=== PATIENT | female | born 1960 | race Two or more races ===

== ENCOUNTER 2020-05-14 15:06 | Outpatient (REF) | payer MEDICARE, MEDICAID, SELFPAY ==
[2020-05-14 16:48] LABS: MANUAL DIFF FLAG NO
[2020-05-14 16:53] LABS: Basophils Absolute Auto 0.1 X10*3/uL (0.0-0.2); Basophils Percent Auto 0.6 % (0-2); Eosinophils Absolute Auto 0.2 X10*3/uL (0.0-0.4); Eosinophils Percent Auto 2.1 % (0-4); Hematocrit 40.6 % (37-47); Hemoglobin 13.3 g/dl (12.0-16.0); Imm Gran Abs Auto 0.04 X10*3/uL (0.00-0.03); Imm Gran Pct Auto 0.5 % (0.0-0.4); Lymphocytes Absolute Auto 2.3 X10*3/uL (1.2-4.9); Lymphocytes Percent Auto 27.8 % (20-40); Mean Corpuscular HGB Conc 32.8 g/dl (31.0-35.0); Mean Corpuscular Hemoglobin 27.4 pg (27.0-33.0); Mean Corpuscular Volume 83.5 fL (80-98); Mean Platelet Volume 11.6 fL (9.4-12.3); Monocytes Absolute Auto 0.6 X10*3/uL (0.1-1.2); Monocytes Percent Auto 6.7 % (2-11); Neutrophils Absolute Auto 5.1 X10*3/uL (2.0-8.3); Neutrophils Percent Auto 62.3 % (45-73); Platelet Count 192 X10*3/uL (160-400); Red Blood Count 4.86 X10*6/uL (4.20-5.50); Red Cell Distribution Width 12.8 % (11.0-16.0); White Blood Count 8.2 X10*3/uL (4.8-10.8)
[2020-05-14 17:24] LABS: Alanine Aminotransferase 25 U/L (0-31); Albumin Level 4.6 g/dL (3.5-5.0); Alkaline Phosphatase 109 U/L (39-117); Anion Gap 12 (12-20); Aspartate Amino Transferase 20 U/L (5-31); Bilirubin Total 0.4 mg/dL (0.0-1.0); Blood Urea Nitrogen 8 mg/dL (9-16); C Reactive Protein 1.95 mg/dL (< or = 0.50); Calcium 9.3 mg/dL (8.4-10.2); Carbon Dioxide 28 mmol/L (22-29); Chloride 102 mmol/L (96-108); Estimated Glomerular Filt Rate > 60; Glucose Random 153 mg/dL (60-115); Potassium 4.4 mmol/l (3.3-5.1); Sodium 138 mmol/L (135-145); Total Protein 7.3 g/dL (6.5-8.0)
[2020-05-14 17:57] LABS: Erythrocyte Sedimentation Rate 17 MM/HR (0-20)
== END 2020-05-14 15:07 | disposition home or self-care (01) ==
LOC: HO.LAB 15:06
PROVIDERS: PCP Family Medicine; Referring Provider Family Medicine; Visit Provider Student in an Organized Health Care Education/Training Program
DX: M35.3 Polymyalgia rheumatica (principal); M54.5 Low back pain; Z79.52 Long term (current) use of systemic steroids
CPT/HCPCS: 36415; 80053; 85025; 85652; 86140; 99212

== ENCOUNTER → 2020-05-20 08:27 | Outpatient (BNVA) | payer MEDICARE, MEDICAID, SELFPAY | PROVIDERS: PCP Family Medicine; Visit Provider Nurse Practitioner Gerontology | DX: E11.9 Type 2 diabetes mellitus without complications (principal); Z79.84 Long term (current) use of oral hypoglycemic drugs; I10 Essential (primary) hypertension; E78.5 Hyperlipidemia, unspecified | CPT/HCPCS: Q3014 ==

== ENCOUNTER 2020-06-09 10:08 | Outpatient (REF) | payer MEDICARE, MEDICAID, SELFPAY ==
[2020-06-09 11:37] LABS: Estimated Average Glucose 166 mg/dL; Hemoglobin A1c % 7.4 %
[2020-06-09 12:11] LABS: Alanine Aminotransferase 16 U/L (0-31); Albumin Level 4.2 g/dL (3.5-5.0); Alkaline Phosphatase 96 U/L (39-117); Anion Gap 13 (12-20); Aspartate Amino Transferase 13 U/L (5-31); Bilirubin Total 0.5 mg/dL (0.0-1.0); Blood Urea Nitrogen 7 mg/dL (9-16); Carbon Dioxide 28 mmol/L (22-29); Chloride 104 mmol/L (96-108); Cholesterol 174 mg/dL; Estimated Glomerular Filt Rate > 60; Glucose Fasting 185 mg/dL (60-99); HDL Cholesterol 37 mg/dL; LDL Cholesterol Calculated 92 mg/dl; Potassium 4.3 mmol/l (3.3-5.1); Sodium 141 mmol/L (135-145); Triglycerides 226 mg/dL
[2020-06-09 12:18] LABS: Creatinine Urine 54.69 mg/dL; Microalbumin Urine < 5.0 mg/L
[2020-06-09 12:38] LABS: Erythrocyte Sedimentation Rate 19 MM/HR (0-20)
== END 2020-06-09 10:09 | disposition home or self-care (01) ==
LOC: HO.LAB 10:08
PROVIDERS: Nurse Practitioner Gerontology; Visit Provider Student in an Organized Health Care Education/Training Program
DX: M35.3 Polymyalgia rheumatica (principal); E11.9 Type 2 diabetes mellitus without complications
CPT/HCPCS: 36415; 80053; 80061; 82043; 83036; 85652; 86140

== ENCOUNTER → 2020-09-02 10:01 | Outpatient (BNVA) | payer MEDICAID, SELFPAY | PROVIDERS: Visit Provider Nurse Practitioner Gerontology ==

== ENCOUNTER 2020-09-03 12:39 | Outpatient (REF) | payer MEDICARE, MEDICAID, SELFPAY ==
--- NOTE | ~2020-09-03 | MM_ITS ---
EXAMINATION: MM SCREENING DIGITAL BREAST TOMOSYNTHESIS, BILATERAL CLINICAL INFORMATION: Screening. Asymptomatic. The lifetime risk of breast cancer based on the Tyrer-Cuzick Model is 13.4%. COMPARISON: Mammography: October 29, 2019 and studies dating back to November 20, 2010 TECHNIQUE: Digital breast tomosynthesis is performed in both the craniocaudal and mediolateral oblique views along with computer-aided detection (CAD). Synthesized 2D images are generated from the tomosynthesis. FINDINGS: The breasts are heterogeneously dense, which may obscure small masses (ACR BI-RADS breast composition Category c). There are no new significant masses, abnormal calcifications, or other abnormalities. Stable circumscribed density superior aspect of the right breast seen. MM/MM tomosynthesis screening BI IMPRESSION: There are no significant changes from prior study. ASSESSMENT: BI-RADS 1: Negative RECOMMENDATION: Routine annual mammography screening. This patient's information was entered into a reminder system with a target due date for their next mammogram.
== END 2020-09-03 12:40 | disposition home or self-care (01) ==
LOC: HO.MAMMO 12:39
PROVIDERS: Visit Provider Student in an Organized Health Care Education/Training Program
DX: Z12.31 Encounter for screening mammogram for malignant neoplasm of breast (principal)
CPT/HCPCS: 77063; 77067

== ENCOUNTER → 2020-09-09 12:16 | Outpatient (BNVA) | payer MEDICARE, MEDICAID, SELFPAY | PROVIDERS: PCP Family Medicine; Visit Provider Student in an Organized Health Care Education/Training Program | DX: M35.3 Polymyalgia rheumatica (principal); M54.5 Low back pain; Z79.899 Other long term (current) drug therapy | CPT/HCPCS: 99212 ==

== ENCOUNTER → 2020-09-10 10:59 | Outpatient (BNVA) | payer MEDICARE, MEDICAID, SELFPAY | PROVIDERS: PCP Internal Medicine; Visit Provider Surgery | DX: Z86.010 Personal history of colon polyps (principal) | CPT/HCPCS: 99202 ==

== ENCOUNTER → 2020-09-18 14:55 | Outpatient (BNVA) | payer MEDICARE, MEDICAID, SELFPAY | PROVIDERS: Visit Provider Internal Medicine Pulmonary Disease | DX: J44.9 Chronic obstructive pulmonary disease, unspecified (principal); R91.8 Other nonspecific abnormal finding of lung field | CPT/HCPCS: 99212 ==

== ENCOUNTER 2020-09-26 05:57 | Day surgery (SDC) | payer MEDICARE, MEDICAID, SELFPAY ==
--- NOTE | 2020-09-25 09:47 | HO.ANESPROP2 ---
Documented by User: Davida Mortonney 09/25/20 09:49 HPI - Anesthesia Eval Consult details Narrative: 60yo F for Colonoscopy Prednisone daily (PMR) PRN opioids PMFSH Active Problems Active Problems: All Active Problems (Updated 09/18/20 @ 15:12 by Rc Baker MD) Pulmonary nodules (Acute) COPD (chronic obstructive pulmonary disease) (Acute) History of adenomatous polyp of colon (Acute) Diabetes mellitus type 2, controlled, without complications (Acute) Essential hypertension (Acute) Hyperlipidemia LDL goal <100 (Acute) Low back pain (Acute) halfway systemic steroid user (Acute) Polymyalgia rheumatica (Acute) Past Medical History Medical History Adenocarcinoma of colon Arthritis Asthma Constipation COPD (chronic obstructive pulmonary disease) Diabetes mellitus type 2, controlled, without complications Essential hypertension History of adenomatous polyp of colon Hyperlipidemia LDL goal <100 Low back pain Polymyalgia rheumatica Positive CLEMENT (antinuclear antibody) Tubular adenoma of colon Vitamin D deficiency Family History Family History Father Diabetes CVD (cardiovascular disease) Mother Breast cancer Skin cancer Cancer Surgical History Surgical History History of rigid sigmoidoscopy Hx of biopsy Hx of cardiac catheterization Hx of cholecystectomy Hx of colonoscopy Hx of removal of cyst Social History Social History Alcohol intake: never Smoking Status: Never smoker Use of substances other than those prescribed or required for medical reasons: No Advance Directives: No Advance Directives Information Provided: Yes Meds Allergies Allergy/AdvReac Type Severity Reaction Status Date / Time No Known Allergies Allergy Verified 09/26/20 06:24 [No Known Allergies*] Home Medications Medication Instructions Recorded Confirmed Last Taken Type ascorbate calcium (vitamin C) 500 500 mg PO DAILY 05/14/20 09/10/20 Unknown History mg tablet atorvastatin 20 mg tablet 20 mg PO DAILY 05/14/20 09/10/20 Unknown History cholecalciferol (vitamin D3) 125 mcg PO 05/14/20 09/10/20 Unknown History mcg (5,000 unit) disintegrating tablet clonidine HCl 0.1 mg tablet 0.1 mg PO BEDTIME 05/14/20 09/10/20 Unknown History docusate sodium 100 mg capsule 100 mg PO DAILY 05/14/20 09/10/20 Unknown History hydroxyzine HCl 25 mg tablet 25 mg PO BEDTIME 05/14/20 09/10/20 Unknown History mirtazapine 30 mg tablet 30 mg PO BEDTIME 05/14/20 09/10/20 Unknown History sitagliptin 100 mg tablet 100 mg PO DAILY 05/14/20 09/10/20 Unknown History Exam Exam Date and Time: September 25, 2020 0947 Pertinent Lab Results Pertinent Lab Results: Laboratory Tests 05/14/20 06/09/20 16:13 10:25 WBC 8.2 Hgb 13.3 Hct 40.6 Plt Count 192 Sodium 141 Potassium 4.3 Chloride 104 Carbon Dioxide 28 BUN 7 L Creatinine 0.68 Assessment and Plan Assessment Anesthesia Assessment: Chart Reviewed Documented by User: Latrice Velasco 09/26/20 07:47 PMFSH Past Medical History Medical History Adenocarcinoma of colon Arthritis Asthma Constipation COPD (chronic obstructive pulmonary disease) Diabetes mellitus type 2, controlled, without complications Essential hypertension History of adenomatous polyp of colon Hyperlipidemia LDL goal <100 Low back pain Polymyalgia rheumatica Positive CLEMENT (antinuclear antibody) Tubular adenoma of colon Vitamin D deficiency Family History Family History Father Diabetes CVD (cardiovascular disease) Mother Breast cancer Skin cancer Cancer Surgical History Surgical History History of rigid sigmoidoscopy Hx of biopsy Hx of cardiac catheterization Hx of cholecystectomy Hx of colonoscopy Hx of removal of cyst Social History Social History Alcohol intake: never Smoking Status: Never smoker Use of substances other than those prescribed or required for medical reasons: No Advance Directives: No Advance Directives Information Provided: Yes Meds Allergies Allergy/AdvReac Type Severity Reaction Status Date / Time No Known Allergies Allergy Verified 09/26/20 06:24 [No Known Allergies*] Home Medications Medication Instructions Recorded Confirmed Last Taken Type ascorbate calcium (vitamin C) 500 500 mg PO DAILY 05/14/20 09/10/20 Unknown History mg tablet atorvastatin 20 mg tablet 20 mg PO DAILY 05/14/20 09/10/20 Unknown History cholecalciferol (vitamin D3) 125 mcg PO 05/14/20 09/10/20 Unknown History mcg (5,000 unit) disintegrating tablet clonidine HCl 0.1 mg tablet 0.1 mg PO BEDTIME 05/14/20 09/10/20 Unknown History docusate sodium 100 mg capsule 100 mg PO DAILY 05/14/20 09/10/20 Unknown History hydroxyzine HCl 25 mg tablet 25 mg PO BEDTIME 05/14/20 09/10/20 Unknown History mirtazapine 30 mg tablet 30 mg PO BEDTIME 05/14/20 09/10/20 Unknown History sitagliptin 100 mg tablet 100 mg PO DAILY 05/14/20 09/10/20 Unknown History Exam Airway Mallampati Class: II TM Dist: >3cm Neck ROM: Full Assessment and Plan Assessment Anesthesia Assessment: Anesthesia Plan Discussed and Chart Reviewed Final Anesthetic Review NPO: Yes ASA Class: III Final Preanesthetic Review: No Changes in Pt Med Stat, Meds/Allgs Chart Reviewed, Consent Obtained/Reviewed and Anes Risks/Benef Reviewed Patient Risk: Intermediate Procedure Risk: Low Assessment/Block/Sedation in SS: Assess/Block/Sedation-SS Anesthetic Plan Anesthetic Plan: MAC: Disposition: Standard PACU
[2020-09-26 06:25] VITALS: BMI 27.1
[2020-09-26 06:35] VITALS: BP 122/67; PULSE 70; RESP 16; TEMP 35.9; O2SAT 97
[2020-09-26] MEDS: Lactated Ringers 1,000 ML 100 ML IVCONT (06:35)
[2020-09-26 06:39] LABS: Glucose, Whole Blood 135 mg/dL (60-115)
--- NOTE | 2020-09-26 07:25 | MHC.SHP ---
Pre-Procedural Eval Section B Chief Complaint: History of adenomatous polyp of colon Allergies: Allergies Allergy/AdvReac Type Severity Reaction Status Date / Time No Known Allergies Allergy Verified 09/26/20 06:24 [No Known Allergies*] Plan I have reviewed the history and physical and performed a pertinent physical examination on my patient. No changes have occurred unless specified.
--- NOTE | 2020-09-26 07:58 | PM.OP ---
Brief Operative Note Date of Service: 09/26/20 Pre-op diagnosis: hx of rectosigmoid intramucosal adenocarcinoma Post-op diagnosis: other (polyp, 7 mm, distal transverse) Procedure: colonoscopy, polypectomy w/ cold snare Surgeon: Gilberto Menjivar MD Anesthesia: MAC Estimated blood loss (mL): 0 Pathology: other (polyp) Condition: stable Disposition: other (home)
--- NOTE | 2020-09-26 08:00 | W.PM.OPN ---
Operative Note Operative Note Date of Service: 09/26/20 Narrative: Preop diagnosis: History of intramucosal adenocarcinoma of the the rectosigmoid Postop diagnosis: 1. Polyp about 7 mm in the distal transverse colon, removed with cold snare Procedure: Colonoscopy with polypectomy using cold snare Surgeon: Gilberto Menjivar MD The patient is a 60-year-old female who had previously undergone resection of the rectosigmoid for an intramucosal adenocarcinoma. She is here for follow-up colonoscopy. It has been 5 years since her last colonoscopy. She understood the technique of procedure as well as the risks, benefits, and alternatives. She was brought to the operating room placed in left lateral decubitus position under monitored anesthesia care. A full digital rectal exam was done and there were no palpable anal lesions except for internal and external hemorrhoids. The tip of the Olympus colonoscope was gently inserted into the anal orifice and advanced with insufflation gently all the way to the cecum. The cecum was intubated. The cecum was identified by visualization of the ileocecal valve as well as the appendiceal orifice. The cecal mucosa was unremarkable. The scope was gradually withdrawn with careful examination of the entire colonic mucosa being done with scope withdrawal. The patient had good bowel prep so it was unlikely that any lesion may have been missed. At the distal transverse colon that, there was note of a polyp, about 7mm in size. This was removed using cold snare and was retrieved with suction. The rest of the distal colon as well as the rectum were unremarkable. The old anastomosis was noted in the rectosigmoid. The anal canal was unremarkable except for internal and external hemorrhoids which appeared bulky. The scope was then withdrawn completely with desufflation The patient tolerated the procedure well. There were no complication noted. Estimated blood loss was 0. The patient was transferred to the recovery room with stable vital signs. Her next colonoscopy for screening would be in the next 5 years.
[2020-09-26 08:03] VITALS: BP 102/67; PULSE 67; RESP 16; TEMP 36.1; O2SAT 97
[2020-09-26 08:18] VITALS: BP 108/67; PULSE 66; RESP 18; O2SAT 98
== END 2020-09-26 09:07 ==
LOC: HO.SSS 05:58
PROVIDERS: Visit Provider Surgery
PROC: 0DJD8ZZ Inspection of Lower Intestinal Tract, Via Natural or Artificial Opening Endoscopic (ICD-10-PCS; CPT 45378; principal; 2020-09-26 08:00)
DX: Z12.11 Encounter for screening for malignant neoplasm of colon (principal); Z85.048 Personal history of other malignant neoplasm of rectum, rectosigmoid junction, and anus; Z86.010 Personal history of colon polyps; D12.3 Benign neoplasm of transverse colon; K64.8 Other hemorrhoids; K64.4 Residual hemorrhoidal skin tags; Z98.0 Intestinal bypass and anastomosis status; E11.9 Type 2 diabetes mellitus without complications; I10 Essential (primary) hypertension; J44.9 Chronic obstructive pulmonary disease, unspecified; E55.9 Vitamin D deficiency, unspecified; Z90.49 Acquired absence of other specified parts of digestive tract; Z79.84 Long term (current) use of oral hypoglycemic drugs; Z79.899 Other long term (current) drug therapy; Z79.52 Long term (current) use of systemic steroids; Z87.891 Personal history of nicotine dependence
CPT/HCPCS: 45385; 82947; 88305

== ENCOUNTER → 2020-10-06 10:39 | Outpatient (BNVA) | payer MEDICARE, MEDICAID, SELFPAY | PROVIDERS: Visit Provider Surgery | CPT/HCPCS: 99212 ==

== ENCOUNTER 2020-11-22 13:12 | Emergency (ER) | payer MEDICARE, MEDICAID, SELFPAY ==
--- NOTE | 2020-11-22 | ECG_ITS ---
Test Reason : ABDOMINAL PAIN Blood Pressure : / mmHG Vent. Rate : 064 BPM Atrial Rate : 064 BPM P-R Int : 150 ms QRS Dur : 078 ms QT Int : 414 ms P-R-T Axes : 023 004 025 degrees QTc Int : 427 ms Normal sinus rhythm Normal ECG When compared with ECG of 21-MAY-2017 15:14, No significant change was found Referred By: Generic ED Physician Electronically Signed By:KAY BRENNAN
--- NOTE | ~2020-11-22 | XR_ITS ---
EXAMINATION: XR CHEST CLINICAL INFORMATION: Epigastric abdominal pain COMPARISON: 05/21/2017 TECHNIQUE: Frontal view of the chest was obtained. FINDINGS: Normal cardiomediastinal silhouette adequate expansion of the lungs. No focal consolidation. No pleural effusion or pneumothorax. No acute osseous abnormality. Mild degenerative changes of the spine and bilateral shoulders. XR/XR chest 1V IMPRESSION: No acute disease within the chest.
--- NOTE | ~2020-11-22 | CT_ITS ---
EXAMINATION: CT ANGIOGRAM OF THE CHEST WITH AND WITHOUT CONTRAST (CT PULMONARY ANGIOGRAM FOR PE) CLINICAL INFORMATION: Rule out PE and evaluate aorta. Epigastric pain radiating to back. COMPARISON: None TECHNIQUE: Prior to contrast administration, noncontrast localization images were obtained. Subsequently, multidetector volumetric imaging was performed from the thoracic inlet to below the diaphragms following the administration of 85 mL Omnipaque 350 intravenous contrast. No contrast reaction reported. Sagittal, coronal, and MIP oblique sagittal reformatted images were obtained on the CT workstation, uploaded to PACS, and reviewed. This CT examination was performed using dose optimization techniques as appropriate, variously including the following: *Automated exposure control *Adjustment of mA and/or kV according to patient size (this includes techniques or standardized protocols for targeted exams where dose is matched to indication/reason for exam; i.e. extremities or head) *Use of iterative reconstruction technique Total exam dose-length product 201 mGy-cm FINDINGS: QUALITY OF STUDY/CONTRAST BOLUS: Satisfactory. PULMONARY ARTERIES: No evidence of filling defects to suggest central or segmental pulmonary emboli. THORACIC AORTA: No aneurysm or dissection. The appearance of the thinning aorta appears to be related to cardiac motion artifact. The vessels originating from the aortic arch are enhancing. LUNG: Pulmonary nodules present. 5 mm nodule right upper lobe image 9:167. 2 mm nodule subjacent to this. Additional smaller scattered nodules seen. 3 mm calcified nodule left lower lobe image 9:147. Areas of ground-glass opacity in bilateral lungs, with mosaic attenuation appearance in the left lower lobe. This may reflect infectious or inflammatory process. No dense consolidation is seen. PLEURA: No pleural effusion or pneumothorax. MEDIASTINUM: Normal heart size. No pericardial effusion. No hilar or mediastinal lymphadenopathy. No evidence of septal bowing or right heart strain. Peripherally calcified left thyroid lobe nodule measuring 1.7 cm. There are additional calcified nodules present. CHEST WALL/AXILLA: No axillary or internal mammary lymphadenopathy. OSSEOUS STRUCTURES: No acute or suspicious osseous abnormality seen. Degenerative changes in the spine. UPPER ABDOMEN: See abdomen CT report. No reflux of contrast into the hepatic veins to suggest elevated right heart pressures. CT/CT angio chest PE protocol IMPRESSION: 1. No evidence of filling defects to suggest central or segmental pulmonary emboli. 2. No evidence of aortic dissection is seen. 3. Pulmonary nodules, largest measuring 5 mm. According to the UPDATED 2017 Fleischner Society recommendations, the advised follow-up imaging for solid nodules < 6 mm is: LOW RISK PATIENT: No routine follow-up. HIGH RISK PATIENT: Optional CT at 12 months. 4. Areas of ground-glass opacity with mosaic attenuation pattern of the left lower lobe. This could reflect infectious or inflammatory process. No dense consolidation is seen. 5. Peripherally calcified 1.7 cm left thyroid lobe nodule. Additional calcified foci are seen. Recommend further evaluation with followup ultrasound. VTE: negative
--- NOTE | ~2020-11-22 | CT_ITS ---
EXAMINATION: CT ABDOMEN AND PELVIS WITH CONTRAST CLINICAL INFORMATION: Abnormal liver function tests, epigastric pain, right upper quadrant pain. COMPARISON: Ultrasound abdomen 11/10/2010 TECHNIQUE: Multidetector volumetric images were obtained from the superior aspect of the liver through the pubic symphysis following administration 85 mL of Omnipaque 350 intravenous contrast. Sagittal and coronal reformatted images were obtained on the technologist's workstation. Oral contrast: No. This CT examination was performed using dose optimization techniques as appropriate, variously including the following: *Automated exposure control *Adjustment of mA and/or kV according to patient size (this includes techniques or standardized protocols for targeted exams where dose is matched to indication/reason for exam; i.e. extremities or head) *Use of iterative reconstruction technique DLP: 506 mGy-cm FINDINGS: LUNG BASES: See chest CT report. LIVER, GALLBLADDER, AND BILIARY TREE: Mild diffuse low attenuation suggesting hepatic steatosis. No focal hepatic lesions. No biliary duct dilatation. Status post-cholecystectomy. PANCREAS: Unremarkable. No acute inflammatory changes seen. SPLEEN: Unremarkable. ADRENAL GLANDS: Unremarkable. KIDNEYS AND URETERS: 1.8 cm right renal cyst. No renal calculi. No ureteral calculi. No hydronephrosis. BLADDER: Unremarkable. GASTROINTESTINAL TRACT: The stomach is nondistended precluding evaluation. No dilated small bowel loops. Surgical sutures in the rectosigmoid region. No acute inflammatory changes evident with the large bowel. Surgical staple in the proximal ascending colon. Normal appendix. No ascites. No free air. ABDOMINAL WALL: No significant hernia is appreciated. LYMPH NODES: No lymphadenopathy seen in the abdomen or pelvis. VASCULAR: No aneurysmal dilatation of the aorta is seen. No findings to suggest abdominal aortic dissection. The origins of the celiac, SMA, renal, RAYRAY vessels are enhancing. Scattered atherosclerotic vascular calcification. PELVIC VISCERA: Hypodense focus in the left adnexa, probably ovarian in nature. OSSEOUS STRUCTURES: Degenerative changes in the spine. Possible hemangioma in the L3 vertebral body. CT/CT abdomen pelvis w con IMPRESSION: 1. Hepatic steatosis. 2. Status post-cholecystectomy. No evidence of biliary duct dilatation. 3. Right renal 1.8 cm cyst. 4. Postsurgical changes associated with the rectosigmoid region. Stomach is nondistended, and not evaluated. 5. No acute process is otherwise identified in the abdomen or pelvis. Cause of patient's symptoms has not been determined by CT.
[2020-11-22 13:52] VITALS: BP 151/78; PULSE 74; RESP 16; TEMP 35.6; O2SAT 98; BMI 27.4
[2020-11-22 14:00] VITALS: BP 141/71; PULSE 88; RESP 18; TEMP 36.9; O2SAT 95
--- NOTE | 2020-11-22 15:12 | ED.GENADULT ---
HPI - General Adult General Chief complaint: General Medical Stated complaint: ABD PAIN Time Seen by Provider: 11/22/20 14:23 Source: patient Mode of arrival: ambulatory History of Present Illness HPI narrative: 60-year-old female with a past medical history of asthma, constipation, COPD, diabetes, HTN, cardiac catheterization, cholecystectomy, HLD, vitamin-D deficiency to the ED complaining of epigastric abdominal pain radiating to back since this morning with associated SOB. Denies fever, chills, nausea, vomiting, diarrhea/constipation, lightheadedness/dizziness, CP, dysuria/hematuria Onset (ago): day(s) Related Data Home Medications Medication Instructions Recorded Confirmed ascorbate calcium (vitamin C) 500 500 mg PO DAILY 05/14/20 10/06/20 mg tablet atorvastatin 20 mg tablet 20 mg PO DAILY 05/14/20 10/06/20 cholecalciferol (vitamin D3) 125 mcg PO 05/14/20 10/06/20 mcg (5,000 unit) disintegrating tablet clonidine HCl 0.1 mg tablet 0.1 mg PO BEDTIME 05/14/20 10/06/20 docusate sodium 100 mg capsule 100 mg PO DAILY 05/14/20 10/06/20 hydroxyzine HCl 25 mg tablet 25 mg PO BEDTIME 05/14/20 10/06/20 mirtazapine 30 mg tablet 30 mg PO BEDTIME 05/14/20 10/06/20 sitagliptin 100 mg tablet 100 mg PO DAILY 05/14/20 10/06/20 Previous Rx's Medication Instructions Recorded lancets 28 gauge #100 ea 05/20/20 empagliflozin 10 mg tablet 10 mg PO QAM #30 tab 06/16/20 Compression socks #1 ea 06/23/20 prednisone 5 mg tablet 5 mg PO DAILY #30 tab 08/26/20 blood sugar diagnostic #50 ea 09/02/20 lancets 28 gauge #100 ea 09/02/20 tramadol 50 mg tablet 50 mg PO TID PRN #90 tab 09/09/20 sodium,potassium,mag sulfates 17.5 See Rx Instructions PO .COMPLEX 09/10/20 gram-3.13 gram-1.6 gram oral soln #354 ml tiotropium 2.5 mcg-olodaterol 2.5 2 puff INHALATION DAILY 30 Days #1 09/18/20 mcg/actuation mist for inhalation ea pioglitazone 30 mg tablet 30 mg PO DAILY #30 tab 09/25/20 metformin 500 mg tablet,extended 500 mg PO .COMPLEX #90 tab 10/16/20 release 24 hr albuterol sulfate 2 puff INHALATION Q4-6H PRN #6.7 g 11/22/20 alum-mag hydroxide-simeth [Maalox 5 ml PO 5XD PRN #3000 ml 11/22/20 Advanced] azithromycin See Rx Instructions .ROUTE 11/22/20 .COMPLEX #6 tab famotidine [Pepcid] 20 mg PO DAILY #14 tab 11/22/20 Allergies Allergy/AdvReac Type Severity Reaction Status Date / Time No Known Allergies Allergy Verified 10/06/20 10:35 [No Known Allergies*] Review of Systems Review of Systems: Constitutional: No Fever, No Chills, No Fatigue, No Malaise Cardiovascular: No Chest Pain, + SOB, No Dyspnea on Exertion, No Orthopnea, No Edema Respiratory: No Cough Gastrointestinal: No Nausea, No Vomiting, No Diarrhea, No Constipation, + Abdominal pain Genitourinary:No Dysuria, No Urinary Frequency, No Hematuria, No Flank Pain, No Urinary Flow Changes, No Hesitancy Musculoskeletal: No joint pain, No Myalgias, No Joint Swelling Skin: No Skin Lesions, No rash Neuro: No Weakness, No Numbness, No Paresthesias, No Dizziness, No Headache Yes all other systems are reviewed and are negative [facility] Past Medical History Attestation statement: The following information was validated with the patient. Medical History Adenocarcinoma of colon Arthritis Asthma Constipation COPD (chronic obstructive pulmonary disease) Diabetes mellitus type 2, controlled, without complications Essential hypertension History of adenomatous polyp of colon Hyperlipidemia LDL goal <100 Low back pain Polymyalgia rheumatica Positive CLEMENT (antinuclear antibody) Tubular adenoma of colon Vitamin D deficiency Surgical History History of rigid sigmoidoscopy Hx of biopsy Hx of cardiac catheterization Hx of cholecystectomy Hx of colonoscopy Hx of removal of cyst Family History Family History Father Diabetes CVD (cardiovascular disease) Mother Breast cancer Skin cancer Cancer Social History Social History Alcohol intake: never Advance Directives: No Advance Directives Information Provided: No Physical Exam Vital Signs: Vital Signs: Last Vital Signs Temp 96.1 F L 11/22/20 13:52 Pulse 58 11/22/20 16:11 Resp 16 11/22/20 13:52 BP 151/78 H 11/22/20 13:52 Pulse Ox 98 11/22/20 13:52 Body Mass Index 27.4 Const: General: cooperative, healthy appearing and no acute distress Orientation/consciousness: patient oriented x3 Limitations: no limitations HENMT: Head: Yes normal to inspection Ears: hearing grossly normal bilaterally General nose exam: Normal external nose present Face and sinus: Yes normal facial exam Eyes: General: appearance normal, both eyes and all related structures EOM: EOMs intact bilaterally Neck: Neck: Yes normal visual inspection and Yes no meningeal signs Chest: Chest palpation & inspection: normal inspection of the chest Resp: Effort & Inspection: normal respiratory effort Auscultation: wheezes expiratory wheezes and lower bilaterally and diminished lung sounds diffuse Cardio: Rate: regular rate Heart sounds: S1 normal heart sound present and S2 normal heart sound present Peripheral pulses: Peripheral pulses 2+ throughout GI: Inspection: Yes normal to inspection Palpation (GI): Soft to palpation, Tenderness to palpation present (GI) in the epigastrum and in the RUQ, no guarding and not rigid : General: Yes CVA tenderness bilateral Skin: Rashes: no rashes Wounds: no wounds Neuro: General: patient oriented x3, tone normal, moves all extremities and no meningeal signs Gait exam (Neuro): Normal gait present Extrem: General: Yes normal to inspection Course Course Course Narrative: XR chest 1V IMPRESSION: No acute disease within the chest. -1614-- no leukocytosis, bilirubin/AST/ALT elevated > will adjust CT scans, troponin negative 1800- CT angio chest PE protocol IMPRESSION: 1. No evidence of filling defects to suggest central or segmental pulmonary emboli. 2. No evidence of aortic dissection is seen 3. Pulmonary nodules, largest measuring 5 mm. According to the UPDATED 2017 Fleischner Society recommendations, the advised follow-up imaging for solid nodules < 6 mm is: LOW RISK PATIENT: No routine follow-up. HIGH RISK PATIENT: Optional CT at 12 months. 4. Areas of ground-glass opacity with mosaic attenuation pattern of the left lower lobe. This could reflect infectious or inflammatory process. No dense consolidation is seen. 5. Peripherally calcified 1.7 cm left thyroid lobe nodule. Additional calcified foci are seen. Recommend further evaluation with followup ultrasound. VTE: negative CT abdomen pelvis w con IMPRESSION: 1. Hepatic steatosis. 2. Status post-cholecystectomy. No evidence of biliary duct dilatation. 3. Right renal 1.8 cm cyst. 4. Postsurgical changes associated with the rectosigmoid region. Stomach is nondistended, and not evaluated. 5. No acute process is otherwise identified in the abdomen or pelvis. Cause of patient's symptoms has not been determined by CT. >> hepatitis panel added. Patient is on Atorvastatin and Actos which will hold due to hepatic effects. On re-evaluation lungs CTA. Discussed at length with staff interpreter results and necessity for close follow-up with PCP, patient verbalized understanding feel safe for discharge home. Was instructed to stop medications and have repeat labs, will call PCP on Tuesday Medical Decision Making MDM Narrative Medical decision making narrative: 60-year-old female with a past medical history of asthma, constipation, COPD, diabetes, HTN, cardiac catheterization, cholecystectomy, HLD, vitamin-D deficiency to the ED complaining of epigastric abdominal pain radiating to back since this morning with associated SOB. On exam VSS, lungs with diminished lung sounds around and bibasilar expiratory wheeze, abdomen soft with epigastric/RUQ TTP and bilateral CVAT. Pulses intact throughout. Concern for COPD exacerbation vs Liver dz vs pancreatitis vs dissection or PE. Rule out other intra-abdominal pathology vs pneumonia vs PE Plan: EKG, labs, CXR, CT chest/abdomen pelvis, DuoNeb, reassess Lab Data Result diagrams: 11/22/20 15:13 11/22/20 15:13 Labs: Lab Results 11/22/20 11/22/20 11/22/20 Range/Units 15:13 15:13 15:13 WBC 9.3 (4.8-10.8) X10*3/uL RBC 4.92 (4.20-5.50) X10*6/uL Hgb 13.4 (12.0-16.0) g/dl Hct 40.9 (37-47) % MCV 83.1 (80-98) fL MCH 27.2 (27.0-33.0) pg MCHC 32.8 (31.0-35.0) g/dl RDW 13.2 (11.0-16.0) % Plt Count 172 (160-400) X10*3/uL MPV 11.2 (9.4-12.3) fL Immature Gran % (Auto) 0.4 (0.0-0.4) % Neut % (Auto) 78.6 H (45-73) % Lymph % (Auto) 13.7 L (20-40) % Burt % (Auto) 6.0 (2-11) % Eos % (Auto) 0.9 (0-4) % Baso % (Auto) 0.4 (0-2) % Lymph # (Auto) 1.3 (1.2-4.9) X10*3/uL Burt # (Auto) 0.6 (0.1-1.2) X10*3/uL Eos # (Auto) 0.1 (0.0-0.4) X10*3/uL Baso # (Auto) 0.0 (0.0-0.2) X10*3/uL Abs Immat Gran (auto) 0.04 H (0.00-0.03) X10*3/uL Absolute Neuts (auto) 7.3 (2.0-8.3) X10*3/uL Absolute Nucleated RBC 0.000 (0.0-0.012) X10*3/uL Nucleated RBC % (auto) 0.0 (0.0-0.2) /100WBC PT 12.6 (10.8-13.0) SEC INR 1.1 (0.9-1.1) APTT 29.5 (24.1-38.0) SEC Sodium 142 (135-145) mmol/L Potassium 4.8 (3.3-5.1) mmol/L Chloride 104 (96-108) mmol/L Carbon Dioxide 31 H (22-29) mmol/L Anion Gap 12 (12-20) BUN 9 (9-16) mg/dL Creatinine 0.64 (0.5-1.4) mg/dL Estim Creat Clear Calc 91.2 Estimated GFR > 60 Random Glucose 134 H (60-115) mg/dL Calcium 9.8 D (8.4-10.2) mg/dL Magnesium 2.2 (1.6-2.6) mg/dL Total Bilirubin 1.4 H (0.0-1.0) mg/dL Direct Bilirubin 1.0 H (0.0-0.5) mg/dL AST 528 H (5-31) U/L ALT 301 H (0-31) U/L Alkaline Phosphatase 180 H D (39-117) U/L Troponin I High Sens (<3.5-17.0) ng/L Total Protein 7.1 (6.5-8.0) g/dL Albumin 4.4 (3.5-5.0) g/dL Lipase 30 (8-78) U/L // Range/Units 15:13 WBC (4.8-10.8) X10*3/uL RBC (4.20-5.50) X10*6/uL Hgb (12.0-16.0) g/dl Hct (37-47) % MCV (80-98) fL MCH (27.0-33.0) pg MCHC (31.0-35.0) g/dl RDW (11.0-16.0) % Plt Count (160-400) X10*3/uL MPV (9.4-12.3) fL Immature Gran % (Auto) (0.0-0.4) % Neut % (Auto) (45-73) % Lymph % (Auto) (20-40) % Burt % (Auto) (2-11) % Eos % (Auto) (0-4) % Baso % (Auto) (0-2) % Lymph # (Auto) (1.2-4.9) X10*3/uL Burt # (Auto) (0.1-1.2) X10*3/uL Eos # (Auto) (0.0-0.4) X10*3/uL Baso # (Auto) (0.0-0.2) X10*3/uL Abs Immat Gran (auto) (0.00-0.03) X10*3/uL Absolute Neuts (auto) (2.0-8.3) X10*3/uL Absolute Nucleated RBC (0.0-0.012) X10*3/uL Nucleated RBC % (auto) (0.0-0.2) /100WBC PT (10.8-13.0) SEC INR (0.9-1.1) APTT (24.1-38.0) SEC Sodium (135-145) mmol/L Potassium (3.3-5.1) mmol/L Chloride (96-108) mmol/L Carbon Dioxide (22-29) mmol/L Anion Gap (12-20) BUN (9-16) mg/dL Creatinine (0.5-1.4) mg/dL Estim Creat Clear Calc Estimated GFR Random Glucose (60-115) mg/dL Calcium (8.4-10.2) mg/dL Magnesium (1.6-2.6) mg/dL Total Bilirubin (0.0-1.0) mg/dL Direct Bilirubin (0.0-0.5) mg/dL AST (5-31) U/L ALT (0-31) U/L Alkaline Phosphatase (39-117) U/L Troponin I High Sens < 3.5 (<3.5-17.0) ng/L Total Protein (6.5-8.0) g/dL Albumin (3.5-5.0) g/dL Lipase (8-78) U/L ECG Data Attestation: I personally reviewed and interpreted this ECG as follows: Interpretation: EKG normal sinus rhythm with rate of 64. Inverted T-wave in V1. QTC 427 Discharge Plan Discharge Clinical Impression: Abnormal LFTs, Pulmonary nodules, Ground glass opacity present on imaging of lung, Thyroid nodule Patient Disposition: Home, Self-Care Instructions: Acute Liver Failure (DC), Abdominal Pain (ED) Additional Instructions: Your blood work showed abnormal liver function tests, we are drawing a hepatitis panel the results should be back in a couple days. You need to have close follow-up with her PCP. Stop taking atorvastatin and Actos until you see your primary care doctor, he should have repeat blood work in a week. On your CT scan you were noted to have opacities, a Zithromax in is an antibiotic, take as prescribed, continue to use albuterol inhaler. Your also noted to have a thyroid nodule, this needs to be followed up with her primary care doctor. You also have pulmonary nodules, it is recommended you have a follow-up chest CT in 1 year. Pepcid and Maalox will help with her symptoms. Do not take any Tylenol as distal also for further her your liver. If her symptoms persist or worsen, your unable to eat or drink, or have fever return to the ED Shabazz an?lisis de luciano mostr? pruebas de funci?n hep?uriel anormales, estamos dibujando un panel de hepatitis, los resultados deber?an estar de vuelta en un par de d?as. Debe tener un seguimiento cercano con shabazz PCP. Deje de benjamin atorvastatina y Actos hasta que andriy a shabazz m?dico de atenci?n primaria, debe repetir los an?lisis de luciano en joe semana. En shabazz tomograf?a computarizada se observ? que ten?a opacidades, un Zithromax en es un antibi?chanelle, t?pete seg?n lo prescrito, contin?e usando el inhalador de albuterol. Tambi?n not? que tiene un n?dulo tiroideo, esto debe ser objeto de seguimiento con shabazz m?dico de atenci?n primaria. Tambi?n tiene n?dulos pulmonares, se recomienda que se realice joe TC de t?rax de seguimiento en 1 a?o. Pepcid y Maalox ayudar?n con marcos s?ntomas. No tome Tylenol jesika distal tambi?n para shabazz h?gado. Si marcos s?ntomas persisten o empeoran, no puede comer ni beber, o tiene fiebre, regresa al servicio de urgencias. Prescriptions: New azithromycin 250 mg tablet See Rx Instructions .ROUTE .COMPLEX Qty: 6 RF: 0 albuterol sulfate 90 mcg/actuation HFA aerosol inhaler 2 puff inhalation Q4-6H PRN (Reason: shortness of breath or wheezing) Qty: 6.7 RF: 0 famotidine [Pepcid] 20 mg tablet 20 mg PO DAILY Qty: 14 RF: 0 alum-mag hydroxide-simeth [Maalox Advanced] 200-200-20 mg/5 mL suspension 5 ml PO 5XD PRN (Reason: indigestion) Qty: 3000 RF: 0 Held pioglitazone 30 mg tablet 30 mg PO DAILY Qty: 30 RF: 2 Hold Instructions: Resume on 11/29/20. atorvastatin 20 mg tablet 20 mg PO DAILY RF: 0 Hold Instructions: Resume on 11/29/20. No Action Jardiance 10 mg tablet 10 mg PO QAM Qty: 30 RF: 6 (DME) Compression socks Compression Socks Medium See Rx Instructions .Route .MEDSUPPLY Qty: 1 RF: 3 prednisone 5 mg tablet 5 mg PO DAILY Qty: 30 RF: 1 metformin 500 mg tablet extended release 24 hr 500 mg PO .COMPLEX Qty: 90 RF: 0 (DME) FreeStyle Lite Strips Strip See Rx Instructions .ROUTE .MEDSUPPLY Qty: 50 RF: 11 (DME) lancets [FreeStyle Lancets] 28 gauge misc See Rx Instructions .ROUTE .MEDSUPPLY Qty: 100 RF: 6 tramadol 50 mg tablet 50 mg PO TID PRN (Reason: pain) Qty: 90 RF: 5 (DME) lancets [FreeStyle Lancets] 28 gauge misc See Rx Instructions .ROUTE .MEDSUPPLY Qty: 100 RF: 6 Januvia 100 mg tablet 100 mg PO DAILY RF: 0 clonidine HCl 0.1 mg tablet 0.1 mg PO BEDTIME RF: 0 cholecalciferol (vitamin D3) 125 mcg (5,000 unit) tablet,disintegrating PO RF: 0 mirtazapine 30 mg tablet 30 mg PO BEDTIME RF: 0 hydroxyzine HCl 25 mg tablet 25 mg PO BEDTIME RF: 0 docusate sodium [Colace] 100 mg capsule 100 mg PO DAILY RF: 0 ascorbate calcium (vitamin C) 500 mg tablet 500 mg PO DAILY RF: 0 Suprep Bowel Prep Kit 17.5-3.13-1.6 gram recon soln See Rx Instructions PO .COMPLEX Qty: 354 RF: 0 Stiolto Respimat 2.5-2.5 mcg/actuation mist 2 puff inhalation DAILY 30 Days Qty: 1 RF: 6 Referrals: Physician,Unknown [Primary Care Provider] - 3 days Print Language: Luxembourgish
[2020-11-22] MEDS: Famotidine/PF 20 MG/2 ML VIAL IVPUSH (15:18)
[2020-11-22 15:19] LABS: MANUAL DIFF FLAG NO
[2020-11-22 15:22] LABS: Basophils Percent Auto 0.4 % (0-2); Eosinophils Absolute Auto 0.1 X10*3/uL (0.0-0.4); Eosinophils Percent Auto 0.9 % (0-4); Hematocrit 40.9 % (37-47); Hemoglobin 13.4 g/dl (12.0-16.0); Imm Gran Abs Auto 0.04 X10*3/uL (0.00-0.03); Imm Gran Pct Auto 0.4 % (0.0-0.4); Lymphocytes Absolute Auto 1.3 X10*3/uL (1.2-4.9); Lymphocytes Percent Auto 13.7 % (20-40); Mean Corpuscular HGB Conc 32.8 g/dl (31.0-35.0); Mean Corpuscular Hemoglobin 27.2 pg (27.0-33.0); Mean Corpuscular Volume 83.1 fL (80-98); Mean Platelet Volume 11.2 fL (9.4-12.3); Monocytes Absolute Auto 0.6 X10*3/uL (0.1-1.2); Neutrophils Absolute Auto 7.3 X10*3/uL (2.0-8.3); Neutrophils Percent Auto 78.6 % (45-73); Platelet Count 172 X10*3/uL (160-400); Red Blood Count 4.92 X10*6/uL (4.20-5.50); Red Cell Distribution Width 13.2 % (11.0-16.0); White Blood Count 9.3 X10*3/uL (4.8-10.8)
[2020-11-22 15:30] LABS: INTERNATIONAL NORM RATIO 1.1 (0.9-1.1); Prothrombin Time 12.6 SEC (10.8-13.0)
[2020-11-22 15:33] LABS: Partial Thromboplastin Time 29.5 SEC (24.1-38.0)
[2020-11-22 15:49] LABS: Alanine Aminotransferase 301 U/L (0-31); Albumin Level 4.4 g/dL (3.5-5.0); Alkaline Phosphatase 180 U/L (39-117); Anion Gap 12 (12-20); Aspartate Amino Transferase 528 U/L (5-31); Bilirubin Total 1.4 mg/dL (0.0-1.0); Blood Urea Nitrogen 9 mg/dL (9-16); Calcium 9.8 mg/dL (8.4-10.2); Carbon Dioxide 31 mmol/L (22-29); Chloride 104 mmol/L (96-108); Creatinine Clr Calc Pharmacy 91.2; Estimated Glomerular Filt Rate > 60; Glucose Random 134 mg/dL (60-115); Lipase 30 U/L (8-78); Magnesium 2.2 mg/dL (1.6-2.6); Potassium 4.8 mmol/L (3.3-5.1); Sodium 142 mmol/L (135-145); Total Protein 7.1 g/dL (6.5-8.0)
[2020-11-22 15:50] LABS: Troponin-I High Sensitivity < 3.5 ng/L (<3.5-17.0)
[2020-11-22] MEDS: Albuterol/Iprat 2.5/0.5MG 3 ML AMPUL.NEB INHALE (16:09)
[2020-11-22 16:11] VITALS: PULSE 58; O2SAT 99
[2020-11-22] MEDS: iohexoL 350 MG/ML 100 ML INFUS..BTL IV (16:49)
[2020-11-22] MEDS: Azithromycin 500 MG TABLET PO (18:40)
[2020-11-25 04:53] LABS: HBc Num1 0.09 S/CO (0.00-0.79); Hepatitis B Core Antibody Nonreactive (Nonreactive); ~HepC Num1 0.89 S/CO (0.00-0.79); ~Hepatitis B Surface Antibody NONREACTIVE (Nonreactive)
[2020-11-25 04:54] LABS: HBsAGNum1 0.16 S/CO (0.00-0.99); Hepatitis B Surface Antigen Negative (Negative)
[2020-11-25 05:42] LABS: ~HepC Num2 0.82; ~HepC Num3 0.93; ~Hepatitis C Antibody GRAYZONE (Nonreactive)
[2020-11-26 07:36] LABS: Hepatitis A Antibody IgM 0.59 Index (0-0.79); ~Hepatitis A Antibody IgM Nonreactive (Nonreactive)
== END 2020-11-22 19:02 | disposition home or self-care (01) ==
PROVIDERS: Physician Assistant; Emergency Provider Internal Medicine
DX: R91.1 Solitary pulmonary nodule (principal); R94.5 Abnormal results of liver function studies; I10 Essential (primary) hypertension; E04.1 Nontoxic single thyroid nodule; R10.13 Epigastric pain; Z79.899 Other long term (current) drug therapy
CPT/HCPCS: 36415; 71045; 71275; 74177; 80048; 80076; 83690; 83735; 84484; 85025; 85610; 85730; 86704; 86706; 86709; 86803; 87340; 93005; 94640; 96374; 99284; Q9967

== ENCOUNTER → 2021-01-19 09:39 | Outpatient (BNVA) | payer MEDICARE, MEDICAID, SELFPAY | PROVIDERS: Visit Provider Nurse Practitioner Gerontology | DX: E11.65 Type 2 diabetes mellitus with hyperglycemia (principal); E78.5 Hyperlipidemia, unspecified; I10 Essential (primary) hypertension | CPT/HCPCS: 82947; 99212 ==

== ENCOUNTER 2021-01-21 09:41 | Outpatient (REF) | payer MEDICARE, MEDICAID, SELFPAY ==
[2021-01-21 10:20] LABS: MANUAL DIFF FLAG NO
[2021-01-21 10:24] LABS: Basophils Percent Auto 0.4 % (0-2); Eosinophils Absolute Auto 0.2 X10*3/uL (0.0-0.4); Imm Gran Abs Auto 0.03 X10*3/uL (0.00-0.03); Imm Gran Pct Auto 0.3 % (0.0-0.4); Lymphocytes Absolute Auto 2.5 X10*3/uL (1.2-4.9); Lymphocytes Percent Auto 27.7 % (20-40); Mean Corpuscular HGB Conc 32.6 g/dl (31.0-35.0); Mean Corpuscular Hemoglobin 27.1 pg (27.0-33.0); Mean Corpuscular Volume 83.3 fL (80-98); Mean Platelet Volume 10.7 fL (9.4-12.3); Monocytes Absolute Auto 0.6 X10*3/uL (0.1-1.2); Monocytes Percent Auto 6.3 % (2-11); Neutrophils Absolute Auto 5.8 X10*3/uL (2.0-8.3); Neutrophils Percent Auto 63.3 % (45-73); Platelet Count 188 X10*3/uL (160-400); Red Blood Count 5.16 X10*6/uL (4.20-5.50); Red Cell Distribution Width 13.2 % (11.0-16.0); White Blood Count 9.2 X10*3/uL (4.8-10.8)
[2021-01-21 10:50] LABS: Alanine Aminotransferase 17 U/L (0-31); Albumin Level 4.6 g/dL (3.5-5.0); Alkaline Phosphatase 108 U/L (39-117); Anion Gap 14 (12-20); Aspartate Amino Transferase 17 U/L (5-31); Bilirubin Direct 0.3 mg/dL (0.0-0.5); Bilirubin Total 0.7 mg/dL (0.0-1.0); Blood Urea Nitrogen 8 mg/dL (9-16); Calcium 10.2 mg/dL (8.4-10.2); Carbon Dioxide 29 mmol/L (22-29); Chloride 105 mmol/L (96-108); Cholesterol 178 mg/dL; Estimated Glomerular Filt Rate > 60; Glucose Random 151 mg/dL (60-115); HDL Cholesterol 38 mg/dL; Iron 90 mcg/dL (30-160); LDL Cholesterol Calculated 98 mg/dl; Percent Iron Saturation 34 % (15-50); Potassium 4.6 mmol/L (3.3-5.1); Sodium 143 mmol/L (135-145); Total Iron Binding Capacity 263 mcg/dL (228-428); Total Protein 7.3 g/dL (6.5-8.0); Triglycerides 210 mg/dL; Unsaturated Iron Binding 173 ug/dL
[2021-01-21 11:06] LABS: ~HepC Num1 1.04 S/CO (0.00-0.79); ~Hepatitis C Antibody Reactive (Nonreactive)
[2021-01-21 11:07] LABS: HBc Num1 0.09 S/CO (0.00-0.79); HBsAGNum1 0.17 S/CO (0.00-0.99); Hepatitis B Core Antibody Nonreactive (Nonreactive); Hepatitis B Surface Antigen Negative (Negative)
[2021-01-21 11:21] LABS: Creatinine Urine 124.07 mg/dL; Microalbum/Creatinine Ratio Ur 5.6 ug/mg cr
[2021-01-21 11:22] LABS: Ferritin 121 ng/mL (10-250)
[2021-01-21 11:55] LABS: HBS Num1 0.34 mIU/mL (0-7.99); HIV AB/AG Nonreactive (Nonreactive); HIV Num 1 0.06 S/CO (0.00-0.99); ~Hepatitis B Surface Antibody NONREACTIVE (Nonreactive)
[2021-01-23 16:52] LABS: HCV Log PCR <1.18 NOT DETECTED Log IU/mL (NOT DETECTED); HepC Viral Load <15 NOT DETECTED IU/mL (NOT DETECTED)
== END 2021-01-21 09:42 | disposition home or self-care (01) ==
LOC: HO.LAB 09:41
PROVIDERS: PCP Internal Medicine; Visit Provider Internal Medicine
DX: E11.9 Type 2 diabetes mellitus without complications (principal); Z11.3 Encounter for screening for infections with a predominantly sexual mode of transmission
CPT/HCPCS: 36415; 80048; 80061; 80076; 82043; 82728; 83540; 85025; 86704; 86706; 86803; 87340; 87389; 87522

== ENCOUNTER 2021-01-22 13:37 | Outpatient (REF) | payer MEDICARE, MEDICAID, SELFPAY ==
--- NOTE | ~2021-01-22 | US_ITS ---
EXAMINATION: US THYROID CLINICAL INFORMATION: Nontoxic single thyroid nodule. COMPARISON: None TECHNIQUE: Linear transducer grayscale and color Doppler examination with attention to the region of the thyroid. FINDINGS: SIZE: Measurements of the thyroid lobes and nodules are given in sagittal, anteroposterior and transverse dimensions respectively. Right Thyroid Lobe: 4.9 x 1.7 x 2.5 cm, volume 10.7 mL. Parenchyma: The gland echotexture is homogeneous. Thyroid vascularity is normal. Left Thyroid Lobe: 5.2 x 1.5 x 2.1 cm, volume 8.8 mL. Parenchyma: The gland echotexture is homogeneous. Thyroid vascularity is normal. Isthmus: 0.2 cm in maximum AP dimension. Estimated total number of nodules greater than or equal to 1 cm: 1. Obstetrics Technician nodules are described as follows: 1. Location: Right superior. Size: 0.85 x 0.52 x 0.7 cm, volume 0.16 mL. Nodule characteristics: Composition: Mixed cystic and solid (1). Echogenicity: Hypoechoic (2). Shape: Not taller than wide (0). Margins: Smooth (0). Echogenic Foci: None (0). ACR TI-RADS total points: 3 ACR TI-RADS category: 3 2. Location: Right mid. Size: 0.9 x 0.56 x 0.75 cm, volume 0.2 mL. Nodule characteristics: Composition: Solid/almost completely solid (2). Echogenicity: Isoechoic (1). Shape: Not taller than wide (0). Margins: Smooth (0). Echogenic Foci: None (0). ACR TI-RADS total points: 3 ACR TI-RADS category: 3 3. Location: Right inferior. Size: 1.4 x 1.3 x 1.1 cm, volume 1.0 mL. Nodule characteristics: Composition: Solid/almost completely solid (2). Echogenicity: Hypoechoic (2). Shape: Not taller than wide (0). Margins: Smooth (0). Echogenic Foci: None (0). ACR TI-RADS total points: 4 ACR TI-RADS category: 4 4. Location: Right inferior. Size: 0.7 x 0.42 x 0.65 cm, volume 0.1 mL. Nodule characteristics: Composition: Solid/almost completely solid (2). Echogenicity: Hypoechoic (2). Shape: Not taller than wide (0). Margins: Smooth (0). Echogenic Foci: Macrocalcifications (1). ACR TI-RADS total points: 5 ACR TI-RADS category: 4 5. Location: Left inferior. Size: 0.95 x 0.69 x 0.80 cm, volume 0.3 mL. Nodule characteristics: Composition: Solid/almost completely solid (2). Echogenicity: Hypoechoic (2). Shape: Not taller than wide (0). Margins: Smooth (0). Echogenic Foci: Macrocalcifications (1). ACR TI-RADS total points: 5 ACR TI-RADS category: 4 NODES: No lymphadenopathy is seen in the tissue surrounding the thyroid gland. US/US thyroid IMPRESSION: Multiple bilateral thyroid nodules. The right inferior TR4 nodule meets criteria for annual follow-up. ACR TI-RADS RECOMMENDATION REFERENCE: Ultrasound-guided fine-needle aspiration, followup ultrasound, no further follow up. * TR1 (0 point) and TR 2 (2 points): No FNA or follow up * TR3 (3 points): FNA if more than or equal to 2.5 cm in maximum dimension, followup ultrasound in 1, 3 and 5 years if 1.5 to 2.4 cm in maximum dimension. * TR4 (4-6 points): FNA if more than or equal to 1.5 cm in maximum dimension, followup ultrasound in 1, 2, 3 and 5 years if 1 to 1.4 cm in maximum dimension. * TR5 (more than or equal to 7 points): FNA if more than or equal to 1 cm in maximum dimension, followup ultrasound every year for 5 years if 0.5 to 0.9 cm in maximum dimension. * TR3, TR4 or TR5 nodules that are below the size threshold for follow up receive no follow up.
== END 2021-01-22 13:38 | disposition home or self-care (01) ==
LOC: HO.US 13:37
PROVIDERS: Visit Provider Internal Medicine
DX: E04.1 Nontoxic single thyroid nodule (principal)
CPT/HCPCS: 76536

== ENCOUNTER 2021-01-28 09:33 | Outpatient (REF) | payer MEDICARE, MEDICAID, SELFPAY ==
[2021-01-31 15:36] LABS: HCV Log PCR <1.18 NOT DETECTED Log IU/mL (NOT DETECTED); HepC Viral Load <15 NOT DETECTED IU/mL (NOT DETECTED)
== END 2021-01-28 09:34 | disposition home or self-care (01) ==
LOC: HO.LAB 09:33
PROVIDERS: PCP Internal Medicine; Visit Provider Internal Medicine
DX: B19.20 Unspecified viral hepatitis C without hepatic coma (principal)
CPT/HCPCS: 36415; 87522

== ENCOUNTER → 2021-03-06 08:53 | Outpatient (BNVA) | payer MEDICARE, MEDICAID, SELFPAY | PROVIDERS: PCP Internal Medicine; Visit Provider Student in an Organized Health Care Education/Training Program | DX: M35.3 Polymyalgia rheumatica (principal); M54.5 Low back pain | CPT/HCPCS: Q3014 ==

== ENCOUNTER → 2021-03-11 09:35 | Outpatient (BNVA) | payer MEDICARE, MEDICAID, SELFPAY | PROVIDERS: PCP Internal Medicine; Visit Provider Internal Medicine | CPT/HCPCS: Q3014 ==

== ENCOUNTER → 2021-03-19 13:22 | Outpatient (BNVA) | payer MEDICARE, MEDICAID, SELFPAY | PROVIDERS: PCP Internal Medicine; Visit Provider Internal Medicine Pulmonary Disease | DX: J44.9 Chronic obstructive pulmonary disease, unspecified (principal); R91.8 Other nonspecific abnormal finding of lung field | CPT/HCPCS: 99212 ==

== ENCOUNTER → 2021-06-04 11:36 | Outpatient (BNVA) | payer MEDICARE, MEDICAID, SELFPAY | PROVIDERS: PCP Internal Medicine; Visit Provider Nurse Practitioner Gerontology | DX: E11.9 Type 2 diabetes mellitus without complications (principal); E78.5 Hyperlipidemia, unspecified; I10 Essential (primary) hypertension | CPT/HCPCS: 82947; 83036; 99212 ==

== ENCOUNTER 2021-07-02 09:43 | Outpatient (REF) | payer MEDICARE, MEDICAID, SELFPAY ==
--- NOTE | 2021-07-02 10:37 | PM.OP ---
Brief Operative Note Date of Service: 07/02/21 Pre-op diagnosis: Multinodular thyroid Procedure: This is doctor Mariza Mireles. This is an ultrasound-guided fine-needle aspiration report. Date of Examination: 07/02/2021 Indication: Multinodular Thyroid Porcedure: Procedure was explained to the patient. Alternatives, the risk and benefits were discussed. Written consent was obtained. A time-out was also obtained. After sterile preparation, fine-needle aspiration of a right inferior lobe 1.4 cm thyroid nodule was performed using direct ultrasound guidance to confirm accurate needle placement. Five aspirations were made using 27 gauge needles. Samples were submitted for cytology. One pass was dedicated for [employer] sequencing medical sales associate testing. The patient tolerated the procedure well. Aftercare instructions were provided. Impression: Uncomplicated fine needle aspiration biopsy of a right inferior pole 1.4 cm thyroid nodule under ultrasound guidance. Surgeon: Mariza Mireles, DO Was an Microfilming Document Preparer used for this Procedure?: No Estimated blood loss (mL): 0
[2021-07-02] MEDS: Lidocaine HCl 1 % MPF 5 ML VIAL 2 ML SUBCUT (11:38)
== END 2021-07-02 09:44 | disposition home or self-care (01) ==
LOC: HO.US 09:43
PROVIDERS: Visit Provider Internal Medicine
DX: E04.2 Nontoxic multinodular goiter (principal)
CPT/HCPCS: 10005; 88172; 88173; 88177; 88305

== ENCOUNTER 2021-07-10 12:12 | Outpatient (REF) | payer MEDICARE, MEDICAID, SELFPAY ==
--- NOTE | 2021-07-10 17:04 | PFT_ITS ---
INDICATION: COPD. SPIROMETRY: FEV1 to FVC 95% with an FEV1 of 1.81 L, which is 71% predicted and an FVC of 1.92 L, which is 59% predicted. No significant response to bronchodilators noted. Maximum voluntary ventilation 91% predicted. LUNG VOLUMES: Total lung capacity 57% predicted with an expiratory reserve volume of 32% predicted. DIFFUSION CAPACITY: DLCO 68% predicted. This corrects to normal and corrects for any alveolar volume. COMPARISONS: None available. INTERPRETATION: No obstructive ventilatory defect. No significant response to bronchodilators noted. Normal maximum voluntary ventilation; however, the patient does have what appears to be moderate restrictive ventilatory defect. There was appeared to have decrease in the expiratory reserve volume 32%, although her BMI is only slightly elevated. The patient also has mild diffusion impairment. Clinical correlation warranted. Derek Linn MD MR/MODL / [id number]
== END 2021-07-10 12:13 | disposition home or self-care (01) ==
LOC: HO.RESP 12:12
PROVIDERS: PCP Internal Medicine; Visit Provider Internal Medicine Pulmonary Disease
DX: J44.9 Chronic obstructive pulmonary disease, unspecified (principal); Z87.891 Personal history of nicotine dependence; Z79.899 Other long term (current) drug therapy
CPT/HCPCS: 94060; 94727; 94729

== ENCOUNTER → 2021-07-13 08:57 | Outpatient (BNVA) | payer MEDICARE, MEDICAID, SELFPAY | PROVIDERS: PCP Internal Medicine; Visit Provider Internal Medicine | DX: E04.2 Nontoxic multinodular goiter (principal); E55.9 Vitamin D deficiency, unspecified; E11.9 Type 2 diabetes mellitus without complications | CPT/HCPCS: Q3014 ==

== ENCOUNTER → 2021-07-22 11:29 | Outpatient (BNVA) | payer MEDICARE, MEDICAID, SELFPAY | PROVIDERS: PCP Internal Medicine; Visit Provider Internal Medicine Pulmonary Disease | DX: J44.9 Chronic obstructive pulmonary disease, unspecified (principal); R91.8 Other nonspecific abnormal finding of lung field | CPT/HCPCS: Q3014 ==

== ENCOUNTER 2021-09-02 11:09 | Outpatient (REF) | payer MEDICARE, MEDICAID, SELFPAY ==
--- NOTE | ~2021-09-02 | MM_ITS ---
EXAMINATION: MM DIAGNOSTIC DIGITAL BREAST TOMOSYNTHESIS, BILATERAL US DIAGNOSTIC ULTRASOUND BREAST, BILATERAL CLINICAL INFORMATION: Outside breast MRI for high risk screening demonstrates enhancement 12:00 left breast 2 locations and 9:30 o'clock right breast mid depth. Prior history benign right breast biopsy. Family history breast cancer, sister. The lifetime risk of breast cancer based on the Tyrer-Cuzick Model is 14%. COMPARISON: Mammography: 09/03/2020, 08/29/2019, 08/18/2018, 08/08/2017; outside breast MR report 06/05/2021 ([facility]). TECHNIQUE: Digital breast tomosynthesis is performed in both the craniocaudal and mediolateral oblique views along with computer-aided detection (CAD). Synthesized 2D images are generated from the tomosynthesis. Ultrasound left breast is targeted to the upper breast 10:00 through 2:00 position. Ultrasound right breast is targeted to the lateral breast 8:00 through 1:00 position. Grayscale imaging and color Doppler are performed without and with harmonics. FINDINGS: The breasts are heterogeneously dense, which may obscure small masses (ACR BI-RADS breast composition Category c). Parenchymal pattern is similar to prior mammography. There is no developing density or interval mass or architectural abnormality. No abnormal calcifications. The axilla and skin contours are unremarkable. Left breast has a small circumscribed nodule retroareolar 3:00 position stable to decreased from prior studies. Right breast has a chronic smooth nodule mid upper outer quadrant measuring approximately 0.8 cm. Ultrasound left breast demonstrates no cystic or solid mass or architectural abnormality. No focal duct ectasia. No skin thickening or edema tracking in soft tissue planes. Ultrasound right breast demonstrates circumscribed hypoechoic nodule 11:00 position 7 cm from nipple corresponding to the chronic benign nodule on mammography and measuring 0.8 x 0.5 cm. No posterior shadowing. There is no peripheral or internal color flow. Results and recommendation discussed with the patient at time of visit using an handle attacher. The mammography is stable from prior studies. The ultrasound exam is unremarkable. Right breast nodule is chronic. If there are suspicious findings on outside breast MRI, then MR guided biopsy could be performed at the outside facility for further assessment. Results and recommendation called to director of medical staff services (Lluvia) for Kayla Welsh CNM on 09/02/2021. MM/MM tomosynthesis diagnostic BI IMPRESSION: -No significant changes from prior exams. No mammographic evidence of malignancy. -Circumscribed benign nodule right breast 11:00 position, stable. ASSESSMENT: BI-RADS 3: Probably Benign RECOMMENDATION: 1. If there are suspicious findings on outside breast MR, then MR guided biopsy at outside facility should be considered as per MR recommendations. If MR biopsy is not performed, then follow-up breast MRI in 6-12 months is recommended. 2. Otherwise, annual bilateral mammography. This patient's information was entered into a reminder system with a target due date for their next mammogram.
== END 2021-09-02 11:10 | disposition home or self-care (01) ==
LOC: HO.MAMMO 11:09
PROVIDERS: PCP Internal Medicine; Visit Provider Advanced Practice Midwife
DX: N63.15 Unspecified lump in the right breast, overlapping quadrants (principal); N63.25 Unspecified lump in the left breast, overlapping quadrants
CPT/HCPCS: 76642; 77062; 77066

== ENCOUNTER → 2022-04-14 12:52 | Outpatient (BNVA) | payer MEDICARE, MEDICAID, SELFPAY | PROVIDERS: PCP Internal Medicine; Visit Provider Nurse Practitioner Family | DX: M25.50 Pain in unspecified joint (principal) | CPT/HCPCS: 99212 ==

== ENCOUNTER 2022-04-19 14:23 | Outpatient (REF) | payer MEDICARE, MEDICAID, SELFPAY ==
--- NOTE | ~2022-04-19 | XR_ITS ---
EXAMINATION: XR SHOULDER, RIGHT CLINICAL INFORMATION: Right shoulder pain COMPARISON: 05/06/2016 TECHNIQUE: AP external rotation, Grashey, scapular Y, and axillary views of the right shoulder. FINDINGS: The bones and soft tissues are normal. No fracture. Glenohumeral and acromioclavicular alignment is anatomic with normal joint space. No abnormal soft tissue calcifications. XR/XR shoulder RT min 2V IMPRESSION: Normal right shoulder, without interval change.
--- NOTE | ~2022-04-19 | XR_ITS ---
EXAMINATION: LUMBAR SPINE CLINICAL INFORMATION: Low back pain COMPARISON: None TECHNIQUE: AP lateral and lateral coned view of lumbar spine FINDINGS: There are 5 not ribs bearing lumbar spine vertebral bodies. Vertebral bodies are well aligned and intervertebral discs are preserved. Pedicles are intact. There is no spondylolysis or listhesis. Soft tissues are unremarkable. XR/XR lumbar spine 2-3V IMPRESSION: Normal study
--- NOTE | ~2022-04-19 | XR_ITS ---
EXAMINATION: LUMBAR SPINE CLINICAL INFORMATION: Low back pain COMPARISON: None TECHNIQUE: AP lateral and lateral coned view of lumbar spine FINDINGS: There are 5 not ribs bearing lumbar spine vertebral bodies. Vertebral bodies are well aligned and intervertebral discs are preserved. Pedicles are intact. There is no spondylolysis or listhesis. Soft tissues are unremarkable. XR/XR shoulder LT min 2V IMPRESSION: Normal study
--- NOTE | ~2022-04-19 | XR_ITS ---
EXAMINATION: XR CERVICAL SPINE CLINICAL INFORMATION: Cervicalgia COMPARISON: None TECHNIQUE: 3 views of the cervical spine were obtained. FINDINGS: There is straightening of cervical lordosis. Vertebral bodies are well aligned and intervertebral discs are preserved except of mild narrowing of C4-C5 and C6-C7 intervertebral disc spaces with marginal spurring. There is no spondylolysis or listhesis. Pedicles are preserved. Soft tissues unremarkable XR/XR cervical spine 2V IMPRESSION: Mild degenerative changes at the level of C4-C5 and C6-C7
[2022-04-19 14:46] LABS: MANUAL DIFF FLAG NO
[2022-04-19 15:14] LABS: Basophils Percent Auto 0.5 % (0-2); Eosinophils Absolute Auto 0.1 X10*3/uL (0.0-0.4); Eosinophils Percent Auto 1.6 % (0-4); Hematocrit 40.5 % (37.0-47.0); Hemoglobin 13.2 g/dl (12.0-16.0); Imm Gran Abs Auto 0.03 X10*3/uL (0.00-0.03); Imm Gran Pct Auto 0.3 % (0.0-0.4); Lymphocytes Absolute Auto 2.2 X10*3/uL (1.2-4.9); Lymphocytes Percent Auto 24.9 % (20-40); Mean Corpuscular HGB Conc 32.6 g/dl (31.0-35.0); Mean Corpuscular Hemoglobin 27.2 pg (27.0-33.0); Mean Corpuscular Volume 83.3 fL (80.0-98.0); Mean Platelet Volume 11.2 fL (9.4-12.3); Monocytes Absolute Auto 0.7 X10*3/uL (0.1-1.2); Monocytes Percent Auto 7.8 % (2-11); Neutrophils Absolute Auto 5.7 x10*3/uL (2.0-8.3); Neutrophils Percent Auto 64.9 % (45-73); Platelet Count 179 X10*3/uL (160-400); Red Blood Count 4.86 X10*6/uL (4.20-5.50); Red Cell Distribution Width 12.9 % (11.0-16.0); White Blood Count 8.8 X10*3/uL (4.8-10.8)
[2022-04-19 15:46] LABS: Alanine Aminotransferase 12 U/L (0-31); Albumin Level 4.3 g/dL (3.5-5.0); Alkaline Phosphatase 86 U/L (39-117); Anion Gap 14 (12-20); Aspartate Amino Transferase 13 U/L (5-31); Bilirubin Total 0.5 mg/dL (0.0-1.0); Blood Urea Nitrogen 9 mg/dL (9-16); C Reactive Protein 0.37 mg/dL (< or = 0.50); Calcium 9.3 mg/dL (8.4-10.2); Carbon Dioxide 29 mmol/L (22-29); Chloride 106 mmol/L (96-108); Estimated Glomerular Filt Rate > 60; Glucose Random 88 mg/dL (60-115); Potassium 4.6 mmol/L (3.3-5.1); Sodium 144 mmol/L (135-145); Total Protein 6.9 g/dL (6.5-8.0)
[2022-04-19 16:02] LABS: Erythrocyte Sedimentation Rate 13 MM/HR (0-20)
[2022-04-23 10:27] LABS: CK-BB None Detected (None Detected); CK-MB 0 % (<5); CK-MM 100 % (95-100); Creatine Kinase,Total,Serum 36 U/L (29-143)
== END 2022-04-19 14:24 | disposition home or self-care (01) ==
LOC: HO.XRAY 14:23
PROVIDERS: PCP Internal Medicine; Visit Provider Nurse Practitioner Family
DX: M25.511 Pain in right shoulder (principal); M25.512 Pain in left shoulder; M54.50 Low back pain, unspecified; M54.2 Cervicalgia
CPT/HCPCS: 36415; 72040; 72100; 73030; 80053; 82552; 85025; 85652; 86140

== ENCOUNTER 2022-05-27 13:28 | Outpatient (REF) | payer MEDICARE, MEDICAID, SELFPAY ==
[2022-05-27 15:24] LABS: Creatinine Urine 68.58 mg/dL; Microalbum/Creatinine Ratio Ur 10.2 ug/mg cr
[2022-05-27 15:42] LABS: Alanine Aminotransferase 17 U/L (0-31); Albumin Level 4.7 g/dL (3.5-5.0); Alkaline Phosphatase 86 U/L (39-117); Anion Gap 10 (12-20); Aspartate Amino Transferase 17 U/L (5-31); Bilirubin Total 0.4 mg/dL (0.0-1.0); Blood Urea Nitrogen 10 mg/dL (9-16); Carbon Dioxide 31 mmol/L (22-29); Chloride 104 mmol/L (96-108); Cholesterol 139 mg/dL; Estimated Glomerular Filt Rate > 60; Free T4 (Free Thyroxine) 1.03 ng/dL (0.71-1.85); Glucose Random 82 mg/dL (60-115); HDL Cholesterol 39 mg/dL; LDL Cholesterol Calculated 71 mg/dl; Potassium 4.7 mmol/L (3.3-5.1); Sodium 140 mmol/L (135-145); Thyroid Stimulating Hormone 0.26 uIU/mL (0.32-4.0); Total Protein 7.4 g/dL (6.5-8.0); Triglycerides 148 mg/dL; Vitamin D 25-OH Total 24.8 ng/mL (>30)
[2022-05-29 04:09] LABS: LDL Cholesterol Direct 75 mg/dL (<100)
== END 2022-05-27 13:29 | disposition home or self-care (01) ==
LOC: HO.LAB 13:28
PROVIDERS: PCP Internal Medicine; Visit Provider Internal Medicine
DX: E11.65 Type 2 diabetes mellitus with hyperglycemia (principal); E04.2 Nontoxic multinodular goiter; E55.9 Vitamin D deficiency, unspecified; E78.5 Hyperlipidemia, unspecified; E05.90 Thyrotoxicosis, unspecified without thyrotoxic crisis or storm; Z79.899 Other long term (current) drug therapy; Z79.84 Long term (current) use of oral hypoglycemic drugs
CPT/HCPCS: 36415; 80053; 80061; 82043; 82306; 82947; 83036; 83721; 84439; 84443; 99212

== ENCOUNTER 2022-06-01 12:59 | Outpatient (REF) | payer MEDICARE, MEDICAID, SELFPAY ==
[2022-06-01 14:43] LABS: Free T4 (Free Thyroxine) 1.01 ng/dL (0.71-1.85); Thyroid Stimulating Hormone 0.13 uIU/mL (0.32-4.0)
[2022-06-02 09:38] LABS: Thyroid Peroxidase Antibodies <1 IU/mL (<9)
[2022-06-04 15:24] LABS: Thyroid Stimulating Immunoglob <89 % baseline (<140)
[2022-06-05 10:54] LABS: Thyroglobulin Antibodies <1 IU/mL (< or = 1)
[2022-06-05 21:08] LABS: Thyrotropin Receptor Antibody <1.00 IU/L (<=2.00)
== END 2022-06-01 13:00 | disposition home or self-care (01) ==
LOC: HO.LAB 12:59
PROVIDERS: PCP Internal Medicine; Visit Provider Internal Medicine
DX: E05.90 Thyrotoxicosis, unspecified without thyrotoxic crisis or storm (principal)
CPT/HCPCS: 36415; 83520; 84439; 84443; 84445; 86376; 86800

== ENCOUNTER 2022-07-08 10:54 | Outpatient (REF) | payer MEDICARE, MEDICAID, SELFPAY ==
--- NOTE | ~2022-07-08 | US_ITS ---
EXAMINATION: US THYROID CLINICAL INFORMATION: Thyrotoxicosis, unspecified without thyrotoxic crisis or storm. COMPARISON: Ultrasound thyroid 01/22/2021. TECHNIQUE: Linear transducer grayscale and color Doppler examination with attention to the region of the thyroid. FINDINGS: SIZE: Measurements of the thyroid lobes and nodules are given in sagittal, anteroposterior and transverse dimensions respectively. Right Thyroid Lobe: 5.6 x 2.0 x 2.3 cm, volume 13.5 mL. Previously 4.9 x 1.7 x 2.5 cm, volume 10.7 mL. Parenchyma: The gland echotexture is heterogeneous. Thyroid vascularity is normal. Left Thyroid Lobe: 5.6 x 1.9 x 2.2 cm, volume 2.5 mL. Previously 5.2 x 1.5 x 2.1 cm, volume 8.8 mL. Parenchyma: The gland echotexture is heterogeneous. Thyroid vascularity is normal. Isthmus: 0.3 cm in maximum AP dimension. Previously 0.2 cm. Estimated total number of nodules greater than or equal to 1 cm: 2. Advertising Campaign Manager nodules are described as follows: 1. Location: Right superior. Size: 0.7 x 0.5 x 0.5 cm, volume 0.1 mL. Previously: 0.9 x 0.5 x 0.7 cm, volume 0.2 mL. Nodule characteristics: Composition: Solid (2). Echogenicity: Very hypoechoic (3). Shape: Not taller than wide (0). Margins: Smooth (0). Echogenic Foci: None (0). ACR TI-RADS total points: 5 Previous: 3 ACR TI-RADS category: 4 Previous: 3 Significant change in size (>/= 20% in 2 dimensions and minimal increase of 2 mm or 50% or greater increase in volume): None Change in features: None Change in ACR TI-RADS risk category: Minimal 2. Location: Right mid. Size: 0.8 x 0.6 x 0.7 cm, volume 0.2 mL. Previously: 0.9 x 0.6 x 0.8 cm, volume 0.2 mL. Nodule characteristics: Composition: Solid (2). Echogenicity: Hypoechoic (2). Shape: Not taller than wide (0). Margins: Smooth (0). Echogenic Foci: None (0). ACR TI-RADS total points: 4 Previous: 3 ACR TI-RADS category: 4 Previous: 3 Significant change in size (>/= 20% in 2 dimensions and minimal increase of 2 mm or 50% or greater increase in volume): None Change in features: None Change in ACR TI-RADS risk category: No significant change. 3. Location: Right inferior. Size: 1.2 x 0.8 x 1.0 cm, volume 0.5 mL. Previously: 1.4 x 1.3 x 1.1 cm, volume 1.0 mL. Nodule characteristics: Composition: Solid (2). Echogenicity: Very hypoechoic (3). Shape: Not taller than wide (0). Margins: Smooth (0). Echogenic Foci: None (0). ACR TI-RADS total points: 5 Previous: 4 ACR TI-RADS category: 4 Previous: 4 Significant change in size (>/= 20% in 2 dimensions and minimal increase of 2 mm or 50% or greater increase in volume): None Change in features: None Change in ACR TI-RADS risk category: No significant change 4. Location: Right inferior. Size: 0.6 x 0.5 x 0.6 cm, volume 0.1 mL. Previously: 0.7 x 0.4 x 0.7 cm, volume 0.1 mL. Nodule characteristics: Composition: Cannot be determined (2). Echogenicity: Cannot be determined (1). Shape: Not taller than wide (0). Margins: Cannot be determined (0). Echogenic Foci: Peripheral calcifications (2). ACR TI-RADS total points: 5 Previous: 5 ACR TI-RADS category: 4 Previous: 4 Significant change in size (>/= 20% in 2 dimensions and minimal increase of 2 mm or 50% or greater increase in volume): None Change in features: None Change in ACR TI-RADS risk category: No change 5. Location: Left inferior. Not seen previously. Size: 1.6 x 1.3 x 1.5 cm, volume 1.5 mL. Previously: Not seen on the previous study. Nodule characteristics: Composition: Solid (2). Echogenicity: Very hypoechoic (3). Shape: Not taller than wide (0). Margins: Cannot be determined (0). Echogenic Foci: Peripheral calcifications (2). ACR TI-RADS total points: 7 ACR TI-RADS category: 5 NODES: No lymphadenopathy is seen in the tissue surrounding the thyroid gland. US/US thyroid IMPRESSION: Multiple thyroid nodules with left lobe lower pole largest nodule measuring 1.6 cm with a high total points of 7 and TI-RADS Category 5 is suspicious. Recommend ultrasound-guided biopsy or a short-term 3 month follow-up. ACR TI-RADS RECOMMENDATION REFERENCE: Ultrasound-guided fine-needle aspiration, followup ultrasound, no further follow up. * TR1 (0 point) and TR 2 (2 points): No FNA or follow up. * TR3 (3 points): FNA if more than or equal to 2.5 cm in maximum dimension, followup ultrasound in 1, 3 and 5 years if 1.5 to 2.4 cm in maximum dimension. * TR4 (4-6 points): FNA if more than or equal to 1.5 cm in maximum dimension, followup ultrasound in 1, 2, 3 and 5 years if 1 to 1.4 cm in maximum dimension. * TR5 (more than or equal to 7 points): FNA if more than or equal to 1 cm in maximum dimension, followup ultrasound every year for 5 years if 0.5 to 0.9 cm in maximum dimension. * TR3, TR4 or TR5 nodules that are below the size threshold for followup receive no follow up.
--- NOTE | ~2022-07-08 | NM_ITS ---
EXAMINATION: THYROID UPTAKE AND SCAN CLINICAL INFORMATION: Thyrotoxicosis. COMPARISON: No previous radionuclide thyroid scan is available for comparison. Thyroid ultrasound dated 07/08/2022 is available for comparison. TECHNIQUE: Following the oral administration of 264 microcuries of I-123 sodium iodide, thyroid uptake was performed and expressed as a percentage of the administrated dose. Gamma scintillation camera images of the thyroid in the anterior and right and left anterior oblique views were obtained using a pinhole collimator following the administration of 10 mCi Tc-99m pertechnetate. FINDINGS: The uptake is 9.7% at 2 hours and 22.5% at 24 hours (Normal radioiodine uptake at 24 hours is 10% to 30%). The radioiodine uptake is normal. The radiopertechnetate thyroid scintigram demonstrates the thyroid gland to be normal in size. Multiple rounded or ovoid shaped foci of increased activity are present bilaterally, the largest and oval shape focus medially in the lower pole of the right lobe, but several much smaller rounded foci are present in the right lobe and there are at least 3 discrete foci of increased trapping function in the left lobe. A single anterior radioiodine image obtained at the time of the 24-hour uptake is similar to the radio pertechnetate image, but does not delineate the detail within the gland as well. 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
[2022-07-08 15:33] LABS: Thyroid Stimulating Hormone 0.18 uIU/mL (0.32-4.0)
[2022-07-10 04:58] LABS: Thyroglobulin Antibodies <1 IU/mL (< or = 1); Thyroid Peroxidase Antibodies <1 IU/mL (<9)
[2022-07-13 13:58] LABS: Thyrotropin Receptor Antibody <1.00 IU/L (<=2.00)
[2022-07-13 15:24] LABS: Thyroid Stimulating Immunoglob <89 % baseline (<140)
== END 2022-07-08 10:55 | disposition home or self-care (01) ==
LOC: HO.US 10:54
PROVIDERS: PCP Internal Medicine; Visit Provider Internal Medicine
DX: E05.90 Thyrotoxicosis, unspecified without thyrotoxic crisis or storm (principal); E04.2 Nontoxic multinodular goiter
CPT/HCPCS: 36415; 76536; 78014; 83520; 84439; 84443; 84445; 86376; 86800; A9512; A9516

== ENCOUNTER 2022-08-25 13:16 | Outpatient (REF) | payer MEDICARE, MEDICAID, SELFPAY ==
[2022-08-25 15:04] LABS: Estimated Average Glucose 126 mg/dL
[2022-08-25 16:30] LABS: Creatinine Urine 55.85 mg/dL; Microalbum/Creatinine Ratio Ur 12.5 ug/mg cr
[2022-08-25 16:33] LABS: Alanine Aminotransferase 18 U/L (0-31); Albumin Level 4.4 g/dL (3.5-5.0); Alkaline Phosphatase 78 U/L (39-117); Anion Gap 11 (12-20); Aspartate Amino Transferase 16 U/L (5-31); Bilirubin Total 0.6 mg/dL (0.0-1.0); Blood Urea Nitrogen 10 mg/dL (9-16); Calcium 9.4 mg/dL (8.4-10.2); Carbon Dioxide 30 mmol/L (22-29); Chloride 107 mmol/L (96-108); Cholesterol 139 mg/dL; Estimated Glomerular Filt Rate > 60; Glucose Random 87 mg/dL (60-115); HDL Cholesterol 38 mg/dL; LDL Cholesterol Calculated 67 mg/dl; Potassium 4.4 mmol/L (3.3-5.1); Sodium 144 mmol/L (135-145); Triglycerides 172 mg/dL
[2022-08-25 16:49] LABS: Free T4 (Free Thyroxine) 0.93 ng/dL (0.71-1.85); Thyroid Stimulating Hormone 0.26 uIU/mL (0.32-4.0); Vitamin D 25-OH Total 17.7 ng/mL (>30)
[2022-08-26 09:53] LABS: Triiodothyronine T3 Total 114 ng/dL (76-181)
[2022-08-26 10:23] LABS: LDL Cholesterol Direct 68 mg/dL (<100)
== END 2022-08-25 13:17 | disposition home or self-care (01) ==
LOC: HO.LAB 13:16
PROVIDERS: Nurse Practitioner Family; PCP Internal Medicine; Visit Provider Internal Medicine
DX: E05.90 Thyrotoxicosis, unspecified without thyrotoxic crisis or storm (principal); E11.65 Type 2 diabetes mellitus with hyperglycemia; E04.2 Nontoxic multinodular goiter; E55.9 Vitamin D deficiency, unspecified; Z79.899 Other long term (current) drug therapy
CPT/HCPCS: 36415; 80053; 80061; 80373; 82043; 82306; 83036; 83721; 84439; 84443; 84480

== ENCOUNTER 2022-09-02 11:40 | Outpatient (REF) | payer MEDICARE, MEDICAID, SELFPAY ==
[2022-09-02 15:16] LABS: Amphetamine Screen Urine Not Detected (Not Detect); Barbiturates, Urine Not Detected (Not Detect); Benzodiazepines Screen Urine Not Detected (Not Detect); Cannabinoid Screen Urine Not Detected (Not Detect); Cocaine Screen Urine Not Detected (Not Detect); Fentanyl, urine Not Detected (Not Detect); Opiate Screen Urine Not Detected (Not Detect); Phencyclidine Screen Urine Not Detected (Not Detect)
[2022-09-02 15:23] LABS: Free T4 (Free Thyroxine) 0.91 ng/dL (0.71-1.85)
[2022-09-03 23:13] LABS: Triiodothyronine T3 Total 125 ng/dL (76-181)
== END 2022-09-02 11:41 | disposition home or self-care (01) ==
LOC: HO.LAB 11:40
PROVIDERS: Internal Medicine; Visit Provider Nurse Practitioner Family
DX: E05.90 Thyrotoxicosis, unspecified without thyrotoxic crisis or storm (principal); Z51.81 Encounter for therapeutic drug level monitoring; Z79.899 Other long term (current) drug therapy
CPT/HCPCS: 36415; 80307; 84439; 84480

== ENCOUNTER 2022-10-12 10:15 | Outpatient (REF) | payer MEDICARE, MEDICAID, SELFPAY ==
[2022-10-12 11:39] LABS: Free T4 (Free Thyroxine) 0.87 ng/dL (0.71-1.85); Thyroid Stimulating Hormone 0.45 uIU/mL (0.32-4.0)
[2022-10-14 02:13] LABS: Triiodothyronine T3 Total 134 ng/dL (76-181)
== END 2022-10-12 10:16 | disposition home or self-care (01) ==
LOC: HO.LAB 10:15
PROVIDERS: PCP Internal Medicine; Visit Provider Internal Medicine
DX: E05.90 Thyrotoxicosis, unspecified without thyrotoxic crisis or storm (principal)
CPT/HCPCS: 36415; 84439; 84443; 84480

== ENCOUNTER 2022-10-22 13:02 | Outpatient (REF) | payer MEDICARE, MEDICAID, SELFPAY ==
--- NOTE | ~2022-10-22 | MM_ITS ---
EXAMINATION: MM DIAGNOSTIC DIGITAL BREAST TOMOSYNTHESIS, BILATERAL TARGETED RIGHT BREAST ULTRASOUND CLINICAL INFORMATION: Right breast cystic changes 12 o'clock position. Patient states that she felt something at the 12 o'clock position 2 months ago. She also pointed to the 2 o'clock position when I went in to scan. She had an MRI performed at [facility] on 06/07/2021 which mentioned at the 12 o'clock position left breast 4 and 6 cm from the nipple a marginal irregularity which was stated to be moderately concerning. There is also mention of a nodular focus of enhancement at the 9:30 position of the right breast approximately 5 cm from the nipple. Patient has not gone back for repeat MRI which had been recommended. The lifetime risk of breast cancer based on the Tyrer-Cuzick Model is 11.4%. COMPARISON: Mammography: 09/02/2021 and studies dating back to 11/22/2013. TECHNIQUE: Digital breast tomosynthesis is performed in both the craniocaudal and mediolateral oblique views along with computer-aided detection (CAD). Synthesized 2D images are generated from the tomosynthesis. Targeted right breast ultrasound. FINDINGS: The breasts are heterogeneously dense, which may obscure small masses (ACR BI-RADS breast composition Category c). There is multiplicity and bilaterality of scattered calcifications. No new abnormal dominant mass is appreciated. About the superior aspect of the right breast there is again noted to be a stable well-circumscribed nodular density measuring 8 x 6 mm in size. No abnormal mammographic mass is seen where patient says her lesion/pain is. Ultrasound of the right breast demonstrates at the 11 o'clock position 7 cm from the nipple a hypoechoic lesion measuring 7 x 5 x 7 mm in size without significant distal sound enhancement or shadowing. This is unchanged in appearance compared to study of 09/02/2021. The right breast nodular density has been present since study of 08/25/2012. In the retroareolar region where patient states she feels a palpable region there is a 3 mm hypoechoic lesion with increased through sound transmission and no distal sound shadowing which lies in a region of ductal tissue and may represent a small cyst. No internal vascularity is present. No new dominant suspicious mass is appreciated. Since patient's right breast moderately suspicious findings were identified on MRI and not on mammography or ultrasound in the past, I recommend breast MRI for follow-up according to the report from the MRI study performed at [facility]. Results are discussed with the patient at time of visit. MM/MM tomosynthesis diagnostic BI IMPRESSION: No mammographic or ultrasound findings to suggest malignancy. Recommend breast MRI for the follow-up of moderately suspicious findings per outside MRI. ASSESSMENT: BI-RADS 0: Incomplete - Need Additional Imaging Evaluation RECOMMENDATION: Breast MRI. This patient's information was entered into a reminder system with a target due date for their next mammogram.
== END 2022-10-22 13:03 | disposition home or self-care (01) ==
LOC: HO.MAMMO 13:02
PROVIDERS: Visit Provider Advanced Practice Midwife
DX: N63.11 Unspecified lump in the right breast, upper outer quadrant (principal); Z80.3 Family history of malignant neoplasm of breast; J44.9 Chronic obstructive pulmonary disease, unspecified; Z79.899 Other long term (current) drug therapy; Z87.891 Personal history of nicotine dependence
CPT/HCPCS: 76642; 77062; 77066; 99212

== ENCOUNTER → 2022-11-17 13:03 | Outpatient (BNVA) | payer MEDICARE, MEDICAID, SELFPAY | PROVIDERS: PCP Internal Medicine; Visit Provider Nurse Practitioner Family | DX: M25.50 Pain in unspecified joint (principal); M35.3 Polymyalgia rheumatica; Z79.891 Long term (current) use of opiate analgesic | CPT/HCPCS: 99212 ==

== ENCOUNTER 2023-01-05 13:03 | Outpatient (AMB) | payer MEDICARE, MEDICAID, SELFPAY ==
--- NOTE | 2023-01-05 13:05 | A.OFFVIS_ITS ---
Intake Vital Signs 01/05/23 13:06 Height 5 ft 4 in Weight 149 lb BMI 25.6 BP 102/60 Pulse 68 Pulse Oximetry (%) 98 Intake Visit Reasons: asthma Intake Note: pt likes using breo it helped her breathing and req refill Allergies No Known Allergies [No Known Allergies*] Allergy (Verified 01/05/23 13:07) HPI asthma HPI Details 62-year-old lady, former approximately 40 pack-year smoker quit 2009, followed for dyspnea on exertion, pulmonary nodules, and COPD.? At the last office visit she was restarted on Stiolto, however she did not like it was switched to Breo with significantly improved symptom control. Patient denies any recent exacerbations. [facility] Medical History Adenocarcinoma of colon Arthritis Asthma Constipation COPD (chronic obstructive pulmonary disease) Diabetes type 2, uncontrolled DM2 (diabetes mellitus, type 2) Essential hypertension History of adenomatous polyp of colon HLD (hyperlipidemia) HTN (hypertension) Hyperlipidemia LDL goal <100 Hyperthyroidism Low back pain Multinodular thyroid Personal history of nicotine dependence Polymyalgia rheumatica Positive CLEMENT (antinuclear antibody) Tubular adenoma of colon Vitamin D deficiency Surgical History History of cardiac cath (~09/2018) History of colonoscopy (~09/2020) History of flexible sigmoidoscopy (~06/2013) History of needle biopsy History of right breast biopsy (~10/2010) History of rigid sigmoidoscopy (~04/2013) Hx of cholecystectomy Family History Father Diabetes CVD (cardiovascular disease) Mother Breast cancer Skin cancer Cancer Social History Household Members: Other Household Members Other:: Mother lives with her Alcohol intake: current Alcohol intake frequency: does not drink Patient Tobacco Use Status: Former Tobacco user Quit Date: Over 10 years ago Review of Systems Const Denies daytime sleepiness, Denies excessive sweating, Denies fatigue, Denies fever(s), Denies lethargy, Denies malaise, Denies night sweats, Denies snoring and Denies weight loss Eyes Denies blurry vision and Denies itchy eyes ENT Denies nasal congestion, Denies post nasal drip, Denies sinus pain, Denies sinus pressure and Denies other ( Thrush) Card Denies chest pain, Denies pedal edema, Denies dyspnea, Denies orthopnea and Denies paroxysmal nocturnal dyspnea Resp Denies cough, Denies hemoptysis, Denies excessive phlegm production, Denies dyspnea, Denies snoring and Denies wheezing GI Denies abdominal pain and Denies heartburn Musc Denies myalgias, Denies arthralgias and Denies joint swelling Skin/Breast Denies rash Neuro Denies memory loss and Denies seizure-like activity Psych Denies abnormal sleep pattern, Denies anxiety and Denies memory loss Endo Denies excessive sweating, Denies fatigue and Denies heat intolerance Andrew/Lymph Denies easy bruising Aller/Immun Denies itchy eyes, Denies seasonal rhinorrhea and Denies wheezing Physical Exam Const General: no acute distress and alert Nutritional Appearance: not obese Orientation/consciousness: Other orientation findings ( oriented) HEENT Head: Yes atraumatic Eyes General: appearance normal, both eyes and all related structures Sclerae: sclerae normal EOM: EOMs intact bilaterally Neck Neck: Yes supple Lymphatic: no lymphadenopathy noted Resp Effort & Inspection: normal respiratory effort and no use of accessory muscles Auscultation: clear to auscultation bilaterally Cardio Rate: regular rate Rhythm: regular rhythm Heart sounds: no gallops, no murmurs and no rubs Skin General skin exam: other ( warm) Extrem General: No clubbing, No cyanosis and No edema Assessment & Plan Assessment & Plan (1) COPD (chronic obstructive pulmonary disease): Code(s): J44.9 - Chronic obstructive pulmonary disease, unspecified Plan: Well controlled on Breo, Incruse, and albuterol MDI. Restart Breo. (2) Pulmonary nodules: Code(s): R91.8 - Other nonspecific abnormal finding of lung field Plan: Will obtain CT chest for further evaluation. Orders: Orders CT chest wo IV con 03/08/23 R91.8 - Other nonspecific abnormal finding of lung field Medications: Refilled fluticasone furoate-vilanterol 200-25 mcg/dose (Breo Ellipta) 1 inh inhalation DAILY 1 ea 6RF 30 days Coding Level of Care Code Est Pt Level 4 (26640) Diagnoses COPD (chronic obstructive pulmonary disease) J44.9 Pulmonary nodules R91.8
[2023-01-05 13:06] VITALS: BP 102/60; PULSE 68; O2SAT 98; BMI 25.6
== END 2023-01-05 13:18 | disposition home or self-care (01) ==
PROVIDERS: PCP Internal Medicine; Visit Provider Internal Medicine Pulmonary Disease
DX: J44.9 Chronic obstructive pulmonary disease, unspecified (principal); R91.8 Other nonspecific abnormal finding of lung field
CPT/HCPCS: 99214

== ENCOUNTER → 2023-01-05 13:03 | Outpatient (BNVA) | payer MEDICARE, MEDICAID, SELFPAY | PROVIDERS: PCP Internal Medicine; Visit Provider Internal Medicine Pulmonary Disease | DX: J44.9 Chronic obstructive pulmonary disease, unspecified (principal); R91.8 Other nonspecific abnormal finding of lung field | CPT/HCPCS: 99212 ==

== ENCOUNTER 2023-01-14 12:20 | Outpatient (REF) | payer MEDICARE, MEDICAID, SELFPAY ==
[2023-01-14 15:43] LABS: Blood Urea Nitrogen 9 mg/dL (9-16)
[2023-01-14 15:55] LABS: Estimated Glomerular Filt Rate > 60
== END 2023-01-14 12:21 | disposition home or self-care (01) ==
LOC: HO.CHCLDS 12:20
PROVIDERS: Visit Provider Advanced Practice Midwife
DX: Z01.812 Encounter for preprocedural laboratory examination (principal)
CPT/HCPCS: 36415; 82565; 84520

== ENCOUNTER 2023-01-24 11:40 | Outpatient (REF) | payer MEDICARE, MEDICAID, SELFPAY ==
[2023-01-24 15:14] LABS: Thyroid Stimulating Hormone 0.32 uIU/mL (0.32-4.0)
[2023-01-25 21:49] LABS: Triiodothyronine T3 Total 141 ng/dL (76-181)
== END 2023-01-24 11:41 | disposition home or self-care (01) ==
LOC: HO.LAB 11:40
PROVIDERS: Visit Provider Internal Medicine
DX: E05.90 Thyrotoxicosis, unspecified without thyrotoxic crisis or storm (principal)
CPT/HCPCS: 36415; 84439; 84443; 84480

== ENCOUNTER 2023-01-31 09:15 | Outpatient (AMB) | payer MEDICARE, MEDICAID, SELFPAY ==
--- NOTE | 2023-01-31 09:15 | MHC.OFFVIS ---
Intake Intake Visit Reasons: f/u T2DM Intake Note: T2DM follow up visit. Cardiology Rn Required: No Allergies No Known Allergies [No Known Allergies*] Allergy (Verified 01/31/23 10:54) Medication List - Last Reconciled 01/31/23 by Mariza Mireles DO albuterol sulfate 90 mcg/actuation 2 puffs inhalation Q4-6H PRN 30 days ascorbate calcium (vitamin C) 500 mg PO DAILY atorvastatin 20 mg PO DAILY blood sugar diagnostic (FreeStyle Lite Strips) 3x daily calcium carbonate 500 mg PO DAILY cholecalciferol (vitamin D3) mcg PO [Compression socks As directed] docusate sodium (Colace) 100 mg PO DAILY empagliflozin (Jardiance) 25 mg PO QAM famotidine (Pepcid) 20 mg PO DAILY fluticasone furoate-vilanterol 200-25 mcg/dose (Breo Ellipta) 1 inh inhalation DAILY 30 days lancets (FreeStyle Lancets) As directed twice a day lancets (FreeStyle Lancets) As directed three times a day metformin ER 500 mg PO 1 tab PO q am and 2 tabs PO q PM.; methimazole 5 mg PO DAILY 30 days pioglitazone 30 mg PO DAILY sitagliptin phosphate (Januvia) 100 mg PO DAILY tramadol 100 mg (2 x 50 mg) PO BID PRN HPI HPI Comments History of Present Illness Details 61 YO F who is seen in F/U for T2DM and a toxic multinodular thyroid. 1) T2DM: Initially diagnosed with T2DM in 2019. Was initially started on treatment with Metformin. Current regimen Metformin 500 mg PO q am and 1000 mg PO q PM, Januvia 100 mg PO daily, Jardiance 25 mg PO daily and Pioglitazone 30 mg PO daily. Unable to download sugars today. Reports low sugars never below 70. Treats lows with juice. Is aware of the rule of 15's to treat. Most recent A1C 5.7% 05/27/2022. Family history of T2DM in her Father and Siblings. Has eyes checked yearly, last eye exam 1 year ago, denies retinopathy. Denies neuropathy, last foot exam 05/27/2022. Denies nephropathy, not on NATALIE/ARB. No recent UAC on file. Has HLD, on Atorvastatin 20 mg PO daily. No recent LDL on file. Unsure if CAD. Diet: Eats a balanced diet but does not count carbohydrates. Weight: Stable Has not had diabetes education. 2) Toxic MNG: Was initially diagnosed with multinodular thyroid in 2020 after an US ordered by her PCP revealed multiple bilateral nodules. She underwent FNA biopsy by me 07/02/2021 of her RLP 1.4 cm thyroid nodule.? Cytology was benign (bethesda category II). She was found to have multiple heavily calcified nodules at the time of FNA biopsy. Unable to pass needle beyond calcification. She currently denies any compressive symptoms.? She subsequently was found to have subclinical hyperthyroidism. Antibodies negative. Thyroid uptake and scan was consistent with a toxic multinodular thyroid. She was started on methimazole 5 mg PO daily as she was symptomatic. TSH has normalized but remains low normal. She is tolerating the methimazole well. Denies any history of head or neck irradiation.? Denies any family history of thyroid cancer.? US Thyroid: 07/08/2022 Right Thyroid Lobe: 5.6 x 2.0 x 2.3 cm, volume 13.5 mL. Previously 4.9 x 1.7 x 2.5 cm, volume 10.7 mL. Parenchyma: The gland echotexture is heterogeneous. Thyroid vascularity is normal. Left Thyroid Lobe: 5.6 x 1.9 x 2.2 cm, volume 2.5 mL. Previously 5.2 x 1.5 x 2.1 cm, volume 8.8 mL. Parenchyma: The gland echotexture is heterogeneous. Thyroid vascularity is normal. Isthmus: 0.3 cm in maximum AP dimension. Previously 0.2 cm. Estimated total number of nodules greater than or equal to 1 cm: 2. Fishing Captain nodules are described as follows: 1.? Location: Right superior. ?? ? Size: 0.7 x 0.5 x 0.5 cm, volume 0.1 mL. ?? ? Previously: 0.9 x 0.5 x 0.7 cm, volume 0.2 mL. ?? ? Nodule characteristics: ?? ? Composition: Solid (2). ?? ? Echogenicity: Very hypoechoic (3). ?? ? Shape: Not taller than wide (0). ?? ? Margins: Smooth (0). ?? ? Echogenic Foci: None (0).? ACR TI-RADS total points: 5 Previous: 3 ?? ? ACR TI-RADS category: 4 Previous: 3 ? Significant change in size (>/= 20% in 2 dimensions and minimal increase of 2 mm or 50% or greater increase in volume): None ?? ? Change in features: None ?? ? Change in ACR TI-RADS risk category: Minimal 2.? Location: Right mid. ?? ? Size: 0.8 x 0.6 x 0.7 cm, volume 0.2 mL. ?? ? Previously: 0.9 x 0.6 x 0.8 cm, volume 0.2 mL. ?? ? Nodule characteristics: ?? ? Composition: Solid (2). ?? ? Echogenicity: Hypoechoic (2). ?? ? Shape: Not taller than wide (0). ?? ? Margins: Smooth (0). ?? ? Echogenic Foci: None (0). ? ACR TI-RADS total points: 4 Previous: 3 ?? ? ACR TI-RADS category: 4 Previous: 3 ? Significant change in size (>/= 20% in 2 dimensions and minimal increase of 2 mm or 50% or greater increase in volume): None ?? ? Change in features: None ?? ? Change in ACR TI-RADS risk category: No significant change. 3.? Location: Right inferior. ?? ? Size: 1.2 x 0.8 x 1.0 cm, volume 0.5 mL. ?? ? Previously: 1.4 x 1.3 x 1.1 cm, volume 1.0 mL. ?? ? Nodule characteristics: ?? ? Composition: Solid (2). ?? ? Echogenicity: Very hypoechoic (3). ?? ? Shape: Not taller than wide (0). ?? ? Margins: Smooth (0). ?? ? Echogenic Foci: None (0). ? ACR TI-RADS total points: 5 Previous: 4 ?? ? ACR TI-RADS category: 4 Previous: 4 ? Significant change in size (>/= 20% in 2 dimensions and minimal increase of 2 mm or 50% or greater increase in volume): None ?? ? Change in features: None ?? ? Change in ACR TI-RADS risk category: No significant change 4.? Location: Right inferior. ?? ? Size: 0.6 x 0.5 x 0.6 cm, volume 0.1 mL. ?? ? Previously: 0.7 x 0.4 x 0.7 cm, volume 0.1 mL. ?? ? Nodule characteristics: ?? ? Composition: Cannot be determined (2). ?? ? Echogenicity: Cannot be determined (1). ?? ? Shape: Not taller than wide (0). ?? ? Margins: Cannot be determined (0). ?? ? Echogenic Foci: Peripheral calcifications (2). ? ACR TI-RADS total points: 5 Previous: 5 ?? ? ACR TI-RADS category: 4 Previous: 4 ? Significant change in size (>/= 20% in 2 dimensions and minimal increase of 2 mm or 50% or greater increase in volume): None ?? ? Change in features: None ?? ? Change in ACR TI-RADS risk category: No change 5.? Location: Left inferior. Not seen previously. ?? ? Size: 1.6 x 1.3 x 1.5 cm, volume 1.5 mL. ?? ? Previously: Not seen on the previous study. ?? ? Nodule characteristics: ?? ? Composition: Solid (2). ?? ? Echogenicity: Very hypoechoic (3). ?? ? Shape: Not taller than wide (0). ?? ? Margins: Cannot be determined (0). ?? ? Echogenic Foci: Peripheral calcifications (2). ? ACR TI-RADS total points: 7 ?? ? ACR TI-RADS category: 5 NODES: No lymphadenopathy is seen in the tissue surrounding the thyroid gland. Thyroid Uptake and Scan: 07/09/2022 FINDINGS: The uptake is 9.7% at 2 hours and 22.5% at 24 hours (Normal radioiodine uptake at 24 hours is 10% to 30%). The radioiodine uptake is normal. The radiopertechnetate thyroid scintigram demonstrates the thyroid gland to be normal in size. Multiple rounded or ovoid shaped foci of increased activity are present bilaterally, the largest and oval shape focus medially in the lower pole of the right lobe, but several much smaller rounded foci are present in the right lobe and there are at least 3 discrete foci of increased trapping function in the left lobe. A single anterior radioiodine image obtained at the time of the 24-hour uptake is similar to the radio pertechnetate image, but does not delineate the detail within the gland as well. NM/NM thyroid w uptake IMPRESSION: In the clinical setting of thyrotoxicosis, these findings are most consistent with a toxic multinodular goiter (Javad's disease). Labs: Laboratory Tests 01/14/23 01/24/23 01/24/23 12:27 11:48 11:48 Creatinine 0.65 Estimated GFR > 60 TSH 0.32 Free T4 0.90 Total T3 141 PFSH Medical History Adenocarcinoma of colon Arthritis Asthma Constipation COPD (chronic obstructive pulmonary disease) Diabetes type 2, uncontrolled DM2 (diabetes mellitus, type 2) Essential hypertension History of adenomatous polyp of colon HLD (hyperlipidemia) HTN (hypertension) Hyperlipidemia LDL goal <100 Hyperthyroidism Low back pain Multinodular thyroid Personal history of nicotine dependence Polymyalgia rheumatica Positive CLEMENT (antinuclear antibody) Tubular adenoma of colon Vitamin D deficiency Surgical History History of cardiac cath (~09/2018) History of colonoscopy (~09/2020) History of flexible sigmoidoscopy (~06/2013) History of needle biopsy History of right breast biopsy (~10/2010) History of rigid sigmoidoscopy (~04/2013) Hx of cholecystectomy Family History Father Diabetes CVD (cardiovascular disease) Mother Breast cancer Skin cancer Cancer Social History Household Members: Other Household Members Other:: Mother lives with her Alcohol intake: current Alcohol intake frequency: does not drink Patient Tobacco Use Status: Former Tobacco user Quit Date: Over 10 years ago Assessment & Plan Assessment & Plan (1) Multinodular thyroid: Code(s): E04.2 - Nontoxic multinodular goiter Plan: Patient with a toxic MNG. She has a concerning appearing nodule and I was unable to perform FNA biopsy of this nodule due to the peripheral calcifications. She initially refused surgery. We reviewed again today that given both the nodules and the hyperthyroidism I do recommend a thyroidectomy at this time. She is now in agreement with this. I will refer her to Dr. Hernandez. She remains on methimazole 5 mg PO daily with TSH at goal. She will continue this until after surgery. All of her questions were answered. She is in agreement with this plan of care. I spent 20 minutes in reviewing the record, seeing the patient and documenting in the medical record, including 5 minutes on the phone with the Patient. (2) DM2 (diabetes mellitus, type 2): Code(s): E11.9 - Type 2 diabetes mellitus without complications Qualifiers: Diabetes mellitus skilled nursing insulin use: without terminal gauger supervisor use Diabetes mellitus complication status: with hyperglycemia Qualified Code(s): E11.65 - Type 2 diabetes mellitus with hyperglycemia Plan: Patient with T2DM, on a poor regimen. Plan for now is to stop pioglitazone and Januvia. We will optimize metformin to 1000 mg PO BID and continue with Jardiance. No changes. Telehealth Telehealth Location of provider rendering services: practice address Location of patient: address on file Patient Identification confirmed using: Name, : Yes Telehealth method: voice only Patient verbally consented to treatment: Yes Patient verbally consented to billing insurance company: Yes Patient informed of any privacy concerns related to visit: Yes Coding Level of Care Code Tele Est Pt Level 3 (85764) Diagnoses Multinodular thyroid E04.2 DM2 (diabetes mellitus, type 2) E11.65 Diabetes mellitus skilled nursing insulin use: without terminal gauger supervisor use Diabetes mellitus complication status: with hyperglycemia
== END 2023-01-31 12:22 | disposition home or self-care (01) ==
LOC: HO.ENCR 09:15
PROVIDERS: PCP Internal Medicine; Visit Provider Internal Medicine
DX: E04.2 Nontoxic multinodular goiter (principal); E11.65 Type 2 diabetes mellitus with hyperglycemia
CPT/HCPCS: 99443

== ENCOUNTER → 2023-01-31 09:15 | Outpatient (BNVA) | payer MEDICARE, MEDICAID, SELFPAY | PROVIDERS: PCP Internal Medicine; Visit Provider Internal Medicine ==

== ENCOUNTER 2023-02-02 12:29 | Outpatient (REF) | payer MEDICARE, MEDICAID, SELFPAY ==
--- NOTE | ~2023-02-02 | CT_ITS ---
EXAMINATION: CT CHEST WITHOUT CONTRAST CLINICAL INFORMATION: Abnormal lung findings. Pulmonary nodules. COMPARISON: Chest x-ray 11/22/2020, CTA chest 11/22/2020. TECHNIQUE: Multidetector volumetric CT imaging of the chest was done. Axial MIP volume rendering provided. Sagittal and coronal reformatted images were obtained. This CT examination was performed using dose optimization techniques as appropriate, variously including the following: *Automated exposure control *Adjustment of mA and/or kV according to patient size (this includes techniques or standardized protocols for targeted exams where dose is matched to indication/reason for exam; i.e. extremities or head) *Use of iterative reconstruction technique DLP: 110 mGy-cm FINDINGS: WOODS RIDER: Unremarkable chest. LUNGS: The lungs are well-expanded and clear of acute pneumonic process. There are multiple pulmonary nodules. Right Lung: A 3 mm new nodule right lung apex image 116/5, 5 mm nodule right upper lobe axial image 240/5, stable. Left Lung: A 3 mm calcified nodule left lower lobe superior segment image 209/5, 2 mm noncalcified nodule left upper lobe laterally image 205/5, new. No additional nodules seen on either side. No acute consolidation or ground-glass density. MEDIASTINUM: Thyroid lobes are symmetric and normal. The central trachea and bronchi are widely patent. The heart size and great vessels are normal caliber. There are mild coronary artery calcifications. No pericardial effusion seen. No abnormal size mediastinal or hilar lymphadenopathy seen. CORONARY ARTERY CALCIFICATION: Mild coronary artery calcifications present. PLEURA: There is no pleural effusion. No pleural mass or thickening. AXILLA: No lymphadenopathy. UPPER ABDOMEN: Visualized liver, spleen, pancreas and bilateral adrenal glands are unremarkable. The gallbladder has been surgically removed. OSSEOUS STRUCTURES: No aggressive lytic or sclerotic process seen. There is mild ventral spondylosis lower dorsal spine. CT/CT chest wo IV con IMPRESSION: 1. Stable bilateral pulmonary nodules. There is a new 2 mm noncalcified nodule left upper lobe. 2. No abnormal mediastinal or axillary lymphadenopathy seen. 3. Mild coronary artery calcifications. Fleischner guidelines were followed.
== END 2023-02-02 12:30 | disposition home or self-care (01) ==
LOC: HO.CT 12:29
PROVIDERS: PCP Internal Medicine; Visit Provider Internal Medicine Pulmonary Disease
DX: R91.8 Other nonspecific abnormal finding of lung field (principal)
CPT/HCPCS: 71250

== ENCOUNTER 2023-05-04 13:48 | Outpatient (AMB) | payer MEDICARE, MEDICAID, SELFPAY ==
[2023-05-04 13:50] VITALS: BP 106/68; PULSE 79; BMI 25.7
--- NOTE | 2023-05-04 13:50 | MHC.OFFVIS ---
Intake Vital Signs 05/04/23 13:50 Height 5 ft 4 in Weight 149 lb 14.629 oz BMI 25.7 BP 106/68 Blood Pressure Location Lt brachial Position Sitting Pulse 79 Pulse Source Pulse Oximeter Intake Visit Reasons: T2DM Intake Note: New patient to Dr. Fox present today for Type [address] Lara patient. Last Diabetic Eye exam: 05/2022 Last Podiatry Visit: None Random Glucose:112 mg/dl HgA1C: 6.2% Reports Analysis Manager Required: Yes Reports Analysis Manager Language: Ukrainian Information Interpreted: non-clinical & clinical Accompanied by: Self / Same As Patient Allergies No Known Allergies [No Known Allergies*] Allergy (Verified 05/04/23 14:03) Medication List - Last Reconciled 05/04/23 by Ricardo Fox MD albuterol sulfate 90 mcg/actuation 2 puffs inhalation Q4-6H PRN 30 days ascorbate calcium (vitamin C) 500 mg PO DAILY atorvastatin 20 mg PO DAILY blood sugar diagnostic (FreeStyle Lite Strips) 3x daily calcium carbonate 500 mg PO DAILY cholecalciferol (vitamin D3) mcg PO [Compression socks As directed] docusate sodium (Colace) 100 mg PO DAILY empagliflozin (Jardiance) 25 mg PO QAM 90 days famotidine (Pepcid) 20 mg PO DAILY fluticasone furoate-vilanterol 200-25 mcg/dose (Breo Ellipta) 1 inh inhalation DAILY 90 days lancets (FreeStyle Lancets) As directed twice a day lancets (FreeStyle Lancets) As directed three times a day metformin ER 500 mg PO 1 tab PO q am and 2 tabs PO q PM.; methimazole 5 mg PO DAILY 30 days pioglitazone 30 mg PO DAILY sitagliptin phosphate (Januvia) 100 mg PO DAILY tramadol 100 mg (2 x 50 mg) PO BID PRN HPI HPI Comments History of Present Illness Details 61 YO F who is seen in F/U for T2DM and a toxic multinodular thyroid. . Patient last saw Dr. Lara on 05/27/2022 1) T2DM: Initially diagnosed with T2DM in 2019. Was initially started on treatment with Metformin. Current regimen Metformin 500 mg PO q am and 1000 mg PO q PM, Januvia 100 mg PO daily, Jardiance 25 mg PO daily and Pioglitazone 30 mg PO daily. Reports low sugars never below 70. Treats lows with juice. Is aware of the rule of 15's to treat. Most recent A1C 5.7% 05/27/2022. Family history of T2DM in her Father and Siblings. Has eyes checked yearly, last eye exam next mo , denies retinopathy. Denies neuropathy, Denies nephropathy, not on NATALIE/ARB. No recent UAC on file. Has HLD, on Atorvastatin 20 mg PO daily. No recent LDL on file. Unsure if CAD. Diet: Eats a balanced diet but does not count carbohydrates. Weight: Stable Has not had diabetes education. 2) Toxic MNG: Was initially diagnosed with multinodular thyroid in 2020 after an US ordered by her PCP revealed multiple bilateral nodules. She underwent FNA biopsy by me 07/02/2021 of her RLP 1.4 cm thyroid nodule.? Cytology was benign (bethesda category II). She was found to have multiple heavily calcified nodules at the time of FNA biopsy. Unable to pass needle beyond calcification. She currently denies any compressive symptoms.? She subsequently was found to have subclinical hyperthyroidism. Antibodies negative. Thyroid uptake and scan was consistent with a toxic multinodular thyroid. She was started on methimazole 5 mg PO daily as she was symptomatic. TSH has normalized but remains low normal. She is tolerating the methimazole well. Denies any history of head or neck irradiation.? Denies any family history of thyroid cancer.? US Thyroid: 07/08/2022 Right Thyroid Lobe: 5.6 x 2.0 x 2.3 cm, volume 13.5 mL. Previously 4.9 x 1.7 x 2.5 cm, volume 10.7 mL. Parenchyma: The gland echotexture is heterogeneous. Thyroid vascularity is normal. Left Thyroid Lobe: 5.6 x 1.9 x 2.2 cm, volume 2.5 mL. Previously 5.2 x 1.5 x 2.1 cm, volume 8.8 mL. Parenchyma: The gland echotexture is heterogeneous. Thyroid vascularity is normal. Isthmus: 0.3 cm in maximum AP dimension. Previously 0.2 cm. Estimated total number of nodules greater than or equal to 1 cm: 2. Freight [place] nodules are described as follows: 1.? Location: Right superior. ?? ? Size: 0.7 x 0.5 x 0.5 cm, volume 0.1 mL. ?? ? Previously: 0.9 x 0.5 x 0.7 cm, volume 0.2 mL. ?? ? Nodule characteristics: ?? ? Composition: Solid (2). ?? ? Echogenicity: Very hypoechoic (3). ?? ? Shape: Not taller than wide (0). ?? ? Margins: Smooth (0). ?? ? Echogenic Foci: None (0).? ACR TI-RADS total points: 5 Previous: 3 ?? ? ACR TI-RADS category: 4 Previous: 3 ? Significant change in size (>/= 20% in 2 dimensions and minimal increase of 2 mm or 50% or greater increase in volume): None ?? ? Change in features: None ?? ? Change in ACR TI-RADS risk category: Minimal 2.? Location: Right mid. ?? ? Size: 0.8 x 0.6 x 0.7 cm, volume 0.2 mL. ?? ? Previously: 0.9 x 0.6 x 0.8 cm, volume 0.2 mL. ?? ? Nodule characteristics: ?? ? Composition: Solid (2). ?? ? Echogenicity: Hypoechoic (2). ?? ? Shape: Not taller than wide (0). ?? ? Margins: Smooth (0). ?? ? Echogenic Foci: None (0). ? ACR TI-RADS total points: 4 Previous: 3 ?? ? ACR TI-RADS category: 4 Previous: 3 ? Significant change in size (>/= 20% in 2 dimensions and minimal increase of 2 mm or 50% or greater increase in volume): None ?? ? Change in features: None ?? ? Change in ACR TI-RADS risk category: No significant change. 3.? Location: Right inferior. ?? ? Size: 1.2 x 0.8 x 1.0 cm, volume 0.5 mL. ?? ? Previously: 1.4 x 1.3 x 1.1 cm, volume 1.0 mL. ?? ? Nodule characteristics: ?? ? Composition: Solid (2). ?? ? Echogenicity: Very hypoechoic (3). ?? ? Shape: Not taller than wide (0). ?? ? Margins: Smooth (0). ?? ? Echogenic Foci: None (0). ? ACR TI-RADS total points: 5 Previous: 4 ?? ? ACR TI-RADS category: 4 Previous: 4 ? Significant change in size (>/= 20% in 2 dimensions and minimal increase of 2 mm or 50% or greater increase in volume): None ?? ? Change in features: None ?? ? Change in ACR TI-RADS risk category: No significant change 4.? Location: Right inferior. ?? ? Size: 0.6 x 0.5 x 0.6 cm, volume 0.1 mL. ?? ? Previously: 0.7 x 0.4 x 0.7 cm, volume 0.1 mL. ?? ? Nodule characteristics: ?? ? Composition: Cannot be determined (2). ?? ? Echogenicity: Cannot be determined (1). ?? ? Shape: Not taller than wide (0). ?? ? Margins: Cannot be determined (0). ?? ? Echogenic Foci: Peripheral calcifications (2). ? ACR TI-RADS total points: 5 Previous: 5 ?? ? ACR TI-RADS category: 4 Previous: 4 ? Significant change in size (>/= 20% in 2 dimensions and minimal increase of 2 mm or 50% or greater increase in volume): None ?? ? Change in features: None ?? ? Change in ACR TI-RADS risk category: No change 5.? Location: Left inferior. Not seen previously. ?? ? Size: 1.6 x 1.3 x 1.5 cm, volume 1.5 mL. ?? ? Previously: Not seen on the previous study. ?? ? Nodule characteristics: ?? ? Composition: Solid (2). ?? ? Echogenicity: Very hypoechoic (3). ?? ? Shape: Not taller than wide (0). ?? ? Margins: Cannot be determined (0). ?? ? Echogenic Foci: Peripheral calcifications (2). ? ACR TI-RADS total points: 7 ?? ? ACR TI-RADS category: 5 NODES: No lymphadenopathy is seen in the tissue surrounding the thyroid gland. Thyroid Uptake and Scan: 07/09/2022 FINDINGS: The uptake is 9.7% at 2 hours and 22.5% at 24 hours (Normal radioiodine uptake at 24 hours is 10% to 30%). The radioiodine uptake is normal. The radiopertechnetate thyroid scintigram demonstrates the thyroid gland to be normal in size. Multiple rounded or ovoid shaped foci of increased activity are present bilaterally, the largest and oval shape focus medially in the lower pole of the right lobe, but several much smaller rounded foci are present in the right lobe and there are at least 3 discrete foci of increased trapping function in the left lobe. A single anterior radioiodine image obtained at the time of the 24-hour uptake is similar to the radio pertechnetate image, but does not delineate the detail within the gland as well. NM/NM thyroid w uptake IMPRESSION: In the clinical setting of thyrotoxicosis, these findings are most consistent with a toxic multinodular goiter (Javad's disease). Labs: Laboratory Tests 01/14/23 01/24/23 01/24/23 12:27 11:48 11:48 Creatinine 0.65 Estimated GFR > 60 TSH 0.32 Free T4 0.90 Total T3 141 PFSH Medical History Adenocarcinoma of colon Arthritis Asthma Constipation COPD (chronic obstructive pulmonary disease) Diabetes type 2, uncontrolled DM2 (diabetes mellitus, type 2) Essential hypertension History of adenomatous polyp of colon HLD (hyperlipidemia) HTN (hypertension) Hyperlipidemia LDL goal <100 Hyperthyroidism Low back pain Multinodular thyroid Personal history of nicotine dependence Polymyalgia rheumatica Positive CLEMENT (antinuclear antibody) Tubular adenoma of colon Vitamin D deficiency Surgical History History of cardiac cath (~09/2018) History of colonoscopy (~09/2020) History of flexible sigmoidoscopy (~06/2013) History of needle biopsy History of right breast biopsy (~10/2010) History of rigid sigmoidoscopy (~04/2013) Hx of cholecystectomy Family History Father Diabetes CVD (cardiovascular disease) Mother Breast cancer Skin cancer Cancer Social History Household Members: Other Household Members Other:: Mother lives with her Alcohol intake: current Alcohol intake frequency: does not drink Patient Tobacco Use Status: Former Tobacco user Quit Date: Over 10 years ago Physical Exam Vital Signs: Last Vital Signs Pulse 79 05/04/23 13:50 BP 106/68 05/04/23 13:50 BMI result Body Mass Index 25.7 Absence of Cushingoid features. Absence of acromegalic features. Neck exam reveals nl size thyroid about 15 gms. No thyroid nodules palpable. No carotid bruits present. Lungs CTA. Heart S1 S2, Reg R/R. No M/R/ G. Skin exam reveals absence of vitiligo or acanthosis nigricans. Abdominal exam reveals Soft NT/ND with NA BS. No organomegaly present. Neck Other: . Extrem Other: Visual exam of foot performed. No ulcerations or open lesions. No onchomycosis, no callouses.Pulses 2 + distally Sensation intact to monofilament exam. Vibratory sensation sensed is intact with 128 Hz tuning fork Results Reviewed Results Reviewed: 05/04/23 13:59 Glucose, Whole Blood Routine Laboratory Last Values Glucose (Clinic) 112 mg/dL (60-115) 05/04/23 13:59 Assessment & Plan Assessment & Plan (1) Diabetes type 2, uncontrolled: Code(s): E11.65 - Type 2 diabetes mellitus with hyperglycemia Qualifiers: Glycemic state: with hyperglycemia Qualified Code(s): E11.65 - Type 2 diabetes mellitus with hyperglycemia Plan: This is a 62-year-old female with history of type 2 diabetes being treated with metformin, Actos, Januvia, Jardiance with excellent glycemic control and no known microvascular or macrovascular complication In terms of the diabetes, patient can follow up with her primary care provider return back to endocrinology should HbA1c deteriorate (2) Hyperthyroidism: Code(s): E05.90 - Thyrotoxicosis, unspecified without thyrotoxic crisis or storm Plan: Toxic multinodular goiter currently being treated with methimazole 5 mg q.d.. Appears to be clinically and biochemically euthyroid. Plan is to continue the current management Orders: Orders AMB Hemoglobin A1c Today E11.65 - Type 2 diabetes mellitus with hyperglycemia Coding Level of Care Code Est Pt Level 4 (77013) Diagnoses Uncontrolled type 2 diabetes mellitus with hyperglycemia E11.65 Glycemic state: with hyperglycemia Hyperthyroidism E05.90
[2023-05-04 14:04] LABS: Glucose, Whole Blood 112 mg/dL (60-115)
== END 2023-05-04 16:01 | disposition home or self-care (01) ==
PROVIDERS: PCP Internal Medicine; Visit Provider Internal Medicine Endocrinology, Diabetes & Metabolism
DX: E11.65 Type 2 diabetes mellitus with hyperglycemia (principal)
CPT/HCPCS: 99214

== ENCOUNTER → 2023-05-04 13:48 | Outpatient (BNVA) | payer MEDICARE, MEDICAID, SELFPAY | PROVIDERS: PCP Internal Medicine; Visit Provider Internal Medicine Endocrinology, Diabetes & Metabolism | DX: E11.65 Type 2 diabetes mellitus with hyperglycemia (principal); Z79.84 Long term (current) use of oral hypoglycemic drugs | CPT/HCPCS: 82947; 83036; 99212 ==

== ENCOUNTER 2023-05-12 13:05 | Outpatient (AMB) | payer MEDICARE, MEDICAID, SELFPAY ==
[2023-05-12 13:23] VITALS: BP 122/70; PULSE 78; TEMP 36.4; O2SAT 96; BMI 25.5
--- NOTE | 2023-05-12 13:23 | A.OFFVIS_ITS ---
Intake Vital Signs 05/12/23 13:23 Height 5 ft 4 in Weight 148 lb 9.465 oz BMI 25.5 BP 122/70 Blood Pressure Location Rt brachial Position Sitting Pulse 78 Pulse Source Pulse Oximeter Temp 97.6 F Temp Source Skin Pulse Oximetry (%) 96 Oxygen Delivery Method Room Air Intake Visit Reasons: fibromyaliga. Intake Note: Pt last seen by Latrice 11/17/22, presents today for follow up. Needs tramadol refill, s/p bl breast cancer surgery Turner Machine Required: Yes Turner Machine Name: Rip [email or web address] Accompanied by: Self / Same As Patient Allergies No Known Allergies [No Known Allergies*] Allergy (Verified 05/12/23 13:25) Medication List - Last Reconciled 05/12/23 by Skip Nino MD albuterol sulfate 90 mcg/actuation 2 puffs inhalation Q4-6H PRN 30 days ascorbate calcium (vitamin C) 500 mg PO DAILY atorvastatin 20 mg PO DAILY blood sugar diagnostic (FreeStyle Lite Strips) 3x daily calcium carbonate 500 mg PO DAILY cholecalciferol (vitamin D3) mcg PO [Compression socks As directed] docusate sodium (Colace) 100 mg PO DAILY empagliflozin (Jardiance) 25 mg PO QAM 90 days famotidine (Pepcid) 20 mg PO DAILY fluticasone furoate-vilanterol 200-25 mcg/dose (Breo Ellipta) 1 inh inhalation DAILY 90 days lancets (FreeStyle Lancets) As directed twice a day lancets (FreeStyle Lancets) As directed three times a day metformin ER 500 mg PO 1 tab PO q am and 2 tabs PO q PM.; methimazole 5 mg PO DAILY 30 days pioglitazone 30 mg PO DAILY sitagliptin phosphate (Januvia) 100 mg PO DAILY tramadol 100 mg (2 x 50 mg) PO BID PRN HPI HPI Comments History of Present Illness Details 62-year-old female with fibromyalgia ret urns for follow-up. She recently had bilateral breast lumpectomy for breast cancer and will be started on radiation treatment. Patient is quite depressed about her diagnosis. States that she has been taking more tramadol. Previously she was taking 2 tablets in the morning and 1 tablet at night. Currently she has been taking 2 tabs twice daily. She has been having pain in her back, her knee and her shoulders [facility] Medical History Hyperthyroidism HLD (hyperlipidemia) HTN (hypertension) DM2 (diabetes mellitus, type 2) Multinodular thyroid Personal history of nicotine dependence Diabetes type 2, uncontrolled History of adenomatous polyp of colon Vitamin D deficiency Arthritis Tubular adenoma of colon Adenocarcinoma of colon Constipation Positive CLEMENT (antinuclear antibody) COPD (chronic obstructive pulmonary disease) Essential hypertension Hyperlipidemia LDL goal <100 Low back pain Asthma Polymyalgia rheumatica Surgical History History of needle biopsy History of colonoscopy (~09/2020) History of cardiac cath (~09/2018) History of right breast biopsy (~10/2010) History of flexible sigmoidoscopy (~06/2013) History of rigid sigmoidoscopy (~04/2013) Hx of cholecystectomy Family History Father Diabetes CVD (cardiovascular disease) Mother Breast cancer Skin cancer Cancer Social History Household Members: Other Household Members Other:: Mother lives with her Alcohol intake: current Alcohol intake frequency: does not drink Patient Tobacco Use Status: Former Tobacco user Quit Date: Over 10 years ago Review of Systems Musc Reports back pain and Reports arthralgias Psych Reports depression Physical Exam Vital Signs: Last Vital Signs Temp 97.6 F 05/12/23 13:23 Pulse 78 05/12/23 13:23 BP 122/70 05/12/23 13:23 Pulse Ox 96 05/12/23 13:23 Oxygen Delivery Method Room Air 05/12/23 13:23 BMI result Body Mass Index 25.5 Const General: cooperative, healthy appearing and comfortable Nutritional Appearance: average body habitus Orientation/consciousness: patient oriented x3 Limitations: no limitations HEENT Head: Yes normocephalic and Yes atraumatic Mouth: moist mucous membranes Resp Effort & Inspection: normal respiratory effort and able to speak in complete sentences Auscultation: clear to auscultation bilaterally Cardio Rate: regular rate Rhythm: regular rhythm Skin General skin exam: no rashes or lesions noted Neuro General: patient oriented x3 Extrem Other: Multiple fibromyalgia tender points. Assessment & Plan Assessment & Plan (1) Polyarthralgia: Code(s): M25.50 - Pain in unspecified joint Plan: 62-year-old female with polyarthralgia. She has a previous diagnosis of polymyalgia rheumatica, off prednisone since November 2019. Patient does not appear to have return of PMR symptoms on exam. Patient recently had bilateral breast lumpectomy for breast cancer and is planned for radiation therapy. She is quite depressed. She continues to have diffuse pain in the back, shoulders, knees. Before the surgery she was taking tramadol 2 tabs in the morning and 1 tablet at night. Since the surgery she has been taking 2 tabs twice daily. Will refill tramadol. Follow-up in 6 months Coding Level of Care Code Est Pt Level 3 (58682) Diagnoses Polyarthralgia M25.50
== END 2023-05-12 13:53 | disposition home or self-care (01) ==
PROVIDERS: PCP Internal Medicine; Visit Provider Student in an Organized Health Care Education/Training Program
DX: M25.50 Pain in unspecified joint (principal)
CPT/HCPCS: 99213

== ENCOUNTER → 2023-05-12 13:05 | Outpatient (BNVA) | payer MEDICARE, MEDICAID, SELFPAY | PROVIDERS: PCP Internal Medicine; Visit Provider Student in an Organized Health Care Education/Training Program | DX: M25.50 Pain in unspecified joint (principal) | CPT/HCPCS: 99212 ==

== ENCOUNTER 2023-08-18 10:59 | Outpatient (AMB) | payer MEDICARE, MEDICAID, SELFPAY ==
[2023-08-18 11:00] VITALS: BP 104/62; PULSE 72; O2SAT 98; BMI 26.4
--- NOTE | 2023-08-18 11:00 | A.OFFVIS_ITS ---
Intake Vital Signs 08/18/23 11:00 Height 5 ft 4 in Weight 154 lb BMI 26.4 BP 104/62 Blood Pressure Location Rt brachial Position Sitting Pulse 72 Pulse Source Doppler Pulse Oximetry (%) 98 Oxygen Delivery Method Room Air Intake Visit Reasons: asthma Activities Manager Required: Yes Activities Manager Name: Noemy bakari De León Allergies No Known Allergies [No Known Allergies*] Allergy (Verified 08/18/23 11:06) HPI asthma HPI Details 62-year-old lady, former approximately 4 0 pack-year smoker quit 2009, followed for dyspnea on exertion, pulmonary nodules, and COPD.? After the last o ffice visit patient had breast cancer treated with bilateral chest radiation after which she started having more dyspnea symptoms. She has been using Breo, however she is ran out of Incruse. She denies acute exacerbations. [facility] Medical History Hyperthyroidism HLD (hyperlipidemia) HTN (hypertension) DM2 (diabetes mellitus, type 2) Multinodular thyroid Personal history of nicotine dependence Diabetes type 2, uncontrolled History of adenomatous polyp of colon Vitamin D deficiency Arthritis Tubular adenoma of colon Adenocarcinoma of colon Constipation Positive CLEMENT (antinuclear antibody) COPD (chronic obstructive pulmonary disease) Essential hypertension Hyperlipidemia LDL goal <100 Low back pain Asthma Polymyalgia rheumatica Surgical History History of needle biopsy History of colonoscopy (~09/2020) History of cardiac cath (~09/2018) History of right breast biopsy (~10/2010) History of flexible sigmoidoscopy (~06/2013) History of rigid sigmoidoscopy (~04/2013) Hx of cholecystectomy Family History Father Diabetes CVD (cardiovascular disease) Mother Breast cancer Skin cancer Cancer Social History Household Members: Other Household Members Other:: Mother lives with her Alcohol intake: current Alcohol intake frequency: does not drink Patient Tobacco Use Status: Former Tobacco user Quit Date: Over 10 years ago Review of Systems Const Denies daytime sleepiness, Denies excessive sweating, Denies fatigue, Denies fever(s), Denies lethargy, Denies malaise, Denies night sweats, Denies snoring and Denies weight loss Eyes Denies blurry vision and Denies itchy eyes ENT Denies nasal congestion, Denies post nasal drip, Denies sinus pain, Denies sinus pressure and Denies other ( Thrush) Card Denies chest pain, Denies pedal edema, Denies dyspnea, Reports dyspnea on exertion, Denies orthopnea and Denies paroxysmal nocturnal dyspnea Resp Denies cough, Denies hemoptysis, Denies excessive phlegm production, Denies dyspnea, Reports dyspnea on exertion, Denies snoring and Denies wheezing GI Denies abdominal pain and Denies heartburn Musc Denies myalgias, Denies arthralgias and Denies joint swelling Skin/Breast Denies rash Neuro Denies memory loss and Denies seizure-like activity Psych Denies abnormal sleep pattern, Denies anxiety and Denies memory loss Endo Denies excessive sweating, Denies fatigue and Denies heat intolerance Andrew/Lymph Denies easy bruising Aller/Immun Denies itchy eyes, Denies seasonal rhinorrhea and Denies wheezing Physical Exam Vital Signs: Last Vital Signs Pulse 72 08/18/23 11:00 BP 104/62 08/18/23 11:00 Pulse Ox 98 08/18/23 11:00 Oxygen Delivery Method Room Air 08/18/23 11:00 BMI result Body Mass Index 26.4 Const General: no acute distress and alert Nutritional Appearance: not obese Orientation/consciousness: Other orientation findings ( oriented) HEENT Head: Yes atraumatic Eyes General: appearance normal, both eyes and all related structures Sclerae: sclerae normal EOM: EOMs intact bilaterally Neck Neck: Yes supple Lymphatic: no lymphadenopathy noted Resp Effort & Inspection: normal respiratory effort and no use of accessory muscles Auscultation: clear to auscultation bilaterally Cardio Rate: regular rate Rhythm: regular rhythm Heart sounds: no gallops, no murmurs and no rubs Skin General skin exam: other ( warm) Extrem General: No clubbing, No cyanosis and No edema Assessment & Plan Assessment & Plan (1) COPD (chronic obstructive pulmonary disease): Code(s): J44.9 - Chronic obstructive pulmonary disease, unspecified Plan: Suboptimally controlled as patient has ran out of Incruse. Restart Incruse. Continue Breo and albuterol MDI. (2) History of thoracic irradiation: Code(s): Z92.3 - Personal history of irradiation Plan: Worsening dyspnea after recent XRT for breast cancer treatment. Will obtain CT chest and PFT for further evaluation. Orders: Orders CT chest wo IV con Today Z92.3 - Personal history of irradiation PFT pulmonary function test Today Z92.3 - Personal history of irradiation Coding Level of Care Code Est Pt Level 4 (77587) Diagnoses COPD (chronic obstructive pulmonary disease) J44.9 History of thoracic irradiation Z92.3
== END 2023-08-18 11:21 | disposition home or self-care (01) ==
PROVIDERS: PCP Internal Medicine; Visit Provider Internal Medicine Pulmonary Disease
DX: J44.9 Chronic obstructive pulmonary disease, unspecified (principal); Z92.3 Personal history of irradiation
CPT/HCPCS: 99214

== ENCOUNTER → 2023-08-18 10:59 | Outpatient (BNVA) | payer MEDICARE, MEDICAID, SELFPAY | PROVIDERS: PCP Internal Medicine; Visit Provider Internal Medicine Pulmonary Disease | DX: J44.9 Chronic obstructive pulmonary disease, unspecified (principal); Z92.3 Personal history of irradiation | CPT/HCPCS: 99212 ==

== ENCOUNTER 2023-08-23 12:49 | Outpatient (REF) | payer MEDICARE, MEDICAID, SELFPAY ==
[2023-08-23 09:56] VITALS: PULSE 80; RESP 16; O2SAT 97
--- NOTE | 2023-08-23 14:50 | PFT_ITS ---
Flows: FEV1: 73 % of predicted at 1.75 L FVC: 65 % of predicted at 2.01 L FEV1/FVC: 87 % Bronchodilator response: Present in small to medium airways only Volumes: No lung volumes measurements performed secondary to a technical issue. Diffusion capacity: Normal Impression: No obstructive ventilatory defect, suggestion of underlying restrictive ventilatory defect. Bronchodilator response present in small to medium airways only. MTDD
== END 2023-08-23 12:50 | disposition home or self-care (01) ==
LOC: HO.RESP 12:49
PROVIDERS: PCP Internal Medicine; Visit Provider Internal Medicine Pulmonary Disease
DX: Z92.3 Personal history of irradiation (principal)
CPT/HCPCS: 94010; 94640; 94727; 94729

== ENCOUNTER → 2023-08-23 14:50 | Outpatient (BNV) | payer MEDICARE, MEDICAID, SELFPAY | PROVIDERS: PCP Internal Medicine; Visit Provider Internal Medicine Pulmonary Disease | DX: Z92.3 Personal history of irradiation (principal) | CPT/HCPCS: 94060; 94729 ==

== ENCOUNTER 2023-10-21 13:24 | Outpatient (AMB) | payer MEDICARE, MEDICAID, SELFPAY ==
--- NOTE | 2023-10-21 13:28 | MHC.OFFVIS ---
Vital Signs 10/21/23 13:29 Height 5 ft 4 in Weight 152 lb BMI 26.1 BP 98/60 Blood Pressure Location Lt brachial Position Sitting Pulse 65 Pulse Source Doppler Pulse Oximetry (%) 98 Oxygen Delivery Method Room Air Intake Visit Reasons: PFT Follow Up Stripping Shovel Operator Required: Yes Stripping Shovel Operator Name: Noemy Melchor Genet Allergies No Known Allergies [No Known Allergies*] Allergy (Verified 10/21/23 13:33) HPI HPI PFT Follow Up: Details: 62-year-old lady, former approximately 40 pack-year smoker quit 2009, followed for dyspnea on exertion, pulmonary nodules, and COPD.? She has been using Breo, Incruse, and albuterol MDI with good control of his symptoms. She denies recent exacerbations. Her follow-up CT chest is pending. [facility] Medical History Hyperthyroidism HLD (hyperlipidemia) HTN (hypertension) DM2 (diabetes mellitus, type 2) Multinodular thyroid Personal history of nicotine dependence Diabetes type 2, uncontrolled History of adenomatous polyp of colon Vitamin D deficiency Arthritis Tubular adenoma of colon Adenocarcinoma of colon Constipation Positive CLEMENT (antinuclear antibody) COPD (chronic obstructive pulmonary disease) Essential hypertension Hyperlipidemia LDL goal <100 Low back pain Asthma Polymyalgia rheumatica Surgical History History of needle biopsy History of colonoscopy (~09/2020) History of cardiac cath (~09/2018) History of right breast biopsy (~10/2010) History of flexible sigmoidoscopy (~06/2013) History of rigid sigmoidoscopy (~04/2013) Hx of cholecystectomy Family History Father Diabetes CVD (cardiovascular disease) Mother Breast cancer Skin cancer Cancer Social History Household Members: Other Household Members Other:: Mother lives with her Alcohol intake: current Alcohol intake frequency: does not drink Patient Tobacco Use Status: Former Tobacco user Quit Date: Over 10 years ago Review of Systems Const Denies daytime sleepiness, Denies excessive sweating, Denies fatigue, Denies fever(s), Denies lethargy, Denies malaise, Denies night sweats, Denies snoring and Denies weight loss Eyes Denies blurry vision and Denies itchy eyes ENT Denies nasal congestion, Denies post nasal drip, Denies sinus pain, Denies sinus pressure and Denies other ( Thrush) Card Denies chest pain, Denies pedal edema, Denies dyspnea, Denies orthopnea and Denies paroxysmal nocturnal dyspnea Resp Denies cough, Denies hemoptysis, Denies excessive phlegm production, Denies dyspnea, Denies snoring and Denies wheezing GI Denies abdominal pain and Denies heartburn Musc Denies myalgias, Denies arthralgias and Denies joint swelling Skin/Breast Denies rash Neuro Denies memory loss and Denies seizure-like activity Psych Denies abnormal sleep pattern, Denies anxiety and Denies memory loss Endo Denies excessive sweating, Denies fatigue and Denies heat intolerance Andrew/Lymph Denies easy bruising Aller/Immun Denies itchy eyes, Denies seasonal rhinorrhea and Denies wheezing Physical Exam Vital Signs: Last Vital Signs Pulse 65 10/21/23 13:29 BP 98/60 10/21/23 13:29 Pulse Ox 98 10/21/23 13:29 Oxygen Delivery Method Room Air 10/21/23 13:29 BMI result Body Mass Index 26.1 Const General: no acute distress and alert Nutritional Appearance: not obese Orientation/consciousness: Other orientation findings ( oriented) HEENT Head: Yes atraumatic Eyes General: appearance normal, both eyes and all related structures Sclerae: sclerae normal EOM: EOMs intact bilaterally Neck Neck: Yes supple Lymphatic: no lymphadenopathy noted Resp Effort & Inspection: normal respiratory effort and no use of accessory muscles Auscultation: clear to auscultation bilaterally Cardio Rate: regular rate Rhythm: regular rhythm Heart sounds: no gallops, no murmurs and no rubs Skin General skin exam: other ( warm) Extrem General: No clubbing, No cyanosis and No edema Assessment & Plan Assessment & Plan (1) COPD (chronic obstructive pulmonary disease): Code(s): J44.9 - Chronic obstructive pulmonary disease, unspecified Category: Medical Plan: Well controlled on current regimen of Breo, Incruse, and albuterol MDI. Continue current regimen. (2) Personal history of nicotine dependence: Code(s): Z87.891 - Personal history of nicotine dependence Category: Medical Plan: Follow-up CT chest is pending for November of 2023, if stable at that time, then no further imaging follow-up is required. Medications: New albuterol sulfate 90 mcg/actuation (Ventolin HFA) 2 puffs inhalation Q4-6H PRN 3 ea 4RF shortness of breath or wheezing 90 days Discontinued albuterol sulfate 90 mcg/actuation Discontinued Reason: Doctor's Order 2 puffs inhalation Q4-6H 30 days PRN 1 ea 6RF shortness of breath or wheezing Coding Level of Care Code Est Pt Level 4 (90819) Diagnoses COPD (chronic obstructive pulmonary disease) J44.9 Personal history of nicotine dependence Z87.891
[2023-10-21 13:29] VITALS: BP 98/60; PULSE 65; O2SAT 98; BMI 26.1
== END 2023-10-21 13:51 | disposition home or self-care (01) ==
PROVIDERS: PCP Internal Medicine; Visit Provider Internal Medicine Pulmonary Disease
DX: J44.9 Chronic obstructive pulmonary disease, unspecified (principal); Z87.891 Personal history of nicotine dependence
CPT/HCPCS: 99214

== ENCOUNTER → 2023-10-21 13:24 | Outpatient (BNVA) | payer MEDICARE, MEDICAID, SELFPAY | PROVIDERS: PCP Internal Medicine; Visit Provider Internal Medicine Pulmonary Disease | DX: J44.9 Chronic obstructive pulmonary disease, unspecified (principal); Z79.899 Other long term (current) drug therapy; Z87.891 Personal history of nicotine dependence | CPT/HCPCS: 99212 ==

== ENCOUNTER 2023-12-01 11:21 | Outpatient (AMB) | payer MEDICARE, MEDICAID, SELFPAY ==
--- NOTE | 2023-12-01 11:25 | MHC.OFFVIS ---
Vital Signs 12/01/23 11:26 Height 5 ft 4 in Weight 151 lb 3.794 oz BMI 26.0 BP 122/68 Blood Pressure Location Rt brachial Position Sitting Pulse 76 Pulse Source Pulse Oximeter Pulse Oximetry (%) 98 Oxygen Delivery Method Room Air Intake Visit Reasons: FM/CM Intake Note: Pt reports lots of pain everywhere. Forensic Photographer Required: Yes Forensic Photographer Name: [id number] Information Interpreted: clinical only Accompanied by: Self / Same As Patient Allergies No Known Allergies [No Known Allergies*] Allergy (Verified 12/01/23 11:34) Medication List - Last Reconciled 12/01/23 by Skip Nino MD albuterol sulfate 90 mcg/actuation 2 puffs inhalation Q4-6H PRN ascorbate calcium (vitamin C) 500 mg PO DAILY atorvastatin 20 mg PO DAILY blood sugar diagnostic (FreeStyle Lite Strips) 3x daily calcium carbonate 500 mg PO DAILY cholecalciferol (vitamin D3) mcg PO [Compression socks As directed] docusate sodium (Colace) 100 mg PO DAILY empagliflozin (Jardiance) 25 mg PO QAM 90 days famotidine (Pepcid) 20 mg PO DAILY fluticasone furoate-vilanterol 200-25 mcg/dose (Breo Ellipta) 1 ea inhalation DAILY lancets (FreeStyle Lancets) As directed twice a day lancets (FreeStyle Lancets) As directed three times a day metformin ER 500 mg PO 1 tab PO q am and 2 tabs PO q PM.; methimazole 5 mg PO DAILY pioglitazone 30 mg PO DAILY sitagliptin phosphate (Januvia) 100 mg PO DAILY tramadol 100 mg (2 x 50 mg) PO BID PRN umeclidinium 62.5 mcg/actuation (Incruse Ellipta) 1 inh inhalation DAILY 30 days HPI Comments Details: 63-year-old female with fibromyalgia returns for follow-up. She states that she continues to have diffuse pain. Her pain is worsening. Pain in her elbows, shoulders, back. She recently had lumpectomy followed by radiation therapy and now on tamoxifen. It does not look like she received chemotherapy. Patient remains quite worried about her condition. She has difficulty falling and staying asleep. She speaks to a therapist once every 2 weeks. COUNT INCLUDES THE [facility] Medical History Hyperthyroidism HLD (hyperlipidemia) HTN (hypertension) DM2 (diabetes mellitus, type 2) Multinodular thyroid Personal history of nicotine dependence Diabetes type 2, uncontrolled History of adenomatous polyp of colon Vitamin D deficiency Arthritis Tubular adenoma of colon Adenocarcinoma of colon Constipation Positive CLEMENT (antinuclear antibody) COPD (chronic obstructive pulmonary disease) Essential hypertension Hyperlipidemia LDL goal <100 Low back pain Asthma Polymyalgia rheumatica Surgical History History of needle biopsy History of colonoscopy (~09/2020) History of cardiac cath (~09/2018) History of right breast biopsy (~10/2010) History of flexible sigmoidoscopy (~06/2013) History of rigid sigmoidoscopy (~04/2013) Hx of cholecystectomy Family History Father Diabetes CVD (cardiovascular disease) Mother Breast cancer Skin cancer Cancer Social History Household Members: Other Household Members Other:: Mother lives with her Alcohol intake: current Alcohol intake frequency: does not drink Patient Tobacco Use Status: Former Tobacco user Review of Systems Musc Reports back pain and Reports arthralgias Psych Reports depression Physical Exam Vital Signs: Last Vital Signs Pulse 76 12/01/23 11:26 BP 122/68 12/01/23 11:26 Pulse Ox 98 12/01/23 11:26 Oxygen Delivery Method Room Air 12/01/23 11:26 BMI result Body Mass Index 26.0 Const General: cooperative, healthy appearing and comfortable Nutritional Appearance: average body habitus Orientation/consciousness: patient oriented x3 Limitations: no limitations HEENT Head: Yes normocephalic and Yes atraumatic Mouth: moist mucous membranes Resp Effort & Inspection: normal respiratory effort and able to speak in complete sentences Cardio Rate: regular rate Rhythm: regular rhythm Skin General skin exam: no rashes or lesions noted Neuro General: patient oriented x3 Extrem Other: Multiple fibromyalgia tender points. Assessment & Plan Assessment & Plan (1) Polyarthralgia: Code(s): M25.50 - Pain in unspecified joint Plan: 62-year-old female with polyarthralgia. She has a previous diagnosis of polymyalgia rheumatica, off prednisone since November 2019. Patient does not appear to have return of PMR symptoms on exam. Symptoms more consistent with fibromyalgia. Patient recently had bilateral breast lumpectomy for breast cancer followed by radiation therapy. Now on tamoxifen. She remains quite depressed and stressed about her diagnosis She continues to take tramadol 2 tabs Twice daily for her pain. Refills Perhaps patient might benefit from an antidepressant that may the additional benefit of helping her fibromyalgia such as duloxetine. Discussed with PCP. Follow-up in 6 months Plan I spent 15 minutes reviewing patient's chart, evaluating patient, counseling patient and documenting in the chart Coding Level of Care Code Est Pt Level 3 (18038) Diagnoses Polyarthralgia M25.50
[2023-12-01 11:26] VITALS: BP 122/68; PULSE 76; O2SAT 98; BMI 26.0
== END 2023-12-01 11:48 | disposition home or self-care (01) ==
LOC: HO.RHE 11:22
PROVIDERS: PCP Internal Medicine; Visit Provider Student in an Organized Health Care Education/Training Program
DX: M25.50 Pain in unspecified joint (principal)
CPT/HCPCS: 99213

== ENCOUNTER → 2023-12-01 11:21 | Outpatient (BNVA) | payer MEDICARE, MEDICAID, SELFPAY | PROVIDERS: PCP Internal Medicine; Visit Provider Student in an Organized Health Care Education/Training Program | DX: M25.50 Pain in unspecified joint (principal) | CPT/HCPCS: 99212 ==

== ENCOUNTER 2024-04-27 10:45 | Outpatient (AMB) | payer MEDICARE, MEDICAID, SELFPAY ==
[2024-04-27 10:56] VITALS: BP 102/62; PULSE 70; BMI 26.0
--- NOTE | 2024-04-27 10:56 | MHC.OFFVIS ---
Vital Signs 04/27/24 10:56 Height 5 ft 4 in Weight 151 lb 3.794 oz BMI 26.0 BP 102/62 Blood Pressure Location Lt brachial Position Sitting Pulse 70 Pulse Source Pulse Oximeter Intake Visit Reasons: T2DM/Unable to LVM Intake Note: Patient presents today for D2MT follow up visit. Last Diabetic Eye exam: 02/2024 Last Podiatry Visit: Doesn't have one Random Glucose: 121 mg/dl HgA1c: 6.7% Workday Senior Associate Required: Yes Workday Senior Associate Language: Barrel Lathe Operator Outside Services: Workday Senior Associate Present Workday Senior Associate Name: María [id number] Information Interpreted: non-clinical & clinical Accompanied by: Self / Same As Patient Allergies No Known Allergies [No Known Allergies*] Allergy (Verified 04/27/24 11:02) Medication List - Last Reconciled 04/27/24 by Roxi Bajwa PA-C albuterol sulfate 90 mcg/actuation 2 puffs inhalation Q4-6H PRN ascorbate calcium (vitamin C) 500 mg PO DAILY atorvastatin 20 mg PO DAILY blood sugar diagnostic (FreeStyle Lite Strips) 3x daily calcium carbonate 500 mg PO DAILY cholecalciferol (vitamin D3) mcg PO [Compression socks As directed] docusate sodium (Colace) 100 mg PO DAILY empagliflozin (Jardiance) 25 mg PO QAM 90 days famotidine (Pepcid) 20 mg PO DAILY fluticasone furoate-vilanterol 200-25 mcg/dose (Breo Ellipta) 1 ea inhalation DAILY lancets (FreeStyle Lancets) As directed twice a day lancets (FreeStyle Lancets) As directed three times a day methimazole 5 mg PO DAILY pioglitazone 30 mg PO DAILY semaglutide (Ozempic) 0.25 mg (0.368 mL) subcut QWEEK tramadol 100 mg (2 x 50 mg) PO BID PRN umeclidinium 62.5 mcg/actuation (Incruse Ellipta) 1 inh inhalation DAILY HPI HPI T2DM/Unable to LVM: Details: Patient is a 63-year-old female with a significant past medical history hypertension, hyperlipidemia, type 2 diabetes, PMR , multinodular goiter, hyperthyroidism, presenting today for a follow up regarding her diabetes. Workday Senior Associate: #[id number] Endo: Dm-was diagnosed with diabetes around 2013. Most people in her family have type 2 diabetes. Last A1c a year ago was 6.2. Her A1c today is 6.7. She is currently on Jardiance 25 mg, Pioglitazone 30 mg, Januvia 100 mg. Her blood sugars 100-200. She states her sugars used to be closer to 100. She denies any blood sugars less than 70. Does report that she needs new testing supplies. She states that she really wants to go on something like Ozempic. Intolerant of metformin GI distress Follows regularly with Ophthalmology was last seen in February. Denies any retinopathy. hyperthyroid- follows with Dr. Fox and on methimazole CV: Blood pressure today in the office is 102/62. She is not on any antihypertensives. She is on atorvastatin 20 mg for cholesterol. [facility] Medical History Hyperthyroidism HLD (hyperlipidemia) HTN (hypertension) DM2 (diabetes mellitus, type 2) Multinodular thyroid Personal history of nicotine dependence Diabetes type 2, uncontrolled History of adenomatous polyp of colon Vitamin D deficiency Arthritis Tubular adenoma of colon Adenocarcinoma of colon Constipation Positive CLEMENT (antinuclear antibody) COPD (chronic obstructive pulmonary disease) Essential hypertension Hyperlipidemia LDL goal <100 Low back pain Asthma Polymyalgia rheumatica Surgical History History of needle biopsy History of colonoscopy (~09/2020) History of cardiac cath (~09/2018) History of right breast biopsy (~10/2010) History of flexible sigmoidoscopy (~06/2013) History of rigid sigmoidoscopy (~04/2013) Hx of cholecystectomy Family History Father Diabetes CVD (cardiovascular disease) Mother Breast cancer Skin cancer Cancer Social History Household Members: Other Household Members Other:: Mother lives with her Alcohol intake: current Alcohol intake frequency: does not drink Patient Tobacco Use Status: Former Tobacco user Physical Exam Vital Signs: Last Vital Signs Pulse 70 04/27/24 10:56 BP 102/62 04/27/24 10:56 BMI result Body Mass Index 26.0 Const Orientation/consciousness: patient oriented x3 Neck Neck: Yes no lymphadenopathy Thyroid: Thyroid normal Carotids: no bruits Resp Auscultation: clear to auscultation bilaterally Cardio Rate: regular rate Rhythm: regular rhythm Heart sounds: S1 normal heart sound present and S2 normal heart sound present Peripheral pulses: dorsalis pedis present Neuro General: patient oriented x3, gait normal and no focal motor deficits Extrem Other: Monofilament sensation intact bilaterally. Vibratory sensation intact bilaterally. Skin intact. General: Yes normal to inspection Results AMB Hemoglobin A1c AMB Hemoglobin A1c 6.7 % Last Edit by KETURAH Dixon on 04/27/24 11:30 Results Reviewed Results Reviewed: Laboratory Last Values Glucose (Clinic) 121 mg/dL (60-115) H 04/27/24 11:06 Laboratory Tests 08/25/22 01/14/23 05/04/23 13:30 12:27 13:59 Creatinine 0.65 Estimated GFR > 60 Glucose (Clinic) 112 Hgb A1c (Clinic) Urine Creatinine 55.85 Urine Microalbumin 7.0 Microalb/Creat Ratio 12.5 05/04/23 15:36 Creatinine Estimated GFR Glucose (Clinic) Hgb A1c (Clinic) 6.2 H Urine Creatinine Urine Microalbumin Microalb/Creat Ratio Assessment & Plan Assessment & Plan (1) Controlled type 2 diabetes mellitus: Code(s): E11.9 - Type 2 diabetes mellitus without complications Category: Medical Qualifiers: Diabetes mellitus computer terminal operator insulin use: without computer terminal operator use Diabetes mellitus complication status: without complication Qualified Code(s): E11.9 - Type 2 diabetes mellitus without complications Plan: We will discontinue the Januvia. I have discontinued metformin from her medication list despite her stopping this a few months ago. She will continue with the Januvia and pioglitazone. I will start her on Ozempic. We discussed risks and benefits and adverse effects of this medication at length including nausea, vomiting, increased risk of pancreatitis, increased risk of thyroid malignancies. I will have her follow up in a month and check labs prior to appointment. I have ordered a CMP, lipid, urine, BNP. She will follow up sooner if any changes. Testing supplies ordered. Reviewed rules of 15. (2) HLD (hyperlipidemia): Code(s): E78.5 - Hyperlipidemia, unspecified Category: Medical Qualifiers: Hyperlipidemia type: unspecified Qualified Code(s): E78.5 - Hyperlipidemia, unspecified Plan: Lipids ordered. Continue atorvastatin. We will check LFTs as well. Orders: Orders AMB Hemoglobin A1c Today E11.65 - Type 2 diabetes mellitus with hyperglycemia, Z13.9 - Encounter for screening, unspecified Comprehensive [place]. Panel Fast Today E11.9 - Type 2 diabetes mellitus without complications, E78.5 - Hyperlipidemia, unspecified Lipid Panel Today E11.9 - Type 2 diabetes mellitus without complications, E78.5 - Hyperlipidemia, unspecified Microalbumin, Random (w Creat) Today E11.9 - Type 2 diabetes mellitus without complications, E78.5 - Hyperlipidemia, unspecified B Type Natriuretic Peptide Today E11.9 - Type 2 diabetes mellitus without complications, E78.5 - Hyperlipidemia, unspecified Medications: New blood-glucose meter (FreeStyle Lite Meter kit) Use daily As directed to check blood sugars 1 ea 0RF E11.22 - Type 2 diabetes mellitus with diabetic chronic kidney disease, E11.9 - Type 2 diabetes mellitus without complications, Z79.4 - manager intermediate (current) use of insulin semaglutide (Ozempic) 0.25 mg (0.368 mL) subcut QWEEK 3 mL 2RF blood sugar diagnostic (FreeStyle Lite Strips) Use daily As directed to check blood glucose 100 ea 3RF E11.9 - Type 2 diabetes mellitus without complications lancets (FreeStyle Lancets) use daily as directed to check blood glucose 100 ea 3RF Discontinued sitagliptin phosphate (Januvia) Discontinued Reason: Doctor's Order 100 mg PO DAILY 30 tabs 6RF Coding Level of Care Code Est Pt Level 4 (32804) Complex EM visit Add On G2211 Diagnoses Controlled type 2 diabetes mellitus without complication, without long-term current use of insulin E11.9 Diabetes mellitus computer terminal operator insulin use: without computer terminal operator use Diabetes mellitus complication status: without complication Hyperlipidemia, unspecified hyperlipidemia type E78.5 Hyperlipidemia type: unspecified
[2024-04-27 11:12] LABS: Glucose, Whole Blood 121 mg/dL (60-115)
== END 2024-04-27 11:35 | disposition home or self-care (01) ==
LOC: HO.ENCR 10:45
PROVIDERS: PCP Physician Assistant; Visit Provider Physician Assistant
DX: E11.9 Type 2 diabetes mellitus without complications (principal); E78.5 Hyperlipidemia, unspecified; Z13.9 Encounter for screening, unspecified; E11.65 Type 2 diabetes mellitus with hyperglycemia

== ENCOUNTER → 2024-04-27 10:45 | Outpatient (BNVA) | payer MEDICARE, MEDICAID, SELFPAY | PROVIDERS: PCP Physician Assistant; Visit Provider Physician Assistant | DX: E11.9 Type 2 diabetes mellitus without complications (principal); E78.5 Hyperlipidemia, unspecified | CPT/HCPCS: 82947; 83036; 99212 ==

== ENCOUNTER 2024-05-28 13:05 | Outpatient (AMB) | payer MEDICARE, MEDICAID, SELFPAY ==
--- NOTE | 2024-05-28 13:07 | MHC.OFFVIS ---
Vital Signs 05/28/24 13:08 Height 5 ft 4 in Weight 151 lb 14.376 oz BMI 26.1 BP 118/76 Blood Pressure Location Rt brachial Position Sitting Pulse 63 Pulse Source Pulse Oximeter Intake Visit Reasons: DM/ VM FULL Intake Note: Patient presents today for D2MT follow up visit. Last Diabetic Eye exam: 02/2024 Last Podiatry Visit: Doesn't have one Random Glucose: 102 mg/dl HgA1c: 6.7% 04/27/24 Lockstitch Front Edge Tape Sewer Required: Yes Lockstitch Front Edge Tape Sewer Language: Hoop Maker Helper Machine Services: Lockstitch Front Edge Tape Sewer Present Information Interpreted: non-clinical & clinical Accompanied by: Self / Same As Patient Allergies No Known Allergies [No Known Allergies*] Allergy (Verified 05/28/24 13:13) Medication List - Last Reconciled 05/28/24 by Roxi Bajwa PA-C albuterol sulfate 90 mcg/actuation 2 puffs inhalation Q4-6H PRN ascorbate calcium (vitamin C) 500 mg PO DAILY atorvastatin 20 mg PO DAILY blood sugar diagnostic (FreeStyle Lite Strips) 3x daily blood sugar diagnostic (FreeStyle Lite Strips) Use daily As directed to check blood glucose blood-glucose meter (FreeStyle Lite Meter kit) Use daily As directed to check blood sugars blood-glucose meter,continuous (FreeStyle Shayna 3 [place]) Use daily As directed to monitor blood glucose calcium carbonate 500 mg PO DAILY cholecalciferol (vitamin D3) mcg PO [Compression socks As directed] docusate sodium (Colace) 100 mg PO DAILY famotidine (Pepcid) 20 mg PO DAILY fluticasone furoate-vilanterol 200-25 mcg/dose (Breo Ellipta) 1 ea inhalation DAILY lancets (FreeStyle Lancets) As directed twice a day lancets (FreeStyle Lancets) As directed three times a day lancets (FreeStyle Lancets) use daily as directed to check blood glucose methimazole 5 mg PO DAILY semaglutide (Ozempic) 0.5 mg (0.736 mL) subcut QWEEK tramadol 100 mg (2 x 50 mg) PO BID PRN umeclidinium 62.5 mcg/actuation (Incruse Ellipta) 1 inh inhalation DAILY HPI HPI DM/ VM FULL: Details: Patient is a 63-year-old female with a significant past medical history hypertension, hyperlipidemia, type 2 diabetes, PMR , multinodular goiter, hyperthyroidism, presenting today for a follow up regarding her diabetes. Lockstitch Front Edge Tape Sewer: #[id number] Caydenmariela Meyers: Dm-was diagnosed with diabetes around 2013. Most people in her family have type 2 diabetes. Last A1c was 6.7. She states that since our last visit she decided to stop taking the Actos and Jardiance as well as to Januvia. She states that she realized her blood sugars were very well-controlled with just the Ozempic. She tolerates this well and wants to go up dosage. Her blood sugars 100-200. She states her sugars used to be closer to 100. She denies any blood sugars less than 70. Intolerant of metformin GI distress Follows regularly with Ophthalmology was last seen in February. Denies any retinopathy. hyperthyroid- follows with Dr. Fox and on methimazole CV: Blood pressure today in the office is 102/62. She is not on any antihypertensives. She is on atorvastatin 20 mg for cholesterol. [facility] Medical History (Updated 05/28/24 @ 13:45 by Roxi Bajwa PA-C) History of breast cancer Hyperthyroidism HLD (hyperlipidemia) HTN (hypertension) DM2 (diabetes mellitus, type 2) Multinodular thyroid Personal history of nicotine dependence Diabetes type 2, uncontrolled History of adenomatous polyp of colon Vitamin D deficiency Arthritis Tubular adenoma of colon Adenocarcinoma of colon Constipation Positive CLEMENT (antinuclear antibody) COPD (chronic obstructive pulmonary disease) Essential hypertension Hyperlipidemia LDL goal <100 Low back pain Asthma Polymyalgia rheumatica Surgical History History of needle biopsy History of colonoscopy (~09/2020) History of cardiac cath (~09/2018) History of right breast biopsy (~10/2010) History of flexible sigmoidoscopy (~06/2013) History of rigid sigmoidoscopy (~04/2013) Hx of cholecystectomy Family History Father Diabetes CVD (cardiovascular disease) Mother Breast cancer Skin cancer Cancer Social History Household Members: Other Household Members Other:: Mother lives with her Alcohol intake: current Alcohol intake frequency: does not drink Patient Tobacco Use Status: Former Tobacco user Physical Exam Vital Signs: Last Vital Signs Pulse 63 12/02/24 13:08 BP 118/76 05/28/24 13:08 BMI result Body Mass Index 26.1 Const Orientation/consciousness: patient oriented x3 Neck Neck: Yes no lymphadenopathy Thyroid: Thyroid normal Carotids: no bruits Resp Auscultation: clear to auscultation bilaterally Cardio Rate: regular rate Rhythm: regular rhythm Heart sounds: S1 normal heart sound present and S2 normal heart sound present Peripheral pulses: dorsalis pedis present Neuro General: patient oriented x3, gait normal and no focal motor deficits Extrem Other: Monofilament sensation intact bilaterally. Vibratory sensation intact bilaterally. Skin intact. General: Yes normal to inspection Results Reviewed Results Reviewed: Laboratory Last Values Glucose (Clinic) 102 mg/dL (60-115) 05/28/24 13:16 Laboratory Tests 04/27/24 05/28/24 11:10 13:16 Glucose (Clinic) 102 Hgb A1c (Clinic) 6.7 H Assessment & Plan Assessment & Plan (1) Controlled type 2 diabetes mellitus: Code(s): E11.9 - Type 2 diabetes mellitus without complications Category: Medical Qualifiers: Diabetes mellitus termite exterminator insulin use: without nursing home use Diabetes mellitus complication status: without complication Qualified Code(s): E11.9 - Type 2 diabetes mellitus without complications Plan: We will increase Ozempic to 0.5 mg weekly. Follow up in 3 months or sooner if she is developing elevated blood sugars. She wants me to order a CGM. She is aware her insurance company may not cover this. She states that she gets anxious while using needles and does not not like the idea of having to poke her fingers. Labs prior to our appointment. (2) HTN (hypertension): Code(s): I10 - Essential (primary) hypertension Category: Medical Qualifiers: Hypertension type: unspecified Qualified Code(s): I10 - Essential (primary) hypertension Plan: WNL. Continue current regimen (3) HLD (hyperlipidemia): Code(s): E78.5 - Hyperlipidemia, unspecified Category: Medical Qualifiers: Hyperlipidemia type: unspecified Qualified Code(s): E78.5 - Hyperlipidemia, unspecified Plan: Continue atorvastatin. (4) Needle phobia: Code(s): F40.298 - Other specified phobia Category: Medical Plan: CGM ordered Orders: Orders B Type Natriuretic Peptide Today E11.9 - Type 2 diabetes mellitus without complications, E78.5 - Hyperlipidemia, unspecified, I10 - Essential (primary) hypertension Hemoglobin A1c Today E11.9 - Type 2 diabetes mellitus without complications, E78.5 - Hyperlipidemia, unspecified, I10 - Essential (primary) hypertension Comprehensive Met. Panel Today E11.9 - Type 2 diabetes mellitus without complications, E78.5 - Hyperlipidemia, unspecified, I10 - Essential (primary) hypertension Lipid Panel Today E11.9 - Type 2 diabetes mellitus without complications, E78.5 - Hyperlipidemia, unspecified, I10 - Essential (primary) hypertension Microalbumin, Random (w Creat) Today E11.9 - Type 2 diabetes mellitus without complications, E78.5 - Hyperlipidemia, unspecified, I10 - Essential (primary) hypertension Medications: New semaglutide (Ozempic) 0.5 mg (0.736 mL) subcut QWEEK 3 mL 5RF blood-glucose meter,continuous ([employer] Shayna 3 [place]) Use daily As directed to monitor blood glucose 1 ea 0RF E11.9 - Type 2 diabetes mellitus without complications, F40.298 - Other specified phobia Discontinued pioglitazone Discontinued Reason: Doctor's Order 30 mg PO DAILY 30 tabs 2RF E11.9 - Type 2 diabetes mellitus without complications empagliflozin (Jardiance) Discontinued Reason: Patient no longer taking 25 mg PO QAM 90 days 90 tabs 0RF E11.65 - Type 2 diabetes mellitus with hyperglycemia semaglutide (Ozempic) Discontinued Reason: Doctor's Order 0.25 mg (0.368 mL) subcut QWEEK 3 mL 2RF Coding Level of Care Code Est Pt Level 4 (54343) Complex EM visit Add On G2211 Diagnoses Controlled type 2 diabetes mellitus without complication, without long-term current use of insulin E11.9 Diabetes mellitus nursing home insulin use: without termite exterminator use Diabetes mellitus complication status: without complication Hypertension, unspecified type I10 Hypertension type: unspecified Hyperlipidemia, unspecified hyperlipidemia type E78.5 Hyperlipidemia type: unspecified Needle phobia F40.298
[2024-05-28 13:08] VITALS: BP 118/76; PULSE 63; BMI 26.1
[2024-05-28 13:19] LABS: Glucose, Whole Blood 102 mg/dL (60-115)
== END 2024-05-28 13:48 | disposition home or self-care (01) ==
PROVIDERS: PCP Internal Medicine; Visit Provider Physician Assistant
DX: E11.9 Type 2 diabetes mellitus without complications (principal); I10 Essential (primary) hypertension; E78.5 Hyperlipidemia, unspecified; F40.298 Other specified phobia

== ENCOUNTER → 2024-05-28 13:05 | Outpatient (BNVA) | payer MEDICARE, MEDICAID, SELFPAY | PROVIDERS: PCP Internal Medicine; Visit Provider Physician Assistant | DX: E11.9 Type 2 diabetes mellitus without complications (principal); I10 Essential (primary) hypertension; E78.5 Hyperlipidemia, unspecified; F40.298 Other specified phobia | CPT/HCPCS: 82947; 99212 ==

== ENCOUNTER 2024-07-10 09:49 | Outpatient (AMB) | payer MEDICARE, MEDICAID, SELFPAY ==
--- NOTE | 2024-07-10 10:13 | A.OFFVIS_ITS ---
Vital Signs 07/10/24 10:19 Height 5 ft 4 in Weight 151 lb 10.848 oz BMI 26.0 BP 112/64 Blood Pressure Location Rt brachial Position Sitting Pulse 56 Pulse Source Pulse Oximeter Pulse Oximetry (%) 95 Oxygen Delivery Method Room Air Intake Visit Reasons: FMS Intake Note: Patient presents for FMS. Nuisance Wildlife Specialist Required: Yes Nuisance Wildlife Specialist Language: Track Template Maker Services: Nuisance Wildlife Specialist Present Nuisance Wildlife Specialist Name: Gely [id number] Information Interpreted: non-clinical & clinical Allergies No Known Allergies [No Known Allergies*] Allergy (Verified 07/10/24 10:18) Medication List - Last Reconciled 07/10/24 by Bianca Pleitez MD albuterol sulfate 90 mcg/actuation 2 puffs inhalation Q4-6H PRN ascorbate calcium (vitamin C) 500 mg PO DAILY atorvastatin 20 mg PO DAILY blood sugar diagnostic (FreeStyle Lite Strips) 3x daily blood sugar diagnostic (FreeStyle Lite Strips) Use daily As directed to check blood glucose blood-glucose meter (FreeStyle Lite Meter kit) Use daily As directed to check blood sugars blood-glucose meter,continuous (FreeStyle Shayna 3 [place]) Use daily As directed to monitor blood glucose calcium carbonate 500 mg PO DAILY cholecalciferol (vitamin D3) mcg PO [Compression socks As directed] docusate sodium (Colace) 100 mg PO DAILY famotidine (Pepcid) 20 mg PO DAILY fluticasone furoate-vilanterol 200-25 mcg/dose (Breo Ellipta) 1 ea inhalation DAILY lancets (FreeStyle Lancets) As directed twice a day lancets (FreeStyle Lancets) As directed three times a day lancets (FreeStyle Lancets) use daily as directed to check blood glucose methimazole 5 mg PO DAILY semaglutide (Ozempic) 0.5 mg (0.736 mL) subcut QWEEK tramadol 100 mg (2 x 50 mg) PO BID PRN umeclidinium 62.5 mcg/actuation (Incruse Ellipta) 1 inh inhalation DAILY HPI Comments Details: Patient is a 63-year-old female with diabetes, hyperlipidemia, hypertension, hyperthyroidism on methimazole, COPD and polymyalgia rheumatica here today for follow up Interval History: Patient last seen 12/01/[address] Nino. At that visit she did not have any return of her PMR symptoms. Her complaints were more consistent with fibromyalgia. She was depressed and stressed about her diagnosis of breast cancer. No changes to medications were made at that time. Today complains of pain in her bones Specifically the top of her hands, her upper arm and her lower back Also complains of shoulder pain, feels her pains are similar to when she had PMR Rheumatologic History: Diagnosed with polymyalgia rheumatica in 2018 and has been off steroids since November 2019 Also with fibromyalgia Current Rheumatology Medication(s): Tramadol 50mg 2 tablets twice a day [facility] Medical History (Updated 07/10/24 @ 10:48 by Bianca Pleitez MD) Shoulder pain, bilateral Fibromyalgia History of breast cancer Hyperthyroidism HLD (hyperlipidemia) HTN (hypertension) DM2 (diabetes mellitus, type 2) Multinodular thyroid Personal history of nicotine dependence Diabetes type 2, uncontrolled History of adenomatous polyp of colon Vitamin D deficiency Arthritis Tubular adenoma of colon Adenocarcinoma of colon Constipation Positive CLEMENT (antinuclear antibody) COPD (chronic obstructive pulmonary disease) Essential hypertension Hyperlipidemia LDL goal <100 Low back pain Asthma Polymyalgia rheumatica Surgical History History of needle biopsy History of colonoscopy (~09/2020) History of cardiac cath (~09/2018) History of right breast biopsy (~10/2010) History of flexible sigmoidoscopy (~06/2013) History of rigid sigmoidoscopy (~04/2013) Hx of cholecystectomy Family History Father Diabetes CVD (cardiovascular disease) Mother Breast cancer Skin cancer Cancer Social History Household Members: Other Household Members Other:: Mother lives with her Alcohol intake: current Alcohol intake frequency: does not drink Patient Tobacco Use Status: Former Tobacco user Review of Systems Const Details: Review of Systems Constitutional: Denies fever, chills, weight loss ENT: Denies vision changes, eye pain or eye redness, dental caries, dry mouth GI: Denies nausea, vomiting, diarrhea, abdominal pain, change in BM Pulm: Denies SOB, ZULUAGA, hemoptysis, wheezing Cards: Denies chest pain, palpitations Skin: Denies Raynaud's, rash, nail changes, photosensitivity, WOOD VENEER TAPER: Denies headaches, weakness, paresthesias, recurrent falls MSK: as per HPI All other systems reviewed and are unremarkable except noted above Physical Exam Vital Signs: Last Vital Signs Pulse 56 07/10/24 10:19 BP 112/64 07/10/24 10:19 Pulse Ox 95 07/10/24 10:19 Oxygen Delivery Method Room Air 07/10/24 10:19 BMI result Body Mass Index 26.0 Physical Examination CONSTITUITIONAL Patient alert and cooperative. Well appearing and in no apparent painful distress HEENT Conjunctiva and sclera clear. ?Pupils equal round and reactive to light. ?No lymphadenopathy. ? CHEST/RESPIRATORY SYSTEM Normal respiratory effort and able to speak in complete sentences. ?Clear to auscultation bilaterally. ?No crackles, rales, rhonchi, wheezes heard. CARDIAC SYSTEM Regular rate and rhythm. ?S1 and S2 heard no murmurs. ?Radial pulses intact bilaterally MSK Hands: ?Unable to make a complete fist with the right hand due to the 3rd digit not fully able to bend. No swelling noted. TTP of the dorsum of the hand. MCPs, PIPs and DIPs without synovitis Wrists: ?Full range of motion at the wrists without pain. ?No tenderness to palpation or synovitis noted to the wrists. Elbows: Full range of motion without pain. No tenderness, weakness, swelling, increased warmth or erythema. Shoulders: decreased active and passive ROM 2/2 pain. Only able to abduct 90 degress Hips: Full range of motion without pain. Hip bursa: No tenderness to palpation Knees: ?Full range of motion. ?No tenderness, swelling, increased warmth or erythema.?No effusion or crepitations Ankles: Full range of motion. ?No tenderness, swelling, increased warmth or erythema.? Feet: ?Negative squeeze test. ?No tenderness to palpation or swelling of the MTPs. Tender points:?TTP bilateral paraspinal muscles of the sacrum SKIN Skin intact without rashes. Results Reviewed Results Reviewed: No recent labs to review. Assessment & Plan Assessment & Plan (1) Polymyalgia rheumatica: Comment: Off steroids since November 2019 Code(s): M35.3 - Polymyalgia rheumatica Category: Medical Plan: #PMR Off steroids since 12/15/2019. Unsure if the pain of her shoulders is related to her PMR. However patient does not want to get an injection today or start steroids as she said in the past the steroids made her blood sugar go really high. We will get blood work today if patient significantly elevated ESR and CRP we can try Actemra. Physical therapy for her shoulders Plan - CBC, CMP, ESR, CRP - If significantly elevated can try Actemra - RTC 3 months (2) Fibromyalgia: Code(s): M79.7 - Fibromyalgia Category: Medical Plan: #Fibromyalgia Patient with tender points consistent with fibromyalgia Trial gabapentin Plan - Gabapentin 100mg at night (3) Shoulder pain, bilateral: Code(s): M25.511 - Pain in right shoulder; M25.512 - Pain in left shoulder Category: Medical Qualifiers: Chronicity: chronic Qualified Code(s): M25.511 - Pain in right shoulder; M25.512 - Pain in left shoulder; G89.29 - Other chronic pain Plan: #Bilateral shoulder pain with restricted movement Differentials: return of PMR, frozen shoulder, Shoulder OA Plan - XRs shoulder bilateral - Physical therapy Plan I spent 30 minutes reviewing the record and labs, taking a history, examining the patient, discussing the treatment plan and documenting in the medical record Orders: Orders XR shoulder RT min 2V Today M25.511 - Pain in right shoulder, M25.512 - Pain in left shoulder Comprehensive Met. Panel Today M35.3 - Polymyalgia rheumatica, Z51.81 - Encounter for therapeutic drug level monitoring Complete Blood Count Auto Diff Today M35.3 - Polymyalgia rheumatica, Z51.81 - Encounter for therapeutic drug level monitoring C Reactive Protein Today M35.3 - Polymyalgia rheumatica, Z51.81 - Encounter for therapeutic drug level monitoring Erythrocyte Sedimentation Rate Today M35.3 - Polymyalgia rheumatica, Z51.81 - Encounter for therapeutic drug level monitoring XR shoulder LT min 2V Today M25.511 - Pain in right shoulder, M25.512 - Pain in left shoulder Medications: New gabapentin 100 mg PO BEDTIME 90 caps 1RF M79.7 - Fibromyalgia Changed From tramadol 100 mg (2 x 50 mg) PO BID PRN 120 tabs 5RF pain M54.5 - Low back pain To tramadol 100 mg (2 x 50 mg) PO BID 30 days 120 tabs 3RF pain M54.5 - Low back pain Coding Level of Care Code Est Pt Level 4 (85787) Complex EM visit Add On G2211 Diagnoses Polymyalgia rheumatica M35.3 Fibromyalgia M79.7 Chronic pain of both shoulders M25.511; M25.512; G89.29 Chronicity: chronic
[2024-07-10 10:19] VITALS: BP 112/64; PULSE 56; O2SAT 95; BMI 26.0
== END 2024-07-10 11:17 | disposition home or self-care (01) ==
PROVIDERS: PCP Internal Medicine; Visit Provider Student in an Organized Health Care Education/Training Program
DX: M35.3 Polymyalgia rheumatica (principal); M79.7 Fibromyalgia; M25.511 Pain in right shoulder; M25.512 Pain in left shoulder; G89.29 Other chronic pain
CPT/HCPCS: 99214; G2211

== ENCOUNTER 2024-07-10 10:54 | Outpatient (REF) | payer MEDICARE, MEDICAID, SELFPAY ==
[2024-07-10 11:29] LABS: MANUAL DIFF FLAG NO
[2024-07-10 11:32] LABS: Basophils Absolute Auto 0.1 X10*3/uL (0.0-0.2); Basophils Percent Auto 0.8 % (0-2); Eosinophils Absolute Auto 0.2 X10*3/uL (0.0-0.4); Eosinophils Percent Auto 2.6 % (0-4); Hematocrit 40.1 % (37.0-47.0); Hemoglobin 13.1 g/dl (12.0-16.0); Imm Gran Abs Auto 0.02 X10*3/uL (0.00-0.03); Imm Gran Pct Auto 0.3 % (0.0-0.4); Lymphocytes Absolute Auto 1.2 X10*3/uL (1.2-4.9); Lymphocytes Percent Auto 18.7 % (20-40); Mean Corpuscular HGB Conc 32.7 g/dl (31.0-35.0); Mean Corpuscular Hemoglobin 27.2 pg (27.0-33.0); Mean Corpuscular Volume 83.2 fL (80.0-98.0); Mean Platelet Volume 10.5 fL (9.4-12.3); Monocytes Absolute Auto 0.6 X10*3/uL (0.1-1.2); Neutrophils Absolute Auto 4.6 x10*3/uL (2.0-8.3); Neutrophils Percent Auto 68.6 % (45-73); Platelet Count 169 X10*3/uL (160-400); Red Blood Count 4.82 X10*6/uL (4.20-5.50); White Blood Count 6.6 X10*3/uL (4.8-10.8)
[2024-07-10 11:43] LABS: Alanine Aminotransferase 17 U/L (0-31); Albumin Level 4.3 g/dL (3.5-5.0); Alkaline Phosphatase 96 U/L (39-117); Anion Gap 9 (12-20); Aspartate Amino Transferase 19 U/L (5-31); Bilirubin Total 0.5 mg/dL (0.0-1.0); Blood Urea Nitrogen 10 mg/dL (9-16); C Reactive Protein 0.31 mg/dL (< or = 0.50); Carbon Dioxide 30 mmol/L (22-29); Chloride 105 mmol/L (96-108); Estimated Glomerular Filt Rate > 60; Glucose Random 114 mg/dL (60-115); Potassium 4.3 mmol/L (3.3-5.1); Sodium 140 mmol/L (135-145); Total Protein 7.1 g/dL (6.5-8.0)
[2024-07-10 12:19] LABS: Erythrocyte Sedimentation Rate 16 MM/HR (0-20)
== END 2024-07-10 10:55 | disposition home or self-care (01) ==
LOC: HO.10HDL 10:54
PROVIDERS: Visit Provider Student in an Organized Health Care Education/Training Program
DX: M35.3 Polymyalgia rheumatica (principal); Z51.81 Encounter for therapeutic drug level monitoring; M79.7 Fibromyalgia; M25.511 Pain in right shoulder; M25.512 Pain in left shoulder; G89.29 Other chronic pain; Z79.899 Other long term (current) drug therapy
CPT/HCPCS: 36415; 80053; 85025; 85652; 86140; 99212

== ENCOUNTER 2024-07-19 14:01 | Outpatient (AMB) | payer MEDICARE, MEDICAID, SELFPAY ==
[2024-07-19 14:11] VITALS: BP 110/64; PULSE 79; BMI 26.0
--- NOTE | 2024-07-19 14:11 | MHC.OFFVIS ---
Vital Signs 07/19/24 14:11 Height 5 ft 4 in Weight 151 lb 3.794 oz BMI 26.0 BP 110/64 Blood Pressure Location Lt brachial Position Sitting Pulse 79 Pulse Source Pulse Oximeter Intake Visit Reasons: Thyrotoxicosis Intake Note: Patient present today for Thyrotoxicosis office visit. Cellar Supervisor Required: Yes Cellar Supervisor Language: Adobe Flex Developer Services: Cellar Supervisor Present Cellar Supervisor Name: Jasiel [id number] Information Interpreted: non-clinical & clinical Accompanied by: Self / Same As Patient Allergies No Known Allergies [No Known Allergies*] Allergy (Verified 07/19/24 14:15) Medication List - Last Reconciled 07/19/24 by Michaela Lee MD albuterol sulfate 90 mcg/actuation 2 puffs inhalation Q4-6H PRN anastrozole 1 mg PO DAILY ascorbate calcium (vitamin C) 500 mg PO DAILY atorvastatin 20 mg PO DAILY blood sugar diagnostic (FreeStyle Lite Strips) 3x daily blood sugar diagnostic (FreeStyle Lite Strips) Use daily As directed to check blood glucose blood-glucose meter (FreeStyle Lite Meter kit) Use daily As directed to check blood sugars blood-glucose meter,continuous (FreeStyle [place] 3 [place]) Use daily As directed to monitor blood glucose calcium carbonate 500 mg PO DAILY cholecalciferol (vitamin D3) mcg PO [Compression socks As directed] docusate sodium (Colace) 100 mg PO DAILY famotidine (Pepcid) 20 mg PO DAILY fluticasone furoate-vilanterol 200-25 mcg/dose (Breo Ellipta) 1 ea inhalation DAILY gabapentin 100 mg PO BEDTIME lancets (FreeStyle Lancets) As directed twice a day lancets (FreeStyle Lancets) As directed three times a day lancets (FreeStyle Lancets) use daily as directed to check blood glucose methimazole 5 mg PO DAILY semaglutide (Ozempic) 0.5 mg (0.736 mL) subcut QWEEK tramadol 100 mg (2 x 50 mg) PO BID 30 days umeclidinium 62.5 mcg/actuation (Incruse Ellipta) 1 inh inhalation DAILY HPI Comments Details: 63-year-old female coming in today for follow up of toxic multinodular goiter. She also follows in our clinic with Arianna EMMANUEL for type 2 diabetes mellitus. Last seen 05/28/2024. This was not addressed today. She was previously seeing Dr. Lara for toxic multinodular goiter. Patient has a history of thyroid nodules at least dating back to 2020 at which time ultrasound in December 2020 showed bilateral thyroid nodules with a dominant 1.4 cm right lobe inferior nodule. This was biopsied 07/02/2021 with benign cytology, [place] category 2. Subsequently in May 2022 patient was noted to have a low TSH level of 0.26 with normal free T4. TSH remains low between May 2022 in August 2022 in the range of 0.13-0.26. However normalized in September 2022. Free T4 always remained normal. This was consistent with subclinical hyperthyroidism. Labs May 2022 showed undetectable TSI, TR A/B antibodies. Negative TPO in thyroglobulin antibodies. Patient had a repeat thyroid ultrasound 07/08/2022 which again showed bilateral thyroid nodules, with a dominant right inferior lobe 1.2 cm nodule that had remained stable/becomes smaller compared to 2020. The ultrasound report also labeled a 1.6 cm left inferior lobe nodule, with peripheral calcification S TR 5 category. However when I reviewed the images this seems to be the same nodule that was present in 2020, and I do not see any size measurements on the images in 2022 to say that this has grown bigger. In addition patient also had a thyroid uptake and scan 07/09/2022 which showed focal areas of increased uptake which correlate with both the right inferior as well as the left inferior lobe nodules in addition to other increased areas of uptake consistent with toxic multinodular goiter. She was started on methimazole 5 mg daily sometime in 2022, she is very unclear about whether she is currently on this medication or not, she keeps going back and forth regarding whether she is on this medication or not. I have asked her to bring her medication bottles next time. Patient currently denies heat or cold intolerance, diarrhea or constipation, hair loss, palpitation, anxiety, weight changes, mood changes, low energy, changes in appearance of eyes or vision changes, tremors, increased diaphoresis or dry skin. ? Patient denies any difficulty swallowing, pain on swallowing or voice changes or difficulty breathing. She has a history of thoracic radiation for breast cancer.. Denies having ever used lithium, amiodarone or biotin supplements. Patient denies any family history of thyroid cancer. Sister had thyroid nodules. No recent TFTs done. No history of osteoporosis. No fractures. No history of CAD or stroke, no arrthymias Quit smoking 25 years ago. Past surgical history B/L mastectomy Bone health Currently on anastrozole 1 mg daily, she has been on this medication for at least the past year with the plan for 5 years Has a history of bilateral breast cancer per patient with a history of radiation therapy Currently on vitamin-D, unclear dose No history of fractures No bone density in the chart. Physical exam General: sitting comfortably in no acute distress HEENT: normocephalic/atraumatic, Neck: supple, symmetrical, no thyromegaly , no dorsocervical or supraclavicular fat pads Cardiac: normal heart sounds Pulm: normal breath sounds B/L, no added breath sounds Abd: not distended, no tenderness Extremities: no edema, no signs of myxedema, no tremors Neuro: AAO x3, Speech: normal, no facial droop, moving all 4 extremities Laboratory Tests 05/27/22 06/01/22 07/08/22 14:30 13:07 13:06 TSH 0.26 L 0.13 L 0.18 L Free T4 1.03 1.01 1.00 Total T3 Thyroid Stim Immunoglob <89 <89 Thyroglobulin Antibody <1 <1 Thyroid Peroxidase Ab <1 <1 TSH Receptor Ab <1.00 <1.00 08/25/22 09/02/22 10/12/22 13:32 11:58 10:37 TSH 0.26 L 0.45 Free T4 0.93 0.91 0.87 Total T3 114 125 134 Thyroid Stim Immunoglob Thyroglobulin Antibody Thyroid Peroxidase Ab TSH Receptor Ab 01/24/23 11:48 TSH 0.32 Free T4 0.90 Total T3 141 Thyroid Stim Immunoglob Thyroglobulin Antibody Thyroid Peroxidase Ab TSH Receptor Ab THYROID UPTAKE AND SCAN 07/09/22 CLINICAL INFORMATION: Thyrotoxicosis. COMPARISON: No previous radionuclide thyroid scan is available for comparison. Thyroid ultrasound dated 07/08/2022 is available for comparison. TECHNIQUE: Following the oral administration of 264 microcuries of I-123 sodium iodide, thyroid uptake was performed and expressed as a percentage of the administrated dose. Gamma scintillation camera images of the thyroid in the anterior and right and left anterior oblique views were obtained using a pinhole collimator following the administration of 10 mCi Tc-99m pertechnetate. FINDINGS: The uptake is 9.7% at 2 hours and 22.5% at 24 hours (Normal radioiodine uptake at 24 hours is 10% to 30%). The radioiodine uptake is normal. The radiopertechnetate thyroid scintigram demonstrates the thyroid gland to be normal in size. Multiple rounded or ovoid shaped foci of increased activity are present bilaterally, the largest and oval shape focus medially in the lower pole of the right lobe, but several much smaller rounded foci are present in the right lobe and there are at least 3 discrete foci of increased trapping function in the left lobe. A single anterior radioiodine image obtained at the time of the 24-hour uptake is similar to the radio pertechnetate image, but does not delineate the detail within the gland as well. NM/NM thyroid w uptake IMPRESSION: In the clinical setting of thyrotoxicosis, these findings are most consistent with a toxic multinodular goiter ([place]'s disease). US THYROID 07/08/22 CLINICAL INFORMATION: Thyrotoxicosis, unspecified without thyrotoxic crisis or storm. COMPARISON: Ultrasound thyroid 01/22/2021. TECHNIQUE: Linear transducer grayscale and color Doppler examination with attention to the region of the thyroid. FINDINGS: SIZE: Measurements of the thyroid lobes and nodules are given in sagittal, anteroposterior and transverse dimensions respectively. Right Thyroid Lobe: 5.6 x 2.0 x 2.3 cm, volume 13.5 mL. Previously 4.9 x 1.7 x 2.5 cm, volume 10.7 mL. Parenchyma: The gland echotexture is heterogeneous. Thyroid vascularity is normal. Left Thyroid Lobe: 5.6 x 1.9 x 2.2 cm, volume 2.5 mL. Previously 5.2 x 1.5 x 2.1 cm, volume 8.8 mL. Parenchyma: The gland echotexture is heterogeneous. Thyroid vascularity is normal. Isthmus: 0.3 cm in maximum AP dimension. Previously 0.2 cm. Estimated total number of nodules greater than or equal to 1 cm: 2. Secret [employer] Agent nodules are described as follows: 1. Location: Right superior. Size: 0.7 x 0.5 x 0.5 cm, volume 0.1 mL. Previously: 0.9 x 0.5 x 0.7 cm, volume 0.2 mL. Nodule characteristics: Composition: Solid (2). Echogenicity: Very hypoechoic (3). Shape: Not taller than wide (0). Margins: Smooth (0). Echogenic Foci: None (0). ACR TI-RADS total points: 5 Previous: 3 ACR TI-RADS category: 4 Previous: 3 Significant change in size (>/= 20% in 2 dimensions and minimal increase of 2 mm or 50% or greater increase in volume): None Change in features: None Change in ACR TI-RADS risk category: Minimal 2. Location: Right mid. Size: 0.8 x 0.6 x 0.7 cm, volume 0.2 mL. Previously: 0.9 x 0.6 x 0.8 cm, volume 0.2 mL. Nodule characteristics: Composition: Solid (2). Echogenicity: Hypoechoic (2). Shape: Not taller than wide (0). Margins: Smooth (0). Echogenic Foci: None (0). ACR TI-RADS total points: 4 Previous: 3 ACR TI-RADS category: 4 Previous: 3 Significant change in size (>/= 20% in 2 dimensions and minimal increase of 2 mm or 50% or greater increase in volume): None Change in features: None Change in ACR TI-RADS risk category: No significant change. 3. Location: Right inferior. Size: 1.2 x 0.8 x 1.0 cm, volume 0.5 mL. Previously: 1.4 x 1.3 x 1.1 cm, volume 1.0 mL. Nodule characteristics: Composition: Solid (2). Echogenicity: Very hypoechoic (3). Shape: Not taller than wide (0). Margins: Smooth (0). Echogenic Foci: None (0). ACR TI-RADS total points: 5 Previous: 4 ACR TI-RADS category: 4 Previous: 4 Significant change in size (>/= 20% in 2 dimensions and minimal increase of 2 mm or 50% or greater increase in volume): None Change in features: None Change in ACR TI-RADS risk category: No significant change 4. Location: Right inferior. Size: 0.6 x 0.5 x 0.6 cm, volume 0.1 mL. Previously: 0.7 x 0.4 x 0.7 cm, volume 0.1 mL. Nodule characteristics: Composition: Cannot be determined (2). Echogenicity: Cannot be determined (1). Shape: Not taller than wide (0). Margins: Cannot be determined (0). Echogenic Foci: Peripheral calcifications (2). ACR TI-RADS total points: 5 Previous: 5 ACR TI-RADS category: 4 Previous: 4 Significant change in size (>/= 20% in 2 dimensions and minimal increase of 2 mm or 50% or greater increase in volume): None Change in features: None Change in ACR TI-RADS risk category: No change 5. Location: Left inferior. Not seen previously. Size: 1.6 x 1.3 x 1.5 cm, volume 1.5 mL. Previously: Not seen on the previous study. Nodule characteristics: Composition: Solid (2). Echogenicity: Very hypoechoic (3). Shape: Not taller than wide (0). Margins: Cannot be determined (0). Echogenic Foci: Peripheral calcifications (2). ACR TI-RADS total points: 7 ACR TI-RADS category: 5 NODES: No lymphadenopathy is seen in the tissue surrounding the thyroid gland. US/US thyroid IMPRESSION: Multiple thyroid nodules with left lobe lower pole largest nodule measuring 1.6 cm with a high total points of 7 and TI-RADS Category 5 is suspicious. Recommend ultrasound-guided biopsy or a short-term 3 month follow-up. US THYROID 01/22/21 CLINICAL INFORMATION: Nontoxic single thyroid nodule. COMPARISON: None TECHNIQUE: Linear transducer grayscale and color Doppler examination with attention to the region of the thyroid. FINDINGS: SIZE: Measurements of the thyroid lobes and nodules are given in sagittal, anteroposterior and transverse dimensions respectively. Right Thyroid Lobe: 4.9 x 1.7 x 2.5 cm, volume 10.7 mL. Parenchyma: The gland echotexture is homogeneous. Thyroid vascularity is normal. Left Thyroid Lobe: 5.2 x 1.5 x 2.1 cm, volume 8.8 mL. Parenchyma: The gland echotexture is homogeneous. Thyroid vascularity is normal. Isthmus: 0.2 cm in maximum AP dimension. Estimated total number of nodules greater than or equal to 1 cm: 1. Secret [employer] Agent nodules are described as follows: 1. Location: Right superior. Size: 0.85 x 0.52 x 0.7 cm, volume 0.16 mL. Nodule characteristics: Composition: Mixed cystic and solid (1). Echogenicity: Hypoechoic (2). Shape: Not taller than wide (0). Margins: Smooth (0). Echogenic Foci: None (0). ACR TI-RADS total points: 3 ACR TI-RADS category: 3 2. Location: Right mid. Size: 0.9 x 0.56 x 0.75 cm, volume 0.2 mL. Nodule characteristics: Composition: Solid/almost completely solid (2). Echogenicity: Isoechoic (1). Shape: Not taller than wide (0). Margins: Smooth (0). Echogenic Foci: None (0). ACR TI-RADS total points: 3 ACR TI-RADS category: 3 3. Location: Right inferior. Size: 1.4 x 1.3 x 1.1 cm, volume 1.0 mL. Nodule characteristics: Composition: Solid/almost completely solid (2). Echogenicity: Hypoechoic (2). Shape: Not taller than wide (0). Margins: Smooth (0). Echogenic Foci: None (0). ACR TI-RADS total points: 4 ACR TI-RADS category: 4 4. Location: Right inferior. Size: 0.7 x 0.42 x 0.65 cm, volume 0.1 mL. Nodule characteristics: Composition: Solid/almost completely solid (2). Echogenicity: Hypoechoic (2). Shape: Not taller than wide (0). Margins: Smooth (0). Echogenic Foci: Macrocalcifications (1). ACR TI-RADS total points: 5 ACR TI-RADS category: 4 5. Location: Left inferior. Size: 0.95 x 0.69 x 0.80 cm, volume 0.3 mL. Nodule characteristics: Composition: Solid/almost completely solid (2). Echogenicity: Hypoechoic (2). Shape: Not taller than wide (0). Margins: Smooth (0). Echogenic Foci: Macrocalcifications (1). ACR TI-RADS total points: 5 ACR TI-RADS category: 4 NODES: No lymphadenopathy is seen in the tissue surrounding the thyroid gland. US/US thyroid IMPRESSION: Multiple bilateral thyroid nodules. The right inferior TR4 nodule meets criteria for annual follow-up. [facility] Medical History (Updated 07/19/24 @ 15:08 by Michaela Lee MD) Toxic multinodular goiter Use of anastrozole Shoulder pain, bilateral Fibromyalgia History of breast cancer Hyperthyroidism HLD (hyperlipidemia) HTN (hypertension) DM2 (diabetes mellitus, type 2) Multinodular thyroid Personal history of nicotine dependence Diabetes type 2, uncontrolled History of adenomatous polyp of colon Vitamin D deficiency Arthritis Tubular adenoma of colon Adenocarcinoma of colon Constipation Positive CLEMENT (antinuclear antibody) COPD (chronic obstructive pulmonary disease) Essential hypertension Hyperlipidemia LDL goal <100 Low back pain Asthma Polymyalgia rheumatica Surgical History History of needle biopsy History of colonoscopy (~09/2020) History of cardiac cath (~09/2018) History of right breast biopsy (~10/2010) History of flexible sigmoidoscopy (~06/2013) History of rigid sigmoidoscopy (~04/2013) Hx of cholecystectomy Family History Father Diabetes CVD (cardiovascular disease) Mother Breast cancer Skin cancer Cancer Social History Household Members: Other Household Members Other:: Mother lives with her Alcohol intake: current Alcohol intake frequency: does not drink Patient Tobacco Use Status: Former Tobacco user Physical Exam Vital Signs: Last Vital Signs Pulse 79 07/19/24 14:11 BP 110/64 07/19/24 14:11 BMI result Body Mass Index 26.0 Assessment & Plan Assessment & Plan (1) Toxic multinodular goiter: Code(s): E05.20 - Thyrotoxicosis with toxic multinodular goiter without thyrotoxic crisis or storm Category: Medical Plan: 63-year-old female with a history of toxic multinodular goiter. Patient has a history of thyroid nodules at least dating back to 2020 at which time ultrasound in December 2020 showed bilateral thyroid nodules with a dominant 1.4 cm right lobe inferior nodule. This was biopsied 07/02/2021 with benign cytology, [place] category 2. Subsequently in May 2022 patient was noted to have a low TSH level of 0.26 with normal free T4. TSH remains low between May 2022 in August 2022 in the range of 0.13-0.26. However normalized in September 2022. Free T4 always remained normal. This was consistent with subclinical hyperthyroidism. Labs May 2022 showed undetectable TSI, TR A/B antibodies. Negative TPO in thyroglobulin antibodies. Patient had a repeat thyroid ultrasound 07/08/2022 which again showed bilateral thyroid nodules, with a dominant right inferior lobe 1.2 cm nodule that had remained stable/becomes smaller compared to 202. The ultrasound report also labeled a 1.6 cm left inferior lobe nodule, with peripheral calcification S TR 5 category. However when I reviewed the images this seems to be the same nodule that was present in 2020, and I do not see any size measurements on the images in 2022 to say that this has grown bigger. In addition patient also had a thyroid uptake and scan 07/09/2022 which showed focal areas of increased uptake which correlate with both the right inferior as well as the left inferior lobe nodules in addition to other increased areas of uptake consistent with toxic multinodular goiter. She was started on methimazole 5 mg daily sometime in 2022, she is very unclear about whether she is currently on this medication or not, she keeps going back and forth regarding whether she is on this medication or not. I have asked her to bring her medication bottles next time. I do not have any recent TFTs in the chart. I explained to the patient that she has a history of toxic multinodular goiter, and treatment involves surgery or radioactive iodine treatment. Given history of breast cancer I would advise thyroidectomy. After listen to the statement, she frantically started shaking her head that she does not want surgery. I advised her that methimazole can be used to suppressed thyroid hormone production but the toxic nodules eventually need definitive therapy. She is not even sure at this point if she is on methimazole so I have asked her to bring her medications in do labs and follow up in 2 weeks. Plan: -ordered TSH, free T4 -follow up in 2 weeks -bring medication bottles to next appointment (2) Use of anastrozole: Code(s): Z79.811 - nursing home (current) use of aromatase inhibitors Category: Medical Plan: Patient on anastrozole for breast cancer treatment for the past 1 year at least with the plan for 5 years of treatment. Low bone density in the chart. No history of fractures. She is on vitamin-D, unclear of the dose. Given history of subclinical hyperthyroidism plus use of anastrozole we need to get bone density to evaluate for osteoporosis. Plan: -ordered bone density scan Plan I spent 30 minutes in reviewing the record, seeing the patient and documenting in the medical record. Orders: Orders Vitamin D 25-OH Total Today E05.90 - Thyrotoxicosis, unspecified without thyrotoxic crisis or storm, Z79.811 - long term care administrator (current) use of aromatase inhibitors XR DEXA axial skeleton Today E05.90 - Thyrotoxicosis, unspecified without thyrotoxic crisis or storm, Z79.811 - long term care administrator (current) use of aromatase inhibitors Albumin Level Today E05.90 - Thyrotoxicosis, unspecified without thyrotoxic crisis or storm, Z79.811 - long term care administrator (current) use of aromatase inhibitors Phosphorus Today E05.90 - Thyrotoxicosis, unspecified without thyrotoxic crisis or storm, Z79.811 - nursing home (current) use of aromatase inhibitors Parathyroid Hormone Intact Today E05.90 - Thyrotoxicosis, unspecified without thyrotoxic crisis or storm, Z79.811 - long term care administrator (current) use of aromatase inhibitors Calcium Today E05.90 - Thyrotoxicosis, unspecified without thyrotoxic crisis or storm, Z79.811 - long term care administrator (current) use of aromatase inhibitors Comprehensive Met. Panel Today E05.90 - Thyrotoxicosis, unspecified without thyrotoxic crisis or storm, Z79.811 - nursing home (current) use of aromatase inhibitors Thyroid Stimulating Hormone Today E05.90 - Thyrotoxicosis, unspecified without thyrotoxic crisis or storm, Z79.811 - long term care administrator (current) use of aromatase inhibitors Free T4 (Free Thyroxine) Today E05.90 - Thyrotoxicosis, unspecified without thyrotoxic crisis or storm, Z79.811 - nursing home (current) use of aromatase inhibitors Triiodothyronine T3 Total Today E05.90 - Thyrotoxicosis, unspecified without thyrotoxic crisis or storm, Z79.811 - nursing home (current) use of aromatase inhibitors Complete Blood Count Auto Diff Today E05.90 - Thyrotoxicosis, unspecified without thyrotoxic crisis or storm, Z79.811 - nursing home (current) use of aromatase inhibitors Patient Instructions: Do blood work Follow up in 2 weeks Do bone density scan, someone will call you to schedule this Bring all your medication bottles to next appointment hacer an?lisis de luciano Seguimiento en 2 semanas. Realice joe exploraci?n de densidad ?sea, alguien lo llamar? para programar esto Traiga todos marcos frascos de medicamentos a la pr?xima sang. Coding Level of Care Code Est Pt Level 4 (71087) Diagnoses Toxic multinodular goiter E05.20 Use of anastrozole Z79.811 Time Spent (min) 30
--- OUTSIDE RECORDS SUMMARY | 2024-07-19 16:37 | XMS_ITS | Clinical Summary ---
Author Organization [employer] Address [address] [facility] 7[address] [place] [address] Care Team Providers Care Pipe Smoking Machine Offbearer Name Role Phone Shalom Bey MD Primary Care Prov ider Allergies No known active allergies Medications hydrocortisone 2.5 % ointmentIndicatio ns:Vulvar dermatitis Apply to affected area twice a day x 7 days. Use sparingly 20 g 07/14/19 23 Active traMADol (Ultram) 50 MG tablet 08/05/19 23 Active Stiolto Respimat 2.5-2.5 MCG/ACT aerosol solution inhaler INHALE TWO PUFFS ONCE DAILY 06/10/20 22 Active Jardiance 25 MG Take 25 mg by mouth in the morning. 07/26/19 23 Active albuterol (2.5 MG/3ML) 0.083% nebulizer solutionIndicatio ns:Chronic obstructive pulmonary disease, unspecified (CMS/HCC) USE 1 VIAL IN NEBULIZER 3 TIMES DAILY 90 mL 11 03/17/20 23 Active ergocalciferol (Vitamin D2) 1.25 MG (00473 UT) capsuleIndication s:Vitamin D deficiency TAKE ONE CAPSULE BY MOUTH ONCE A WEEK 4 capsule 2 03/22/20 23 Active anastrozole (Arimidex) 1 MG chemo tablet Take 1 mg by mouth in the morning. Swallow whole with a drink of water. Active mirtazapine (Remeron) 30 MG tablet TAKE ONE TABLET AT BEDTIME FOR SLEEP 30 tablet 11 01/10/20 24 Active Alcohol Swabs (Alcohol Prep) 70 % padsIndications:T ype 2 diabetes mellitus without complication, without long-term current use of insulin ([facility]) USE THREE DAILY DIRECTED 100 each 11 04/19/20 24 Active atorvastatin (Lipitor) 20 MG tabletIndications :Mixed hyperlipidemia TAKE ONE TABLET DAILY 30 tablet 11 05/14/20 24 Active FreeStyle lancetsIndication s:Type 2 diabetes mellitus without complication, without long-term current use of insulin ([facility]) 1 each by Other route Once daily. 100 each 12 05/30/20 24 025 Active FREESTYLE LITE test stripIndications: Type 2 diabetes mellitus without complication, without long-term current use of insulin ([facility]) To test the blood sugar once a day 100 each 12 05/30/20 24 025 Active Januvia 100 MG tablet TAKE ONE TABLET DAILY 90 tablet 1 06/14/20 24 Active zolpidem (Ambien) 10 MG tabletIndications :Primary insomnia TAKE ONE TABLET AT BEDTIME NEEDED Do not start before June 28, 2024. 30 tablet 06/28/19 25 Active metFORMIN XR (Glucophage-XR) 500 MG 24 hr tabletIndications :Type 2 diabetes mellitus without complication, without long-term current use of insulin ([facility]) TAKE ONE TABLET TWICE DAILY 180 tablet 3 07/13/19 25 Active metFORMIN XR (Glucophage-XR) 500 MG 24 hr tabletIndications :Type 2 diabetes mellitus without complication, without long-term current use of insulin ([facility]) TAKE ONE TABLET BY MOUTH TWICE DAILY 180 tablet 3 08/12/19 24 025 Discontinued zolpidem (Ambien) 10 MG tabletIndications :Primary insomnia TAKE ONE TABLET EVERY NIGHT AT BEDTIME NEEDED 30 tablet 05/30/20 24 024 Discontinued Active Problems Problem Noted Date Diagnosed Date Primary insomnia 04/13/2023 Assessment & Plan (09/28/2023 1:25 PM EDT): Controlled with ambien 10mg, no changes will be made, continue current management Assessment & Plan (07/12/2023 12:02 PM EST): Will increase zolpidem dose to 10mg, risk were discussed Assessment & Plan (04/13/2023 10:48 AM EDT): Patient used to take ambien for sleep,but has been off medication and is sleeping 1-2 hours a day, will send refill, lifestyle modifications reviewed Breast cancer 04/13/2023 04/13/2023 S/P bilateral breast lumpectomy 04/13/2023 Assessment & Plan (07/12/2023 12:04 PM EST): Patient undergoing radiation, she is taking anastrazole, followed by oncology, told her oxycodone script will not be refilled, continue with tylenol/ibuprofen as needed Assessment & Plan (04/13/2023 10:57 AM EDT): Patient underwent procedure without complications, complains of bilateral pain, will prescribe oxycodone for 3 days Anxiety 12/22/2022 Assessment & Plan (09/28/2023 1:46 PM EDT): Will send a letter for her service dog, which has helped her with her anxiety and depression Assessment & Plan (12/22/2022 11:00 AM EDT): Patient followed by therapist, she refers has been waiting for a psychiatrist for a long time, no suicidal/homicidal ideas, asking for alprazolam that was given for a MRI, refers it made her feel much better. I told her about the risk of medication, and my reccomendations was to start hydroxyzine which she refused, she refers will wait for the psychiatrist. Mixed hyperlipidemia 07/15/2022 Assessment & Plan (02/06/2024 12:34 PM EDT): Pending blood work for guidance of therapy Assessment & Plan (09/28/2023 1:39 PM EDT): On atorvastatin labs will be reordered for guidance Assessment & Plan (07/12/2023 12:03 PM EST): On atorvastatin 20mg, continue same therapy Assessment & Plan (07/15/2022 11:11 AM EST): Last LDL<70, will renew medication Type 2 diabetes mellitus wit hout complication, without long-term current use of insulin 07/15/2022 Assessment & Plan (02/06/2024 12:33 PM EDT): Told to get new blood work sent previously, continue low carb/no sugar diet Assessment & Plan (09/28/2023 2:16 PM EDT): On jardiance/januvia/metformin, followed by endocrinology, no reported episode of hypoglycemia, Assessment & Plan (07/12/2023 12:02 PM EST): Conmtrolled as per last endocrinology visit, continue on metformin/jardiance and januvia Assessment & Plan (04/13/2023 10:51 AM EDT): Controlled, reinforced low carb/no sugar diet, new labs will be ordered for follow up. Assessment & Plan (10/13/2022 6:16 PM EDT): Followed by endocrinology a1c from 08/2022 was <7.0%, no changes will be made, reinforced low carb/no sugar diet Eye exam referral sent Assessment & Plan (07/15/2022 11:12 AM EST): Controlled, last a1c from 03/2022 was 6.0%, no changes will be made, following payment processor, will follow up in 3 months in office Patient refers her eye exam is scheduled in the coming months Encounters Date Type Department Care Team Description 07/13/2024 Refill [facility] [address] [place] [address] Shalom Bey MD Type 2 diabetes mellitus without complication, without long-term current use of insulin ([facility]) 06/21/2024 Refill [facility] [address] [place] [address] Shalom Bey MD Primary insomnia 06/13/2024 Refill [facility] [address] [place] [address] Shalom Bey MD 05/29/2024 Refill [facility] [address] [place] [address] Shalom Bey MD Primary insomnia 05/29/2024 Telephone [facility] [address] [place] [address] Shalom Bey MD Med Refill 05/28/2024 Orders Only GENERIC EXTERNAL DATA DEPARTMENT Provider, Generic External Data 05/23/2024 Orders Only [facility] [address] [place] [address] Leila Mustafa MD Type 2 diabetes mellitus without complication, without long-term current use of insulin (CMS/HCC) 05/14/2024 Refill [facility] [address] [place] [address] Shalom Bey MD Mixed hyperlipidemia 04/23/2024 Refill [facility] [address] [place] [address] Shalom Bey MD Primary insomnia 04/19/2024 Refill [facility] [address] [place] [address] Shalom Bey MD Type 2 diabetes mellitus without complication, without long-term current use of insulin (CMS/HCC) from Last 3 Months Family History Medical History Relation Name Comments Hypertension Brother Diabetes Father Breast cancer Sister 1 Hyperthyroidism Sister 2 Stroke Sister 2 Relation Name Status Comments Brother Father Sister 1 Sister 2 Social History Tobacco Use Types Packs/Day Years Used Date Smoking Tobacco: Never Passive Smoke Exposure: Never Smokeless Tobacco: Never Tobacco Cessation:Counseling Given: Not Answered Alcohol Use Standard Drinks/Week Comments Not Currently 0 (1 standard drink = 0.6 oz pur e alcohol) Depression Answer Date Recorded Patient Health Questionnaire-9 Score 9 09/28/2023 Patient Health Questionnaire-9 Score 9 09/28/2023 Last PHQ-9: Questionnaire Data Not on file 0 09/28/2023 Housing Stability Answer Date Recorded What is your housing situation today? I have mari rivera 04/13/[address] you li ve. Do you have problems with any of the following? None of the above 04/13/2023 Food Insecurity Answer Date Recorded Within the past 12 months, y ou worried that your food would run out before you got money to buy more: Never True 04/13/2023 Within the past 12 months,th e food you bought just didn't last and you didn't have enough money to get more: Never True Transportation Answer Date Recorded In the past 12 months, has l ack of transportation kept you from medical appts, meetings, work or from getting things needed for daily living? No 04/13/2023 Utilities Answer Date Recorded In the past 12 months, has t he electric, gas, oil or water company threatened to shut off services in your home? No 04/13/2023 Depression Answer Date Recorded Patient Health Questionnaire-2 Score 5 09/28/2023 Comments Unknown Sex and Gender Information Value Date Recorded Sex Assigned at Female 04/26/2022 10:15 AM EDT Legal Sex Female 10:15 AM EDT Gender Identity Female 04/26/2022 10:15 AM EDT Sexual Orientation Not on file Last Filed Vital Signs Vital Sign Reading Time Taken Comments Blood Pressure 102/66 03/07/2023 2:10 PM EDT Pulse 64 03/07/2023 2:10 PM EDT Temperature 36.7 ??C (98 ??F) 03/07/2023 2:10 PM EDT Respiratory Rate 20 03/07/2023 2:10 PM EDT Oxygen Saturation 99% 03/07/2023 2:10 PM EDT Inhaled Oxygen Concentration - - Weight 66.6 kg (146 lb 12.8 oz) 03/07/2023 2:10 PM EDT Height 162.6 cm (5' 4 ) 03/07/2023 2:10 PM EDT Body Mass Index 25.2 03/07/2023 2:10 PM EDT Plan of Treatment Health Maintenance Due Date Last Done Comments CT Colonography 1960 FIT DNA/Cologuard 1960 FIT 1960 FOBT 1960 Sigmoidoscopy 1960 Diabetes: Foot Exam 1970 Eye Exam 1970 Alcohol/Substance Use Screening 1972 Hepatitis A Vaccines (1 of 2 - Risk 2-dose series) 09/06/1979 Pneumococcal Vaccine: Pediatrics (0 to 5 Years) and At-Risk Patients (6 to 64 Years) (2 of 2 - PCV) 02/19/2014 02/19/2013 RSV Patients and Patients Aged 60 years or older (1 - Risk 60-74 years 1-dose series) 2020 DTaP/Tdap/Td Vaccines (2 - Td or Tdap) 02/19/2023 02/19/2013, 06/27/2007 Diabetes: Hemoglobin A1C 02/25/2023 023, 08/05/2022, 04/16/2022 Diabetes: Urine Protein Screening 08/26/2023 08/25/2022, 05/27/2022, 04/16/2022, Additional history exists Lipid Panel 08/26/2023 08/25/2022, 0306/2022, 05/27/2022, Additional history exists SDOH Screening 12/23/2023 12/22/2022 COVID-19 Vaccine ( season) 2024 10/01/2020, 09/03/2020 Influenza Vaccine (#1) 2024 , 04/19/2018, 07/07/2017 Tobacco Screening 03/07/2024 03/07/2023 Depression Monitoring (PHQ-9) 03/29/2024 09/28/2023, 09/28/2023 Pap Smear 04/28/2024 04/28/2021, 04/28/2021 Depression Screening 09/27/2024 09/28/2023, 09/28/19 24 Colonoscopy 09/10/2025 09/10/2020, 02/0 07/2014, 03/13/2013 Colorectal Cancer Screening 09/10/2025 Cervical Cancer Screening 04/28/2026 HPV/Cotest 04/28/2026 04/28/2021 Zoster Vaccines Completed 08/27/2019, 03/29/2019 Hepatitis B Vaccines Completed 08/20/2021, 05/27/2021, 04/28/2021 HIV Screening Completed 04/16/2022, 01/21/2021 HIB Vaccines Aged Out No longer eligi ble based on patient's age to complete this topic HPV Vaccines Aged Out No longer eligi ble based on patient's age to complete this topic IPV Vaccines Aged Out No longer eligi ble based on patient's age to complete this topic Meningococcal Vaccine Aged Out No ronal sarahi eligible based on patient's age to complete this topic RSV under 20 months Aged Out No longe r eligible based on patient's age to complete this topic Rotavirus Vaccines Aged Out No longer eligible based on patient's age to complete this topic Procedures Procedure Name Priority Date/Time Associated Diagnosis Comments GLUCOSE, WHOLE BLOOD Routine 05/28/2024 1:16 PM EST HEMOGLOBIN A1C Routine 08/25/2022 1:32 PM EST LIPID PANEL, STANDARD Routine 08/25/2022 1:32 PM EST ALBUMIN, RANDOM URINE W/CREATININE Routine 08/25/2022 1:30 PM EST HIV 1/2 ANTIGEN/ANTIBODY, FOURTH GENERATION W/RFL Routine 04/16/2022 9:21 AM EDT THINPREP IMAGING PAP AND HPV MRNA E6/E7 WITH REFLEX TO HPV 16,18/45 Routine 04/28/2021 11:30 AM EDT PAP SMEAR Routine 04/28/2021 12:00 AM EDT HM COLONOSCOPY Routine 09/10/2020 1:08 PM EDT from Last 3 Months or Most Recently Relevant to Health Maintenance Results * Glucose, Whole Blood (05/28/2024 1:16 PM EST) Glucose, Whole Blood 102 60 - 115 mg/dL [facility] Comment:METER #: [id number] Testing performed in the Endocrinology Department [address] , [address], [place]. 05/28/2024 1:16 PM EST 05/28/2024 1:19 PM EST us Generic External Data Provider LAB BLOOD ORDERAB LES Final Result [facility] [address] [place] [phone] * Hemoglobin A1c (08/25/2022 1:32 PM EST) Hemoglobin A1c 6.0 % [facility] Comment:Hemoglobin A1C Refer ence Range Adults: 4.8 - 6.0 % Non diabetic: < 6.0 % Goal: < 7.0 %Additional Action Suggested: > 8.0 %Note: Hemoglobin A1c results are invalid for patients with abnormal amounts of HbF. Blood transfusions may impact the HbA1c concentration in the patient sample. Estimated Average Glucose 126 mg/dL [facility] Comment:eAG = Estimated ave rage glucose which is %A1C expressed asaverage glucose, using the formula of the N4B-GebhntxVkgnofk Glucose study (ADAG), Diabetes Care, Vol.31,#8,Jan. 2007 08/25/2022 1:32 PM EST 08/25/2022 1:32 PM EST us [facility] [place] [facility] External Provider LAB BLO OD ORDERABLES Final Result [facility] [address] [place] [address] [phone] * Lipid Panel, Standard (08/25/2022 1:32 PM EST) Triglycerides 172 mg/dL [facility] Comment:Desirable Triglyceri de: less than 150 mg/dLBorderline High Triglyceride 150-199 mg/dLHigh Triglyceride: 200-499 mg/dLVery High Triglyceride: greater than or equal to 5OO mg/dL Cholesterol 139 mg/dL [facility] Comment:Desirable Cholestero l: less than 200 mg/dLBorderline High Cholesterol: 200-239 mg/dLHigh Cholesterol: greater than 239 mg/dL LDL Cholesterol Calculated 67 mg/dl [facility] Comment:Desirable LDL: less than 100 mg/dLNear Optimal/Above Optimal LDL: 110- 129 mg/dLBorderline High LDL: 130-159 mg/dLHigh LDL: 160-189 mg/dLVery High LDL: greater than or equal to 190 mg/dL HDL Cholesterol 38 mg/dL [facility] Comment:Desirable HDL: great er than 40 mg/dL Note: This HDL assay may give artificially low results in patients with liver disease. 08/25/2022 1:32 PM EST 08/25/2022 1:32 PM EST [facility] External Provider LAB BLO OD ORDERABLES Final Result Performing Organization Address [facility] Phone Number [facility] [address] [place] [phone] * Albumin, Random Urine W/Creatinine (08/25/2022 1:30 PM EST) Creatinine, Urine 55.85 mg/dL [facility] Microalbumin Urine 7.0 mg/L [facility] Microalbum Creatinine Ratio Ur 12.5 ug/mg cr [facility] Comment:Albumin/Creatinine R atio Reference Ranges: Normal: < 30 ug/mg creatinine Microalbuminuria: 30 - 300 ug/mg creatinineClinical Albuminuria: > 300 ug/mg creatinine 08/25/2022 1:30 PM EST 08/25/2022 2:17 PM EST [facility] External Provider LAB URI NE ORDERABLES Final Result Performing Organization Address [facility] de Phone Number [facility] [address] [place] [phone] * HIV 1/2 ANTIGEN/ANTIBODY,FOURTH GENERATION W/RFL (04/16/2022 9:21 AM EDT) HIV-1/2 ANTIGEN AND ANTIBODIES, 4TH GENERATION W/ REFLEX NON-REACT DREW NON-REACT DREW [facility] Comment: HIV-1 antigen and HIV-1/HIV-2 antibodies were not detected. There is no laboratory evidence of HIV infection. ?? PLEASE NOTE: This information has been disclosed to you from records whose confidentiality may be protected by state law. ??If your state requires such protection, then the state law prohibits you from making any further disclosure of the information without the specific written consent of the person to whom it pertains, or as otherwise permitted by law. A general authorization for the release of medical or other information is NOT sufficient for this purpose. ? For additional information please refer to http://education.[employer].Errund/faq/GCG641 (This link is being provided for informational/ educational purposes only.) ? The performance of this assay has not been clinically validated in patients less than 2 years old. ?? 04/16/2022 9:21 AM EDT Shalom Chris MD LAB BLOOD ORDERABL ES Final Result [facility] * THINPREP TIS PAP AND HPV mRNA E6/E7 REFLEX HPV 16,18/45 (04/28/2021 11:30 AM EDT) Clinical Information: DEE DEE [facility] COMMENT SEE COMMENT [facility] Comment: EXPLANATORY NOTE: ? The Pap is a screening test for cervical cancer. It is ?? not a diagnostic test and is subject to false negative ?? and false positive results. It is most reliable when a ?? satisfactory sample, regularly obtained, is submitted ?? with relevant clinical findings and history, and when ?? the Pap result is evaluated along with historic and ?? current clinical information. ?? COMMENT: This Pap test has been evaluated with computer assisted technology. [facility] Business System Manager: SEE COMMENT [facility] Comment: WAC, CT(ASCP) CT screening location: [address] ??[id number] HPV nRNA E6/E7 Not Detected Not Detected [facility] Comment: Methodology: Hoisting Engineer Pile Driving-Mediated Amplification This assay detects E6/E7 viral messenger RNA (mRNA) from 14 high-risk HPV types (16,18,31,33,35,39,45,51,52,56,58,59,66,68). ? The analytical performance characteristics of this assay have been determined by [employer]. The modifications have not been cleared or approved by the FDA. This assay has been validated pursuant to the CLIA regulations and is used for clinical purposes. ?? For additional information, please refer to http://education.[employer]/faq/QCC961p0 (This link if provided for information/ educational purposes only.) Interpretation/Res ult: SEE COMMENT [facility] Comment: Negative for intraepithelial lesion or malignancy. Atrophic pattern; predominantly parabasal cells LMP: 06/2015 [facility] Prev. BX: NONE GIVEN [facility] Prev. PAP: NIL NEG [facility] SOURCE: None given [facility] Statement Of Adequacy: SATISFACTORY FOR EVALUATION Partially obscuring inflammation [facility] 04/28/2021 11:3 0 AM EDT Kayla RENE LAB PATHOLOGY ORDERABLES Final Result [facility] [address] * Pap Smear (04/28/2021 12:00 AM EDT) Swab Kayla RENE LAB CYTOLOGY ORDERABLES F inal Result [address], [place] [address] * Colonoscopy (09/10/2020 1:08 PM EDT) Historical Provider MD HEALTH MAINTENANCE Final Result from Last 3 Months or Most Recently Relevant to Health Maintenance Insurance MEDICARE [facility] STANDARD Care Teams Pipe Smoking Machine Offbearer Relationship Specialty Start Date End Date Shalom Bey MD [address] [place] [address] AMARIS Velasquez PCP - General Internal Medicine 11/05/19
--- OUTSIDE RECORDS SUMMARY | 2024-07-19 16:37 | XMS_ITS | Encounter Summary ---
Author Organization [employer] Address [address] [facility] 7[address] [place] [address] Care Team Providers Care Asphalt Spreader Name Role Phone Shalom Bey MD Primary Care Prov ider Ruth Ellis RN Unavailable Reason for Visit * Reason Onset Date Comments pt1 07/02/2022 Encounter Details Date Type Department Care Team (Late st Contact Info) Description 07/02/2022 Telephone [facility] [address] [place] [address] Shalom Bey MD [address] [place] [address] pt1 Social History Tobacco Use Types Packs/Day Years Used Date Smoking Tobacco: Never Assessed Comments Unknown Sex and Gender Information Value Date Recorded Sex Assigned at Female 04/26/2022 10:15 AM EDT Legal Sex Female 10:15 AM EDT Gender Identity Female 04/26/2022 10:15 AM EDT Sexual Orientation Not on file documented as of this encounter Miscellaneous Notes * Telephone Encounter - Kayla Welsh CNM - 07/15/2022 4:47 PM EST Thank you! * Telephone Encounter - Roberta Aguillon RN - 07/15/2022 4:28 PM EST T/C placed to pt re below lab results and POC. Informed all vaginal infection testing was negative.She is to continue the steroid cream, will consider vaginal estrogen after her breast imaging. Pt reports it is this Friday 07/21. Sending to provider as FYI. * Telephone Encounter - Roberta Aguillon RN - 07/15/2022 4:24 PM EST ----- Message from Kayla Welsh CNM sent at 07/15/2022 10:52 AM EST ----- Please let Marnie know her vaginal swab testing was negative for infections. She should use the steroid ointment I sent in, and let's consider starting a vaginal estrogen cream once we have her breast imaging results. Please find out when she is scheduled for diagnostic breast imaging. Thanks! * Telephone Encounter - Kwaku Chowdhury - 07/02/2022 10:58 AM EST Tc from pt requesting PT1 Location: [address] [address] Specialty: n/a Time: 10 am Date: 07/08/22 Spa Supervisor: yes wheelchair accessible : n/a Location: [address] [address] Specialty: n/a Time: 10 am Date: 07/09/22 Spa Supervisor: yes wheelchair accessible : n/a documented in this encounter Plan of Treatment Not on file documented as of this encounter Visit Diagnoses Not on filedocumented in this encounter Care Teams Asphalt Spreader Relationship Specialty Start Date End Date Shalom Bey MD [address] [place] [address] PCP - General Internal Medicine 11/05/19 Ruth Ellis RN [address] [place] [address] Corporate Legal SecretaryPaving Machine Operator Medicine 12/06/23 12/19/23 documented as of this encounter
--- OUTSIDE RECORDS SUMMARY | 2024-07-19 16:37 | XMS_ITS | Encounter Summary ---
Author Organization [employer] [facility] Address [address] [place] [address] [address] [place] [address] Care Team Providers Care Retail Field Representative Name Role Phone Shalom Bey MD Primary Care Prov ider Ruth Ellis RN Unavailable [phone] Reason for Visit * Reason Comments Med Refill Encounter Details Date Type Department Care Team ([facility] st Contact Info) Description 12/17/2022 Refill [facility] [address] [place] [address] Shalom Bey MD [address] [place] [address] Chronic obstructive pulmonary disease, unspecified (CMS/HCC) Social History Tobacco Use Types Packs/Day Years Used Date Smoking Tobacco: Never Passive Smoke Exposure: Never Smokeless Tobacco: Never Alcohol Use Standard Drinks/Week Comments Not Currently 0 (1 standard drink = 0.6 oz pur e alcohol) Comments Unknown Sex and Gender Information Value Date Recorded Sex Assigned at Female 04/26/2022 10:15 AM EDT Legal Sex Female 10:15 AM EDT Gender Identity Female 04/26/2022 10:15 AM EDT Sexual Orientation Not on file documented as of this encounter Plan of Treatment Not on file documented as of this encounter Visit Diagnoses Diagnosis Chronic obstructive pulmonary disease, unspecified (CMS/HCC) documented in this encounter Care Teams Retail Field Representative Relationship Specialty Start Date End Date Shalom Bey MD [address] [place] [address] PCP - General Internal Medicine 5/11/20 Ruth Ellis RN [address] [place] [phone] Scoop OperatorRadio Equipment Repairer Medicine 12/06/23 12/19/23 documented as of this encounter
--- OUTSIDE RECORDS SUMMARY | 2024-07-19 16:37 | XMS_ITS | Encounter Summary ---
Author Organization [employer] Address [address] [facility] [address] 7t [place] [address] Care Team Providers Care Transition Of Care Specialist Name Role Phone Shalom Bey MD Primary Care Prov ider Ruth Ellis RN Unavailable [phone] Encounter Details Date Type Department Care Team (Late st Contact Info) Description 10/14/2023 Orders Only [facility] MEDICINE [address] [place] [address] ProviderRuchi MD Social History Tobacco Use Types Packs/Day Years [...] on file documented as of this encounter Procedures Procedure Name Priority Date/Time Associated Diagnosis Comments HM COLONOSCOPY Routine 09/10/2020 1:08 PM EDT HM COLONOSCOPY Routine 07/29/2014 1:10 PM EST HM COLONOSCOPY Routine 03/13/2013 1:11 PM EDT documented in this encounter Results * Hm Colonoscopy (09/10/2020 1:08 PM EDT) [facility] Provider HEALTH MAINTENANCE Final Result * Hm Colonoscopy (07/29/2014 1:10 PM EST) [facility] Provider HEALTH MAINTENANCE Final Result * Hm Colonoscopy (03/13/2013 1:11 PM EDT) [facility] Provider HEALTH MAINTENANCE Final Result documented in this encounter Visit Diagnoses Not on filedocumented in this encounter Additional Health Concerns Assessment Noted Time PHQ-9 Depression Total Score: 9 09/28/19 24 11:08 AM EDT documented as of this encounter Care Teams Transition Of Care Specialist Relationship Specialty Start Date End Date Shalom Bey MD 505 [place] [address] PCP - General Internal Medicine 11/05/19 Ruth Ellis RN 505 [place] [address] Hot Tamale ManBed Control Specialist Medicine 12/06/23 12/19/23 documented as of this encounter
--- OUTSIDE RECORDS SUMMARY | 2024-07-19 16:37 | XMS_ITS | Encounter Summary ---
Author Organization [employer] Address [address] [facility] 7t [place] [address] Care Team Providers Care Balance Sheet Analyst Name Role Phone Shalom Bey MD Primary Care Prov ider Ruth Ellis RN Unavailable [phone] Reason for Visit * Reason Onset Date Comments PT1 06/16/2023 Encounter Details Date Type Department Care Team (Late st Contact Info) Description 06/16/2023 Telephone [facility] MEDICINE [address] [place] [address] Shalom Bey MD [address] [place], [place] [phone] PT1 Social History Tobacco Use Types Packs/Day Years Used Date Smoking Tobacco: Never Passive Smoke Exposure: Never Smokeless Tobacco: Never Alcohol Use Standard Drinks/Week Comments Not Currently 0 (1 standard drink = 0.6 oz pur e alcohol) Depression Answer Date Recorded Patient Health Questionnaire-9 Score 14 12/22/2022 Housing Stability Answer Date Recorded What is your housing situation today? I have marichaitanya rivera 04/13/[address] you [...] Answer Date Recorded Patient Health Questionnaire-2 Score 4 12/22/2022 Comments Unknown Sex and Gender Information Value Date Recorded Sex Assigned at Female 04/26/2022 10:15 AM EDT Legal Sex Female 10:15 AM EDT Gender Identity Female 04/26/2022 10:15 AM EDT Sexual Orientation Not on file documented as of this encounter Miscellaneous Notes * Telephone Encounter - Thuy Melchor - 06/17/2023 2:49 PM EST PT-1 submitted for patient. They will receive a letter of approval or denial in the mail. * Telephone Encounter - Francesca Gregorio - 06/16/2023 3:42 PM EST PT1 needed Date: 06/28/2022-07/27/2022 Time: 10:30 am Visits: Address: [address] [place] [address] Facility: [facility] [place] Radiology Wheel Chair: Yes Sales And Training Specialist Needed: Yes documented in this encounter Plan of Treatment Not on file documented as of this encounter Visit Diagnoses Not on filedocumented in this encounter Additional Health Concerns Assessment Noted Time PHQ-9 Depression Total Score: 14 023 10:41 AM EDT documented as of this encounter Care Teams Balance Sheet Analyst Relationship Specialty Start Date End Date Shalom Bey MD 505 [place] [address] PCP - General Internal Medicine 11/05/19 Ruth Ellis RN 505 [place] [address] Rn ProceduresProduce Wrapper Medicine 12/06/23 12/19/23 documented as of this encounter
--- OUTSIDE RECORDS SUMMARY | 2024-07-19 16:37 | XMS_ITS | Encounter Summary ---
Author Organization [employer] Address [address] [facility] 7t [place] [address] Care Team Providers Care Stone Breaker Name Role Phone Shalom Bey MD Primary Care Prov ider Encounter Details Date Type Department Care Team ([facility] st Contact Info) Description 05/23/2024 Orders Only [facility] CHC MED & PEDS 505 [place], [place] [phone] Leila Mustafa MD 505 [place] [address] Type 2 diabetes mellitus without complication, without long-term current use of insulin ([facility]) Social History Tobacco Use Types Packs/Day Years [...] enough money to get more: Never True 10/ Transportation Answer Date Recorded In the past [...] as of this encounter Visit Diagnoses Diagnosis Type 2 diabetes mellitus without complication, without long-term current use of insulin ([facility]) documented in this encounter Additional Health Concerns Assessment Noted Time PHQ-9 Depression Total Score: 9 09/28/19 24 11:08 AM EDT documented as of this encounter Care Teams Stone Breaker Relationship Specialty Start Date End Date Shalom Bey MD [address] [place] [address] PCP - General Internal Medicine 11/05/19 documented as of this encounter
--- OUTSIDE RECORDS SUMMARY | 2024-07-19 16:37 | XMS_ITS | Encounter Summary ---
Author Organization [employer] [facility] Address [address] [facility] 7t [place] [address] Care Team Providers Care Medical Surgery Nurse Name Role Phone Shalom Bey MD Primary Care Prov ider Ruth Ellis RN Unavailable [phone] Encounter Details Date Type Department Care Team ([facility] st Contact Info) Description 11/24/2022 Abstract [facility] MED & PEDS 505 [place] [address] Shalom Bey MD [address] [place] [address] Social History Tobacco Use Types Packs/Day Years [...] Procedure Name Priority Date/Time Associated Diagnosis Comments MAMMOGRAPHY Routine 10/22/2022 9:22 AM EDT documented in this encounter Results * (ABNORMAL) Mammography (10/22/2022 9:22 AM EDT) Mammogram Birads-0 Anatomical Region Laterality Modality Other Narrative 10/22/2022 9:22 AM EDT Recommended MRI us Historical Provider HEALTH MAINTENANCE Final Result documented in this encounter Visit Diagnoses Not on filedocumented in this encounter Care Teams Medical Surgery Nurse Relationship Specialty Start Date End Date Shalom Bey MD [address] [place] [address] PCP - General Internal Medicine 11/05/19 Ruth Ellis RN 505 [place] [address] Block CablemanAirplane Flight Attendant Medicine 12/06/23 12/19/23 documented as of this encounter
--- OUTSIDE RECORDS SUMMARY | 2024-07-19 16:37 | XMS_ITS | Encounter Summary ---
Author Organization [employer] Address [address] [facility] 7t [place] [address] Care Team Providers Care Lube Technician Name Role Phone Shalom Bey MD Primary Care Prov ider Ruth Ellis RN Unavailable Reason for Visit * Reason Onset Date Comments PT-1 07/01/2023 Encounter Details Date Type Department Care Team (Late st Contact Info) Description 07/01/2023 Telephone [facility] MEDICINE [address] [place] [address] Shalom Bey MD 505 [facility] [place] [phone] PT-1 Social History Tobacco Use Types Packs/Day Years [...] * Telephone Encounter - Thuy Melchor - 07/01/2023 12:09 PM EST PT-1 submitted for patient. They will receive a letter of approval or denial in the mail. * Telephone Encounter - Taniya Win - 07/01/2023 9:30 AM EST Tc from pt calling in regards to PT1. Pt spoke with [email or web address] and was advised will need a nurse or PCP to call [email or web address] by 07/02 for PT1 can be expedited and can have a ride for 07/04. * Telephone Encounter - Tae Mattson - 07/01/2023 9:12 AM EST PT1 needed Date: 07/04/23 Time: 2:30 Visits: 30 Address: [address] [place] [address] Facility: Oncology Wheel Chair: no Helper Marble Finisher Needed: yes documented in this encounter Plan of Treatment Not on file documented as of this encounter Visit Diagnoses Not on filedocumented in this encounter Additional Health Concerns Assessment Noted Time PHQ-9 Depression Total Score: 14 12/22/ 023 10:41 AM EDT documented as of this encounter Care Teams Lube Technician Relationship Specialty Start Date End Date Shalom Bey MD 505 [place] [address] PCP - General Internal Medicine 11/05/19 Ruth Ellis RN 505 [place] [address] Aquatic LaborerBand Splicer Medicine 12/06/23 12/19/23 documented as of this encounter
--- OUTSIDE RECORDS SUMMARY | 2024-07-19 16:37 | XMS_ITS | Encounter Summary ---
Author Organization [employer] Address [address] 7t [place] [address] Care Team Providers Care Deputy Clerk Of Superior Court Name Role Phone Shalom Bey MD Primary Care Prov ider Ruth Ellis RN Unavailable [phone] Reason for Visit * Reason Onset Date Comments Letter for School/Work 10/26/2023 Encounter Details Date Type Department Care Team (Late st Contact Info) Description 10/26/2023 Telephone [facility] MEDICINE [address] [place] [address] Shalom Bey MD [address] [place] [phone] Letter for School/Work Social History Tobacco Use Types Packs/Day Years [...] your housing situation today? I have mari miguel 04/13/[address] you li [...] encounter Miscellaneous Notes * Telephone Encounter - Renu Starr RN - 10/28/2023 11:26 AM EDT Letter generated and placed at reception clerk for pt picker tender. Placed call to pt to inform. Pt not available and another female answered. Message relayed but female stated she will let pt know to return call. * Telephone Encounter - Margaret De Dios - 10/26/2023 12:29 PM EDT Tc from pt requesting a letter from PCP , authorization pt to take all meds to [place], pt will be leaving on 10/31. Please contact at [phone] documented in this encounter Plan of Treatment Not on file documented as of this encounter Visit Diagnoses Not on filedocumented in this encounter Additional Health Concerns Assessment Noted Time PHQ-9 Depression Total Score: 9 09/28/19 24 11:08 AM EDT documented as of this encounter Care Teams Deputy Clerk Of Superior Court Relationship Specialty Start Date End Date Shalom Bey MD [address] [place] [address] PCP - General Internal Medicine 11/05/19 Ruth Ellis RN [address] [place] [address] Biology Research AssistantEngineer Process Medicine 12/06/23 12/19/23 documented as of this encounter
--- OUTSIDE RECORDS SUMMARY | 2024-07-19 16:37 | XMS_ITS | Encounter Summary ---
Author Organization [employer] Address [address] [facility] 7t [place] [address] Care Team Providers Care Protein Scientist Name Role Phone Shalom Bey MD Primary Care Prov ider Reason for Visit * Reason Comments Med Refill Encounter Details Date Type Department Care Team (Late st Contact Info) Description 07/13/2024 Refill [facility] MEDICINE [address] [place] [address] Shalom Bey MD [address] [facility] [address] [address] [place] [phone] Type 2 diabetes mellitus without complication, without long-term current use of insulin ([facility]) Social History Tobacco Use Types Packs/Day Years [...] complication, without long-term current use of insulin ([facility]) documented in this encounter Additional Health Concerns Assessment Noted Time PHQ-9 Depression Total Score: 9 09/28/19 24 11:08 AM EDT documented as of this encounter Care Teams Protein Scientist Relationship Specialty Start Date End Date Shalom Bey MD 505 [place] [address] PCP - General Internal Medicine 11/05/19 documented as of this encounter
--- OUTSIDE RECORDS SUMMARY | 2024-07-19 16:37 | XMS_ITS | Encounter Summary ---
Author Organization [employer] Address [address] [facility] 7t [place] [address] Care Team Providers Care Bridge Crew Member Name Role Phone Shalom Bey MD Primary Care Prov ider Reason for Visit * Reason Comments Med Refill Encounter Details Date Type Department Care Team ([facility] st Contact Info) Description 06/21/2024 Refill [facility] CHC MED & PEDS 505 [place] [address] Shalom Bey MD 505 [place] [address] Primary insomnia Social History Tobacco Use Types Packs/Day Years [...] as of this encounter Visit Diagnoses Diagnosis Primary insomnia Persistent disorder of initiating or maintaining sleep documented in this encounter Additional Health Concerns Assessment Noted Time PHQ-9 Depression Total Score: 9 09/28/19 24 11:08 AM EDT documented as of this encounter Care Teams Bridge Crew Member Relationship Specialty Start Date End Date Shalom Bey MD [address] [place] [address] PCP - General Internal Medicine 11/05/19 documented as of this encounter
--- OUTSIDE RECORDS SUMMARY | 2024-07-19 16:37 | XMS_ITS | Encounter Summary ---
Author Organization [employer] Address [address] [facility] 7t [place] [address] Care Team Providers Care Rubber Block Layer Name Role Phone Shalom Bey MD Primary Care Prov ider Ruth Ellis RN Unavailable [phone] Reason for Visit * Reason Comments Med Refill Encounter Details Date Type Department Care Team ([facility] st Contact Info) Description 10/13/2023 Refill [facility] CHC MED & PEDS [address] [facility] [place] [address] Shalom Bey MD 505 [place] [address] Primary insomnia; Type 2 diabetes mellitus without complication, without long-term current use of insulin ([facility]) Social History Tobacco Use Types Packs/Day [...] Persistent disorder of initiating or maintaining sleep Type 2 diabetes mellitus without complication, without long-term current use of insulin ([facility]) documented in this encounter Additional Health Concerns Assessment Noted Time PHQ-9 Depression Total Score: 9 09/28/19 24 11:08 AM EDT documented as of this encounter Care Teams Rubber Block Layer Relationship Specialty Start Date End Date Shalom Bey MD 505 [place] [address] PCP - General Internal Medicine 11/05/19 Ruth Ellis RN 505 [place] [address] Project/Production Manager ImagingAuto Inspector Medicine 12/06/23 12/19/23 documented as of this encounter
--- OUTSIDE RECORDS SUMMARY | 2024-07-19 16:37 | XMS_ITS | Encounter Summary ---
Author Organization [employer] Address [address] [facility] 7t [place] [address] Care Team Providers Care Furniture Fabricator Name Role Phone Shalom Bey MD Primary Care Prov ider Ruth Ellis RN Unavailable [phone] Encounter Details Date Type Department Care Team (Late st Contact Info) Description 06/29/2023 Orders Only [facility] CHC MED & PEDS [address] [place], [place] [phone] Shalom Bey MD 505 [place] [address] Social History Tobacco Use Types Packs/Day Years [...] documented as of this encounter Care Teams Furniture Fabricator Relationship Specialty Start Date End Date Shalom Bey MD 505 [place] [address] PCP - General Internal Medicine 11/05/19 Ruth Ellis RN 505 [place] [address] Glass SilvererStoreroom Clerk Medicine 12/06/23 12/19/23 documented as of this encounter
--- OUTSIDE RECORDS SUMMARY | 2024-07-19 16:37 | XMS_ITS | Encounter Summary ---
Author Organization [employer] Address [address] [facility] 7t [place] [address] Care Team Providers Care Grades 1 Thru 6 Home Teacher Name Role Phone Shalom Bey MD Primary Care Prov ider Ruth Ellis RN Unavailable [phone] Reason for Visit * Reason Comments Med Refill Encounter Details Date Type Department Care Team ([facility] st Contact Info) Description 09/23/2023 Refill [facility] MEDICINE [address] [place] [address] Shalom Bey MD [address] [facility] [address] [place], [place] [phone] Primary insomnia Social History Tobacco Use Types [...] documented as of this encounter Care Teams Grades 1 Thru 6 Home Teacher Relationship Specialty Start Date End Date Shalom Bey MD 505 [place] [address] PCP - General Internal Medicine 11/05/19 Ruth Ellis RN 505 [place] [address] Chief Operator HydroformerAeronautical Engineering Teacher Medicine 12/06/23 12/19/23 documented as of this encounter
--- OUTSIDE RECORDS SUMMARY | 2024-07-19 16:37 | XMS_ITS | Encounter Summary ---
Author Organization [employer] Address [address] [facility] 7t [place] [address] Care Team Providers Care Manager Branch Name Role Phone Shalom Bey MD Primary Care Prov ider Ruth Ellis RN Unavailable [phone] Encounter Details Date Type Department Care Team (Late st Contact Info) Description 02/22/2023 Abstract [facility] MEDICINE 230 [place] [address] Shalom Bey MD 505 [place] [address] Social History Tobacco Use Types Packs/Day Years Used Date Smoking Tobacco: Never Passive Smoke Exposure: Never Smokeless Tobacco: Never Alcohol Use Standard Drinks/Week Comments Not Currently 0 (1 standard drink = 0.6 oz pur e alcohol) Depression Answer Date Recorded Patient Health Questionnaire-9 Score 14 12/22/2022 Depression Answer Date Recorded Patient Health Questionnaire-2 [...] documented as of this encounter Care Teams Manager Branch Relationship Specialty Start Date End Date Shalom Bey MD [address] [place] [address] PCP - General Internal Medicine 11/05/19 Ruth Ellis RN 505 [place] [address] Press SupervisorTankman Medicine 12/06/23 12/19/23 documented as of this encounter
--- OUTSIDE RECORDS SUMMARY | 2024-07-19 16:37 | XMS_ITS | Encounter Summary ---
Author Organization [employer] Address [address] [facility] 7t [place] [address] Care Team Providers Care Spinning Machine Tender Name Role Phone Shalom Bey MD Primary Care Prov ider Ruth Ellis RN Unavailable [phone] Reason for Visit * Reason Comments Med Refill Encounter Details Date Type Department Care Team ([facility] st Contact Info) Description 09/15/2023 Refill [facility] MEDICINE 230 [place] [address] Shalom Bey MD [address] [facility] [address] [place], [place] [phone] Primary insomnia Social History Tobacco Use Types [...] documented as of this encounter Care Teams Spinning Machine Tender Relationship Specialty Start Date End Date Shalom Bey MD 505 [place] [address] PCP - General Internal Medicine 11/05/19 Ruth Ellis RN 505 [place] [address] Paratransit OperatorCosmetic Surgeon Medicine 12/06/23 12/19/23 documented as of this encounter
== END 2024-07-19 14:57 | disposition home or self-care (01) ==
PROVIDERS: PCP Internal Medicine; Visit Provider Student in an Organized Health Care Education/Training Program
DX: E05.20 Thyrotoxicosis with toxic multinodular goiter without thyrotoxic crisis or storm (principal); Z79.811 Long term (current) use of aromatase inhibitors
CPT/HCPCS: 99214

== ENCOUNTER → 2024-07-19 14:01 | Outpatient (BNVA) | payer MEDICARE, MEDICAID, SELFPAY | PROVIDERS: PCP Internal Medicine; Visit Provider Student in an Organized Health Care Education/Training Program | DX: E05.20 Thyrotoxicosis with toxic multinodular goiter without thyrotoxic crisis or storm (principal); Z79.811 Long term (current) use of aromatase inhibitors | CPT/HCPCS: 99212 ==

== ENCOUNTER 2024-08-14 13:03 | Outpatient (REF) | payer MEDICARE, MEDICAID, SELFPAY ==
[2024-08-14 13:25] LABS: MANUAL DIFF FLAG NO
[2024-08-14 14:00] LABS: Basophils Percent Auto 0.7 % (0-2); Eosinophils Absolute Auto 0.1 X10*3/uL (0.0-0.4); Eosinophils Percent Auto 2.3 % (0-4); Hemoglobin 12.9 g/dl (12.0-16.0); Imm Gran Abs Auto 0.03 X10*3/uL (0.00-0.03); Imm Gran Pct Auto 0.5 % (0.0-0.4); Lymphocytes Absolute Auto 1.1 X10*3/uL (1.2-4.9); Mean Corpuscular HGB Conc 33.1 g/dl (31.0-35.0); Mean Corpuscular Hemoglobin 27.6 pg (27.0-33.0); Mean Corpuscular Volume 83.5 fL (80.0-98.0); Mean Platelet Volume 10.8 fL (9.4-12.3); Monocytes Absolute Auto 0.4 X10*3/uL (0.1-1.2); Monocytes Percent Auto 6.4 % (2-11); Neutrophils Percent Auto 70.1 % (45-73); Platelet Count 163 X10*3/uL (160-400); Red Blood Count 4.67 X10*6/uL (4.20-5.50); Red Cell Distribution Width 13.2 % (11.0-16.0); White Blood Count 5.7 X10*3/uL (4.8-10.8)
--- OUTSIDE RECORDS SUMMARY | 2024-08-14 14:00 | XMS_ITS | Encounter Summary ---
Author Organization [employer] Address [address] [facility] 7t [place] [address] Care Team Providers Care Digital Coordinator Name Role Phone Shalom Bey MD Primary Care Prov ider Reason for Visit * Reason Onset Date Comments Med Refill 07/24/2024 Encounter Details Date Type Department Care Team ([facility] st Contact Info) Description 07/24/[address] [facility] CHC MED & PEDS 505 [place] [address] Shalom Bey MD 505 [place] [address] Primary insomnia Social History Tobacco Use Types [...] encounter Miscellaneous Notes * Telephone Encounter - Megan Ford - 07/24/2024 2:13 PM EST (Ambien) 10 MG tablet documented in this encounter Plan of Treatment Not on file documented as of this encounter Visit Diagnoses Diagnosis Primary insomnia Persistent disorder of initiating or maintaining sleep documented in this encounter Additional Health Concerns Assessment Noted Time PHQ-9 Depression Total Score: 9 09/28/19 24 11:08 AM EDT documented as of this encounter Care Teams Digital Coordinator Relationship Specialty Start Date End Date Shalom Bey MD 505 [place] [address] PCP - General Internal Medicine 11/05/19 documented as of this encounter
--- OUTSIDE RECORDS SUMMARY | 2024-08-14 14:00 | XMS_ITS | Encounter Summary ---
Author Organization [employer] Address [address] [facility] 7t [place] [address] Care Team Providers Care Speed Belt Sander Name Role Phone Shalom Bey MD Primary Care Prov ider Ruth Ellis RN Unavailable Encounter Details Date Type Department Care Team (Late st Contact Info) Description 02/22/2023 Abstract [facility] MEDICINE [address] [place] [address] Shalom Bey MD 505 [place] [address] Social History Tobacco Use Types Packs/Day Years [...] documented as of this encounter Care Teams Speed Belt Sander Relationship Specialty Start Date End Date Shalom Bey MD 505 [place] [address] PCP - General Internal Medicine 11/05/19 Ruth Ellis RN 505 [place] [address] Clinical Rehab LiaisonDust Mop Maker Medicine 12/06/23 12/19/23 documented as of this encounter
--- OUTSIDE RECORDS SUMMARY | 2024-08-14 14:00 | XMS_ITS | Encounter Summary ---
Author Organization [employer] Address [address] 7t [place] [address] Care Team Providers Care Actuarial Analyst Name Role Phone Shalom Bey MD Primary Care Prov ider Ruth Ellis RN Unavailable [phone] Reason for Visit * Reason Onset Date Comments PT1 06/16/2023 Encounter Details Date Type Department Care Team (Late st Contact Info) Description 06/16/2023 Telephone [facility] MEDICINE 230 [place] [address] Shalom Bey MD [address] [facility] [address] [place], [place] [phone] PT1 Social History Tobacco Use Types Packs/Day [...] Date: 06/28/2022-07/27/2022 Time: 10:30 am Visits: Address: [address] [place] [address] Facility: [facility] Radiology Wheel Chair: Yes Gate Technician Needed: Yes documented in this encounter Plan of Treatment Not on file documented as of this encounter Visit Diagnoses Not on filedocumented in this encounter Additional Health Concerns Assessment Noted Time PHQ-9 Depression Total Score: 14 023 10:41 AM EDT documented as of this encounter Care Teams Actuarial Analyst Relationship Specialty Start Date End Date Shalom Bey MD 505 [place] [address] PCP - General Internal Medicine 11/05/19 Ruth Ellis RN 505 [place] [address] Manager EquipmentDirector Clinical Research Medicine 12/06/23 12/19/23 documented as of this encounter
--- OUTSIDE RECORDS SUMMARY | 2024-08-14 14:00 | XMS_ITS | Encounter Summary ---
Author Organization [employer] Address [address] [facility] 7t [place] [address] Care Team Providers Care Filter Helper Name Role Phone Shalom Bey MD Primary Care Prov ider Ruth Ellis RN Unavailable [phone] Reason for Visit * Reason Comments Med Refill Encounter Details Date Type Department Care Team ([facility] st Contact Info) Description 09/15/2023 Refill [facility] MEDICINE 230 [place] [address] Shalom Bey MD [address] [facility] [address] [place], [place] [phone] Primary insomnia Social History Tobacco Use Types [...] documented as of this encounter Care Teams Filter Helper Relationship Specialty Start Date End Date Shalom Bey MD 505 [place] [address] PCP - General Internal Medicine 11/05/19 Ruth Ellis RN 505 [place] [address] Fast Food ServerSpecial Effects Artist Medicine 12/06/23 12/19/23 documented as of this encounter
--- OUTSIDE RECORDS SUMMARY | 2024-08-14 14:00 | XMS_ITS | Encounter Summary ---
Author Organization [employer] Address [address] [facility] 7t [place] [address] Care Team Providers Care Shingle Weaver Name Role Phone Shalom Bey MD Primary Care Prov ider Ruth Ellis RN Unavailable [phone] Reason for Visit * Reason Onset Date Comments pt1 07/02/2022 Encounter Details Date Type Department Care Team (Late st Contact Info) Description 07/02/2022 Telephone [facility] MEDICINE [address] [place] [address] Shalom Bey MD 505 [place] [address] pt1 Social History Tobacco Use Types Packs/Day [...] EST Tc from pt requesting PT1 Location: [address] [address] Specialty: n/a Time: 10 am Date: 07/08/22 Cloth Washer Operator: yes wheelchair accessible : n/a Location: [address] [address] Specialty: n/a Time: 10 am Date: 07/09/22 Cloth Washer Operator: yes wheelchair accessible : n/a documented in this encounter Plan of Treatment Not on file documented as of this encounter Visit Diagnoses Not on filedocumented in this encounter Care Teams Shingle Weaver Relationship Specialty Start Date End Date Shalom Bey MD [address] [place] [address] PCP - General Internal Medicine 11/05/19 Ruth Ellis RN [address] [place] [address] Chip PersonDining Car Steward Medicine 12/06/23 12/19/23 documented as of this encounter
--- OUTSIDE RECORDS SUMMARY | 2024-08-14 14:00 | XMS_ITS | Clinical Summary ---
Author Organization [employer] Address [address] [facility] [address] 7t [place] [address] Care Team Providers Care Chair Name Role Phone Shalom Bey MD Primary [...] 23 Active ergocalciferol (Vitamin D2) 1.25 MG (28748 UT) capsuleIndication s:Vitamin D deficiency TAKE ONE [...] complication, without long-term current use of insulin ([facility]) USE THREE DAILY DIRECTED 100 each 11 04/19/20 24 Active atorvastatin (Lipitor) 20 MG tabletIndications :Mixed hyperlipidemia TAKE ONE TABLET DAILY 30 tablet 11 05/14/20 24 Active FreeStyle lancetsIndication s:Type 2 diabetes mellitus without complication, without long-term current use of insulin ([facility]) 1 each by Other route Once daily. 100 each 12 05/30/20 24 2024 Active FREESTYLE LITE test stripIndications: Type 2 diabetes mellitus without complication, without long-term current use of insulin ([facility]) To test the blood sugar once a day 100 each 12 05/30/20 24 2024 Active Januvia 100 MG tablet TAKE ONE TABLET DAILY 90 tablet 1 06/14/20 24 Active metFORMIN XR (Glucophage-XR) 500 MG 24 hr tabletIndications :Type 2 diabetes mellitus without complication, without long-term current use of insulin ([facility]) TAKE ONE TABLET TWICE DAILY 180 tablet 3 07/13/19 25 Active zolpidem (Ambien) 10 MG tabletIndications :Primary insomnia TAKE ONE TABLET AT BEDTIME NEEDED 30 tablet 07/26/19 25 Active zolpidem (Ambien) 10 MG tabletIndications :Primary insomnia TAKE ONE TABLET AT BEDTIME NEEDED Do not start before June 28, 2024. 30 tablet 06/28/19 25 2024 Discontinued(R eorder (will not trigger notification to Pharmacy)) Active Problems Problem Noted Date Diagnosed Date [...] 6.0%, no changes will be made, following svp innovation partnerships, will follow up in 3 months in office Patient refers her eye exam is scheduled in the coming months Encounters Date Type Department Care Team Description 07/24/2024 Refill [facility] [address] [place] [address] Shalom Bey MD Primary insomnia 07/23/2024 Refill [facility] [address] [place] [address] Amarilis Vera ANP Primary insomnia 07/13/2024 Refill [facility] [address] [place] [address] Shalom Bey MD Type 2 diabetes mellitus without complication, without long-term current use of insulin ([facility]) 06/21/2024 Refill [facility] [address] [place] [address] Shalom Bey MD Primary insomnia 06/13/2024 Refill [facility] [address] [place] [address] Shalom Bey MD 05/29/2024 Refill [facility] MED & PEDS [address] [place] [address] Shalom Bey MD Primary insomnia 05/29/2024 Telephone [facility] MED & PEDS [address] [place] [address] Shalom Bey MD Med Refill 05/28/2024 Orders Only GENERIC EXTERNAL DATA DEPARTMENT Provider, Generic External Data 05/23/2024 Orders Only [facility] MED & PEDS [address] [place] [address] Leila Mustafa MD Type 2 diabetes mellitus without complication, without long-term current use of insulin ([facility]) 05/14/2024 Refill [facility] MED & PEDS [address] [place] [address] Shalom Bey MD Mixed hyperlipidemia from Last 3 Months Family History Medical [...] - Risk 2-dose series) 09/06/1979 Pneumococcal Vaccine: 50+ Years (2 of 2 - PCV) 02/19/2014 02/19/2013 RSV Patients and Patients Aged 60 years or older (1 - Risk 60-74 years 1-dose series) 2020 DTaP/Tdap/Td Vaccines (2 - Td or Tdap) 02/19/2023 02/19/2013, 06/27/2007 Diabetes: Hemoglobin A1C 02/25/2023 023, 08/05/2022, 04/16/2022 Diabetes: Urine Protein Screening 08/26/2023 08/25/2022, 05/27/2022, 04/16/2022, Additional history exists Lipid Panel 08/26/2023 08/25/2022, 030 06/2022, 05/27/2022, Additional history exists SDOH Screening 12/23/2023 12/22/2022 COVID-19 Vaccine ( season) 2024 10/01/2020, 09/03/2020 Influenza Vaccine (#1) 2024 , 04/19/2018, 07/07/2017 Tobacco Screening 03/07/2024 03/07/2023 Depression Monitoring (PHQ-9) 03/29/2024 09/28/2023, 09/28/2023 Pap Smear 04/28/2024 04/28/2021, 04/28/2021 Depression Screening 09/27/2024 09/28/2023, 09/28/19 24 Colonoscopy 09/10/2025 09/10/2020, 07/2014, 03/13/2013 Colorectal Cancer Screening 09/10/2025 Cervical [...] Whole Blood 102 60 - 115 mg/dL [facility] Comment:METER #: [id number] Testing performed in the Endocrinology Department [address] , [address], [facility]. 05/28/2024 1:16 PM EST 05/28/2024 1:19 PM EST us Generic External Data Provider LAB BLOOD ORDERAB LES Final Result [facility] [address] [place] [address] [phone] * Hemoglobin A1c (08/25/2022 1:32 PM EST) Hemoglobin A1c 6.0 % [facility] Comment:Hemoglobin A1C Refer ence Range Adults: 4.8 - 6.0 % Non diabetic: < 6.0 % Goal: < 7.0 %Additional Action Suggested: > 8.0 %Note: Hemoglobin A1c results are invalid for patients with abnormal amounts of HbF. Blood transfusions may impact the HbA1c concentration in the patient sample. Estimated Average Glucose 126 mg/dL [facility] Comment:eAG = Estimated ave rage glucose which is %A1C expressed asaverage glucose, using the formula of the X1Z-EeylfwqMvrutrh Glucose study (ADAG), Diabetes Care, Vol.31,#8,Jan. 2007 08/25/2022 1:32 PM EST 08/25/2022 1:32 PM EST [facility] External Provider LAB BLO OD ORDERABLES Final Result [facility] [address] [place] [phone] * Lipid Panel, Standard (08/25/2022 1:32 PM EST) Triglycerides 172 mg/dL [facility] Comment:Desirable Triglyceri de: less than 150 mg/dLBorderline High Triglyceride 150-199 mg/dLHigh Triglyceride: 200-499 mg/dLVery High Triglyceride: greater than or equal to 5OO mg/dL Cholesterol 139 mg/dL [facility] Comment:Desirable Cholestero l: less than 200 mg/dLBorderline High Cholesterol: 200-239 mg/dLHigh Cholesterol: greater than 239 mg/dL LDL Cholesterol Calculated 67 mg/dl [facility] Comment:Desirable LDL: less than 100 mg/dLNear Optimal/Above Optimal LDL: 110- 129 mg/dLBorderline High LDL: 130-159 mg/dLHigh LDL: 160-189 mg/dLVery High LDL: greater than or equal to 190 mg/dL HDL Cholesterol 38 mg/dL [facility] Comment:Desirable HDL: great er than 40 mg/dL Note: This HDL assay may give artificially low results in patients with liver disease. 08/25/2022 1:32 PM EST 08/25/2022 1:32 PM EST [facility] External Provider LAB BLO OD ORDERABLES Final Result Performing Organization Address [facility] Co de Phone Number [facility] [address] [place] [address] [phone] * Albumin, Random Urine W/Creatinine (08/25/2022 1:30 PM EST) Creatinine, Urine 55.85 mg/dL [facility] Microalbumin Urine 7.0 mg/L [facility] Microalbum Creatinine Ratio Ur 12.5 ug/mg cr [facility] Comment:Albumin/Creatinine R atio Reference Ranges: Normal: < 30 ug/mg creatinine Microalbuminuria: 30 - 300 ug/mg creatinineClinical Albuminuria: > 300 ug/mg creatinine 08/25/2022 1:30 PM EST 08/25/2022 2:17 PM EST [facility] External Provider LAB URI NE ORDERABLES Final Result Performing Organization Address [facility] de Phone Number [facility] [address] [place] [address] [phone] * HIV 1/2 ANTIGEN/ANTIBODY,FOURTH GENERATION W/RFL [...] ? For additional information please refer to http://[email or web address] Data/faq/JRM371 (This link is being provided for informational/ [...] 11:30 AM EDT) Clinical Information: DEE DEE [facility] COMMENT SEE COMMENT FOUNDAT[facility] ON [...] has been evaluated with computer assisted technology. [facility] Paragliding Instructor: SEE COMMENT [facility] Comment: WAC, CT(ASCP) CT screening location: [address] ??[phone] HPV nRNA E6/E7 Not Detected Not Detected [facility] Comment: Methodology: Development Technologist-Mediated Amplification This assay detects E6/E7 viral messenger RNA (mRNA) from 14 high-risk HPV types (16,18,31,33,35,39,45,51,52,56,58,59,66,68). ? The analytical performance characteristics of this assay have been determined by [employer]. The modifications have not been cleared or approved by the FDA. This assay has been validated pursuant to the CLIA regulations and is used for clinical purposes. ?? For additional information, please refer to http://[email or web address].[email or web address] Data/faq/AIO680s6 (This link if provided for information/ educational purposes only.) Interpretation/Res ult: SEE COMMENT [facility] Comment: Negative for intraepithelial lesion or malignancy. Atrophic pattern; predominantly parabasal cells LMP: 06/2015 [facility] Prev. BX: NONE GIVEN [facility] Prev. PAP: NIL NEG [facility] SOURCE: None given [facility] Statement Of Adequacy: SATISFACTORY FOR EVALUATION Partially obscuring inflammation [facility] 04/28/2021 11:3 0 AM EDT Kayla Welsh CNM LAB PATHOLOGY ORDERABLES Final Result [facility] [address] [place] [phone] * Pap Smear (04/28/2021 12:00 AM EDT) Swab Kayla Welsh CNM LAB CYTOLOGY ORDERABLES F inal Result [facility] [address] [place] [address] * Colonoscopy (09/10/2020 1:08 PM EDT) Historical Provider HEALTH MAINTENANCE Final Result from Last 3 Months or Most Recently Relevant to Health Maintenance Insurance MEDICARE [place] [address] [place] [id number] [facility] Care Teams Chair Relationship Specialty Start Date End Date MgShalom Mendez MD [address] [place] [address] AMARIS Velasquez PCP - General Internal Medicine 11/05/19
--- OUTSIDE RECORDS SUMMARY | 2024-08-14 14:00 | XMS_ITS | Encounter Summary ---
Author Organization [employer] Address [address] [facility] [address] 7t [place] [address] Care Team Providers Care Textile Stylist Name Role Phone Shalom Bey MD Primary Care Prov ider Reason for Visit * Reason Comments Med Refill Encounter Details Date Type Department Care Team (Late st Contact Info) Description 07/23/2024 Refill [facility] MED & PEDS [address] [place] [id number] Amarilis Vera, ANP [address] [place] [address] Primary insomnia Social History Tobacco Use Types [...] documented as of this encounter Care Teams Textile Stylist Relationship Specialty Start Date End Date Shalom Bey MD [address] [place] [address] PCP - General Internal Medicine 11/05/19 documented as of this encounter
--- OUTSIDE RECORDS SUMMARY | 2024-08-14 14:00 | XMS_ITS | Encounter Summary ---
Author Organization [employer] Address [address] [facility] 7t [place] [address] Care Team Providers Care Cloth Shearer Name Role Phone Shalom Bey MD Primary Care Prov ider Ruth Ellis RN Unavailable [phone] Encounter Details Date Type Department Care Team (Late st Contact Info) Description 06/29/2023 Orders Only [facility] MED & PEDS [address] [place], [place] [phone] Shalom Bey MD [address] [place] [address] Social History Tobacco Use Types Packs/Day Years [...] documented as of this encounter Care Teams Cloth Shearer Relationship Specialty Start Date End Date Shalom Bey MD [address] [place] [address] PCP - General Internal Medicine 11/05/19 Ruth Ellis RN [address] [place] [address] Tumblers SupervisorArmored Car Driver Medicine 12/06/23 12/19/23 documented as of this encounter
--- OUTSIDE RECORDS SUMMARY | 2024-08-14 14:00 | XMS_ITS | Encounter Summary ---
Author Organization [employer] Address [address] [facility] 7t [place] [address] Care Team Providers Care Wig Sales Consultant Name Role Phone Shalom Bey MD Primary Care Prov ider Ruth Ellis RN Unavailable [phone] Reason for Visit * Reason Onset Date Comments PT-1 07/01/2023 Encounter Details Date Type Department Care Team (Late st Contact Info) Description 07/01/2023 Telephone [facility] MEDICINE [address] [place] [address] Shalom Bey MD 505 [facility] [place] [phone] PT-1 Social History Tobacco Use Types Packs/Day [...] in regards to PT1. Pt spoke with [email or web address] and was advised will need a nurse or PCP to call [email or web address] by 07/02 for PT1 can be expedited and can have a ride for 07/04. * Telephone Encounter - Tae Mattson - 07/01/2023 9:12 AM EST PT1 needed Date: 07/04/23 Time: 2:30 Visits: 30 Address: [address] [place] [address] Facility: Oncology Wheel Chair: no Miller Wood Flour Needed: yes documented in this encounter Plan of Treatment Not on file documented as of this encounter Visit Diagnoses Not on filedocumented in this encounter Additional Health Concerns Assessment Noted Time PHQ-9 Depression Total Score: 14 12/22/ 023 10:41 AM EDT documented as of this encounter Care Teams Wig Sales Consultant Relationship Specialty Start Date End Date Shalom Bey MD [address] [place] [address] PCP - General Internal Medicine 11/05/19 Ruth Ellis RN [address] [place] [address] Calender Machine OperatorQuality Control Supervisor Medicine 12/06/23 12/19/23 documented as of this encounter
--- OUTSIDE RECORDS SUMMARY | 2024-08-14 14:00 | XMS_ITS | Encounter Summary ---
Author Organization [employer] Address 75 [facility] 7t [place] [address] Care Team Providers Care Corrosion Engineer Name Role Phone Shalom Bey MD Primary Care Prov ider Encounter Details Date Type Department Care Team ([facility] st Contact Info) Description 05/23/2024 Orders Only [facility] CHC MED & PEDS [address] [place], [place] [phone] Leila Mustafa MD [address] [place] [address] Type 2 diabetes mellitus without complication, without long-term current use of insulin ([facility]) Social History Tobacco Use Types Packs/Day Years [...] current use of insulin ([facility]) documented in this encounter Additional Health Concerns Assessment Noted Time PHQ-9 Depression Total Score: 9 09/28/19 24 11:08 AM EDT documented as of this encounter Care Teams Corrosion Engineer Relationship Specialty Start Date End Date Shalom Bey MD [address] [place] [address] PCP - General Internal Medicine 11/05/19 documented as of this encounter
--- OUTSIDE RECORDS SUMMARY | 2024-08-14 14:00 | XMS_ITS | Encounter Summary ---
Author Organization [employer] Address [address] [facility] 7t [place] [address] Care Team Providers Care Grinding Room Inspector Name Role Phone Shalom Bey MD Primary Care Prov ider Ruth Ellis RN Unavailable [phone] Reason for Visit * Reason Comments Med Refill Encounter Details Date Type Department Care Team ([facility] st Contact Info) Description 10/13/2023 Refill [facility] MED & PEDS 505 [facility] [place] [address] Shalom Bey MD [address] [place] [address] Primary insomnia; Type 2 diabetes mellitus without complication, without long-term current use of insulin ([facility]) Social History Tobacco Use Types Packs/Day [...] complication, without long-term current use of insulin ([facility]) documented in this encounter Additional Health Concerns Assessment Noted Time PHQ-9 Depression Total Score: 9 09/28/19 24 11:08 AM EDT documented as of this encounter Care Teams Grinding Room Inspector Relationship Specialty Start Date End Date Shalom Bey MD [address] [place] [address] PCP - General Internal Medicine 11/05/19 Ruth Ellis RN [address] [place] [address] Seismic Prospecting Observer HelperSenior Mechanical Technician Medicine 12/06/23 12/19/23 documented as of this encounter
--- OUTSIDE RECORDS SUMMARY | 2024-08-14 14:00 | XMS_ITS | Encounter Summary ---
Author Organization [employer] Address [address] [facility] [address] [place] [address] Care Team Providers Care Brush Clearing Laborer Name Role Phone Shalom Bey MD Primary Care Prov ider Ruth Ellis RN Unavailable [phone] Encounter Details Date Type Department Care Team (Late st Contact Info) Description 10/14/2023 Orders Only [facility] MEDICINE [address] [place] [address] ProviderRuchi MD Social History Tobacco Use Types [...] * Hm Colonoscopy (09/10/2020 1:08 PM EDT) [facility] Provider HEALTH MAINTENANCE Final Result * Hm Colonoscopy (07/29/2014 1:10 PM EST) [facility] Provider HEALTH MAINTENANCE Final Result * Hm Colonoscopy (03/13/2013 1:11 PM EDT) [facility] Provider HEALTH MAINTENANCE Final Result documented in this encounter Visit Diagnoses Not on filedocumented in this encounter Additional Health Concerns Assessment Noted Time PHQ-9 Depression Total Score: 9 09/28/19 24 11:08 AM EDT documented as of this encounter Care Teams Brush Clearing Laborer Relationship Specialty Start Date End Date Shalom Bey MD [address] [place] [address] PCP - General Internal Medicine 11/05/19 Ruth Ellis RN [address] [place] [address] Freezer Laboratory TechnicianLong Term Acute Care Registered Nurse Medicine 12/06/23 12/19/23 documented as of this encounter
--- OUTSIDE RECORDS SUMMARY | 2024-08-14 14:00 | XMS_ITS | Encounter Summary ---
Author Organization [employer] Address 75 [facility] 7t [place] [address] Care Team Providers Care Retread Builder Name Role Phone Shalom Bey MD Primary Care Prov ider Ruth Ellis RN Unavailable [phone] Reason for Visit * Reason Comments Med Refill Encounter Details Date Type Department Care Team ([facility] st Contact Info) Description 09/23/2023 Refill [facility] MEDICINE [address] [place] [address] Shalom Bey MD [address] [facility] [address] [place], [place] [phone] Primary insomnia Social History Tobacco Use Types [...] documented as of this encounter Care Teams Retread Builder Relationship Specialty Start Date End Date Shalom Bey MD [address] [place] [address] PCP - General Internal Medicine 11/05/19 Ruth Ellis RN [address] [place] [address] Telephony EngineerNuclear Logging Engineer Medicine 12/06/23 12/19/23 documented as of this encounter
--- OUTSIDE RECORDS SUMMARY | 2024-08-14 14:00 | XMS_ITS | Encounter Summary ---
Author Organization [employer] [facility] Address [address] [place] [address] 7t [place] [address] Care Team Providers Care Microsoft Crm Developer Name Role Phone Shalom Bey MD Primary Care Prov ider Ruth Ellis RN Unavailable [phone] Reason for Visit * Reason Comments Med Refill Encounter Details Date Type Department Care Team ([facility] st Contact Info) Description 12/17/2022 Refill [facility] CHC MED & PEDS [address] [place] [address] Shalom Bey MD [address] [place] [address] Chronic obstructive pulmonary disease, unspecified (CMS/HCC) Social [...] (CMS/HCC) documented in this encounter Care Teams Microsoft Crm Developer Relationship Specialty Start Date End Date Shalom Bey MD [address] [place] [address] PCP - General Internal Medicine 5/11/20 Ruth Ellis RN [address] [place] [address] Consulting Networking EngineerValet Parking Attendant Medicine 12/06/23 12/19/23 documented as of this encounter
--- OUTSIDE RECORDS SUMMARY | 2024-08-14 14:00 | XMS_ITS | Encounter Summary ---
Author Organization [employer] [facility] Address 75 [facility] 7t [place] [address] Care Team Providers Care Bureau Chief Name Role Phone Shalom Bey MD Primary Care Prov ider Ruth Ellis RN Unavailable Encounter Details Date Type Department Care Team ([facility] st Contact Info) Description 11/24/2022 Abstract [facility] MED & PEDS [address] [place] [address] Shalom Bey MD [address] [place] [address] Social History Tobacco Use Types Packs/Day Years [...] on filedocumented in this encounter Care Teams Bureau Chief Relationship Specialty Start Date End Date Shalom Bey MD [address] [place] [address] PCP - General Internal Medicine 11/05/19 Ruth Ellis RN [address] [place] [address] Sole InkerRn Endocrinology Medicine 12/06/23 12/19/23 documented as of this encounter
[2024-08-14 14:49] LABS: Parathyroid Hormone Intact 93.6 pg/mL (8.7-77.1)
[2024-08-14 15:00] LABS: Alanine Aminotransferase 16 U/L (0-31); Albumin Level 4.3 g/dL (3.5-5.0); Alkaline Phosphatase 96 U/L (39-117); Anion Gap 11 (12-20); Aspartate Amino Transferase 18 U/L (5-31); Bilirubin Total 0.6 mg/dL (0.0-1.0); Blood Urea Nitrogen 10 mg/dL (9-16); Calcium 9.5 mg/dL (8.4-10.2); Carbon Dioxide 29 mmol/L (22-29); Chloride 107 mmol/L (96-108); Estimated Glomerular Filt Rate > 60; Glucose Random 155 mg/dL (60-115); Phosphorus 3.6 mg/dL (2.7-4.5); Potassium 4.4 mmol/L (3.3-5.1); Sodium 143 mmol/L (135-145); Total Protein 7.5 g/dL (6.5-8.0)
[2024-08-14 15:01] LABS: Thyroid Stimulating Hormone 0.33 uIU/mL (0.32-4.0); Vitamin D 25-OH Total 27.1 ng/mL (>30)
[2024-08-15 07:44] LABS: Triiodothyronine T3 Total 127 ng/dL (76-181)
== END 2024-08-14 13:04 | disposition home or self-care (01) ==
LOC: HO.LAB 13:03
PROVIDERS: PCP Internal Medicine; Visit Provider Student in an Organized Health Care Education/Training Program
DX: E05.90 Thyrotoxicosis, unspecified without thyrotoxic crisis or storm (principal); Z79.811 Long term (current) use of aromatase inhibitors
CPT/HCPCS: 36415; 80053; 82306; 83970; 84100; 84439; 84443; 84480; 85025

== ENCOUNTER 2024-08-27 13:30 | Outpatient (AMB) | payer MEDICARE, MEDICAID, SELFPAY ==
[2024-08-27 13:41] VITALS: BP 118/66; PULSE 72; O2SAT 94; BMI 26.5
--- NOTE | 2024-08-27 13:41 | A.OFFVIS_ITS ---
Vital Signs 08/27/24 13:41 Height 5 ft 4 in Weight 154 lb 8.705 oz BMI 26.5 BP 118/66 Blood Pressure Location Rt brachial Position Sitting Pulse 72 Pulse Source Pulse Oximeter Pulse Oximetry (%) 94 Oxygen Delivery Method Room Air Intake Visit Reasons: DM Intake Note: Patient present today for Type 2 Diabetes Mellitus Last Diabetic eye exam: 09/2023 Last Podiatry Visit: Doesn't have one Random Glucose: 120 mg/dl HgA1C: 7.1% Massage Therapy Instructor Required: Yes Massage Therapy Instructor Language: Certifed Refrigeration Operator Services: Massage Therapy Instructor Present Massage Therapy Instructor Name: [id number] Information Interpreted: non-clinical & clinical Accompanied by: Self / Same As Patient Allergies No Known Allergies [No Known Allergies*] Allergy (Verified 08/27/24 13:45) Medication List - Last Reconciled 08/27/24 by Roxi Bajwa PA-C albuterol sulfate 90 mcg/actuation 2 puffs inhalation Q4-6H PRN anastrozole 1 mg PO DAILY ascorbate calcium (vitamin C) 500 mg PO DAILY atorvastatin 20 mg PO DAILY blood sugar diagnostic (FreeStyle Lite Strips) Use up to 3 x daily As directed to check blood glucose blood-glucose meter (FreeStyle Lite Meter kit) Use daily As directed to check blood sugars calcium carbonate 500 mg PO DAILY cholecalciferol (vitamin D3) mcg PO [Compression socks As directed] docusate sodium (Colace) 100 mg PO DAILY famotidine (Pepcid) 20 mg PO DAILY fluticasone furoate-vilanterol 200-25 mcg/dose (Breo Ellipta) 1 ea inhalation DAILY gabapentin 100 mg PO BEDTIME lancets (FreeStyle Lancets) use up to 3 x daily as directed to check blood glucose methimazole 5 mg PO DAILY semaglutide (Ozempic) 1 mg (0.75 mL) subcut QWEEK tramadol 100 mg (2 x 50 mg) PO BID 30 days umeclidinium 62.5 mcg/actuation (Incruse Ellipta) 1 inh inhalation DAILY HPI HPI DM: Details: Patient is a 63-year-old female with a significant past medical history hypertension, hyperlipidemia, type 2 diabetes, PMR , multinodular goiter, hyperthyroidism, presenting today for a follow up regarding her diabetes. Massage Therapy Instructor: #[id number] Domenica Meyers: Dm-was diagnosed with diabetes around 2013. Most people in her family have type 2 diabetes. Last A1c was 6.7. Today her A1c is 7.1. She is currently on Ozempic 0.5 mg weekly. -she has been able to stop Actos, Jardiance, Januvia when she started ozempic. Her blood sugars 100-150. She denies any blood sugars less than 70. Intolerant of metformin GI distress Follows regularly with Ophthalmology was last seen in February 2024. Denies any retinopathy. hyperthyroid- follows with Dr. Lee and on methimazole, missed last appointment for f/u. CV: Blood pressure today in the office is 118/66. She is not on any antihypertensives. She is on atorvastatin 20 mg for cholesterol. Her last LDL was 67. [facility] Medical History (Updated 07/19/24 @ 15:08 by Michaela Lee MD) Toxic multinodular goiter Use of anastrozole Shoulder pain, bilateral Fibromyalgia History of breast cancer Hyperthyroidism HLD (hyperlipidemia) HTN (hypertension) DM2 (diabetes mellitus, type 2) Multinodular thyroid Personal history of nicotine dependence Diabetes type 2, uncontrolled History of adenomatous polyp of colon Vitamin D deficiency Arthritis Tubular adenoma of colon Adenocarcinoma of colon Constipation Positive CLEMENT (antinuclear antibody) COPD (chronic obstructive pulmonary disease) Essential hypertension Hyperlipidemia LDL goal <100 Low back pain Asthma Polymyalgia rheumatica Surgical History History of needle biopsy History of colonoscopy (~09/2020) History of cardiac cath (~09/2018) History of right breast biopsy (~10/2010) History of flexible sigmoidoscopy (~06/2013) History of rigid sigmoidoscopy (~04/2013) Hx of cholecystectomy Family History Father Diabetes CVD (cardiovascular disease) Mother Breast cancer Skin cancer Cancer Social History Household Members: Other Household Members Other:: Mother lives with her Alcohol intake: current Alcohol intake frequency: does not drink Patient Tobacco Use Status: Former Tobacco user Physical Exam Vital Signs: Last Vital Signs Pulse 72 08/27/24 13:41 BP 118/66 08/27/24 13:41 Pulse Ox 94 08/27/24 13:41 Oxygen Delivery Method Room Air 08/27/24 13:41 BMI result Body Mass Index 26.5 Const Orientation/consciousness: patient oriented x3 Neck Neck: Yes no lymphadenopathy Thyroid: Thyroid normal Carotids: no bruits Resp Auscultation: clear to auscultation bilaterally Cardio Rate: regular rate Rhythm: regular rhythm Heart sounds: S1 normal heart sound present and S2 normal heart sound present Peripheral pulses: dorsalis pedis present Neuro General: patient oriented x3, gait normal and no focal motor deficits Extrem Other: Monofilament sensation intact bilaterally. Vibratory sensation intact bilaterally. Skin intact. General: Yes normal to inspection Results AMB Hemoglobin A1c AMB Hemoglobin A1c 7.1 % Last Edit by KEUTRAH Dixon on 08/27/24 14:01 Results Reviewed Results Reviewed: Laboratory Last Values Glucose (Clinic) 120 mg/dL (60-115) H 08/27/24 13:47 Laboratory Tests 08/25/22 08/25/22 04/27/24 13:30 13:32 11:10 WBC RBC Hgb Hct Plt Count Sodium Potassium Chloride Carbon Dioxide Anion Gap BUN Creatinine Estimated GFR Random Glucose Hgb A1c (Clinic) 6.7 H Calcium Phosphorus Total Bilirubin AST ALT Alkaline Phosphatase Total Protein Albumin Triglycerides 172 Cholesterol 139 LDL Cholesterol Direct 68 LDL Cholesterol, Calc 67 HDL Cholesterol 38 TSH Urine Creatinine 55.85 Urine Microalbumin 7.0 Microalb/Creat Ratio 12.5 08/14/24 13:23 WBC 5.7 RBC 4.67 Hgb 12.9 Hct 39.0 Plt Count 163 Sodium 143 Potassium 4.4 Chloride 107 Carbon Dioxide 29 Anion Gap 11 L BUN 10 Creatinine 0.64 Estimated GFR > 60 Random Glucose 155 H Hgb A1c (Clinic) Calcium 9.5 Phosphorus 3.6 Total Bilirubin 0.6 AST 18 ALT 16 Alkaline Phosphatase 96 Total Protein 7.5 Albumin 4.3 Triglycerides Cholesterol LDL Cholesterol Direct LDL Cholesterol, Calc HDL Cholesterol TSH 0.33 Urine Creatinine Urine Microalbumin Microalb/Creat Ratio Assessment & Plan Assessment & Plan (1) Controlled type 2 diabetes mellitus: Code(s): E11.9 - Type 2 diabetes mellitus without complications Category: Medical Qualifiers: Diabetes mellitus skilled nursing insulin use: without tile mechanic use Diabetes mellitus complication status: without complication Qualified Code(s): E11.9 - Type 2 diabetes mellitus without complications Plan: Increase Ozempic to 1 mg weekly. Call me if unable to tolerate. Encouraged diet and exercise. (2) HTN (hypertension): Code(s): I10 - Essential (primary) hypertension Category: Medical Qualifiers: Hypertension type: unspecified Qualified Code(s): I10 - Essential (primary) hypertension Plan: Blood pressures have been normal. We will continue to monitor this. (3) HLD (hyperlipidemia): Code(s): E78.5 - Hyperlipidemia, unspecified Category: Medical Qualifiers: Hyperlipidemia type: unspecified Qualified Code(s): E78.5 - Hyperlipidemia, unspecified Plan: Continue current regimen. Well-controlled. Orders: Orders AMB Hemoglobin A1c Today E11.9 - Type 2 diabetes mellitus without complications, Z13.9 - Encounter for screening, unspecified Medications: New semaglutide (Ozempic) 1 mg (0.75 mL) subcut QWEEK 3 mL 5RF Changed From lancets (FreeStyle Lancets) use daily as directed to check blood glucose 100 ea 3RF To lancets (FreeStyle Lancets) use up to 3 x daily as directed to check blood glucose 100 ea 3RF From blood sugar diagnostic (FreeStyle Lite Strips) Use daily As directed to check blood glucose 100 ea 3RF E11.9 - Type 2 diabetes mellitus without complications To blood sugar diagnostic (FreeStyle Lite Strips) Use up to 3 x daily As directed to check blood glucose 100 ea 3RF E11.9 - Type 2 diabetes mellitus without complications Refilled blood-glucose meter (FreeStyle Lite Meter kit) Use daily As directed to check blood sugars 1 ea 0RF E11.22 - Type 2 diabetes mellitus with diabetic chronic kidney disease, E11.9 - Type 2 diabetes mellitus without complications, Z79.4 - jail (current) use of insulin Discontinued lancets (FreeStyle Lancets) Discontinued Reason: Duplicate As directed twice a day 100 ea 6RF E11.9 - Type 2 diabetes mellitus without complications blood sugar diagnostic (FreeStyle Lite Strips) Discontinued Reason: Doctor's Order 3x daily 100 ea 11RF E11.65 - Type 2 diabetes mellitus with hyperglycemia lancets (FreeStyle Lancets) Discontinued Reason: Duplicate As directed three times a day 100 ea 11RF E11.65 - Type 2 diabetes mellitus with hyperglycemia semaglutide (Ozempic) Discontinued Reason: Doctor's Order 0.5 mg (0.736 mL) subcut QWEEK 3 mL 5RF blood-glucose meter,continuous (FreeStyle Shayna [address] [place]) Discontinued Reason: Doctor's Order Use daily As directed to monitor blood glucose 1 ea 0RF E11.9 - Type 2 diabetes mellitus without complications, F40.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 - Other specified phobia Patient Instructions: complete labs before appointment increase ozempic to 1 mg weekly- call me if nausea or unable to tolerate Coding Level of Care Code Est Pt Level 4 (68855) Complex EM visit Add On G2211 Diagnoses Controlled type 2 diabetes mellitus without complication, without long-term current use of insulin E11.9 Diabetes mellitus skilled nursing insulin use: without skilled nursing use Diabetes mellitus complication status: without complication Hypertension, unspecified type I10 Hypertension type: unspecified Hyperlipidemia, unspecified hyperlipidemia type E78.5 Hyperlipidemia type: unspecified
[2024-08-27 13:53] LABS: Glucose, Whole Blood 120 mg/dL (60-115)
--- OUTSIDE RECORDS SUMMARY | 2024-08-27 15:56 | XMS_ITS | Encounter Summary ---
Author Organization [employer] [facility] Address [address] [place] [address] [address] [place] [address] Care Team Providers Care Roll Tension Tester Name Role Phone Shalom Bey MD Primary Care Prov ider Ruth Ellis RN Unavailable [phone] Reason for Visit * Reason Comments Med Refill Encounter Details Date Type Department Care Team ([facility] st Contact Info) Description 12/17/2022 Refill [facility] MED & PEDS [address] [place] [address] Shalom Bey MD [address] [place] [address] Chronic obstructive pulmonary disease, unspecified (CMS/HCC) Social [...] (CMS/HCC) documented in this encounter Care Teams Roll Tension Tester Relationship Specialty Start Date End Date Shalom Bey MD [address] [place] [address] PCP - General Internal Medicine 5/11/20 Ruth Ellis RN [address] [place] [id number] Mica Laminating Machine FeederSales Supervisor Medicine 12/06/23 12/19/23 documented as of this encounter
--- OUTSIDE RECORDS SUMMARY | 2024-08-27 15:56 | XMS_ITS | Encounter Summary ---
Author Organization [employer] Address [address] [facility] 7t [place] [address] Care Team Providers Care Medical Staff Services Manager Name Role Phone Shalom Bey MD Primary Care Prov ider Encounter Details Date Type Department Care Team ([facility] st Contact Info) Description 05/23/2024 Orders Only [facility] MED & PEDS [address] [place], [place] [phone] Leila Mustafa MD [address] [place] [address] Type 2 diabetes mellitus without complication, without long-term current use of insulin ([facility]) Social History Tobacco Use Types Packs/Day [...] use of insulin ([facility]) documented in this encounter Additional Health Concerns Assessment Noted Time PHQ-9 Depression Total Score: 9 09/28/19 24 11:08 AM EDT documented as of this encounter Care Teams Medical Staff Services Manager Relationship Specialty Start Date End Date Shalom Bey MD [address] [place] [id number] PCP - General Internal Medicine 11/05/19 documented as of this encounter
--- OUTSIDE RECORDS SUMMARY | 2024-08-27 15:57 | XMS_ITS | Encounter Summary ---
Author Organization [employer] Address [address] [facility] [address] [place] [address] Care Team Providers Care Communications Field Technician Name Role Phone Shalom Bey MD Primary Care Prov ider Ruth Ellis RN Unavailable Encounter Details Date Type Department Care Team (Late st Contact Info) Description 10/14/2023 Orders Only [facility] MEDICINE [address] [place] [address] ProviderRuchi MD Social History Tobacco Use Types [...] * Hm Colonoscopy (09/10/2020 1:08 PM EDT) [facility] Provider HEALTH MAINTENANCE Final Result * Hm Colonoscopy (07/29/2014 1:10 PM EST) [facility] Provider HEALTH MAINTENANCE Final Result * Hm Colonoscopy (03/13/2013 1:11 PM EDT) [facility] Provider HEALTH MAINTENANCE Final Result documented in this encounter Visit Diagnoses Not on filedocumented in this encounter Additional Health Concerns Assessment Noted Time PHQ-9 Depression Total Score: 9 09/28/19 24 11:08 AM EDT documented as of this encounter Care Teams Communications Field Technician Relationship Specialty Start Date End Date Shalom Bey MD [address] [place] [address] PCP - General Internal Medicine 11/05/19 Ruth Ellis RN [address] [place] [address] Solar Project Coordination SpecialistSignals Officer Medicine 12/06/23 12/19/23 documented as of this encounter
--- OUTSIDE RECORDS SUMMARY | 2024-08-27 15:57 | XMS_ITS | Encounter Summary ---
Author Organization [employer] Address [address] [facility] 7t [place] [address] Care Team Providers Care Field Secretary Name Role Phone Shalom Bey MD Primary Care Prov ider Encounter Details Date Type Department Care Team ([facility] st Contact Info) Description 08/27/2024 Orders Only [facility] CH[facility] MED & PEDS [address] [place] [address] Shalom Bey MD [address] [place] [address] Social History Tobacco Use Types Packs/Day Years [...] documented as of this encounter Care Teams Field Secretary Relationship Specialty Start Date End Date Shalom Bey MD [address] [place] [address] PCP - General Internal Medicine 11/05/19 documented as of this encounter
--- OUTSIDE RECORDS SUMMARY | 2024-08-27 15:57 | XMS_ITS | Encounter Summary ---
Author Organization [employer] Address [address] [facility] 7t [place] [address] Care Team Providers Care Rn Testing Name Role Phone Shalom Bey MD Primary Care Prov ider Ruth Ellis RN Unavailable [phone] Reason for Visit * Reason Onset Date Comments PT-1 07/01/2023 Encounter Details Date Type Department Care Team (Late st Contact Info) Description 07/01/2023 Telephone [facility] MEDICINE [address] [place] [address] Shalom Bey MD [address] [facility] [place] [id number] PT-1 Social History Tobacco Use Types Packs/Day [...] the mail. * Telephone Encounter - Taniya Wni - 07/01/2023 9:30 AM EST Tc from pt calling in regards to PT1. Pt spoke with [employer] and was advised will need a nurse or PCP to call [employer] by 07/02 for PT1 can be expedited and can have a ride for 07/04. * Telephone Encounter - Tae Mattson - 07/01/2023 9:12 AM EST PT1 needed Date: 07/04/23 Time: 2:30 Visits: 30 Address: [address] [place] [address] Facility: Oncology Wheel Chair: no Sales Floor Team Member Needed: yes documented in this encounter Plan of Treatment Not on file documented as of this encounter Visit Diagnoses Not on filedocumented in this encounter Additional Health Concerns Assessment Noted Time PHQ-9 Depression Total Score: 14 12/22/ 023 10:41 AM EDT documented as of this encounter Care Teams Rn Testing Relationship Specialty Start Date End Date Shalom Bey MD [address] [place] [address] PCP - General Internal Medicine 11/05/19 Ruth Ellis RN [address] [place] [address] Vp Software SupportBilingual Nanny Medicine 12/06/23 12/19/23 documented as of this encounter
--- OUTSIDE RECORDS SUMMARY | 2024-08-27 15:57 | XMS_ITS | Clinical Summary ---
Author Organization [employer] Address [address] [place] [address] Care Team Providers Care Delinquent Tax Collector Name Role Phone Shalom Bey MD Primary Care Prov ider Allergies No known active allergies Medications hydrocortisone 2.5 % ointmentIndication s:Vulvar dermatitis Apply to affected area twice a day x 7 days. Use sparingly 20 g 3 Active traMADol (Ultram) 50 MG tablet 3 Active Stiolto Respimat 2.5-2.5 MCG/ACT aerosol solution inhaler INHALE TWO PUFFS ONCE DAILY 2 Active Jardiance 25 MG Take 25 mg by mouth in the morning. 3 Active albuterol (2.5 MG/3ML) 0.083% nebulizer solutionIndication s:Chronic obstructive pulmonary disease, unspecified ([facility]) USE 1 VIAL IN NEBULIZER 3 TIMES DAILY 90 mL 11 3 Active ergocalciferol (Vitamin D2) 1.25 MG (23461 UT) capsuleIndications :Vitamin D deficiency TAKE ONE CAPSULE BY MOUTH ONCE A WEEK 4 capsule 2 3 Active anastrozole (Arimidex) 1 MG chemo tablet Take 1 mg by mouth in the morning. Swallow whole with a drink of water. Active mirtazapine (Remeron) 30 MG tablet TAKE ONE TABLET AT BEDTIME FOR SLEEP 30 tablet 11 4 Active Alcohol Swabs (Alcohol Prep) 70 % padsIndications:Ty pe 2 diabetes mellitus without complication, without long-term current use of insulin ([facility]) USE THREE DAILY DIRECTED 100 each 11 4 Active atorvastatin (Lipitor) 20 MG tabletIndications: Mixed hyperlipidemia TAKE ONE TABLET DAILY 30 tablet 11 4 Active FreeStyle lancetsIndications :Type 2 diabetes mellitus without complication, without long-term current use of insulin ([facility]) 1 each by Other route Once daily. 100 each 12 4 05/30/20 25 Active FREESTYLE LITE test stripIndications:T ype 2 diabetes mellitus without complication, without long-term current use of insulin ([facility]) To test the blood sugar once a day 100 each 12 4 05/29/20 25 Active Januvia 100 MG tablet TAKE ONE TABLET DAILY 90 tablet 1 4 Active metFORMIN XR (Glucophage-XR) 500 MG 24 hr tabletIndications: Type 2 diabetes mellitus without complication, without long-term current use of insulin ([facility]) TAKE ONE TABLET TWICE DAILY 180 tablet 3 5 Active zolpidem (Ambien) 10 MG tabletIndications: Primary insomnia TAKE ONE TABLET AT BEDTIME NEEDED 30 tablet 5 Active Active Problems Problem Noted Date Diagnosed Date [...] 6.0%, no changes will be made, following logistics director, will follow up in 3 months in office Patient refers her eye exam is scheduled in the coming months Encounters Date Type Department Care Team Description 08/27/2024 Orders Only [facility] PEDS [address] [place] [address] Shalom Bey MD 08/14/2024 Orders Only GENERIC EXTERNAL DATA DEPARTMENT Provider, Generic External Data 07/24/2024 Refill [facility] [address] [place] [address] Shalom Bey MD Primary insomnia 07/23/2024 Refill [facility] [address] [place] [address] Amarilis Vera ANP Primary insomnia 07/13/2024 Refill C MEDICINE [address] [place] [address] Shalom Bey MD Type 2 diabetes mellitus without complication, without long-term current use of insulin ([facility]) 06/21/2024 Refill C CH[facility] MED & PEDS [address] [place] [address] Shalom Bey MD Primary insomnia 06/13/2024 Refill C MEDICINE [address] [place] [address] Sahlom Bey MD 05/29/2024 Refill [facility] [address] [place], [place] [phone] Shalom Bey MD Primary insomnia 05/29/2024 Telephone [facility] MED & PEDS [address] [place], [place] [phone] Shalom Bey MD Med Refill from Last 3 Months Family History Medical [...] - Risk 60-74 years 1-dose series) 2020 Diabetes: Hemoglobin A1C 11/25/2022 023, 08/05/2022, 04/16/2022 DTaP/Tdap/Td Vaccines (2 - Td or Tdap) 02/19/2023 02/19/2013, 06/27/2007 Diabetes: Urine Protein Screening 08/26/2023 08/25/2022, 05/27/2022, 04/16/2022, Additional history exists Lipid Panel 08/26/2023 08/25/2022, 03/0 06/2022, 05/27/2022, Additional history exists SDOH Screening 12/23/2023 12/22/2022 COVID-19 Vaccine (3 - 2024-25 season) 2024 10/01/2020, 09/03/2020 Influenza Vaccine (#1) [...] Procedure Name Priority Date/Time Associated Diagnosis Comments T3, TOTAL Routine 08/14/2024 1:23 PM EST TSH Routine 08/14/2024 1:23 PM EST T4, FREE Routine 08/14/2024 1:23 PM EST VITAMIN D,25-OH,TOTAL,IA Routine 08/14/2024 1:23 PM EST PHOSPHATE ( PHOSPHORUS) Routine 08/14/2024 1:23 PM EST COMPREHENSIVE METABOLIC PANEL Routine 08/14/2024 1:23 PM EST PTH, INTACT WITHOUT CALCIUM Routine 08/14/2024 1:23 PM EST CBC WITH AUTO DIFFERENTIAL Routine 08/14/2024 1:23 PM EST HEMOGLOBIN A1C Routine 08/25/2022 1:32 [...] Recently Relevant to Health Maintenance Results * (ABNORMAL) Vitamin D, 25-Hydroxy, Total, Immunoassay (08/14/2024 1:23 PM EST) Vitamin D 25-OH Total 27.1(L) >30 ng/mL [facility] Comment:Health Based Referen ce Values*< 20 ng/mL [id number] ng/mL Insufficient> 30 ng/mL Sufficient*Umer BLISS. N Engl J Med. 2007;357:266-280Care must be taken in interpreting Vitamin D results fromdifferent laboratories and methodologies. Published datademonstrated that results from patients undergoinghemodialysis may show a negative bias when tested withvarious automated 25-OH vitamin D assays when compared toLC-MS/MS.When testing samples from patients whose predominant form ofVitamin D is Vitamin D2, such as patients receiving VitaminD2 supplementation, results that are subtherapeutic shouldbe confirmed with another method such as LC-MS/MS. 08/14/2024 1:23 PM EST 08/14/2024 1:23 PM EST us Generic External Data Provider LAB BLOOD ORDERAB LES Final Result [facility] [address] [place] [address] [phone] * (ABNORMAL) CBC auto differential (08/14/2024 1:23 PM EST) White Blood Count 5.7 4.8 - 10.8 X10*3/uL [facility] Red Blood Count 4.67 4.20 - 5.50 X10*6/uL [facility] Hemoglobin 12.9 12.0 - 16.0 g/dl [facility] Hematocrit 39.0 37.0 - 47.0 % [facility] Mean Corpuscular Volume 83.5 80.0 - 98.0 fL [facility] Mean Corpuscular Hemoglobin 27.6 27.0 - 33.0 pg [facility] Mean Corpuscular HGB Conc 33.1 31.0 - 35.0 g/dl [facility] Red Cell Distribution Width 13.2 11.0 - 16.0 % [facility] Platelet Count 163 160 - 400 X10*3/uL [facility] Mean Platelet Volume 10.8 9.4 - 12.3 fL [facility] Neutrophils Percent Auto 70.1 45 - 73 % [facility] Imm Gran Pct Auto 0.5(H) 0.0 - 0.4 % [facility] Lymphocytes Percent Auto 20.0 20 - 40 % [facility] Monocytes Percent Auto 6.4 2 - 11 % [facility] Eosinophils Percent Auto 2.3 0 - 4 % [facility] Basophils Percent Auto 0.7 0 - 2 % [facility] NRBC Pct Auto 0.0 0.0 - 0.2 /100WBC [facility] Neutrophils Absolute Auto 4.0 2.0 - 8.3 x10*3/uL [facility] Imm Gran Abs Auto 0.03 0.00 - 0.03 X10*3/uL [facility] Lymphocytes Absolute Auto 1.1(L) 1.2 - 4.9 X10*3/uL [facility] Monocytes Absolute Auto 0.4 0.1 - 1.2 X10*3/uL [facility] Eosinophils Absolute Auto 0.1 0.0 - 0.4 X10*3/uL [facility] Basophils Absolute Auto 0.0 0.0 - 0.2 X10*3/uL [facility] NRBC Abs Auto 0.000 0.0 - 0.012 X10*3/uL [facility] 08/14/2024 1:23 PM EST 08/14/2024 1:23 PM EST Generic External Data Provider LAB BLOOD ORDERAB LES Final Result Performing Organization Address City/[facility]/ZIP Co de Phone Number [facility] [address] [place] [phone] * T3, Total (08/14/2024 1:23 PM EST) Pathologist [facility] T3, Total 127 76 - 181 ng/dL [facility] Comment:THIS TEST WAS PERFOR MED AT:[facility] [place] [id number] PERALTA MD 08/14/2024 1:23 PM EST 08/14/2024 1:23 PM EST us Generic External Data Provider LAB BLOOD ORDERAB LES Final Result Performing Organization Address [facility] Co de Phone Number [facility] [address] [place] [phone] * TSH (08/14/2024 1:23 PM EST) [facility] Thyroid Stimulating Hormone 0.33 0.32 - 4.0 uIU/mL [facility] Comment:TSH 3rd Generation ( [facility]) 08/14/2024 1:23 PM EST 08/14/2024 1:23 PM EST Generic External Data Provider LAB BLOOD ORDERAB LES Final Result Performing Organization Address [facility] Co de Phone Number [facility] [address] [place] [phone] * T4, Free (08/14/2024 1:23 PM EST) Free T4 (Free Thyroxine) 1.00 0.71 - 1.85 ng/dL [facility] 08/14/2024 1:23 PM EST 08/14/2024 1:23 PM EST Generic External Data Provider LAB BLOOD ORDERAB LES Final Result Performing Organization Address [facility] Co de Phone Number [facility] [address] [place] [phone] * Phosphate (As Phosphorus) (08/14/2024 1:23 PM EST) Pathologist [facility] Phosphorus 3.6 2.7 - 4.5 mg/dL [facility] 08/14/2024 1:23 PM EST 08/14/2024 1:23 PM EST Generic External Data Provider LAB BLOOD ORDERAB LES Final Result Performing Organization Address [facility] Co de Phone Number [facility] [address] [place] [phone] * (ABNORMAL) PTH, Intact Without Calcium (08/14/2024 1:23 PM EST) Parathyroid Hormone, Intact 93.6(H) 8.7 - 77.1 pg/mL [facility] 08/14/2024 1:23 PM EST 08/14/2024 1:23 PM EST us Generic External Data Provider LAB BLOOD ORDERAB LES Final Result Performing Organization Address City/[facility]/ZIP Co de Phone Number [facility] [address] [place] [phone] * (ABNORMAL) Comprehensive Metabolic Panel (08/14/2024 1:23 PM EST) Sodium 143 135 - 145 mmol/L [facility] Potassium 4.4 3.3 - 5.1 mmol/L [facility] Chloride 107 96 - 108 mmol/L [facility] Carbon Dioxide 29 22 - 29 mmol/L [facility] Anion Gap 11(L) 12 - 20 [facility] Urea Nitrogen (BUN) 10 9 - 16 mg/dL [facility] Creatinine, Serum 0.64 0.5 - 1.4 mg/dL [facility] Estimated Glomerular Filt Rate >60 [facility] Comment:Chronic Kidney Disea se: Estimated GFR < 60 mL/min/1.03f7Oijxww Kidney Disease: Estimated GFR < 15 mL/min/1.73m2 Glucose 155(H) 60 - 115 mg/dL [facility] Calcium 9.5 8.4 - 10.2 mg/dL [facility] Bilirubin, Total 0.6 0.0 - 1.0 mg/dL [facility] Aspartate Amino Transferase 18 5 - 31 U/L [facility] Alanine Aminotransferase 16 0 - 31 U/L [facility] Total Protein 7.5 6.5 - 8.0 g/dL [facility] Albumin Level 4.3 3.5 - 5.0 g/dL [facility] Alkaline Phosphatase 96 39 - 117 U/L [facility] 08/14/2024 1:23 PM EST 08/14/2024 1:23 PM EST us Generic External Data Provider LAB BLOOD ORDERAB LES Final Result Performing Organization Address City/[facility]/ZIP Co de Phone Number [facility] [address] [place] [phone] * Hemoglobin A1c (08/25/2022 1:32 PM [...] patient sample. Estimated Average Glucose 126 mg/dL [facility] Comment:eAG = Estimated ave rage glucose which is %A1C expressed asaverage glucose, using the formula of the N1T-FyudiquThivzvs Glucose study (ADAG), Diabetes Care, Vol.31,#8,Jan. 2007 08/25/2022 1:32 PM EST 08/25/2022 1:32 PM EST us [facility] External Provider LAB BLO OD ORDERABLES Final Result [facility] [address] [place] [phone] * Lipid Panel, Standard (08/25/2022 1:32 PM EST) Triglycerides 172 mg/dL [facility] Comment:Desirable Triglyceri de: less than 150 mg/dLBorderline High Triglyceride 150-199 mg/dLHigh Triglyceride: 200-499 mg/dLVery High Triglyceride: greater than or equal to 5OO mg/dL Cholesterol 139 mg/dL [facility] Comment:Desirable Cholestero l: less than 200 mg/dLBorderline High Cholesterol: 200-239 mg/dLHigh Cholesterol: greater than 239 mg/dL LDL Cholesterol Calculated 67 mg/dl [facility] Comment:Desirable LDL: less than 100 mg/dLNear Optimal/Above Optimal LDL: 110- 129 mg/dLBorderline High LDL: 130-159 mg/dLHigh LDL: 160-189 mg/dLVery High LDL: greater than or equal to 190 mg/dL HDL Cholesterol 38 mg/dL [facility] Comment:Desirable HDL: great er than 40 mg/dL Note: This HDL assay may give artificially low results in patients with liver disease. 08/25/2022 1:32 PM EST 08/25/2022 1:32 PM EST [facility] External Provider LAB BLO OD ORDERABLES Final Result Performing Organization Address [facility] Phone Number [facility] [address] [place] [phone] * Albumin, Random Urine W/Creatinine (08/25/2022 1:30 PM EST) Creatinine, Urine 55.85 mg/dL [facility] Microalbumin Urine 7.0 mg/L [facility] Microalbum Creatinine Ratio Ur 12.5 ug/mg cr [facility] Comment:Albumin/Creatinine R atio Reference Ranges: Normal: < 30 ug/mg creatinine Microalbuminuria: 30 - 300 ug/mg creatinineClinical Albuminuria: > 300 ug/mg creatinine 08/25/2022 1:30 PM EST 08/25/2022 2:17 PM EST [facility] External Provider LAB URI NE ORDERABLES Final Result Performing Organization Address [facility] [place] Number [facility] [address] [place] [phone] * HIV 1/2 ANTIGEN/ANTIBODY,FOURTH GENERATION W/RFL [...] ? For additional information please refer to http://education.[employer]/faq/TVX145 (This link is being provided for informational/ educational purposes only.) ? The performance of this assay has not been clinically validated in patients less than 2 years old. ?? 04/16/2022 9:21 AM EDT Shalom Chris MD LAB BLOOD ORDERABL ES Final Result [facility] * THINPREP TIS PAP AND HPV mRNA E6/E7 REFLEX HPV 16,18/45 (04/28/2021 11:30 AM EDT) Clinical Information: [facility] COMMENT SEE COMMENT [facility] ON [...] has been evaluated with computer assisted technology. [facility] Shipping Receiving Clerk: SEE COMMENT [facility] Comment: WAC, CT(ASCP) CT screening location: [address] ??[id number] HPV nRNA E6/E7 Not Detected Not Detected [facility] [address] [facility] Comment: Methodology: Human Factors Scientist-Mediated Amplification This assay detects E6/E7 viral messenger RNA (mRNA) from 14 high-risk HPV types (16,18,31,33,35,39,45,51,52,56,58,59,66,68). ? The analytical performance characteristics of this assay have been determined by [employer]. The modifications have not been cleared or approved by the FDA. This assay has been validated pursuant to the CLIA regulations and is used for clinical purposes. ?? For additional information, please refer to http://education.[employer]/faq/BZK761y3 (This link if provided for information/ educational [...] Kayla RENE LAB PATHOLOGY ORDERABLES Final Result [facility] [address] * Pap Smear (04/28/2021 12:00 AM EDT) Swab Kayla RENE LAB CYTOLOGY ORDERABLES F inal Result [address], [place] [phone] * Colonoscopy (09/10/2020 1:08 PM EDT) Historical Provider HEALTH MAINTENANCE Final Result from Last 3 Months or Most Recently Relevant to Health Maintenance Insurance MEDICARE [facility] STANDARD [address] Care Teams Delinquent Tax Collector Relationship Specialty Start Date End Date Shalom Bey MD [address] [place] [address] AMARIS Velasquez PCP - General Internal Medicine 11/05/19
--- OUTSIDE RECORDS SUMMARY | 2024-08-27 15:57 | XMS_ITS | Encounter Summary ---
Author Organization [employer] Address [address] [facility] [address] [place] [address] Care Team Providers Care Media Technician Name Role Phone Shalom Bey MD Primary Care Prov ider Ruth Ellis RN Unavailable [phone] Reason for Visit * Reason Comments Med Refill Encounter Details Date Type Department Care Team ([facility] st Contact Info) Description 10/13/2023 Refill [facility] MED & [facility]S [address] [facility] [place] [address] Shalom Bey MD [address] [place] [address] Primary insomnia; Type 2 diabetes mellitus without complication, without long-term current use of insulin ([facility]) Social History Tobacco Use Types Packs/Day [...] complication, without long-term current use of insulin ([facility]) documented in this encounter Additional Health Concerns Assessment Noted Time PHQ-9 Depression Total Score: 9 09/28/19 24 11:08 AM EDT documented as of this encounter Care Teams Media Technician Relationship Specialty Start Date End Date Shalom Bey MD [address] [place] [address] PCP - General Internal Medicine 11/05/19 Ruth Ellis RN [address] [place] [address] Flattening Machine OperatorSpecial Education Inclusion Teacher Medicine 12/06/23 12/19/23 documented as of this encounter
--- OUTSIDE RECORDS SUMMARY | 2024-08-27 15:57 | XMS_ITS | Encounter Summary ---
Author Organization [employer] Address [address] [facility] [address] [place] [address] Care Team Providers Care Stone Setter Apprentice Name Role Phone Shalom Bey MD Primary Care Prov ider Ruth Ellis RN Unavailable [phone] Reason for Visit * Reason Onset Date Comments pt1 07/02/2022 Encounter Details Date Type Department Care Team (Late st Contact Info) Description 07/02/2022 Telephone [facility] MEDICINE [address] [place] [address] Shalom Bey MD [address] [facility] [place] [address] pt1 Social History Tobacco Use Types Packs/Day [...] EST Tc from pt requesting PT1 Location: [address] [address] Specialty: n/a Time: 10 am Date: 07/08/22 Patrol Guard: yes wheelchair accessible : n/a Location: [address] [address] Specialty: n/a Time: 10 am Date: 07/09/22 Patrol Guard: yes wheelchair accessible : n/a documented in this encounter Plan of Treatment Not on file documented as of this encounter Visit Diagnoses Not on filedocumented in this encounter Care Teams Stone Setter Apprentice Relationship Specialty Start Date End Date Shalom Bey MD [address] [place] [address] PCP - General Internal Medicine 11/05/19 Ruth Ellis RN [address] [place] [address] Palliative Senior NpHose Tester Medicine 12/06/23 12/19/23 documented as of this encounter
--- OUTSIDE RECORDS SUMMARY | 2024-08-27 15:57 | XMS_ITS | Encounter Summary ---
Author Organization [employer] Address [address] [place] [address] Care Team Providers Care Beer Still Runner Compounder Name Role Phone Shalom Bey MD Primary Care Prov ider Encounter Details Date Type Department Care Team (Late st Contact Info) Description 08/14/2024 Orders Only GENERIC EXTERNAL DATA DEPARTMENT Provider, Generic External Data Social History Tobacco Use Types Packs/Day Years [...] Procedure Name Priority Date/Time Associated Diagnosis Comments VITAMIN D,25-OH,TOTAL,IA Routine 08/14/2024 1:23 PM EST CBC WITH AUTO DIFFERENTIAL Routine 08/14/2024 1:23 PM EST T3, TOTAL Routine 08/14/2024 1:23 PM EST TSH Routine 08/14/2024 1:23 PM EST T4, FREE Routine 08/14/2024 1:23 PM EST PHOSPHATE ( PHOSPHORUS) Routine 08/14/2024 1:23 PM EST PTH, INTACT WITHOUT CALCIUM Routine 08/14/2024 1:23 PM EST COMPREHENSIVE METABOLIC PANEL Routine 08/14/2024 1:23 PM EST documented in this encounter Results * T3, Total (08/14/2024 1:23 PM EST) T3, Total 127 76 - 181 ng/dL [facility] Comment:THIS TEST WAS PERFOR MED AT:[facility] [place] [phone] PERALTA MD 08/14/2024 1:23 PM EST 08/14/2024 1:23 PM EST us Generic External Data Provider LAB BLOOD ORDERAB LES Final Result [facility] [address] [place] [phone] * TSH (08/14/2024 1:23 PM EST) Thyroid Stimulating Hormone 0.33 0.32 - 4.0 uIU/mL [facility] Comment:TSH 3rd Generation ( [facility]) 08/14/2024 1:23 PM EST 08/14/2024 1:23 PM EST Generic External Data Provider LAB BLOOD ORDERAB LES Final Result Performing Organization Address City/[facility]/ZIP Co de Phone Number [facility] [address] [place] [phone] * T4, Free (08/14/2024 1:23 PM EST) Pathologist [facility] Free T4 (Free Thyroxine) 1.00 0.71 - 1.85 ng/dL [facility] 08/14/2024 1:23 PM EST 08/14/2024 1:23 PM EST Generic External Data Provider LAB BLOOD ORDERAB LES Final Result Performing Organization Address [facility] Co de Phone Number [facility] [address] [place] [phone] * (ABNORMAL) Vitamin D, 25-Hydroxy, Total, Immunoassay (08/14/2024 1:23 PM EST) Pathologist [facility] Vitamin D 25-OH Total 27.1(L) >30 ng/mL [facility] Comment:Health Based Referen ce Values*< 20 ng/mL Eynznakvu63-17 ng/mL Insufficient> 30 ng/mL Sufficient*Umer BLISS. N [...] ORDERAB LES Final Result Performing Organization Address [facility]/ZIP Co de Phone Number [facility] [address] [place] [phone] * Phosphate (As Phosphorus) (08/14/2024 1:23 PM EST) Phosphorus 3.6 2.7 - 4.5 mg/dL [facility] 08/14/2024 1:23 PM EST 08/14/2024 1:23 PM EST Generic External Data Provider LAB BLOOD ORDERAB LES Final Result Performing Organization Address [facility] Co de Phone Number [facility] [address] [place] [address] [phone] * (ABNORMAL) Comprehensive Metabolic Panel (08/14/2024 1:23 PM EST) Sodium 143 135 - 145 mmol/L [facility] Potassium 4.4 3.3 - 5.1 mmol/L [facility] Chloride 107 96 - 108 mmol/L [facility] Carbon Dioxide 29 22 - 29 mmol/L [facility] Anion Gap 11(L) 12 - 20 [facility] Urea Nitrogen (BUN) 10 9 - 16 mg/dL [facility] Creatinine, Serum 0.64 0.5 - 1.4 mg/dL [facility] Estimated Glomerular Filt Rate >60 [facility] Comment:Chronic Kidney Disea se: Estimated GFR < 60 mL/min/1.33v6Aibizm Kidney Disease: Estimated GFR < 15 mL/min/1.73m2 Glucose 155(H) 60 - 115 mg/dL [facility] Calcium 9.5 8.4 - 10.2 mg/dL [facility] Bilirubin, Total 0.6 0.0 - 1.0 mg/dL [facility] Aspartate Amino Transferase 18 5 - 31 U/L [facility] Alanine Aminotransferase 16 0 - 31 U/L [facility] Total Protein 7.5 6.5 - 8.0 g/dL [facility] Albumin Level 4.3 3.5 - 5.0 g/dL [facility] Alkaline Phosphatase 96 39 - 117 U/L [facility] 08/14/2024 1:23 PM EST 08/14/2024 1:23 PM EST Generic External Data Provider LAB BLOOD ORDERAB LES Final Result Performing Organization Address [facility]/ZIP Co de Phone Number [facility] [address] [place] [phone] * (ABNORMAL) PTH, Intact Without Calcium (08/14/2024 1:23 PM EST) Parathyroid Hormone, Intact 93.6(H) 8.7 - 77.1 pg/mL [facility] 08/14/2024 1:23 PM EST 08/14/2024 1:23 PM EST Generic External Data Provider LAB BLOOD ORDERAB LES Final Result Performing Organization Address [facility]/ZIP Co de Phone Number [facility] [address] [place] [phone] * (ABNORMAL) CBC auto differential (08/14/2024 1:23 PM EST) White Blood Count 5.7 4.8 - 10.8 X10*3/uL [facility] Red Blood Count 4.67 4.20 - 5.50 X10*6/uL [facility] Hemoglobin 12.9 12.0 - 16.0 g/dl [facility] Hematocrit 39.0 37.0 - 47.0 % [facility] Mean Corpuscular Volume 83.5 80.0 - 98.0 fL [facility] Mean Corpuscular Hemoglobin 27.6 27.0 - 33.0 pg [facility] Mean Corpuscular HGB Conc 33.1 31.0 - 35.0 g/dl [facility] Red Cell Distribution Width 13.2 11.0 - 16.0 % [facility] Platelet Count 163 160 - 400 X10*3/uL [facility] Mean Platelet Volume 10.8 9.4 - 12.3 fL [facility] Neutrophils Percent Auto 70.1 45 - 73 % [facility] Imm Gran Pct Auto 0.5(H) 0.0 - 0.4 % [facility] Lymphocytes Percent Auto 20.0 20 - 40 % [facility] Monocytes Percent Auto 6.4 2 - 11 % [facility] Eosinophils Percent Auto 2.3 0 - 4 % [facility] Basophils Percent Auto 0.7 0 - 2 % [facility] NRBC Pct Auto 0.0 0.0 - 0.2 /100WBC [facility] Neutrophils Absolute Auto 4.0 2.0 - 8.3 x10*3/uL [facility] Imm Gran Abs Auto 0.03 0.00 - 0.03 X10*3/uL [facility] Lymphocytes Absolute Auto 1.1(L) 1.2 - 4.9 X10*3/uL [facility] Monocytes Absolute Auto 0.4 0.1 - 1.2 X10*3/uL [facility] Eosinophils Absolute Auto 0.1 0.0 - 0.4 X10*3/uL [facility] Basophils Absolute Auto 0.0 0.0 - 0.2 X10*3/uL [facility] NRBC Abs Auto 0.000 0.0 - 0.012 X10*3/uL [facility] 08/14/2024 1:23 PM EST 08/14/2024 1:23 PM EST us Generic External Data Provider LAB BLOOD ORDERAB LES Final Result [facility] [address] [place] [phone] documented in this encounter Visit Diagnoses Not on filedocumented in this encounter Additional Health Concerns Assessment Noted Time PHQ-9 Depression Total Score: 9 09/28/19 24 11:08 AM EDT documented as of this encounter Care Teams Beer Still Runner Compounder Relationship Specialty Start Date End Date Shalom Bey MD [address] [place] [phone] PCP - General Internal Medicine 11/05/19 documented as of this encounter
--- OUTSIDE RECORDS SUMMARY | 2024-08-27 15:57 | XMS_ITS | Encounter Summary ---
Author Organization [employer] Address [address] [facility] 7t [place] [address] Care Team Providers Care Shop Cooper Name Role Phone Shalom Bey MD Primary Care Prov ider Ruth Ellis RN Unavailable [phone] Encounter Details Date Type Department Care Team (Late st Contact Info) Description 06/29/2023 Orders Only [facility] CH[facility] MED & PEDS [address] [place], [place] [phone] Shalom Bey MD [address] [place] [address] Social History Tobacco Use Types Packs/Day Years [...] documented as of this encounter Care Teams Shop Cooper Relationship Specialty Start Date End Date Shalom Bey MD [address] [place] [address] PCP - General Internal Medicine 11/05/19 Ruth Ellis RN 505 [place] [address] Transmission And Coordination EngineerCupola Charger Medicine 12/06/23 12/19/23 documented as of this encounter
--- OUTSIDE RECORDS SUMMARY | 2024-08-27 15:57 | XMS_ITS | Encounter Summary ---
Author Organization [employer] Address [address] [facility] 7t [place] [address] Care Team Providers Care Supervisor Fabrication Name Role Phone Shalom Bey MD Primary Care Prov ider Ruth Ellis RN Unavailable [phone] Reason for Visit * Reason Comments Med Refill Encounter Details Date Type Department Care Team ([facility] st Contact Info) Description 09/23/2023 Refill [facility] MEDICINE [address] [place] [address] Shalom Bey MD [address] [place], [place] [phone] Primary insomnia Social History Tobacco Use Types [...] documented as of this encounter Care Teams Supervisor Fabrication Relationship Specialty Start Date End Date Shalom Bey MD [address] [place] [address] PCP - General Internal Medicine 11/05/19 Ruth Ellis RN 505 [place] [address] Drone PilotElectrician'S Helper Medicine 12/06/23 12/19/23 documented as of this encounter
--- OUTSIDE RECORDS SUMMARY | 2024-08-27 15:57 | XMS_ITS | Encounter Summary ---
Author Organization [employer] Address [address] [facility] 7t [place] [address] Care Team Providers Care Testing Machine Operator Name Role Phone Shalom Bey MD Primary Care Prov ider Ruth Ellis RN Unavailable [phone] Reason for Visit * Reason Comments Med Refill Encounter Details Date Type Department Care Team ([facility] st Contact Info) Description 09/15/2023 Refill [facility] MEDICINE [address] [place] [address] Shalom Bey MD [address] [facility] [address] [place], [place] [phone] Primary insomnia Social History Tobacco Use Types [...] documented as of this encounter Care Teams Testing Machine Operator Relationship Specialty Start Date End Date Shalom Bey MD [address] [place] [address] PCP - General Internal Medicine 11/05/19 Ruth Ellis RN [address] [place] [address] Materials ClerkVoicer Medicine 12/06/23 12/19/23 documented as of this encounter
--- OUTSIDE RECORDS SUMMARY | 2024-08-27 15:57 | XMS_ITS | Encounter Summary ---
Author Organization [employer] Address [address] [place] [address] Care Team Providers Care Fast Food Crew Lead Name Role Phone Shalom Bey MD Primary Care Prov ider Ruth Ellis RN Unavailable [phone] Reason for Visit * Reason Onset Date Comments PT1 06/16/2023 Encounter Details Date Type Department Care Team (Late st Contact Info) Description 06/16/2023 Telephone [facility] MEDICINE [address] [place] [address] Shalom Bey MD [address] [place], [place] [phone] PT1 Social History Tobacco Use Types Packs/Day [...] Date: 06/28/2022-07/27/2022 Time: 10:30 am Visits: Address: [address] [place] [address] Facility: [facility] Radiology Wheel Chair: Yes Automotive Mechanic Needed: Yes documented in this encounter Plan of Treatment Not on file documented as of this encounter Visit Diagnoses Not on filedocumented in this encounter Additional Health Concerns Assessment Noted Time PHQ-9 Depression Total Score: 14 023 10:41 AM EDT documented as of this encounter Care Teams Fast Food Crew Lead Relationship Specialty Start Date End Date Shalom Bey MD [address] [place] [address] PCP - General Internal Medicine 11/05/19 Ruth Ellis RN [address] [place] [address] Multi Site Leasing ConsultantDemi Chef Medicine 12/06/23 12/19/23 documented as of this encounter
--- OUTSIDE RECORDS SUMMARY | 2024-08-27 15:57 | XMS_ITS | Encounter Summary ---
Author Organization [employer] Address [address] 7[address] [place] [address] Care Team Providers Care Starbucks Clerk Name Role Phone Shalom Bey MD Primary Care Prov ider Reason for Visit * Reason Comments Med Refill Encounter Details Date Type Department Care Team (Late st Contact Info) Description 07/23/2024 Refill [facility] CHC MED & PEDS [address] [place] [place] [phone] Amarilis Vera, ANP [address] [place] [address] Primary insomnia Social History Tobacco Use Types [...] documented as of this encounter Care Teams Starbucks Clerk Relationship Specialty Start Date End Date Shalom Bey MD [address] [place] [address] PCP - General Internal Medicine 11/05/19 documented as of this encounter
--- OUTSIDE RECORDS SUMMARY | 2024-08-27 15:57 | XMS_ITS | Encounter Summary ---
Author Organization [employer] Address [address] [facility] 7t [place] [address] Care Team Providers Care Procedures Analyst Name Role Phone Shalom Bey MD Primary Care Prov ider Ruth Ellis RN Unavailable Encounter Details Date Type Department Care Team (Late st Contact Info) Description 02/22/2023 Abstract [facility] MEDICINE [address] [place] [address] Shalom Bey MD [address] [place] [address] Social History Tobacco Use Types Packs/Day Years [...] documented as of this encounter Care Teams Procedures Analyst Relationship Specialty Start Date End Date Shalom Bey MD [address] [place] [address] PCP - General Internal Medicine 11/05/19 Ruth Ellis RN [address] [place] [address] Tree Care ForemanApplied Statistician Medicine 12/06/23 12/19/23 documented as of this encounter
--- OUTSIDE RECORDS SUMMARY | 2024-08-27 15:57 | XMS_ITS | Encounter Summary ---
Author Organization [employer] [facility] Address [address] [facility] 7t [place] [address] Care Team Providers Care Supervisor Sign Shop Name Role Phone Shalom Bey MD Primary Care Prov ider Ruth Ellis RN Unavailable [phone] Encounter Details Date Type Department Care Team ([facility] st Contact Info) Description 11/24/[address] [facility] MED & PEDS [address] [place] [address] Shalom Bey MD [address] [place] [address] Social History Tobacco Use Types Packs/Day Years [...] on filedocumented in this encounter Care Teams Supervisor Sign Shop Relationship Specialty Start Date End Date Shalom Bey MD [address] [place] [address] PCP - General Internal Medicine 11/05/19 Ruth Ellis RN [address] [place] [address] Line ManagerPrepress Operator Medicine 12/06/23 12/19/23 documented as of this encounter
== END 2024-08-27 14:08 | disposition home or self-care (01) ==
PROVIDERS: PCP Internal Medicine; Visit Provider Physician Assistant
DX: E11.9 Type 2 diabetes mellitus without complications (principal); I10 Essential (primary) hypertension; E78.5 Hyperlipidemia, unspecified; Z13.9 Encounter for screening, unspecified

== ENCOUNTER → 2024-08-27 13:30 | Outpatient (BNVA) | payer MEDICARE, MEDICAID, SELFPAY | PROVIDERS: PCP Internal Medicine; Visit Provider Physician Assistant | DX: E11.9 Type 2 diabetes mellitus without complications (principal); I10 Essential (primary) hypertension; E78.5 Hyperlipidemia, unspecified | CPT/HCPCS: 82947; 83036; 99212 ==

== ENCOUNTER 2024-11-26 13:07 | Outpatient (AMB) | payer MEDICARE, MEDICAID, SELFPAY ==
[2024-11-26 13:15] VITALS: BP 120/70; PULSE 83; O2SAT 96; BMI 25.8
--- NOTE | 2024-11-26 13:15 | A.OFFVIS_ITS ---
Vital Signs 11/26/24 13:15 Height 5 ft 4 in Weight 150 lb 5.684 oz BMI 25.8 BP 120/70 Blood Pressure Location Rt brachial Position Sitting Pulse 83 Pulse Source Pulse Oximeter Pulse Oximetry (%) 96 Oxygen Delivery Method Room Air Intake Visit Reasons: T2DM Intake Note: Patient present today for Type 2 Diabetes Mellitus Last Diabetic eye exam: 10/2024 Last Podiatry Visit: Doesn't have one Random Glucose: 174 mg/dl HgA1C: 6.7% Medical Billing And Coding Instructor Required: Yes Medical Billing And Coding Instructor Language: Emergency Medicine Specialist Services: Medical Billing And Coding Instructor Present Medical Billing And Coding Instructor Name: David Information Interpreted: non-clinical & clinical Accompanied by: Self / Same As Patient Allergies No Known Allergies [No Known Allergies*] Allergy (Verified 11/26/24 13:20) Medication List - Last Reconciled 11/26/24 by Roxi Bajwa PA-C albuterol sulfate 90 mcg/actuation 2 puffs inhalation Q4-6H PRN anastrozole 1 mg PO DAILY ascorbate calcium (vitamin C) 500 mg PO DAILY atorvastatin 20 mg PO DAILY blood sugar diagnostic (FreeStyle Lite Strips) Use 1x daily As directed to check blood glucose blood-glucose meter (FreeStyle Lite Meter kit) Use daily As directed to check blood sugars calcium carbonate 500 mg PO DAILY cholecalciferol (vitamin D3) mcg PO [Compression socks As directed] docusate sodium (Colace) 100 mg PO DAILY famotidine (Pepcid) 20 mg PO DAILY fluticasone furoate-vilanterol 200-25 mcg/dose (Breo Ellipta) 1 ea inhalation DAILY gabapentin 100 mg PO BEDTIME lancets (FreeStyle Lancets) use up to 3 x daily as directed to check blood glucose methimazole 5 mg PO DAILY semaglutide (Ozempic) 1 mg (0.75 mL) subcut QWEEK tramadol 100 mg (2 x 50 mg) PO BID 30 days umeclidinium 62.5 mcg/actuation (Incruse Ellipta) 1 inh inhalation DAILY HPI HPI T2DM: Details: Patient is a 64-year-old female with a significant past medical history hypertension, hyperlipidemia, type 2 diabetes, PMR , multinodular goiter, hyperthyroidism, presenting today for a follow up regarding her diabetes. Medical Billing And Coding Instructor: jose enrique Endo: Dm-was diagnosed with diabetes around 2013. Most people in her family have type 2 diabetes. Her A1c is 6.7. She is currently on Ozempic 1 mg weekly. -she has been able to stop Actos, Jardiance, Januvia when she started ozempic. she has lost 25 lb with the Ozempic. She is continuing to lose weight and keep it off. She is eating healthy and has cut out a lot of rice. Her blood sugars 100-150. She denies any blood sugars less than 70. Intolerant of metformin GI distress Follows regularly with Ophthalmology was last seen in February 2024. Denies any retinopathy. hyperthyroid- follows with Dr. Lee and on methimazole, missed last appointment for f/u. CV: Blood pressure today in the office is 120/70. She is not on any antihypertensives. She is on atorvastatin 20 mg for cholesterol. Her last LDL was 67. [facility] Medical History (Updated 07/19/24 @ 15:08 by Michaela Lee MD) Toxic multinodular goiter Use of anastrozole Shoulder pain, bilateral Fibromyalgia History of breast cancer Hyperthyroidism HLD (hyperlipidemia) HTN (hypertension) DM2 (diabetes mellitus, type 2) Multinodular thyroid Personal history of nicotine dependence Diabetes type 2, uncontrolled History of adenomatous polyp of colon Vitamin D deficiency Arthritis Tubular adenoma of colon Adenocarcinoma of colon Constipation Positive CLEMENT (antinuclear antibody) COPD (chronic obstructive pulmonary disease) Essential hypertension Hyperlipidemia LDL goal <100 Low back pain Asthma Polymyalgia rheumatica Surgical History History of needle biopsy History of colonoscopy (~09/2020) History of cardiac cath (~09/2018) History of right breast biopsy (~10/2010) History of flexible sigmoidoscopy (~06/2013) History of rigid sigmoidoscopy (~04/2013) Hx of cholecystectomy Family History Father Diabetes CVD (cardiovascular disease) Mother Breast cancer Skin cancer Cancer Social History Household Members: Other Household Members Other:: Mother lives with her Alcohol intake: current Alcohol intake frequency: does not drink Patient Tobacco Use Status: Former Tobacco user Physical Exam Vital Signs: Last Vital Signs Pulse 83 11/26/24 13:15 BP 120/70 11/26/24 13:15 Pulse Ox 96 11/26/24 13:15 Oxygen Delivery Method Room Air 11/26/24 13:15 BMI result Body Mass Index 25.8 Const Orientation/consciousness: patient oriented x3 Neck Neck: Yes no lymphadenopathy Thyroid: Thyroid normal Carotids: no bruits Resp Auscultation: clear to auscultation bilaterally Cardio Rate: regular rate Rhythm: regular rhythm Heart sounds: S1 normal heart sound present and S2 normal heart sound present Peripheral pulses: dorsalis pedis present Neuro General: patient oriented x3, gait normal and no focal motor deficits Extrem Other: Monofilament sensation intact bilaterally. Vibratory sensation intact bilaterally. Skin intact. General: Yes normal to inspection Results AMB Hemoglobin A1c AMB Hemoglobin A1c 6.7 % Last Edit by KETURAH Dixon on 11/26/24 13:33 Results Reviewed Results Reviewed: Laboratory Last Values Glucose (Clinic) 174 mg/dL (60-115) H 11/26/24 13:23 Laboratory Tests 08/25/22 08/14/24 08/27/24 13:30 13:23 13:52 Creatinine 0.64 Estimated GFR > 60 Random Glucose 155 H Hgb A1c (Clinic) 7.1 H Urine Creatinine 55.85 Urine Microalbumin 7.0 Microalb/Creat Ratio 12.5 Assessment & Plan Assessment & Plan (1) Controlled type 2 diabetes mellitus: Code(s): E11.9 - Type 2 diabetes mellitus without complications Category: Medical Qualifiers: Diabetes mellitus retirement insulin use: without superintendent container terminal use Diabetes mellitus complication status: without complication Qualified Code(s): E11.9 - Type 2 diabetes mellitus without complications Plan: Continue Ozempic 1 mg. Congratulated her on the weight loss and the lifestyle modifications. (2) HTN (hypertension): Code(s): I10 - Essential (primary) hypertension Category: Medical Qualifiers: Hypertension type: unspecified Qualified Code(s): I10 - Essential (primary) hypertension Plan: WNL. Continue current regimen (3) HLD (hyperlipidemia): Code(s): E78.5 - Hyperlipidemia, unspecified Category: Medical Qualifiers: Hyperlipidemia type: unspecified Qualified Code(s): E78.5 - Hyperlipidemia, unspecified Plan: continue current regimen. We will monitor. Orders: Orders AMB Hemoglobin A1c Today E11.9 - Type 2 diabetes mellitus without complications, Z13.9 - Encounter for screening, unspecified Comprehensive [place]. Panel Fast Today E11.9 - Type 2 diabetes mellitus without complications, E78.5 - Hyperlipidemia, unspecified, I10 - Essential (primary) hypertension Hemoglobin A1c Today E11.9 - Type 2 diabetes mellitus without complications, E78.5 - Hyperlipidemia, unspecified, I10 - Essential (primary) hypertension, R73.01 - Impaired fasting glucose Lipid Panel Today E11.9 - Type 2 diabetes mellitus without complications, E78.5 - Hyperlipidemia, unspecified, I10 - Essential (primary) hypertension Microalbumin, Random (w Creat) Today E11.9 - Type 2 diabetes mellitus without complications, E78.5 - Hyperlipidemia, unspecified, I10 - Essential (primary) hypertension Coding Level of Care Code Est Pt Level 4 (37861) Complex EM visit Add On G2211 Diagnoses Controlled type 2 diabetes mellitus without complication, without long-term current use of insulin E11.9 Diabetes mellitus superintendent container terminal insulin use: without superintendent container terminal use Diabetes mellitus complication status: without complication Hypertension, unspecified type I10 Hypertension type: unspecified Hyperlipidemia, unspecified hyperlipidemia type E78.5 Hyperlipidemia type: unspecified
[2024-11-26 13:27] LABS: Glucose, Whole Blood 174 mg/dL (60-115)
--- OUTSIDE RECORDS SUMMARY | 2024-11-26 14:12 | XMS_ITS | Encounter Summary ---
Author Organization [employer] Address [address] [facility] 7t [place] [address] Care Team Providers Care Neurology Technologist Name Role Phone Shalom Bey MD Primary Care Prov ider Encounter Details Date Type Department Care Team ([facility] st Contact Info) Description 05/23/2024 Orders Only [facility] CH[facility] MED & PEDS [address] [place], [place] [phone] Leila Mustafa MD [address] [place] [address] Type 2 diabetes mellitus without complication, without long-term current use of insulin ([facility]) Social History Tobacco Use Types [...] as of this encounter Plan of Treatment Upcoming Encounters Date Type Department Care Team ([facility] st Contact Info) Description 01/02/2025 11:30 AM EDT Office Visit [facility] MED & PEDS [address] [place] [address] Shalom Bey MD [address] [place] [address] documented as of this encounter Visit Diagnoses Diagnosis Type 2 diabetes mellitus without complication, without long-term current use of insulin ([facility]) documented in this encounter Additional Health Concerns Assessment Noted Time PHQ-9 Depression Total Score: 9 09/28/19 24 11:08 AM EDT documented as of this encounter Care Teams Neurology Technologist Relationship Specialty Start Date End Date Shalom Bey MD [address] [place] [address] PCP - General Internal Medicine 11/05/19 documented as of this encounter
== END 2024-11-26 13:39 | disposition home or self-care (01) ==
LOC: HO.ENCR 13:08
PROVIDERS: PCP Internal Medicine; Visit Provider Physician Assistant
DX: E11.9 Type 2 diabetes mellitus without complications (principal); I10 Essential (primary) hypertension; E78.5 Hyperlipidemia, unspecified; Z13.9 Encounter for screening, unspecified

== ENCOUNTER → 2024-11-26 13:07 | Outpatient (BNVA) | payer MEDICARE, MEDICAID, SELFPAY | PROVIDERS: PCP Internal Medicine; Visit Provider Physician Assistant | DX: E11.9 Type 2 diabetes mellitus without complications (principal); E78.5 Hyperlipidemia, unspecified; I10 Essential (primary) hypertension | CPT/HCPCS: 82947; 83036; 99212 ==

== ENCOUNTER 2025-02-09 23:58 | Emergency (ER) | payer MEDICARE, MEDICAID, SELFPAY ==
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
[2025-02-10 00:20] VITALS: BP 128/68; PULSE 75; RESP 16; TEMP 36.2; O2SAT 96; BMI 25.2
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
[2025-02-10 01:30] LABS: MANUAL DIFF FLAG NO
[2025-02-10 01:31] LABS: Hematocrit 36.0 % (37.0-47.0); Hemoglobin 12.4 g/dl (12.0-16.0); Imm Gran Abs Auto 0.04 X10*3/uL (0.00-0.03); Imm Gran Pct Auto 0.4 % (0.0-0.4); Lymphocytes Absolute Auto 1.3 X10*3/uL (1.2-4.9); Mean Corpuscular HGB Conc 34.4 g/dl (31.0-35.0); Mean Corpuscular Hemoglobin 28.0 pg (27.0-33.0); Mean Corpuscular Volume 81.3 fL (80.0-98.0); NRBC Abs Auto 0.000 X10*3/uL (0.0-0.012); NRBC Pct Auto 0.0 /100WBC (0.0-0.2); Platelet Count 154 X10*3/uL (160-400); Red Blood Count 4.43 X10*6/uL (4.20-5.50); White Blood Count 10.1 X10*3/uL (4.8-10.8)
[2025-02-10 01:52] LABS: Alanine Aminotransferase 16 U/L (0-31); Albumin Level 4.4 g/dL (3.5-5.0); Alkaline Phosphatase 77 U/L (39-117); Anion Gap 14 (12-20); Aspartate Amino Transferase 24 U/L (5-31); Blood Urea Nitrogen 12 mg/dL (9-16); Calcium 9.4 mg/dL (8.4-10.2); Carbon Dioxide 23 mmol/L (22-29); Chloride 109 mmol/L (96-108); Creatinine Clr Calc Pharmacy 87.5; Estimated Glomerular Filt Rate > 60; Potassium 4.3 mmol/L (3.3-5.1); Sodium 142 mmol/L (135-145); Total Protein 7.0 g/dL (6.5-8.0)
[2025-02-10 05:12] VITALS: BP 117/76; PULSE 62; RESP 18; TEMP 36.6; O2SAT 96
--- NOTE | 2025-02-10 05:13 | PC.NURSE ---
pt spoke with MD Bhatia, pt does not want to be transferred. states she has no pain and wants to go home, risks explained to pt. instructed to go to [facility] should symptoms change or get worse. pt understood.
[2025-02-10 05:14] VITALS: BP 117/76; PULSE 62; RESP 18; TEMP 36.6; O2SAT 96
== END 2025-02-10 05:19 | disposition left against medical advice (07) ==
PROVIDERS: Emergency Provider Emergency Medicine; PCP Internal Medicine
DX: S02.32XA Fracture of orbital floor, left side, initial encounter for closed fracture (principal); S06.0XAA Concussion with loss of consciousness status unknown, initial encounter; S02.2XXA Fracture of nasal bones, initial encounter for closed fracture; V17.0XXA Pedal cycle driver injured in collision with fixed or stationary object in nontraffic accident, initial encounter; M54.2 Cervicalgia; R51.9 Headache, unspecified; H05.89 Other disorders of orbit; Y93.55 Activity, bike riding; Y92.480 Sidewalk as the place of occurrence of the external cause; Y99.9 Unspecified external cause status
CPT/HCPCS: 36415; 70450; 70486; 72125; 80053; 85025; 99284; 99291

== ENCOUNTER → 2025-02-10 23:40 | Outpatient (BNV) | payer MEDICARE, MEDICAID, SELFPAY | PROVIDERS: Emergency Provider Emergency Medicine; PCP Internal Medicine; Visit Provider Radiology Diagnostic Radiology | DX: M48.02 Spinal stenosis, cervical region (principal); S02.832A Fracture of medial orbital wall, left side, initial encounter for closed fracture | CPT/HCPCS: 70486; 72125 ==

== ENCOUNTER 2025-03-04 12:19 | Outpatient (AMB) | payer MEDICARE, MEDICAID, SELFPAY ==
--- NOTE | 2025-03-04 12:30 | MHC.OFFVIS ---
Vital Signs 03/04/25 12:40 Height 5 ft 4 in Weight 147 lb 7.828 oz BMI 25.3 BP 112/70 Blood Pressure Location Lt brachial Position Sitting Pulse 71 Pulse Source Pulse Oximeter Pulse Oximetry (%) 97 Oxygen Delivery Method Room Air Intake Visit Reasons: follow up Intake Note: Patient presents for Fibromyalgia follow up. Maintenance Worker Swimming Pool Required: Yes Maintenance Worker Swimming Pool Language: Jewel Inserter Services: Maintenance Worker Swimming Pool Present Maintenance Worker Swimming Pool Name: Ariel Woodson Information Interpreted: non-clinical & clinical Allergies No Known Allergies (No Known Allergies*) Allergy (Verified 03/04/25 12:40) Medication List - Last Reconciled 03/04/25 by Bianca Pleitez MD albuterol sulfate 90 mcg/actuation 2 puffs PO Q4-6H PRN amoxicillin-pot clavulanate 500-125 mg (Augmentin) 1 tab PO TID 7 days anastrozole 1 mg PO DAILY ascorbate calcium (vitamin C) 500 mg PO DAILY atorvastatin 20 mg PO DAILY Held on 11/22/20. Instructions: Resume on 11/29/20. blood sugar diagnostic (FreeStyle Lite Strips) Use 1x daily As directed to check blood glucose blood-glucose meter (FreeStyle Lite Meter kit) Use daily As directed to check blood sugars calcium carbonate 500 mg PO DAILY cholecalciferol (vitamin D3) mcg PO [Compression socks As directed] docusate sodium (Colace) 100 mg PO DAILY famotidine (Pepcid) 20 mg PO DAILY fluticasone furoate-vilanterol 200-25 mcg/dose (Breo Ellipta) 1 ea inhalation DAILY gabapentin 100 mg PO BEDTIME lancets (FreeStyle Lancets) use up to 3 x daily as directed to check blood glucose loratadine 10 mg PO DAILY methimazole 5 mg PO DAILY semaglutide (Ozempic) 1 mg (0.75 mL) subcut QWEEK sitagliptin phosphate (Januvia) 100 mg PO DAILY tramadol 100 mg (2 x 50 mg) PO BID 30 days umeclidinium 62.5 mcg/actuation (Incruse Ellipta) 1 inh inhalation DAILY HPI Comments Details: Patient is a 64-year-old female with diabetes, hyperlipidemia, hypertension, hyperthyroidism on methimazole, COPD and polymyalgia rheumatica here today for follow up Interval History: Patient last seen 07/10/24 with me - On Tramadol 50mg ii twice a day - Complained of pain in her bones , specifically the top of her hands, her upper arm and her lower back - Also complains of shoulder pain, feels her pains are similar to when she had PMR - Exam was not consistent with PMR and repeat blood work showed normal ESR and CRP. Today, - On Tramadol 50mg ii twice a day - No change in symptoms - Asking for an increase in dose for the Tramadol Rheumatologic History: Diagnosed with polymyalgia rheumatica in 2018 and has been off steroids since November 2019 Also with fibromyalgia Current Rheumatology Medication(s): Tramadol 50mg 2 tablets twice a day [facility] Medical History Toxic multinodular goiter Use of anastrozole Shoulder pain, bilateral Fibromyalgia History of breast cancer Hyperthyroidism HLD (hyperlipidemia) HTN (hypertension) DM2 (diabetes mellitus, type 2) Multinodular thyroid Personal history of nicotine dependence Diabetes type 2, uncontrolled History of adenomatous polyp of colon Vitamin D deficiency Arthritis Tubular adenoma of colon Adenocarcinoma of colon Constipation Positive CLEMENT (antinuclear antibody) COPD (chronic obstructive pulmonary disease) Essential hypertension Hyperlipidemia LDL goal <100 Low back pain Asthma Polymyalgia rheumatica Surgical History History of needle biopsy History of colonoscopy (~09/2020) History of cardiac cath (~09/2018) History of right breast biopsy (~10/2010) History of flexible sigmoidoscopy (~06/2013) History of rigid sigmoidoscopy (~04/2013) Hx of cholecystectomy Family History Father Diabetes CVD (cardiovascular disease) Mother Breast cancer Skin cancer Cancer Social History Household Members: Other Household Members Other:: Mother lives with her Alcohol intake: current Alcohol intake frequency: does not drink Patient Tobacco Use Status: Former Tobacco user Review of Systems Const Details: Review of Systems Constitutional: Denies fever, chills, weight loss ENT: Denies vision changes, eye pain or eye redness, dental caries, dry mouth GI: Denies nausea, vomiting, diarrhea, abdominal pain, change in BM Pulm: Denies SOB, ZULUAGA, hemoptysis, wheezing Cards: Denies chest pain, palpitations Skin: Denies Raynaud's, rash, nail changes, photosensitivity, MEDICAL CONCIERGE: Denies headaches, weakness, paresthesias, recurrent falls MSK: as per HPI All other systems reviewed and are unremarkable except noted above Physical Exam Exam Exam: Vital signs reviewed Physical Examination CONSTITUITIONAL Patient alert and cooperative. Well appearing and in no apparent painful distress MSK Hands Right Hand: No swelling or tenderness to palpation of the MCPs, PIPs or DIPs. No deformities noted. Left Hand: No swelling or tenderness to palpation of the MCPs, PIPs or DIPs. No deformities noted. Wrists Right Wrist: Full ROM to flexion and extension. No swelling or TTP Left Wrist: Full ROM to flexion and extension. No swelling or TTP Elbows Right Elbow: Full ROM. No swelling or TTP. TTP of the medial epicondyle and lateral epicondyle Left Elbow: Full ROM. No swelling or TTP. TTP of the medial epicondyle and lateral epicondyle Shoulders Right shoulder: Decreased ROM. No swelling noted. TTP of the AC joint. No TTP of the subacromial bursa. No TTP of the posterior shoulder Left shoulder: Decreased ROM. No swelling noted. TTP of the AC joint. No TTP of the subacromial bursa. No TTP of the posterior shoulder Hip bursa: Tenderness to palpation bilaterally Knees Right knee: Full ROM. No swelling noted. No TTP of the knee joint line. No TTP of pes anserine bursa Left knee: Full ROM. No swelling noted. No TTP of the knee joint line. No TTP of pes anserine bursa. Crepitations felt bilaterally Ankles Right ankle: Good ankle dorsiflexion and plantar flexion. No swelling. No TTP of the ankle joint Left ankle: Good ankle dorsiflexion and plantar flexion. No swelling. No TTP of the ankle joint Feet Right foot: Negative squeeze test Left foot: Negative squeeze test Tender points? Tenderness to palpation of the bilateral trapezius, supraspinatus, anterior costochondral junctions, bilateral suboccipital muscle insertions SKIN No rashes Vital Signs: Last Vital Signs Pulse 71 03/04/25 12:40 BP 112/70 03/04/25 12:40 Pulse Ox 97 03/04/25 12:40 Oxygen Delivery Method Room Air 03/04/25 12:40 BMI result Body Mass Index 25.3 Results Reviewed Results Reviewed: Laboratory Tests 07/10/24 08/14/24 02/10/25 10:56 13:23 01:25 WBC 10.1 RBC 4.43 Hgb 12.4 Hct 36.0 L Plt Count 154 L ESR 16 Sodium 142 Potassium 4.3 Chloride 109 H Carbon Dioxide 23 BUN 12 Creatinine 0.61 AST 24 ALT 16 C-Reactive Protein 0.31 25-OH Vitamin D Total 27.1 L Assessment & Plan Assessment & Plan (1) Polymyalgia rheumatica: Comment: Off steroids since November 2019 Code(s): M35.3 - Polymyalgia rheumatica Category: Medical Plan: #PMR Patient is a 64 y.o female with hx of PMR, off steroids since 12/15/2019. Normal inflammatory markers and no evidence of PMR or GCA on exam Plan - Continue to monitor off steroids - RTC 6 months - Labs before visit: CBC, CMP, ESR, CRP (2) Fibromyalgia: Code(s): M79.7 - Fibromyalgia Category: Medical Plan: #Fibromyalgia Patient with tender points consistent with fibromyalgia Gabapentin did not help, does not want to continue Will increase tramadol per patient's request Plan - Tramadol 100mg tid - Start methocarbamol 750mg at night Plan I spent 30 minutes reviewing the record and labs, taking a history, examining the patient, discussing the treatment plan and documenting in the medical record Medications: New methocarbamol 750 mg PO BEDTIME 90 tabs 1RF M79.7 - Fibromyalgia Changed From tramadol 100 mg (2 x 50 mg) PO BID 30 days 120 tabs 3RF pain M54.5 - Low back pain To tramadol 100 mg (2 x 50 mg) PO TID 180 tabs 3RF pain 30 days M54.5 - Low back pain Discontinued gabapentin Discontinued Reason: Doctor's Order 100 mg PO BEDTIME 90 caps 1RF M79.7 - Fibromyalgia Coding Level of Care Code Est Pt Level 4 (60469) Complex EM visit Add On G2211 Diagnoses Polymyalgia rheumatica M35.3 Fibromyalgia M79.7
[2025-03-04 12:40] VITALS: BP 112/70; PULSE 71; O2SAT 97; BMI 25.3
--- OUTSIDE RECORDS SUMMARY | 2025-03-04 14:39 | XMS_ITS | Encounter Summary ---
Author Organization [employer] Address [address] [facility] 7t [place] [address] Care Team Providers Care Computer Training Specialist Name Role Phone Shalom Bey MD Primary Care Prov ider Encounter Details Date Type Department Care Team ([facility] st Contact Info) Description 08/27/2024 Orders Only [facility] CHC MED & PEDS [address] [place], [place] [phone] Shalom Bey MD [address] [place], [place] [phone] Social History Tobacco Use Types Packs/Day Years [...] Female 04/26/2022 10:15 AM EDT Sexual Orientation Don't know 01/01/2025 4: 41 PM EDT documented as of this encounter Plan of Treatment Not on file documented as of this encounter Procedures Procedure Name Priority Date/Time Associated Diagnosis Comments GLUCOSE, WHOLE BLOOD Routine 08/27/2024 1:47 PM EST documented in this encounter Results * (ABNORMAL) Glucose, Whole Blood (08/27/2024 1:47 PM EST) Glucose, Whole Blood 120(H) 60 - 115 mg/dL [facility] Comment:METER #: [id number] Testing performed in the Endocrinology Department [address] , [address], [facility]. 08/27/2024 1:47 PM EST 08/27/2024 1:53 PM EST us Generic External Data Provider LAB BLOOD ORDERAB LES Final Result [facility] [address] [place] [address] [phone] documented in this encounter Visit Diagnoses Not on filedocumented in this encounter Additional Health Concerns Assessment Noted Time PHQ-9 Depression Total Score: 9 09/28/19 24 11:08 AM EDT documented as of this encounter Care Teams Computer Training Specialist Relationship Specialty Start Date End Date Shalom Bey MD [address] [place] [address] PCP - General Internal Medicine 11/05/19 documented as of this encounter
--- OUTSIDE RECORDS SUMMARY | 2025-03-04 14:39 | XMS_ITS | Encounter Summary ---
Author Organization [employer] Address [address] [facility] 7t [place] [address] Care Team Providers Care Outpatient Clerk Name Role Phone Shalom Bey MD Primary Care Prov ider Ruth Ellis RN Unavailable [phone] Encounter Details Date Type Department Care Team (Late st Contact Info) Description 02/22/2023 Abstract [facility] MEDICINE [address] [place] [address] Shalom Bey MD 505 [facility] [place] [address] Social History Tobacco Use Types Packs/Day Years [...] documented as of this encounter Care Teams Outpatient Clerk Relationship Specialty Start Date End Date Shalom Bey MD 505 [place] [address] PCP - General Internal Medicine 11/05/19 Ruth Ellis RN [address] [place] [address] Lawn SpecialistPlastic Surgery Nurse Medicine 12/06/23 12/19/23 documented as of this encounter
--- OUTSIDE RECORDS SUMMARY | 2025-03-04 14:39 | XMS_ITS | Encounter Summary ---
Author Organization [employer] Address [address] [facility] 7t [place] [address] Care Team Providers Care Fire Extinguisher Mechanic Name Role Phone Shalom Bey MD Primary Care Prov ider Ruth Ellis RN Unavailable [phone] Encounter Details Date Type Department Care Team ([facility] st Contact Info) Description 06/29/2023 Orders Only [facility] CHC MED & PEDS [address] [place] [address] Shalom Bey MD [address] [place] [address] Social History Tobacco Use Types Packs/Day Years [...] documented as of this encounter Care Teams Fire Extinguisher Mechanic Relationship Specialty Start Date End Date Shalom Bey MD [address] [place] [address] PCP - General Internal Medicine 11/05/19 Ruth Ellis RN 505 [place] [address] Airline CaptainCorner Cutter Machine Operator Medicine 12/06/23 12/19/23 documented as of this encounter
--- OUTSIDE RECORDS SUMMARY | 2025-03-04 14:39 | XMS_ITS | Encounter Summary ---
Author Organization [employer] Address [address] [facility] 7t [place] [address] Care Team Providers Care Supervisor Machining Name Role Phone Shalom Bey MD Primary Care Prov ider Ruth Ellis RN Unavailable [phone] Reason for Visit * Reason Comments Med Refill Encounter Details Date Type Department Care Team ([facility] st Contact Info) Description 10/13/2023 Refill [facility] CHC MED & PEDS 505 [facility] [place] [address] Shalom Bey MD [address] [place] [address] Primary insomnia; Type 2 diabetes mellitus without complication, without long-term current use of insulin ([facility]) Social History Tobacco Use Types [...] complication, without long-term current use of insulin ([facility]) documented in this encounter Additional Health Concerns Assessment Noted Time PHQ-9 Depression Total Score: 9 09/28/19 24 11:08 AM EDT documented as of this encounter Care Teams Supervisor Machining Relationship Specialty Start Date End Date Shalom Bey MD 505 [place] [address] PCP - General Internal Medicine 11/05/19 Ruth Ellis RN [address] [place] [address] Immigration ParalegalMachine Stuffer Medicine 12/06/23 12/19/23 documented as of this encounter
--- OUTSIDE RECORDS SUMMARY | 2025-03-04 14:39 | XMS_ITS | Encounter Summary ---
Author Organization [employer] Address [address] [facility] 7t [place] [address] Care Team Providers Care Station Chief Name Role Phone Shalom Bey MD Primary Care Prov ider Reason for Visit * Reason Comments Med Refill Encounter Details Date Type Department Care Team ([facility] st Contact Info) Description 10/23/[address] [facility] CHC MED & PEDS [address] [place] [address] Shalom Bey MD [address] [place] [address] Primary insomnia Social History Tobacco Use Types [...] documented as of this encounter Care Teams Station Chief Relationship Specialty Start Date End Date Shalom Bey MD [address] [place] [address] PCP - General Internal Medicine 11/05/19 documented as of this encounter
--- OUTSIDE RECORDS SUMMARY | 2025-03-04 14:39 | XMS_ITS | Encounter Summary ---
Author Organization [employer] Address 75 [facility] 7t [place] [address] Care Team Providers Care Theology Professor Name Role Phone Shalom Bey MD Primary Care Prov ider Ruth Ellis RN Unavailable [phone] Reason for Visit * Reason Onset Date Comments pt1 07/02/2022 Encounter Details Date Type Department Care Team (Late st Contact Info) Description 07/02/2022 Telephone [facility] MEDICINE [address] [place] [address] Shalom Bey MD 505 [facility] [place] [address] pt1 Social History Tobacco Use Types Packs/Day Years Used Date Smoking Tobacco: Never Assessed Comments Unknown Sex and Gender Information Value Date Recorded Sex Assigned at Female 04/26/2022 10:15 AM EDT Legal Sex Female 10:15 AM EDT Gender Identity Female 04/26/2022 10:15 AM EDT Sexual Orientation Don't know 01/01/2025 4: 41 PM EDT documented as of this encounter Miscellaneous Notes [...] EST Tc from pt requesting PT1 Location: [address] [address] Specialty: n/a Time: 10 am Date: 07/08/22 Open Shank Coverer: yes wheelchair accessible : n/a Location: [address] [address] Specialty: n/a Time: 10 am Date: 07/09/22 Open Shank Coverer: yes wheelchair accessible : n/a documented in this encounter Plan of Treatment Not on file documented as of this encounter Visit Diagnoses Not on filedocumented in this encounter Care Teams Theology Professor Relationship Specialty Start Date End Date Shalom Bey MD [address] [place] [address] PCP - General Internal Medicine 11/05/19 Ruth Ellis RN 505 [place] [address] Entrepreneurship Program DirectorManager Registration Medicine 12/06/23 12/19/23 documented as of this encounter
--- OUTSIDE RECORDS SUMMARY | 2025-03-04 14:39 | XMS_ITS | Encounter Summary ---
Author Organization [employer] Address [address] [place] [address] 7 [place] [address] Care Team Providers Care Oil Sprayer Name Role Phone Shalom Bey MD Primary Care Prov ider Ruth Ellis RN Unavailable Reason for Visit * Reason Comments Med Refill Encounter Details Date Type Department Care Team ([facility] st Contact Info) Description 12/17/2022 Refill [facility] CHC MED & PEDS 505 [facility] [place] [address] Shalom Bey MD [address] [place] [address] Chronic obstructive pulmonary disease, unspecified (CMS/HCC) Social [...] (CMS/HCC) documented in this encounter Care Teams Oil Sprayer Relationship Specialty Start Date End Date Shalom Bey MD [address] [place] [address] PCP - General Internal Medicine 11/05/19 Ruth Ellis RN [address] [place] [address] Sld TeacherParalegals Medicine 12/06/23 12/19/23 documented as of this encounter
--- OUTSIDE RECORDS SUMMARY | 2025-03-04 14:39 | XMS_ITS | Encounter Summary ---
Author Organization [employer] Address 75 [facility] 7t [place] [address] Care Team Providers Care Director Medicaid Name Role Phone Shalom Bey MD Primary Care Prov ider Ruth Ellis RN Unavailable [phone] Reason for Visit * Reason Comments Med Refill Encounter Details Date Type Department Care Team (Late st Contact Info) Description 09/15/2023 Refill [facility] MEDICINE [address] [place] [address] Shalom Bey MD 505 [facility] [place] [phone] Primary insomnia Social History Tobacco Use Types [...] documented as of this encounter Care Teams Director Medicaid Relationship Specialty Start Date End Date Shalom Bey MD 505 [place] [address] PCP - General Internal Medicine 11/05/19 Ruth Ellis RN 505 [place] [address] Purification SupervisorApplied Exercise Physiologist Medicine 12/06/23 12/19/23 documented as of this encounter
--- OUTSIDE RECORDS SUMMARY | 2025-03-04 14:39 | XMS_ITS | Encounter Summary ---
Author Organization [employer] Address [address] [facility] 7t [place] [address] Care Team Providers Care Intermission Coordinator Name Role Phone Shalom Bey MD Primary Care Prov ider Ruth Ellis RN Unavailable [phone] Reason for Visit * Reason Comments Med Refill Encounter Details Date Type Department Care Team (Late st Contact Info) Description 09/23/2023 Refill [facility] MEDICINE [address] [place] [address] Shalom Bey MD [address] [facility] [place] [phone] Primary insomnia Social History Tobacco Use Types [...] documented as of this encounter Care Teams Intermission Coordinator Relationship Specialty Start Date End Date Shalom Bey MD [address] [place] [address] PCP - General Internal Medicine 11/05/19 Ruth Ellis RN [address] [place] [address] Food Cooking Machine OperatorMetal Extrusion Supervisor Medicine 12/06/23 12/19/23 documented as of this encounter
--- OUTSIDE RECORDS SUMMARY | 2025-03-04 14:39 | XMS_ITS | Encounter Summary ---
Author Organization [employer] Address [address] [facility] [address] 7t [place] [address] Care Team Providers Care Dental Associate Name Role Phone Shalom Bey MD Primary Care Prov ider Reason for Visit * Reason Comments Med Refill Encounter Details Date Type Department Care Team (Late st Contact Info) Description 07/23/2024 Refill [facility] CHC MED & PEDS [address] [place] [phone] Amarilis Vera, ANP [address] [place] [address] Primary insomnia Social History Tobacco Use Types [...] documented as of this encounter Care Teams Dental Associate Relationship Specialty Start Date End Date Shalom Bey MD [address] [place] [address] PCP - General Internal Medicine 11/05/19 documented as of this encounter
--- OUTSIDE RECORDS SUMMARY | 2025-03-04 14:39 | XMS_ITS | Encounter Summary ---
Author Organization [employer] Address [address] [facility] 7t [place] [address] Care Team Providers Care Events And Promotions Assistant Name Role Phone Shalom Bey MD Primary Care Prov ider Encounter Details Date Type Department Care Team ([facility] st Contact Info) Description 05/23/2024 Orders Only [facility] CHC MED & PEDS [address] [place], [place] [phone] Leila Mustafa MD 505 [place] [address] Type 2 diabetes mellitus without complication, without long-term current use of insulin ([facility]) Social History Tobacco Use Types Packs/Day [...] complication, without long-term current use of insulin ([facility]) documented in this encounter Additional Health Concerns Assessment Noted Time PHQ-9 Depression Total Score: 9 09/28/19 24 11:08 AM EDT documented as of this encounter Care Teams Events And Promotions Assistant Relationship Specialty Start Date End Date Shalom Bey MD [address] [place] [address] PCP - General Internal Medicine 11/05/19 documented as of this encounter
--- OUTSIDE RECORDS SUMMARY | 2025-03-04 14:39 | XMS_ITS | Encounter Summary ---
Author Organization [employer] Address [address] [facility] 7t [place] [address] Care Team Providers Care Sales Representative Graphic Art Name Role Phone Shalom Bey MD Primary Care Prov ider Reason for Visit * Reason Onset Date Comments Appointment Request 10/18/2024 Encounter Details Date Type Department Care Team ([facility] st Contact Info) Description 10/18/2024 Telephone [facility] MEDICINE [address] [place], [place] [phone] Shalom Bey MD [address] [facility] [address] [place] [phone] Appointment Request Social History Tobacco Use Types Packs/Day Years [...] encounter Miscellaneous Notes * Telephone Encounter - Case Collins - 10/18/2024 12:33 PM EDT TC from pt requesting a call back to R/s appt from 10/18/24. Contact pt at [phone] documented in this encounter Plan of Treatment Not on file documented as of this encounter Visit Diagnoses Not on filedocumented in this encounter Additional Health Concerns Assessment Noted Time PHQ-9 Depression Total Score: 9 09/28/19 24 11:08 AM EDT documented as of this encounter Care Teams Sales Representative Graphic Art Relationship Specialty Start Date End Date Shalom Bey MD [address] [place] [address] PCP - General Internal Medicine 11/05/19 documented as of this encounter
--- OUTSIDE RECORDS SUMMARY | 2025-03-04 14:39 | XMS_ITS | Encounter Summary ---
Author Organization [employer] Address [address] [facility] [address]t [place] [address] Care Team Providers Care Shipping Clerk Packing Name Role Phone Shalom Bey MD Primary Care Prov ider Ruth Ellis RN Unavailable [phone] Reason for Visit * Reason Onset Date Comments PT1 06/16/2023 Encounter Details Date Type Department Care Team (Late st Contact Info) Description 06/16/2023 Telephone [facility] MEDICINE [address] [place] [address] Shalom Bey MD [address] [place] [address] PT1 Social History Tobacco Use Types Packs/Day [...] Date: 06/28/2022-07/27/2022 Time: 10:30 am Visits: Address: [address] [place] [address] Facility: [facility] Radiology Wheel Chair: Yes Vp Clinical Research Needed: Yes documented in this encounter Plan of Treatment Not on file documented as of this encounter Visit Diagnoses Not on filedocumented in this encounter Additional Health Concerns Assessment Noted Time PHQ-9 Depression Total Score: 14 023 10:41 AM EDT documented as of this encounter Care Teams Shipping Clerk Packing Relationship Specialty Start Date End Date Shalom Bey MD [address] [place] [address] PCP - General Internal Medicine 11/05/19 Ruth Ellis RN [address] [place] [address] Log GraderNeedle Polisher Medicine 12/06/23 12/19/23 documented as of this encounter
--- OUTSIDE RECORDS SUMMARY | 2025-03-04 14:39 | XMS_ITS | Encounter Summary ---
Author Organization [employer] Address [address] [facility] [address] [place] [address] Care Team Providers Care Supervisor Covering And Lining Name Role Phone Shalom Bey MD Primary Care Prov ider Ruth Ellis RN Unavailable [phone] Encounter Details Date Type Department Care Team (Late st Contact Info) Description 10/14/[address] [facility] MEDICINE [address] [place], [place] [phone] ProviderRuchi MD Social History Tobacco Use Types [...] * Hm Colonoscopy (09/10/2020 1:08 PM EDT) Historical Provider HEALTH MAINTENANCE Final Result * Hm Colonoscopy (07/29/2014 1:10 PM EST) Historical Provider HEALTH MAINTENANCE Final Result * Colonoscopy (03/13/2013 1:11 PM EDT) Historical Provider HEALTH MAINTENANCE Final Result documented in this encounter Visit Diagnoses Not on filedocumented in this encounter Additional Health Concerns Assessment Noted Time PHQ-9 Depression Total Score: 9 09/28/19 24 11:08 AM EDT documented as of this encounter Care Teams Supervisor Covering And Lining Relationship Specialty Start Date End Date Shalom Bey MD [address] [place] [address] PCP - General Internal Medicine 11/05/19 Ruth Ellis RN [address] [place] [address] Senior Stack EngineerDrill Hand Medicine 12/06/23 12/19/23 documented as of this encounter
--- OUTSIDE RECORDS SUMMARY | 2025-03-04 14:39 | XMS_ITS | Encounter Summary ---
Author Organization [employer] Address [address] [facility] 7t [place] [address] Care Team Providers Care Structural Iron Worker Name Role Phone Shalom Bey MD Primary Care Prov ider Ruth Ellis RN Unavailable [phone] Reason for Visit * Reason Onset Date Comments PT-1 07/01/2023 Encounter Details Date Type Department Care Team (Late st Contact Info) Description 07/01/2023 Telephone [facility] MEDICINE [address] [place] [address] Shalom Bey MD [address] [facility] [place] [id number] PT-1 Social History Tobacco Use Types Packs/Day [...] in regards to PT1. Pt spoke with [facility] and was advised will need a nurse or PCP to call [facility] by 07/02 for PT1 can be expedited and can have a ride for 07/04. * Telephone Encounter - Tae Mattson - 07/01/2023 9:12 AM EST PT1 needed Date: 07/04/23 Time: 2:30 Visits: 30 Address: [address] [place] [address] Facility: Oncology Wheel Chair: no Laundry Operator Needed: yes documented in this encounter Plan of Treatment Not on file documented as of this encounter Visit Diagnoses Not on filedocumented in this encounter Additional Health Concerns Assessment Noted Time PHQ-9 Depression Total Score: 14 12/22/ 023 10:41 AM EDT documented as of this encounter Care Teams Structural Iron Worker Relationship Specialty Start Date End Date Shalom Bey MD [address] [place] [address] PCP - General Internal Medicine 11/05/19 Ruth Ellis RN [address] [place] [address] Senior Java DeveloperTown Justice Medicine 12/06/23 12/19/23 documented as of this encounter
--- OUTSIDE RECORDS SUMMARY | 2025-03-04 14:40 | XMS_ITS | Encounter Summary ---
Author Organization [employer] Address [address] [place] [address] 7[address] [place] [address] Care Team Providers Care Edge Beader Name Role Phone Shalom Bey MD Primary Care Prov ider Ruth Ellis RN Unavailable [phone] Encounter Details Date Type Department Care Team ([facility] st Contact Info) Description 11/24/2022 Abstract [facility] MED & PEDS [address] [place] [address] Shalom Bey MD [address] [place] [address] Social History Tobacco Use Types Packs/Day Years [...] on filedocumented in this encounter Care Teams Edge Beader Relationship Specialty Start Date End Date Shalom Bey MD [address] [place] [address] PCP - General Internal Medicine 11/05/19 Ruth Ellis RN [address] [place] [address] Visitor Information AssistantTake Off Worker Medicine 12/06/23 12/19/23 documented as of this encounter
--- OUTSIDE RECORDS SUMMARY | 2025-03-04 14:40 | XMS_ITS | Encounter Summary ---
Author Organization [employer] Address [address] [facility] 7[address] [place] [address] Care Team Providers Care Visual Associate Name Role Phone Shalom Bey MD Primary Care Prov ider Reason for Visit * Reason Comments Med Refill Encounter Details Date Type Department Care Team ([facility] st Contact Info) Description 03/01/2025 Refill [facility] MED & PEDS [address] [place] [address] Shalom Bey MD [address] [place] [address] Social History Tobacco Use Types Packs/Day Years [...] documented as of this encounter Care Teams Visual Associate Relationship Specialty Start Date End Date Shalom Bey MD [address] [place] [id number] PCP - General Internal Medicine 11/05/19 documented as of this encounter
--- OUTSIDE RECORDS SUMMARY | 2025-03-04 14:40 | XMS_ITS | Clinical Summary ---
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 ENTER/EDIT ORDERABLES Final Result * (ABNORMAL) Hm Mammography (10/22/2022 9:22 AM EDT) HM Mammogram Birads-0 Anatomical Region Laterality Modality Other Narrative 10/22/2022 9:22 AM EDT Recommended MRI Ruchi Roman MD HEALTH MAINTENANCE Final Result * Lipid Panel, Standard (08/25/2022 1:32 PM EST) Triglycerides 172 mg/dL [facility] Comment:Desirable Triglyceri de: less than 150 mg/dLBorderline High Triglyceride 150-199 mg/dLHigh Triglyceride: 200-499 mg/dLVery High Triglyceride: greater than or equal to 5OO mg/dL Cholesterol 139 mg/dL [facility] Comment:Desirable Cholestero l: less than 200 mg/dLBorderline High Cholesterol: 200-239 mg/dLHigh Cholesterol: greater than 239 mg/dL LDL Cholesterol Calculated 67 mg/dl [facility] Comment:Desirable LDL: less than 100 mg/dLNear Optimal/Above Optimal LDL: 110- 129 mg/dLBorderline High LDL: 130-159 mg/dLHigh LDL: 160-189 mg/dLVery High LDL: greater than or equal to 190 mg/dL HDL Cholesterol 38 mg/dL [facility] Comment:Desirable HDL: great er than 40 mg/dL Note: This HDL assay may give artificially low results in patients with liver disease. 08/25/2022 1:32 PM EST 08/25/2022 1:32 PM EST [facility] External Provider LAB BLO OD ORDERABLES Final Result Performing Organization Address City/[facility] Co de Phone Number [facility] [address] [place] [phone] * Albumin, Random Urine W/Creatinine (08/25/2022 1:30 PM EST) Creatinine, Urine 55.85 mg/dL [facility] Microalbumin Urine 7.0 mg/L [facility] Microalbum Creatinine Ratio Ur 12.5 ug/mg cr [facility] Comment:Albumin/Creatinine R atio Reference Ranges: Normal: < 30 ug/mg creatinine Microalbuminuria: 30 - 300 ug/mg creatinineClinical Albuminuria: > 300 ug/mg creatinine 08/25/2022 1:30 PM EST 08/25/2022 2:17 PM EST [facility] External Provider LAB URI NE ORDERABLES Final Result [facility] [address] [place] [address] [phone] * HIV 1/2 ANTIGEN/ANTIBODY,FOURTH GENERATION W/RFL (04/16/2022 9:21 AM EDT) HIV-1/2 ANTIGEN AND ANTIBODIES, 4TH GENERATION W/ REFLEX NON-REACT DREW NON-REACT DREW [facility] Comment: HIV-1 antigen and HIV-1/HIV-2 antibodies were not detected. There is no laboratory evidence of HIV infection. PLEASE NOTE: This information has been disclosed to you from records whose confidentiality may be protected by state law. If your state requires such protection, then the state law prohibits you from making any further disclosure of the information without the specific written consent of the person to whom it pertains, or as otherwise permitted by law. A general authorization for the release of medical or other information is NOT sufficient for this purpose. For additional information please refer to http://education.AdviseHub/faq/TYY420 (This link is being provided for informational/ educational purposes only.) The performance of this assay has not been clinically validated in patients less than 2 years old. 04/16/2022 9:21 AM EDT Shalom Chris MD LAB BLOOD ORDERABL ES Final Result Performing Organization Address [facility] Co de Phone Number [facility] * THINPREP TIS PAP AND HPV mRNA E6/E7 REFLEX HPV 16,18/45 (04/28/2021 11:30 AM EDT) Clinical Information: DEE DEE [facility] COMMENT SEE COMMENT [facility] Comment: EXPLANATORY NOTE: The Pap is a screening test for cervical cancer. It is not a diagnostic test and is subject to false negative and false positive results. It is most reliable when a satisfactory sample, regularly obtained, is submitted with relevant clinical findings and history, and when the Pap result is evaluated along with historic and current clinical information. COMMENT: This Pap test has been evaluated with computer assisted technology. [facility] Medical Genetics Director: SEE COMMENT [facility] Comment: WAC, CT(ASCP) CT screening location: [address] [address] HPV nRNA E6/E7 Not Detected Not Detected [facility] Comment: Methodology: Microscopist-Mediated Amplification This assay detects E6/E7 viral messenger RNA (mRNA) from 14 high-risk HPV types (16,18,31,33,35,39,45,51,52,56,58,59,66,68). The analytical performance characteristics of this assay have been determined by [facility]. The modifications have not been cleared or approved by the FDA. This assay has been validated pursuant to the CLIA regulations and is used for clinical purposes. For additional information, please refer to http://education.AdviseHub/faq/PCH906m8 (This link if provided for information/ educational purposes only.) Interpretation/Res ult: SEE COMMENT [facility] Comment: Negative for intraepithelial lesion or malignancy. Atrophic pattern; predominantly parabasal cells LMP: 06/2015 [facility] Prev. BX: NONE GIVEN [facility] Prev. PAP: NIL NEG [facility] SOURCE: None given [facility] Statement Of Adequacy: SATISFACTORY FOR EVALUATION Partially obscuring inflammation [facility] 04/28/2021 11:3 0 AM EDT Kayla RENE LAB PATHOLOGY ORDERABLES Final Result [facility] [address] [place] [address], * Pap Smear (04/28/2021 12:00 AM EDT) Swab Kayla RENE LAB CYTOLOGY ORDERABLES F inal Result Performing Organization Address City/[facility]/ZIP Co de Phone Number [address], [place] [address] * Hm Colonoscopy (09/10/2020 1:08 PM EDT) Historical Provider MD HEALTH MAINTENANCE Final Result from Last 3 Months or Most Recently Relevant to Health Maintenance Insurance MEDICARE [facility] [id number] Care Teams Apartment Rental Agent Relationship Specialty Start Date End Date Shalom Bey MD [address] [place] [address] PCP - General Internal Medicine 11/05/19
== END 2025-03-04 13:13 | disposition home or self-care (01) ==
PROVIDERS: PCP Internal Medicine; Visit Provider Student in an Organized Health Care Education/Training Program
DX: M35.3 Polymyalgia rheumatica (principal); M79.7 Fibromyalgia
CPT/HCPCS: 99214; G2211

== ENCOUNTER → 2025-03-04 12:19 | Outpatient (BNVA) | payer MEDICARE, MEDICAID, SELFPAY | PROVIDERS: PCP Internal Medicine; Visit Provider Student in an Organized Health Care Education/Training Program | DX: M79.7 Fibromyalgia (principal); M35.3 Polymyalgia rheumatica | CPT/HCPCS: 99212 ==

== ENCOUNTER 2025-03-09 00:30 | Emergency (ER) | payer MEDICARE, MEDICAID, SELFPAY ==
--- NOTE | ~2025-03-09 | XR_ITS ---
CLINICAL HISTORY: right middle finger injury 3 view right third digit Comparison: None Findings: Bones intact. No dislocations. No significant arthritic change. No erosions. No radiopaque foreign body. Soft tissue swelling of the distal tip of the 3rd digit. IMPRESSION: 1. No acute fracture. Soft tissue swelling present. This document has been electronically signed by: Beltran Yang MD on 03/09/2025 01:48:00
[2025-03-09 00:36] VITALS: RESP 16; BMI 25.1
--- NOTE | 2025-03-09 01:04 | ED.GENADULT ---
HPI - General Adult General Chief complaint: Wound/Laceration Stated complaint: Injured finger Time Seen by Provider: 03/09/25 00:37 Source: patient and lead javascript engineer Mode of arrival: ambulatory Limitations: no limitations History of Present Illness ED Provider: DR. Bar HPI narrative: a 64-year-old female walked in for evaluation of right middle finger injury after was jammed in the car door causing laceration on the distal phalanx of the finger. Patient is not taking anticoagulation medication, reportedly up to date on her immunization and tetanus shot. Related Data Home Medications ?Medication ?Instructions ?Recorded ?Confirmed ascorbate calcium (vitamin C) 500 500 mg PO DAILY 05/14/20 03/04/25 mg tablet atorvastatin 20 mg tablet 20 mg PO DAILY 05/14/20 03/04/25 Held on 11/22/20. Instructions: Resume on 11/29/20. cholecalciferol (vitamin D3) 125 mcg PO 05/14/20 03/04/25 mcg (5,000 unit) disintegrating tablet docusate sodium 100 mg capsule 100 mg PO DAILY 05/14/20 03/04/25 (Colace) calcium carbonate 500 mg PO DAILY 01/19/21 03/04/25 anastrozole 1 mg tablet 1 mg PO DAILY 07/19/24 03/04/25 Previous Rx's ?Medication ?Instructions ?Recorded famotidine 20 mg tablet (Pepcid) 20 mg PO DAILY #14 tabs 11/22/20 Compression socks #3 ea 01/19/21 blood-glucose meter (FreeStyle #1 ea 08/27/24 Lite Meter kit) lancets 28 gauge (FreeStyle #100 ea 08/27/24 Lancets) blood sugar diagnostic (FreeStyle #100 ea 09/03/24 Lite Strips) fluticasone furoate 200 1 ea inhalation DAILY #180 ea 12/03/24 mcg-vilanterol 25 mcg/dose inhalation powder (Breo Ellipta) methimazole 5 mg tablet 5 mg PO DAILY #90 tabs 01/17/25 albuterol sulfate 90 mcg/actuation 2 puff PO Q4-6H PRN for wheezing 01/21/25 aerosol inhaler #8.5 grams semaglutide 1 mg/dose (4 mg/3 mL) 1 mg (0.75 mL) subcut QWEEK #3 mL 01/28/25 subcutaneous pen injector (Ozempic) amoxicillin 500 mg-potassium 1 tab PO TID 7 days #21 tabs 02/10/25 clavulanate 125 mg tablet (Augmentin) loratadine 10 mg tablet 10 mg PO DAILY #7 tabs 02/10/25 umeclidinium 62.5 mcg/actuation 1 inh inhalation DAILY #30 ea 02/21/25 blister powder for inhalation (Incruse Ellipta) methocarbamol 750 mg tablet 750 mg PO BEDTIME #90 tabs 03/04/25 tramadol 50 mg tablet 100 mg (2 x 50 mg) PO TID pain 30 03/04/25 days #180 tabs sitagliptin phosphate 100 mg 100 mg PO DAILY #90 tabs 03/07/25 tablet (Januvia) Allergies Allergy/AdvReac Type Severity Reaction Status Date / Time No Known Allergies (No Known Allergy Verified 03/09/25 00:38 Allergies*) Review of Systems Review of Systems: All other systems are reviewed and are negative Constitutional: Reports as per HPI and Reports no additional constitutional complaints Eyes: Reports as per HPI and Reports no additional eye complaints Reports system reviewed and no additional complaints, except as documented Cardiovascular: Reports as per HPI and Reports no additional cardiovascular complaints Respiratory: Reports as per HPI and Reports no additional respiratory complaints Gastrointestinal: Reports as per HPI and Reports no additional gastrointestinal complaints Genitourinary: Reports no additional female genitourinary complaints Musculoskeletal: Reports no additional musculoskeletal complaints Skin/Breast: Reports system reviewed and no additional complaints, except as docu Psychiatric: Reports no additional psychiatric complaints Endocrine: Reports no additional endocrine complaints Hematologic/Lymphatic: Reports no additional hematologic/lymphatic complaints Allergic/Immunologic: Reports no additional allergic/immunologic complaints Reports system reviewed and no additional complaints, except as documented and Reports Abnormal speech present [facility] Past Medical History Medical History Toxic multinodular goiter Use of anastrozole Shoulder pain, bilateral Fibromyalgia History of breast cancer Hyperthyroidism HLD (hyperlipidemia) HTN (hypertension) DM2 (diabetes mellitus, type 2) Multinodular thyroid Personal history of nicotine dependence Diabetes type 2, uncontrolled History of adenomatous polyp of colon Vitamin D deficiency Arthritis Tubular adenoma of colon Adenocarcinoma of colon Constipation Positive CLEMENT (antinuclear antibody) COPD (chronic obstructive pulmonary disease) Essential hypertension Hyperlipidemia LDL goal <100 Low back pain Asthma Polymyalgia rheumatica Surgical History History of needle biopsy History of colonoscopy (~09/2020) History of cardiac cath (~09/2018) History of right breast biopsy (~10/2010) History of flexible sigmoidoscopy (~06/2013) History of rigid sigmoidoscopy (~04/2013) Hx of cholecystectomy Family History Family History Father Diabetes CVD (cardiovascular disease) Mother Breast cancer Skin cancer Cancer Social History Social History Household Members: Other Household Members Other:: Mother lives with her Alcohol intake: current Alcohol intake frequency: does not drink Patient Tobacco Use Status: Former Tobacco user Smoked in Last 30 Days: No Use of substances other than those prescribed or required for medical reasons: No Advance Directives: No Advance Directives Information Provided: No Physical Exam ED Vital Signs: Vital Signs - 24 hr 03/09/25 00:36 Respiratory Rate 16 Oxygen Delivery Method Room Air BMI result Body Mass Index 25.1 Vital signs have been reviewed and appear to be correct. Blood pressure elevated. Heart rate normal. Respiratory rate normal. Temperature normal. Oxygen saturation normal. Appearance: Alert. Oriented X3. No acute distress. Head: Normal external exam. Normocephalic. Atraumatic. No Rodriguez signs noted. No raccoon eyes noted Eyes: PERRLA. EOMI. Conjunctiva and sclera normal. Eyelids normal. ENT: TM's Normal. Pharynx normal. Uvula midline. Moist mucous membranes. No trismus noted. No drooling noted. No muffled voice noted. Neck: Normal inspection. Neck supple. FROM. No adenopathy. Thyroid Normal. No meningeal signs. No neck mass noted. CVS: Normal heart rate and rhythm. Heart sound normal. No murmurs noted. Pulses normal throughout. Respiratory: No respiratory distress. Painless inspiration. Breath sounds normal. No wheezes/rales/rhonchi noted. Chest nontender. No accessory muscle usage noted or decreased air movement noted. Abdomen: Soft and nontender. Bowel sounds normal in all 4 quadrants. No distention noted. No organomegaly noted. No visible injury noted. Back: No CVA tenderness. Full range of motion noted. Skin: Skin warm and dry. Normal skin color. Normal skin turgor. No rashes/lesions/lacerations noted. Extremities: Right hand exam: Neurovascularly intact, 5 cm laceration at the distal phalanx of the right middle finger. able to flex fingers. Neuro: Oriented X 3. Cranial nerve exam: II-XII are grossly intact No motor deficit. No sensory deficit. Reflexes normal. Course Reevaluation(s) Reevaluation #1: Right middle finger injury after was jammed in the car door, laceration s/p laceration repair referred to procedure note, x-ray showed no acute fracture. Patient was instructed to return for suture removal in 7 days, patient is up to date on her tetanus booster shot. No need for antibiotic. Time: 02:11 Medications Administered Discontinued Medications Generic Name Dose Route Start Last Admin Trade Name Freq PRN Reason Stop Dose Admin Bacitracin 1 appl 03/09/25 01:01 03/09/25 01:07 Bacitracin Oint 0.9 Gm Packet TOPICAL 03/09/25 01:02 1 appl ONCE ONE Administration Protocol Lidocaine HCl 2 ml 03/09/25 01:06 03/09/25 01:07 Lidocaine Hcl 1 % Mpf 2 Ml Vial INFILTRATI 03/09/25 01:07 2 ml ONCE ONE Administration Procedures Laceration Laceration 1: Site: hand ( middle finger) Side (If applicable): right Size (cm): 5 Description: linear Depth: simple, single layer Local Anesthetic: lidocaine 1% Amount of anesthesia used (mL): 3 Pre-repair: wound explored Skin layer closed with: nylon Size (cm): 4-0 Number of sutures: 6 Technique: simple, interrupted Medical Decision Making Differential Diagnosis Differential Diagnoses: The differential diagnosis associated with the presentation includes ( Right middle finger fracture, right middle finger laceration.) Admission/Observation Consideration of admission/observation: Escalation of care including admission/observation considered Independent Interpretation I performed an independent interpretation of an: Plain X-Ray ( Right middle finger x-ray: No acute fracture or dislocation.) Radiology Impression Discussion of test interpretation with radiology: I have reviewed the radiologist's reading. Discharge Plan Discharge Clinical Impression: Laceration of right middle finger Patient Disposition: Home, Self-Care Instructions: Finger Laceration (ED) Additional Instructions: return to the ED in 7-10 days for (6) sutures removal Prescriptions: No Action (DME) FreeStyle Lite Strips Strip See Rx Instructions .MEDSUPPLY Qty: 100 3RF Rx Instructions: Use 1x daily As directed to check blood glucose fluticasone furoate-vilanterol [Breo Ellipta] 200-25 mcg/dose blister with device 1 ea inhalation DAILY Qty: 180 2RF methimazole 5 mg tablet 5 mg PO DAILY Qty: 90 0RF albuterol sulfate 90 mcg/actuation HFA aerosol inhaler 2 puff PO Q4-6H PRN (Reason: for wheezing) Qty: 8.5 6RF Ozempic 1 mg/dose (4 mg/3 mL) pen injector 1 mg subcut QWEEK Qty: 3 5RF Incruse Ellipta 62.5 mcg/actuation blister with device 1 inh inhalation DAILY Qty: 30 6RF Januvia 100 mg tablet 100 mg PO DAILY Qty: 90 1RF famotidine [Pepcid] 20 mg tablet 20 mg PO DAILY Qty: 14 0RF amoxicillin-pot clavulanate [Augmentin] 500-125 mg tablet 1 tab PO TID 7 Days Qty: 21 0RF loratadine 10 mg tablet 10 mg PO DAILY Qty: 7 0RF atorvastatin 20 mg tablet 20 mg PO DAILY cholecalciferol (vitamin D3) 125 mcg (5,000 unit) tablet,disintegrating PO docusate sodium [Colace] 100 mg capsule 100 mg PO DAILY ascorbate calcium (vitamin C) 500 mg tablet 500 mg PO DAILY calcium carbonate 500 mg calcium (1,250 mg) tablet 500 mg PO DAILY (DME) Compression socks Compression Socks Medium See Rx Instructions .Route .MEDSUPPLY Qty: 3 3RF Rx Instructions: As directed methocarbamol 750 mg tablet 750 mg PO BEDTIME Qty: 90 1RF tramadol 50 mg tablet 100 mg PO TID 30 Days Qty: 180 3RF (DME) lancets [FreeStyle Lancets] 28 gauge misc See Rx Instructions .MEDSUPPLY Qty: 100 3RF Rx Instructions: use up to 3 x daily as directed to check blood glucose (DME) blood-glucose meter [FreeStyle Lite Meter] Kit See Rx Instructions .MEDSUPPLY Qty: 1 0RF Rx Instructions: Use daily As directed to check blood sugars anastrozole 1 mg tablet 1 mg PO DAILY Referrals: Shalom Bey MD [Primary Care Provider, Medical] Print Language: Moldovan
[2025-03-09] MEDS: Lidocaine HCl 1 % MPF 2 ML VIAL INFILTRATI (01:07)
--- OUTSIDE RECORDS SUMMARY | 2025-03-09 01:20 | XMS_ITS | Encounter Summary ---
Author Organization [employer] Address [address] [facility] [address] [place] [address] Care Team Providers Care Waste Collection Driver Name Role Phone Shalom Bey MD Primary Care Prov ider Ruth Ellis RN Unavailable [phone] Encounter Details Date Type Department Care Team (Late st Contact Info) Description 02/22/2023 Abstract [facility] MED[facility]INE [address] [place] [address] Shalom Bey MD [address] [facility] [address] [address] Social History Tobacco Use Types Packs/Day Years [...] documented as of this encounter Care Teams Waste Collection Driver Relationship Specialty Start Date End Date Shalom Bey MD [address] [place] [address] PCP - General Internal Medicine 11/05/19 Ruth Ellis RN [address] [place] [address] Title CloserOnboarding Specialist Medicine 12/06/23 12/19/23 documented as of this encounter
--- OUTSIDE RECORDS SUMMARY | 2025-03-09 01:20 | XMS_ITS | Encounter Summary ---
Author Organization [employer] Address [address] [facility] [address] [place] [address] Care Team Providers Care Furniture Upholsterer Name Role Phone Shalom Bey MD Primary Care Prov ider Ruth Ellis RN Unavailable [phone] Reason for Visit * Reason Onset Date Comments PT-1 07/01/2023 Encounter Details Date Type Department Care Team (Late st Contact Info) Description 07/01/2023 Telephone [facility] MEDICINE [address] [place] [address] Shalom Bey MD [address] [facility] [place] [phone] PT-1 Social History Tobacco Use Types Packs/Day [...] in regards to PT1. Pt spoke with [facility] and was advised will need a nurse or PCP to call [facility] by 07/02 for PT1 can be expedited and can have a ride for 07/04. * Telephone Encounter - Tae Mattson - 07/01/2023 9:12 AM EST PT1 needed Date: 07/04/23 Time: 2:30 Visits: 30 Address: [address] [place] [address] Facility: Oncology Wheel Chair: no Tool Inspector Needed: yes documented in this encounter Plan of Treatment Not on file documented as of this encounter Visit Diagnoses Not on filedocumented in this encounter Additional Health Concerns Assessment Noted Time PHQ-9 Depression Total Score: 14 12/22/ 023 10:41 AM EDT documented as of this encounter Care Teams Furniture Upholsterer Relationship Specialty Start Date End Date Shalom Bey MD [address] [place] [address] PCP - General Internal Medicine 11/05/19 Ruth Ellis RN [address] [place] [address] Search Marketing CoordinatorRevenue Cycle Manager Medicine 12/06/23 12/19/23 documented as of this encounter
--- OUTSIDE RECORDS SUMMARY | 2025-03-09 01:20 | XMS_ITS | Encounter Summary ---
Author Organization [employer] Address [address] [place] [address] [address] [place] [address] Care Team Providers Care Teleservices Representative Name Role Phone Shalom Bey MD Primary Care Prov ider Ruth Ellis RN Unavailable [phone] Reason for Visit * Reason Comments Med Refill Encounter Details Date Type Department Care Team ([facility] st Contact Info) Description 12/17/2022 Refill [facility] & PEDS [address] [facility] [place] [address] Shalom Bey MD [address] [place] [address] Chronic obstructive pulmonary disease, unspecified (CMS/HCC) Social [...] (CMS/HCC) documented in this encounter Care Teams Teleservices Representative Relationship Specialty Start Date End Date Shalom Bey MD [address] [place] [address] PCP - General Internal Medicine 11/05/19 Ruth Ellis RN [address] [place] [phone] Financial Risk ManagerQuality Consultant Medicine 12/06/23 12/19/23 documented as of this encounter
--- OUTSIDE RECORDS SUMMARY | 2025-03-09 01:20 | XMS_ITS | Encounter Summary ---
Author Organization [employer] Address [address] [facility] [address] [place] [address] Care Team Providers Care Platen Drier Operator Name Role Phone Shalom Bey MD Primary Care Prov ider Ruth Ellis RN Unavailable [phone] Reason for Visit * Reason Onset Date Comments pt1 07/02/2022 Encounter Details Date Type Department Care Team (Late st Contact Info) Description 07/02/2022 Telephone [facility] MEDICINE [address] [place] [address] Shalom Bey MD [address] [facility] [address] pt1 Social History Tobacco Use Types Packs/Day [...] EST Tc from pt requesting PT1 Location: [address] [address] Specialty: n/a Time: 10 am Date: 07/08/22 Global Expansion Sales Director: yes wheelchair accessible : n/a Location: [address] [address] Specialty: n/a Time: 10 am Date: 07/09/22 Global Expansion Sales Director: yes wheelchair accessible : n/a documented in this encounter Plan of Treatment Not on file documented as of this encounter Visit Diagnoses Not on filedocumented in this encounter Care Teams Platen Drier Operator Relationship Specialty Start Date End Date Shalom Bey MD [address] [place] [address] PCP - General Internal Medicine 11/05/19 Ruth Ellis RN [address] [place] [address] Ferry Boat CaptainPile Driver Operator Medicine 12/06/23 12/19/23 documented as of this encounter
--- OUTSIDE RECORDS SUMMARY | 2025-03-09 01:20 | XMS_ITS | Encounter Summary ---
Author Organization [employer] Address [address] [facility] 7t [place] [address] Care Team Providers Care Tax Manager Cpa Name Role Phone Shalom Bey MD Primary Care Prov ider Reason for Visit * Reason Onset Date Comments Appointment Request 10/18/2024 Encounter Details Date Type Department Care Team ([facility] st Contact Info) Description 10/18/2024 Telephone [facility] [address] [place], [place] [phone] Shalom Bey MD [address] [facility] [address] [place] [phone] Appointment Request Social History Tobacco Use Types [...] R/s appt from 10/18/24. Contact pt at [phone] documented in this encounter Plan of Treatment Not on file documented as of this encounter Visit Diagnoses Not on filedocumented in this encounter Additional Health Concerns Assessment Noted Time PHQ-9 Depression Total Score: 9 09/28/19 24 11:08 AM EDT documented as of this encounter Care Teams Tax Manager Cpa Relationship Specialty Start Date End Date Shalom Bey MD [address] [place] [address] PCP - General Internal Medicine 11/05/19 documented as of this encounter
--- OUTSIDE RECORDS SUMMARY | 2025-03-09 01:20 | XMS_ITS | Encounter Summary ---
Author Organization [employer] Address [address] [facility] 7t [place] [address] Care Team Providers Care Assemblyman Or Woman Name Role Phone Shalom Bey MD Primary Care Prov ider Ruth Ellis RN Unavailable [phone] Reason for Visit * Reason Comments Med Refill Encounter Details Date Type Department Care Team (Late st Contact Info) Description 09/23/2023 Refill [facility] [address] [place] [address] Shalom Bey MD [address] [facility] [place] [phone] Primary insomnia Social History Tobacco Use Types [...] documented as of this encounter Care Teams Assemblyman Or Woman Relationship Specialty Start Date End Date Shalom Bey MD 505 [place] [address] PCP - General Internal Medicine 11/05/19 Ruth Ellis RN 505 [place] [address] Machine Shop InspectorCompression Molding Machine Tender Medicine 12/06/23 12/19/23 documented as of this encounter
--- OUTSIDE RECORDS SUMMARY | 2025-03-09 01:20 | XMS_ITS | Encounter Summary ---
Author Organization [employer] Address [address] [facility] [address] [place] [address] Care Team Providers Care Stripe Marker Name Role Phone Shalom Bey MD Primary Care Prov ider Ruth Ellis RN Unavailable [phone] Encounter Details Date Type Department Care Team (Late st Contact Info) Description 10/14/2023 Orders Only [facility] [address] [place], [place] [phone] ProviderRuchi MD Social History Tobacco Use Types [...] documented as of this encounter Care Teams Stripe Marker Relationship Specialty Start Date End Date Shalom Bey MD 505 [place] [address] PCP - General Internal Medicine 11/05/19 Ruth Ellis RN 505 [place] [address] Dimensional EngineerStress Analyst Medicine 12/06/23 12/19/23 documented as of this encounter
--- OUTSIDE RECORDS SUMMARY | 2025-03-09 01:20 | XMS_ITS | Encounter Summary ---
Author Organization [employer] Address [address] [facility] 7t [place] [address] Care Team Providers Care Egg Caser Name Role Phone Shalom Bey MD Primary Care Prov ider Ruth Ellis RN Unavailable [phone] Encounter Details Date Type Department Care Team ([facility] st Contact Info) Description 06/29/2023 Orders Only [facility] MED & PEDS [address] [place] [address] Shalom Bey MD [address] [place] [address] Social History Tobacco Use Types Packs/Day Years [...] documented as of this encounter Care Teams Egg Caser Relationship Specialty Start Date End Date Shalom Bey MD 505 [place] [address] PCP - General Internal Medicine 11/05/19 Ruth lElis RN 505 [place] [address] Electrician Supervisor SubstationTester Printed Circuit Boards Medicine 12/06/23 12/19/23 documented as of this encounter
--- OUTSIDE RECORDS SUMMARY | 2025-03-09 01:20 | XMS_ITS | Encounter Summary ---
Author Organization [employer] Address [address] [facility] 7t [place] [address] Care Team Providers Care Egg Producer Name Role Phone Shalom Bey MD Primary Care Prov ider Ruth Ellis RN Unavailable [phone] Reason for Visit * Reason Onset Date Comments PT1 06/16/2023 Encounter Details Date Type Department Care Team (Late st Contact Info) Description 06/16/2023 Telephone [facility] [address] [place] [address] Shalom Bey MD [address] [facility] [place] [address] PT1 Social History Tobacco Use Types Packs/Day [...] Date: 06/28/2022-07/27/2022 Time: 10:30 am Visits: Address: [address] [place] [address] Facility: [facility] Radiology Wheel Chair: Yes Guest Relations Coordinator Needed: Yes documented in this encounter Plan of Treatment Not on file documented as of this encounter Visit Diagnoses Not on filedocumented in this encounter Additional Health Concerns Assessment Noted Time PHQ-9 Depression Total Score: 14 023 10:41 AM EDT documented as of this encounter Care Teams Egg Producer Relationship Specialty Start Date End Date Shalom Bey MD [address] [place] [address] PCP - General Internal Medicine 11/05/19 Rtuh Ellis RN [address] [place] [address] Salvage WorkerShock Absorber Installer Medicine 12/06/23 12/19/23 documented as of this encounter
--- OUTSIDE RECORDS SUMMARY | 2025-03-09 01:20 | XMS_ITS | Encounter Summary ---
Author Organization [employer] Address [address] [facility] [address] 7[address] [place] [address] Care Team Providers Care Manager Gyn Name Role Phone Shalom Bey MD Primary Care Prov ider Reason for Visit * Reason Comments Med Refill Encounter Details Date Type Department Care Team (Late st Contact Info) Description 07/23/2024 Refill [facility] MED & PEDS [address] [place] [phone] Amarilis Vera, ANP [address] [place] [address] Primary insomnia Social History Tobacco Use Types [...] as of this encounter Care Teams Manager Gyn Relationship Specialty Start Date End Date Shalom Bey MD [address] [place] [address] PCP - General Internal Medicine 11/05/19 documented as of this encounter
--- OUTSIDE RECORDS SUMMARY | 2025-03-09 01:20 | XMS_ITS | Encounter Summary ---
Author Organization [employer] Address [address] [facility] 7t [place] [address] Care Team Providers Care Formula Technician Name Role Phone Shalom Bey MD Primary Care Prov ider Ruth Ellis RN Unavailable [phone] Reason for Visit * Reason Comments Med Refill Encounter Details Date Type Department Care Team ([facility] st Contact Info) Description 10/13/2023 Refill [facility] CH[facility] MED & PEDS 505 [facility] [place] [address] Shalom Bey MD [address] [place] [address] Primary insomnia; Type 2 diabetes mellitus without complication, without long-term current use of insulin ([facility]) Social History Tobacco Use Types Packs/Day Years [...] complication, without long-term current use of insulin ([facility]) documented in this encounter Additional Health Concerns Assessment Noted Time PHQ-9 Depression Total Score: 9 09/28/19 24 11:08 AM EDT documented as of this encounter Care Teams Formula Technician Relationship Specialty Start Date End Date Shalom Bey MD [address] [place] [address] PCP - General Internal Medicine 11/05/19 Ruth Ellis RN [address] [place] [address] Sheet WriterCloth Hand Medicine 12/06/23 12/19/23 documented as of this encounter
--- OUTSIDE RECORDS SUMMARY | 2025-03-09 01:20 | XMS_ITS | Encounter Summary ---
Author Organization [employer] Address [address] [place] [address] 7 [place] [address] Care Team Providers Care Delivery Crew Member Name Role Phone Shalom Bey MD Primary Care Prov ider Ruth Ellis RN Unavailable Encounter Details Date Type Department Care Team ([facility] st Contact Info) Description 11/24/2022 Abstract [facility] MED & PEDS [address] [place] [address] Shalom Bey MD [address] [place] [address] Social History Tobacco Use Types Packs/Day Years [...] on filedocumented in this encounter Care Teams Delivery Crew Member Relationship Specialty Start Date End Date Shalom Bey MD [address] [place] [address] PCP - General Internal Medicine 11/05/19 Ruth Ellis RN 505 [place] [address] Terminal Gauger SupervisorField Crop Harvest Worker Medicine 12/06/23 12/19/23 documented as of this encounter
--- OUTSIDE RECORDS SUMMARY | 2025-03-09 01:20 | XMS_ITS | Clinical Summary ---
Author Organization [employer] Address [address] [facility] 7t [place] [address] Care Team Providers Care Sewing Machine Operator Paper Bags Name Role Phone Shalom Bey MD Primary [...] 23 Active ergocalciferol (Vitamin D2) 1.25 MG (78472 UT) capsuleIndication s:Vitamin D deficiency TAKE ONE [...] complication, without long-term current use of insulin ([facility]) To test the blood sugar once a day 100 each 12 05/30/20 24 025 Active metFORMIN XR (Glucophage-XR) 500 MG 24 hr tabletIndications :Type 2 diabetes mellitus without complication, without long-term current use of insulin ([facility]) TAKE ONE TABLET TWICE DAILY 180 tablet 3 07/13/19 25 Active Januvia 100 MG tablet TAKE ONE TABLET DAILY 90 tablet 1 12/07/19 25 Active albuterol (2.5 MG/3ML) 0.083% nebulizer solutionIndicatio ns:Chronic obstructive pulmonary disease, unspecified ([facility]) USE 1 VIAL IN NEBULIZER 3 TIMES [...] 6.0%, no changes will be made, following tire building supervisor, will follow up in 3 months in office Patient refers her eye exam is scheduled in the coming months Encounters Date Type Department Care Team Description 03/01/2025 Refill [facility] MED & PEDS [address] [place] [address] Shalom Bey MD 02/13/2025 Refill [facility] MED & PEDS [address] [place] [address] Shalom Bey MD Primary insomnia 02/10/2025 Orders Only [facility] External Provider, [facility] 01/19/2025 Refill [facility] MED & PEDS [address] [place] [address] Martha Davison MD Primary insomnia 01/15/2025 Refill [facility] MED & PEDS [address] [place] [address] Shalom Bey MD Chronic obstructive pulmonary disease, unspecified ([facility]/HCC) 01/02/2025 11:30 AM EDT Office Visit [facility] MED & PEDS [address] [place] [address] Shalom Bey MD Mixed hyperlipidemia (Primary Dx); Type 2 diabetes mellitus without complication, without long-term current use of insulin ([facility]); Multiple joint pain 01/02/2025 Travel 12/25/2024 Patient Outreach [facility] MEDICINE [address] [place] [address] Shalom Bey MD Pre-visit Planning ([facility] screening unable to complete. ) 12/25/2024 Refill [facility] MED & PEDS [address] [place] [address] Shalom Bey MD Primary insomnia 12/21/2024 Refill [facility] MED & PEDS [address] [place] [address] Shalom Bey MD Primary insomnia from Last 3 Months Family History Medical [...] 08/25/2022, 030 06/2022, 05/27/2022, Additional history exists Mammogram 10/23/2023 [...] complication, without long-term current use of insulin ([facility]) POCT GLUCOSE Routine 01/02/2025 11:10 AM EDT Type 2 diabetes mellitus without complication, without long-term current use of insulin ([facility]) HM MAMMOGRAPHY Routine 10/22/2022 9:22 AM EDT [...] AM EDT Narrative 02/10/2025 3:26 AM EDT [place] [address] [address] Scan Report Signed Patient: Marnie Arce I MR#: [id number] : 1960 Acct:[id number] Age/Sex: 64 / F ADM Date: 02/10/25 Loc: .ED Attending Dr: Ordering Physician: Katharina Bhatia MD Date of Service: 02/10/25 Procedure(s): CT facial bones wo IV con Accession Number(s): [id number] cc: Shalom eBy MD; Katharina Bhatia MD Report Number: [id number]: Total DLP = 283.00 mGy-cm CLINICAL HISTORY: [...] in OV> 02/10/25325 DD/ 4 TD/TT: 02/10/25324 Software Analyst: Procedure Note Donotuseinterpreter, Image - 02/10/[address] [address] [address] Scan Report Signed Patient: Marnie Arce IMR#: [id number] : 1Acct:[id number] Age/Sex: 64 / FADM Date: 02/10/25 Loc: HO.ED Attending Dr: Ordering Physician: Katharina Bhatia MD Date of Service: 02/10/25 Procedure(s): CT facial bones wo IV con Accession Number(s): [id number] cc: Shalom Bey MD; Katharina Bhatia MD Report Number: [id number]: Total DLP = 283.00 mGy-cm CLINICAL HISTORY: [...] in OV> 02/10/25325 DD/ 4 TD/TT: 02/10/25324 Software Analyst: [facility] External Provider IMG CT PROCEDURES Edited Result - Final * CT Cervical Spine w/o Contrast (02/10/2025 3:12 AM EDT) Anatomical Region Laterality Modality Spine, C-spine Computed Tomogra phy 02/10/2025 3:12 AM EDT Narrative 02/10/2025 3:14 AM EDT [place] [address] CT Scan Report Signed Patient: Marnie Arce I MR#: [id number] : 1960 Acct:[id number] Age/Sex: 64 / F ADM Date: 02/10/25 Loc: HO.ED Attending Dr: Ordering Physician: Katharina Bhatia MD Date of Service: 02/10/25 Procedure(s): CT cervical spine wo IV con Accession Number(s): [id number] cc: Shalom Bey MD; Katharina Bhatia MD Report Number: [id number]: Total DLP = 289.00 mGy-cm CLINICAL HISTORY: [...] Carney MD Signed By: <Electronically signed by Jeevna Carney MD in OV> 02/10/25312 DD/ 1 TD/TT: 02/10/25311 Software Analyst: Procedure Note Donotuseinterpreter, Image - 02/10/[address] [address] [address] Scan Report Signed Patient: Marnie Arce [facility]#: [id number] : 1Acct:[id number] Age/Sex: 64 / FADM Date: 02/10/25 Loc: HO.ED Attending Dr: Ordering Physician: Katharina Bhatia MD Date of Service: 02/10/25 Procedure(s): CT cervical spine wo IV con Accession Number(s): [id number] cc: Shalom Bey MD; Katharina Bhatia MD Report Number: [id number]: Total DLP = 289.00 mGy-cm CLINICAL HISTORY: [...] in OV> 02/10/25312 DD/ 1 TD/TT: 02/10/25311 Software Analyst: [facility] External Provider IMG CT PROCEDURES Edited Result - Final * CT Head w/o Contrast (02/10/2025 1:47 AM EDT) Anatomical Region Laterality Modality Head, Neck Computed Tomogra phy 02/10/2025 1:47 AM EDT Narrative 02/10/2025 1:48 AM EDT [address] [address] [address] Scan Report Signed Patient: Marnie Arce I MR#: [id number] : 1960 Acct:[id number] Age/Sex: 64 / F ADM Date: 02/10/25 Loc: HO.ED Attending Dr: Ordering Physician: Katharina Bhatia MD Date of Service: 02/10/25 Procedure(s): CT head/brain wo IV con Accession Number(s): [id number] cc: Shalom Bey MD; Katharina Bhatia MD Report Number: [id number]: Total DLP = 621.00 mGy-cm CLINICAL HISTORY: [...] signed by Feliciano Mcrae MD in OV> 02/10/25 014 DD/ 6 TD/TT: 02/10/25146 Software Analyst: Procedure Note Donotuseinterpreter, Image - 02/10/[address] [address] [address] Scan Report Signed Patient: Marnie Arce IMR#: [id number] : 1960cct:[id number] Age/Sex: 64 / FADM Date: 02/10/25 Loc: HO.ED Attending Dr: Ordering Physician: Katharina Bhatia MD Date of Service: 02/10/25 Procedure(s): CT head/brain wo IV con Accession Number(s): [id number] cc: Shalom Bey MD; Katharina Bhatia MD Report Number: [id number]: Total DLP = 621.00 mGy-cm CLINICAL HISTORY: [...] in OV> 02/10/25147 DD/ 6 TD/TT: 02/10/25146 Software Analyst: [facility] External Provider IMG CT PROCEDURES Edited Result - Final * (ABNORMAL) Comprehensive Metabolic Panel, Fasting (02/10/2025 1:25 AM EDT) Sodium 142 135 - 145 mmol/L [facility] Potassium 4.3 3.3 - 5.1 mmol/L [facility] Comment:Slight Hemolysis.Int erpret result with caution. Chloride 109(H) 96 - 108 mmol/L [facility] Carbon Dioxide 23 22 - 29 mmol/L [facility] Anion Gap 14 12 - 20 [facility] Urea Nitrogen (BUN) 12 9 - 16 mg/dL [facility] Creatinine, Serum 0.61 0.5 - 1.4 mg/dL [facility] Creatinine Clr Calc Pharmacy 87.5 [facility] Comment:Provided height and weight: 162.56 cm,66.678 kg.eGFR (calculated from the MDRD study equation) and eCrCl(calculated from the Cockcroft-Gault equation) are based ondifferent parameters and may not yield comparable results.If eCrCl result is absurd, please check patient'sheight/weight. Estimated Glomerular Filt Rate >60 [facility] Comment:Chronic Kidney Disea se: Estimated GFR < 60 mL/min/1.10z1Rttgke Kidney Disease: Estimated GFR < 15 mL/min/1.73m2 Glucose Fasting 154(H) 60 - 99 mg/dL [facility] Comment:A fasting glucose of 126 mg/dl or greater on more than oneoccasion is considered diagnostic of diabetes. Calcium 9.4 8.4 - 10.2 mg/dL [facility] Bilirubin, Total 0.4 0.0 - 1.0 mg/dL [facility] Aspartate Amino Transferase 24 5 - 31 U/L [facility] Comment:Slight Hemolysis.Int erpret result with caution. Alanine Aminotransferase 16 0 - 31 U/L [facility] Total Protein 7.0 6.5 - 8.0 g/dL [facility] Albumin Level 4.4 3.5 - 5.0 g/dL [facility] Alkaline Phosphatase 77 39 - 117 U/L [facility] 02/10/2025 1:25 AM EDT 02/10/2025 1:26 AM EDT us Generic External Data Provider LAB BLOOD ORDERAB LES Final Result [facility] [address] [place] [address] [phone] * (ABNORMAL) CBC auto differential (02/10/2025 1:25 AM EDT) White Blood Count 10.1 4.8 - 10.8 X10*3/uL [facility] Red Blood Count 4.43 4.20 - 5.50 X10*6/uL [facility] Hemoglobin 12.4 12.0 - 16.0 g/dl [facility] Hematocrit 36.0(L) 37.0 - 47.0 % [facility] Mean Corpuscular Volume 81.3 80.0 - 98.0 fL [facility] Mean Corpuscular Hemoglobin 28.0 27.0 - 33.0 pg [facility] Mean Corpuscular HGB Conc 34.4 31.0 - 35.0 g/dl [facility] Red Cell Distribution Width 13.2 11.0 - 16.0 % [facility] Platelet Count 154(L) 160 - 400 X10*3/uL [facility] Mean Platelet Volume 10.2 9.4 - 12.3 fL [facility] Neutrophils Percent Auto 79.8(H) 45 - 73 % [facility] Imm Gran Pct Auto 0.4 0.0 - 0.4 % [facility] Lymphocytes Percent Auto 12.5(L) 20 - 40 % [facility] Monocytes Percent Auto 6.0 2 - 11 % [facility] Eosinophils Percent Auto 0.9 0 - 4 % [facility] Basophils Percent Auto 0.4 0 - 2 % [facility] NRBC Pct Auto 0.0 0.0 - 0.2 /100WBC [facility] Neutrophils Absolute Auto 8.1 2.0 - 8.3 x10*3/uL [facility] Imm Gran Abs Auto 0.04(H) 0.00 - 0.03 X10*3/uL [facility] Lymphocytes Absolute Auto 1.3 1.2 - 4.9 X10*3/uL [facility] Monocytes Absolute Auto 0.6 0.1 - 1.2 X10*3/uL [facility] Eosinophils Absolute Auto 0.1 0.0 - 0.4 X10*3/uL [facility] Basophils Absolute Auto 0.0 0.0 - 0.2 X10*3/uL [facility] NRBC Abs Auto 0.000 0.0 - 0.012 X10*3/uL [facility] 02/10/2025 1:25 AM EDT 02/10/2025 1:26 AM EDT us Generic External Data Provider LAB BLOOD ORDERAB LES Final Result [facility] [address] [place] [address] [phone] * (ABNORMAL) POCT A1C (01/02/2025 11:11 AM EDT) Hemoglobin A1C 6.3(A) 4.0 - 5.7 % QC Media Lot # Comment:[id number] Lot# Expiration Date Comment:06/28/2026 Blood 01/02/2025 11:1 1 AM EDT Shalom Chris MD POINT OF CARE TEST ENTER/EDIT ORDERABLES Final Result * (ABNORMAL) POCT glucose manually resulted (01/02/2025 11:10 AM EDT) Glucose Blood, POC 245(A) 60 - 200 mg/dL QC Media Lot # Comment:[id number] Lot# Expiration Date Comment:04/25/2025 Blood Capillary blood specimen / Unknown 01/02/2025 11:10 AM EDT Shalom Chris MD POINT OF CARE TEST ENTER/EDIT ORDERABLES Final Result * (ABNORMAL) Hm Mammography (10/22/2022 9:22 AM EDT) HM Mammogram Birads-0 Anatomical Region Laterality Modality Other Narrative 10/22/2022 9:22 AM EDT Recommended MRI Ruchi Provider HEALTH MAINTENANCE Final Result * Lipid Panel, Standard (08/25/2022 1:32 PM EST) Triglycerides 172 mg/dL [facility] Comment:Desirable Triglyceri de: less than 150 mg/dLBorderline High Triglyceride 150-199 mg/dLHigh Triglyceride: 200-499 mg/dLVery High Triglyceride: greater than or equal to 5OO mg/dL Cholesterol 139 mg/dL [facility] Comment:Desirable Cholestero l: less than 200 mg/dLBorderline High Cholesterol: 200-239 mg/dLHigh Cholesterol: greater than 239 mg/dL LDL Cholesterol Calculated 67 mg/dl [facility] Comment:Desirable LDL: less than 100 mg/dLNear Optimal/Above Optimal LDL: 110- 129 mg/dLBorderline High LDL: 130-159 mg/dLHigh LDL: 160-189 mg/dLVery High LDL: greater than or equal to 190 mg/dL HDL Cholesterol 38 mg/dL [facility] Comment:Desirable HDL: great er than 40 mg/dL Note: This HDL assay may give artificially low results in patients with liver disease. 08/25/2022 1:32 PM EST 08/25/2022 1:32 PM EST [facility] External Provider LAB BLO OD ORDERABLES Final Result Performing Organization Address City/[facility] Co de Phone Number [facility] [address] [place] [phone] * Albumin, Random Urine W/Creatinine (08/25/2022 1:30 PM EST) Creatinine, Urine 55.85 mg/dL [facility] Microalbumin Urine 7.0 mg/L [facility] Microalbum Creatinine Ratio Ur 12.5 ug/mg cr [facility] Comment:Albumin/Creatinine R atio Reference Ranges: Normal: < 30 ug/mg creatinine Microalbuminuria: 30 - 300 ug/mg creatinineClinical Albuminuria: > 300 ug/mg creatinine 08/25/2022 1:30 PM EST 08/25/2022 2:17 PM EST [facility] External Provider LAB URI NE ORDERABLES Final Result Performing Organization Address [facility]/ZIP Co de Phone Number [facility] [address] [place] [phone] * HIV 1/2 ANTIGEN/ANTIBODY,FOURTH GENERATION W/RFL [...] purpose. For additional information please refer to http://education.[employer]/faq/LHF300 (This link is being provided for informational/ educational purposes only.) The performance of this assay has not been clinically validated in patients less than 2 years old. 04/16/2022 9:21 AM EDT Shalom Chris MD LAB BLOOD ORDERABL ES Final Result [facility] * THINPREP TIS PAP AND HPV mRNA E6/E7 REFLEX HPV 16,18/45 (04/28/2021 11:30 AM EDT) Pathologist [facility] Clinical Information: DEE DEE [facility] COMMENT SEE COMMENT [facility] ON [...] has been evaluated with computer assisted technology. [facility] Account Executive: SEE COMMENT [facility] Comment: WAC, CT(ASCP) CT screening location: [address] [address] HPV nRNA E6/E7 Not Detected Not Detected [facility] Comment: Methodology: Gem Carver-Mediated Amplification This assay detects E6/E7 viral messenger RNA (mRNA) from 14 high-risk HPV types (16,18,31,33,35,39,45,51,52,56,58,59,66,68). The analytical performance characteristics of this assay have been determined by [facility]. The modifications have not been cleared or approved by the FDA. This assay has been validated pursuant to the CLIA regulations and is used for clinical purposes. For additional information, please refer to http://education.[employer]/faq/UPZ013r6 (This link if provided for information/ educational [...] Kayla RENE LAB PATHOLOGY ORDERABLES Final Result Performing Organization Address City/[facility] Co de Phone Number [facility] [address] * Pap Smear (04/28/2021 12:00 AM EDT) Swab Kayla RENE LAB CYTOLOGY ORDERABLES F inal Result Performing Organization Address City/[facility]/ZIP Co de Phone Number [facility] [address], [place] [address] * Colonoscopy (09/10/2020 1:08 PM EDT) Historical Provider MD HEALTH MAINTENANCE Final Result from Last 3 Months or Most Recently Relevant to Health Maintenance Insurance [place] [id number] [facility] Care Teams Sewing Machine Operator Paper Bags Relationship Specialty Start Date End Date Shalom Bey MD [address] [place] [address] AMARIS Velasquez PCP - General Internal Medicine 11/05/19
--- OUTSIDE RECORDS SUMMARY | 2025-03-09 01:20 | XMS_ITS | Encounter Summary ---
Author Organization [employer] Address [address] [facility] 7t [place] [address] Care Team Providers Care Dog Behaviorist Name Role Phone Shalom Bey MD Primary Care Prov ider Reason for Visit * Reason Comments Med Refill Encounter Details Date Type Department Care Team ([facility] st Contact Info) Description 10/23/2024 Refill [facility] [address] [place] [address] Shalom Bey MD [address] [place] [address] Primary insomnia Social History Tobacco Use Types [...] documented as of this encounter Care Teams Dog Behaviorist Relationship Specialty Start Date End Date Shalom Bey MD [address] [place] [phone] PCP - General Internal Medicine 11/05/19 documented as of this encounter
--- OUTSIDE RECORDS SUMMARY | 2025-03-09 01:20 | XMS_ITS | Encounter Summary ---
Author Organization [employer] Address 75 [facility] 7t [place] [address] Care Team Providers Care Lining Cementer Name Role Phone Shalom Bey MD Primary Care Prov ider Ruth Ellis RN Unavailable [phone] Reason for Visit * Reason Comments Med Refill Encounter Details Date Type Department Care Team (Late st Contact Info) Description 09/15/2023 Refill [facility] [address] [place] [address] Shalom Bey MD [address] [facility] [place] [phone] Primary insomnia Social History Tobacco Use Types [...] documented as of this encounter Care Teams Lining Cementer Relationship Specialty Start Date End Date Shalom Bey MD [address] [place] [address] PCP - General Internal Medicine 11/05/19 Ruth Ellis RN [address] [place] [address] [place] Cutter OperatorAssembler Tractor Medicine 12/06/23 12/19/23 documented as of this encounter
--- OUTSIDE RECORDS SUMMARY | 2025-03-09 01:20 | XMS_ITS | Encounter Summary ---
Author Organization [employer] Address [address] [facility] 7t [place] [address] Care Team Providers Care Automotive Service Management Teacher Name Role Phone Shalom Bey MD Primary Care Prov ider Encounter Details Date Type Department Care Team ([facility] st Contact Info) Description 08/27/2024 Orders Only [facility] MED [facility]S [address] [place], [place] [phone] Shalom Bey MD [address] [place], [place] [phone] Social History Tobacco Use Types Packs/Day Years [...] Whole Blood 120(H) 60 - 115 mg/dL [facility] Comment:METER #: [id number] Testing performed in the Endocrinology Department [address] , [address], [facility]. 08/27/2024 1:47 PM EST 08/27/2024 1:53 PM EST us Generic External Data Provider LAB BLOOD ORDERAB LES Final Result [facility] [address] [place] [address] [phone] documented in this encounter Visit Diagnoses Not on filedocumented in this encounter Additional Health Concerns Assessment Noted Time PHQ-9 Depression Total Score: 9 09/28/19 24 11:08 AM EDT documented as of this encounter Care Teams Automotive Service Management Teacher Relationship Specialty Start Date End Date Shalom eBy MD [address] [place] [phone] PCP - General Internal Medicine 11/05/19 documented as of this encounter
--- OUTSIDE RECORDS SUMMARY | 2025-03-09 01:20 | XMS_ITS | Encounter Summary ---
Author Organization [employer] Address [address] [facility] 7t [place] [address] Care Team Providers Care Therapist Speech Name Role Phone Shalom Bey MD Primary Care Prov ider Encounter Details Date Type Department Care Team ([facility] st Contact Info) Description 05/23/2024 Orders Only [facility]EDS [address] [place], [place] [phone] Leila Mustafa MD [address] [place] [address] Type 2 diabetes mellitus without complication, without long-term current use of insulin ([facility]) Social History Tobacco Use Types Packs/Day Years [...] complication, without long-term current use of insulin ([facility]) documented in this encounter Additional Health Concerns Assessment Noted Time PHQ-9 Depression Total Score: 9 09/28/19 24 11:08 AM EDT documented as of this encounter Care Teams Therapist Speech Relationship Specialty Start Date End Date Shalom Bey MD [address] [place] [phone] PCP - General Internal Medicine 11/05/19 documented as of this encounter
[2025-03-09 02:32] VITALS: BP 131/69; PULSE 63; RESP 18; TEMP 36.7; O2SAT 97
[2025-03-09 02:33] VITALS: BP 131/69; PULSE 63; RESP 18; TEMP 36.7; O2SAT 97
== END 2025-03-09 02:34 | disposition home or self-care (01) ==
PROVIDERS: Emergency Provider Emergency Medicine; PCP Internal Medicine
DX: S61.212A Laceration without foreign body of right middle finger without damage to nail, initial encounter (principal); W23.0XXA Caught, crushed, jammed, or pinched between moving objects, initial encounter; Y93.89 Activity, other specified; Y92.89 Other specified places as the place of occurrence of the external cause; Y99.9 Unspecified external cause status
CPT/HCPCS: 12002; 73140; 99284; J2003

== ENCOUNTER → 2025-03-09 01:03 | Outpatient (BNV) | payer MEDICARE, MEDICAID, SELFPAY | PROVIDERS: Emergency Provider Emergency Medicine; PCP Internal Medicine; Visit Provider Radiology Diagnostic Radiology | DX: S60.031A Contusion of right middle finger without damage to nail, initial encounter (principal) | CPT/HCPCS: 73140 ==

== ENCOUNTER 2025-04-23 09:09 | Outpatient (REF) | payer MEDICARE, MEDICAID, SELFPAY ==
[2025-04-23 10:01] LABS: Albumin Level 4.7 g/dL (3.5-5.0)
[2025-04-23 10:03] LABS: Microalbum/Creatinine Ratio Ur 6.8 ug/mg cr (<30)
[2025-04-23 10:08] LABS: Alanine Aminotransferase 13 U/L (0-31); Albumin Level 4.7 g/dL (3.5-5.0); Alkaline Phosphatase 79 U/L (39-117); Anion Gap 12 (12-20); Aspartate Amino Transferase 17 U/L (5-31); Blood Urea Nitrogen 8 mg/dL (9-16); Calcium 9.8 mg/dL (8.4-10.2); Carbon Dioxide 29 mmol/L (22-29); Chloride 109 mmol/L (96-108); Estimated Glomerular Filt Rate > 60; NT Pro B Type Natriuretic Pept 31.1 pg/mL (<300); Potassium 4.3 mmol/L (3.3-5.1); Sodium 146 mmol/L (135-145); Total Protein 7.4 g/dL (6.5-8.0)
--- OUTSIDE RECORDS SUMMARY | 2025-04-23 10:17 | XMS_ITS | Encounter Summary ---
Author Organization [employer] Address 75 [facility] 7t [place] [address] Care Team Providers Care Fiberglass Quality Technician Name Role Phone Shalom Bey MD Primary Care Prov ider Ruth Ellis RN Unavailable Unavailable Reason for Visit * Reason Comments Med Refill Encounter Details Date Type Department Care Team (Late st Contact Info) Description 09/15/2023 Refill [facility] [address] [place] [address] Shalom Bey MD [address] [facility] [place], [place] [phone] Primary insomnia Social History Tobacco Use Types [...] documented as of this encounter Care Teams Fiberglass Quality Technician Relationship Specialty Start Date End Date MgShalom Mendez MD [address] [place] [address] PCP - General Internal Medicine 11/05/19 Ruth Ellis RN [address] [place] [address] Floor MolderRespite Coordinator Medicine 12/06/23 12/19/23 documented as of this encounter
--- OUTSIDE RECORDS SUMMARY | 2025-04-23 10:17 | XMS_ITS | Encounter Summary ---
Author Organization [employer] Address [address] [facility] 7t [place] [address] Care Team Providers Care Electronic Publishing Specialist Name Role Phone Shalom Bey MD Primary Care Prov ider Ruth Ellis RN Unavailable Unavailable Reason for Visit * Reason Comments Med Refill Encounter Details Date Type Department Care Team (Late st Contact Info) Description 09/23/2023 Refill [facility] [address] [place] [address] Shalom Bey MD [address] [facility] [address] [place], [place] [phone] Primary insomnia Social History Tobacco Use Types [...] documented as of this encounter Care Teams Electronic Publishing Specialist Relationship Specialty Start Date End Date MgShalom Mendez MD [address] [place] [address] PCP - General Internal Medicine 11/05/19 Ruth Ellis RN [address] [place] [address] Mortgage Branch ManagerSupervisor Paper Coating Medicine 12/06/23 12/19/23 documented as of this encounter
--- OUTSIDE RECORDS SUMMARY | 2025-04-23 10:17 | XMS_ITS | Encounter Summary ---
Author Organization [employer] Address [address] [facility] 7 [place] [address] Care Team Providers Care Senior Librarian Name Role Phone Shalom Bey MD Primary Care Prov ider Ruth Ellis RN Unavailable Unavailable Reason for Visit * Reason Onset Date Comments pt1 07/02/2022 Encounter Details Date Type Department Care Team (Late st Contact Info) Description 07/02/2022 Telephone [facility] MEDICINE [address] [place] [address] Shalom Bey MD 505 [facility] [place] [phone] pt1 Social History Tobacco Use Types Packs/Day [...] EST Tc from pt requesting PT1 Location: [address] [address] Specialty: n/a Time: 10 am Date: 07/08/22 Chief Mechanical Engineer: yes wheelchair accessible : n/a Location: [address] [address] Specialty: n/a Time: 10 am Date: 07/09/22 Chief Mechanical Engineer: yes wheelchair accessible : n/a documented in this encounter Plan of Treatment Not on file documented as of this encounter Visit Diagnoses Not on filedocumented in this encounter Care Teams Senior Librarian Relationship Specialty Start Date End Date Shalom Bey MD [address] [place] [address] PCP - General Internal Medicine 11/05/19 Ruth Ellis RN [address] [place] [address] Blacksmith AssistantTailor Garment Fitter Medicine 12/06/23 12/19/23 documented as of this encounter
--- OUTSIDE RECORDS SUMMARY | 2025-04-23 10:17 | XMS_ITS | Encounter Summary ---
Author Organization [employer] Address 75 [facility] 7t [place] [address] Care Team Providers Care Program Arranger Name Role Phone Shalom Bey MD Primary Care Prov ider Reason for Visit * Reason Comments Med Refill Encounter Details Date Type Department Care Team ([facility] st Contact Info) Description 10/23/2024 Refill [facility] CH[facility] MED & PEDS [address] [place] [address] Shalom Bey MD [address] [place] [address] Primary insomnia Social History Tobacco Use Types [...] documented as of this encounter Care Teams Program Arranger Relationship Specialty Start Date End Date Shalom Bey MD [address] [place] [id number] PCP - General Internal Medicine 11/05/19 documented as of this encounter
--- OUTSIDE RECORDS SUMMARY | 2025-04-23 10:17 | XMS_ITS | Encounter Summary ---
Author Organization [employer] Address [address] [facility] [address] 7[address] [place] [address] Care Team Providers Care Flower Shop Manager Name Role Phone Shalom Bey MD Primary Care Prov ider Ruth Ellis RN Unavailable Unavailable Encounter Details Date Type Department Care Team (Late st Contact Info) Description 10/14/2023 Orders Only [facility] MEDICINE [address] [place] [address] ProviderRuchi MD Social History Tobacco Use Types [...] * Hm Colonoscopy (03/13/2013 1:11 PM EDT) Historical Provider HEALTH MAINTENANCE Final Result documented in this encounter Visit Diagnoses Not on filedocumented in this encounter Additional Health Concerns Assessment Noted Time PHQ-9 Depression Total Score: 9 09/28/19 24 11:08 AM EDT documented as of this encounter Care Teams Flower Shop Manager Relationship Specialty Start Date End Date Shalom Bey MD [address] [place] [address] PCP - General Internal Medicine 11/05/19 Ruth Ellis RN 505 [facility] [place] [address] Wire InsulatorContract Technical Writer Medicine 12/06/23 12/19/23 documented as of this encounter
--- OUTSIDE RECORDS SUMMARY | 2025-04-23 10:17 | XMS_ITS | Encounter Summary ---
Author Organization [employer] Address [address] [facility] 7 [place] [address] Care Team Providers Care Organic Preparation Analyst Name Role Phone Shalom Bey MD Primary Care Prov ider Ruth Ellis RN Unavailable Unavailable Reason for Visit * Reason Comments Med Refill Encounter Details Date Type Department Care Team ([facility] st Contact Info) Description 10/13/2023 Refill [facility] CHC MED & PEDS [address] [place], [place] [phone] Shalom Bey MD [address] [place] [address] Primary insomnia; Type 2 diabetes mellitus without complication, without long-term current use of insulin ([facility]) Social History Tobacco Use Types Packs/Day Years [...] complication, without long-term current use of insulin (HCC) documented in this encounter Additional Health Concerns Assessment Noted Time PHQ-9 Depression Total Score: 9 09/28/19 24 11:08 AM EDT documented as of this encounter Care Teams Organic Preparation Analyst Relationship Specialty Start Date End Date Shalom Bey MD [address] [place] [address] PCP - General Internal Medicine 11/05/19 Ruth Ellis RN [address] [place] [address] Insulation InspectorEngineering Research Manager Medicine 12/06/23 12/19/23 documented as of this encounter
--- OUTSIDE RECORDS SUMMARY | 2025-04-23 10:17 | XMS_ITS | Encounter Summary ---
Author Organization [employer] Address 75 [facility] 7t [place] [address] Care Team Providers Care Seed Cleaning Machine Operator Name Role Phone Shalom Bey MD Primary Care Prov ider Encounter Details Date Type Department Care Team ([facility] st Contact Info) Description 05/23/2024 Orders Only [facility] CHC MED & PEDS [address] [place], [place] [phone] Leila Mustafa MD [address] [place], [place] [phone] Type 2 diabetes mellitus without complication, without long-term current use of insulin ([facility]) Social History Tobacco Use Types Packs/Day [...] documented as of this encounter Care Teams Seed Cleaning Machine Operator Relationship Specialty Start Date End Date Shalom Bey MD [address] [place] [id number] PCP - General Internal Medicine 11/05/19 documented as of this encounter
--- OUTSIDE RECORDS SUMMARY | 2025-04-23 10:17 | XMS_ITS | Encounter Summary ---
Author Organization [employer] Address 75 [facility] 7t [place] [address] Care Team Providers Care Digital Manager Name Role Phone Shalom Bey MD Primary Care Prov ider Encounter Details Date Type Department Care Team ([facility] st Contact Info) Description 08/27/2024 Orders Only [facility] CHC MED & PEDS [address] [place], [place] [phone] Shalom Bey MD [address] [place], [place] [phone] Social History Tobacco Use Types Packs/Day Years [...] Whole Blood 120(H) 60 - 115 mg/dL [facility] Comment:METER #: [id number] Testing performed in the Endocrinology Department [address] , [address], [facility]. 08/27/2024 1:47 PM EST 08/27/2024 1:53 PM EST us Generic External Data Provider LAB BLOOD ORDERAB LES Final Result [facility] [address] [place] [address] [phone] documented in this encounter Visit Diagnoses Not on filedocumented in this encounter Additional Health Concerns Assessment Noted Time PHQ-9 Depression Total Score: 9 09/28/19 24 11:08 AM EDT documented as of this encounter Care Teams Digital Manager Relationship Specialty Start Date End Date Shalom Bey MD [address] [place] [id number] PCP - General Internal Medicine 11/05/19 documented as of this encounter
--- OUTSIDE RECORDS SUMMARY | 2025-04-23 10:17 | XMS_ITS | Encounter Summary ---
Author Organization [employer] Address [address] [facility] [address] 7[address] [place] [address] Care Team Providers Care Laborer Cutting Tool Name Role Phone Shalom Bey MD Primary Care Prov ider Reason for Visit * Reason Comments Med Refill Encounter Details Date Type Department Care Team (Late st Contact Info) Description 07/23/2024 Refill [facility] CHC MED & PEDS [address] [place] [phone] Amarilis Vera, ANP [address] [place] [address] Primary insomnia Social History Tobacco Use Types [...] documented as of this encounter Care Teams Laborer Cutting Tool Relationship Specialty Start Date End Date Shalom Bey MD [address] [place] [id number] PCP - General Internal Medicine 11/05/19 documented as of this encounter
--- OUTSIDE RECORDS SUMMARY | 2025-04-23 10:18 | XMS_ITS | Clinical Summary ---
Author Organization [employer] Address [address] [facility] [address] [place] [address] Care Team Providers Care Nursing Home Director Name Role Phone Shalom Bey MD Primary [...] 23 Active ergocalciferol (Vitamin D2) 1.25 MG (69260 UT) capsuleIndication s:Vitamin D deficiency TAKE ONE CAPSULE BY MOUTH ONCE A WEEK 4 capsule 2 03/22/20 23 Active anastrozole (Arimidex) 1 MG chemo tablet Take 1 mg by mouth in the morning. Swallow whole with a drink of water. Active Alcohol Swabs (Alcohol Prep) 70 % padsIndications:T ype 2 diabetes mellitus without complication, without long-term current use of insulin (HCC) USE THREE DAILY DIRECTED 100 each 11 04/19/20 24 Active atorvastatin (Lipitor) 20 MG tabletIndications :Mixed hyperlipidemia TAKE ONE TABLET DAILY 30 tablet 11 05/14/20 24 Active FreeStyle lancetsIndication s:Type 2 diabetes mellitus without complication, without long-term current use of insulin (HCC) 1 each by Other route Once daily. 100 each 12 05/30/20 24 12/04/2 025 Active FREESTYLE LITE test stripIndications: Type 2 diabetes mellitus without complication, without long-term current use of insulin ([facility]) To test the blood sugar once a day 100 each 12 05/30/20 24 025 Active metFORMIN XR (Glucophage-XR) 500 MG 24 hr tabletIndications :Type 2 diabetes mellitus without complication, without long-term current use of insulin ([facility]) TAKE ONE TABLET TWICE DAILY 180 tablet 3 07/13/19 25 Active Januvia 100 MG tablet TAKE ONE TABLET DAILY 90 tablet 1 12/07/19 25 Active albuterol (2.5 MG/3ML) 0.083% nebulizer solutionIndicatio ns:Chronic obstructive pulmonary disease, unspecified ([facility]) USE 1 VIAL IN NEBULIZER 3 TIMES DAILY 90 mL 3 01/17/20 25 Active mirtazapine (Remeron) 30 MG tablet TAKE ONE TABLET EVERY NIGHT AT BEDTIME FOR SLEEP 30 tablet 03/01/20 25 Active zolpidem (Ambien) 10 MG tabletIndications :Primary insomnia TAKE ONE TABLET EVERY NIGHT AT BEDTIME NEEDED 30 tablet 04/15/20 25 Active zolpidem (Ambien) 10 MG tabletIndications :Primary insomnia TAKE ONE TABLET EVERY NIGHT AT BEDTIME NEEDED 30 tablet 03/20/20 25 025 Discontinued Active Problems Problem Noted Date Diagnosed Date Benzodiazepine dependence ([facility]) 04/11/2025 Mixed simple and mucopurulent chronic bronchitis ([facility]) 04/11/2025 Assessment & Plan (04/11/2025 12:08 PM EDT): Followed by pulmonology, will follow up reccomendations Multiple joint pain 01/02/2025 Assessment & Plan [...] send refill, lifestyle modifications reviewed Breast cancer ([facility]/HCC) 04/13/2023 04/13/20 Assessment & Plan (04/11/2025 12:07 PM EDT): Followed by oncology, follow up reccomendations S/P bilateral breast lumpectomy 04/13/2023 Assessment & [...] psychiatrist. Mixed hyperlipidemia 07/15/2022 Assessment & Plan (04/11/2025 12:08 PM EDT): On statin therapy, pending blood work, will continue current treatment Assessment & Plan (01/02/2025 12:28 PM EDT): [...] use of insulin 07/15/2022 Assessment & Plan (04/11/2025 12:09 PM EDT): Controlled, last A1c <7.0%, no changes will be made, continue low carb/no sugar diet Assessment & Plan (01/02/2025 12:28 PM EDT): [...] 6.0%, no changes will be made, following lay out worker, will follow up in 3 months in office Patient refers her eye exam is scheduled in the coming months Encounters Date Type Department Care Team Description 04/22/2025 Refill [facility] [address] [place] [address] Shalom Bey MD 04/15/2025 Telephone [facility] [address] [place] [address] Shalom Bey MD Referral 04/15/2025 Telephone [facility] [address] [place] [address] Shalom Bey MD Med Refill 04/15/2025 Refill [facility] [address] [place] [address] Shalom Bey MD Primary insomnia 04/11/2025 11:30 AM EDT Telemedicine [facility] [address] [place] [address] Shalom Bey MD Benzodiazepine dependence (CMS/HCC) (HCC) (Primary Dx); Mixed simple and mucopurulent chronic bronchitis (CMS/HCC) (HCC); Dietary counseling; Exercise counseling; Mixed hyperlipidemia; Malignant neoplasm of right breast in female, estrogen receptor positive, unspecified site of breast (CMS/HCC) (HCC); Type 2 diabetes mellitus without complication, without long-term current use of insulin (HCC) 04/10/2025 Telephone [facility] [address] [place] [address] Shalom Bey MD chart prep 04/08/2025 Travel 04/05/2025 Telephone [facility] [address] [place] [address] Shalom Bey MD chart prep 03/19/2025 Telephone [facility] [address] [place] [address] Shalom Bey MD Med Refill 03/18/2025 10:30 AM EDT Clinical Support [facility] [address] [place] [address] Domenica Brar RN Visit for suture removal 03/18/2025 Travel 03/18/2025 Refill [facility] [address] [place] [address] Shalom Bey MD Primary insomnia 03/14/2025 Telephone [facility] [address] [place] [address] Shalom Bey MD Appointment Request 03/01/2025 Refill [facility] [address] [place] [address] Shalom Bey MD 02/13/2025 Refill [facility] [address] [place] [address] Shalom Bey MD Primary insomnia 02/10/2025 Orders Only [facility] External Provider, [facility] from Last 3 Months Family History Medical [...] 08/26/2023 08/25/2022, 0306/2022, 05/27/2022, Additional history exists Mammogram 10/23/2023 10/22/2022, 08/25, 08/30/2019, Additional history exists SDOH Screening 12/23/2023 12/22/2022 Tobacco Screening 03/07/2024 03/07/2023 Depression Monitoring 03/29/2024 09/28/2023, 024 Pap Smear 04/28/2024 04/28/2021, 04/28/2021 COVID-19 Vaccine ( season) 2025 06/19/2021, 10/01/2020, 09/03/2020 Influenza Vaccine (#1) 2025 , 04/20/2018, 04/19/2018, Additional history exists Diabetes: Hemoglobin A1C 07/05/2025 025, 08/25/2022, 08/05/2022, [...] Procedure Name Priority Date/Time Associated Diagnosis Comments XR FINGERS 2+ VIEWS RIGHT Routine 03/09/2025 1:[address] SINUS FACIAL BONES WO CONTRAST Routine [...] complication, without long-term current use of insulin ([facility]) HM MAMMOGRAPHY Routine 10/22/2022 9:22 AM EDT [...] Recently Relevant to Health Maintenance Results * XR Fingers 2+ Views Right (03/09/2025 1:48 AM EDT) Anatomical Region Laterality Modality Upper Extremities, Fingers Right Radio graphic Imaging 03/09/2025 1:48 AM EDT Narrative 03/09/2025 1:49 AM EDT [address] [address] XRay Report Signed Patient: Marnie Arce I MR#: [id number] : 1960 Acct:[id number] Age/Sex: 64 / F ADM Date: 03/09/25 Loc: HO.ED Attending Dr: Ordering Physician: Uriel Bar MD Date of Service: 03/09/25 Procedure(s): XR finger RT min 2V Accession Number(s): [id number] cc: Shalom Bey MD; Uriel Bar MD Reason for Exam: right middle finger injury CLINICAL HISTORY: right middle finger injury 3 view right third digit Comparison: None Findings: Bones intact. No dislocations. No significant arthritic change. No erosions. No radiopaque foreign body. Soft tissue swelling of the distal tip of the 3rd digit. IMPRESSION: 1. No acute fracture. Soft tissue swelling present. This document has been electronically signed by: Beltran Yang MD on 03/09/2025 01:48:00 Dictated By: Beltran aYng MD Signed By: <Electronically signed by Beltran Yang MD in OV> 03/09/25148 DD/ 7 TD/TT: 03/09/25147 Billet Bed Operator: Procedure Note Donotuseinterpreter, Image - 03/09/[address] [address] XRay Report Signed Patient: Marnie Arce IMR#: [id number] : 1960cct:[id number] Age/Sex: 64 / FADM Date: 03/09/25 Loc: HO.ED Attending Dr: Ordering Physician: Uriel Bar MD Date of Service: 03/09/25 Procedure(s): XR finger RT min 2V Accession Number(s): [id number] cc: Shalom Bey MD; Uriel Bar MD Reason for Exam: right middle finger injury CLINICAL HISTORY: right middle finger injury 3 view right third digit Comparison: None Findings: Bones intact. No dislocations. No significant arthritic change. No erosions. No radiopaque foreign body. Soft tissue swelling of the distal tip of the 3rd digit. IMPRESSION: 1. No acute fracture. Soft tissue swelling present. This document has been electronically signed by: Beltran Yang MD on 03/09/2025 01:48:00 Dictated By: Beltran Yang MD Signed By: <Electronically signed by Beltran Yang MD in OV> 03/09/25148 DD/ 7 TD/TT: 03/09/25147 Billet Bed Operator: [facility] External Provider IMG XR PROCEDURES Final Result * CT Sinus Facial Bones w/o Contrast (02/10/2025 3:25 AM EDT) Anatomical Region Laterality Modality Computed Tomogra phy 02/10/2025 3:25 AM EDT Narrative 02/10/2025 3:26 AM EDT [facility] [address] [place] [address] [address] Scan Report Signed Patient: Marnie Arce I MR#: [id number] : 1960 Acct:[id number] Age/Sex: 64 / F ADM Date: 02/10/25 Loc: HO.ED Attending Dr: Ordering Physician: Katharina Bhatia MD Date of Service: 02/10/25 Procedure(s): CT facial bones wo IV con Accession Number(s): [id number] cc: Shalom Bey MD; Katharina Bhatia MD Report Number: [id number]: Total DLP = 283.00 mGy-cm CLINICAL HISTORY: [...] in OV> 02/10/25325 DD/ 4 TD/TT: 02/10/25324 Billet Bed Operator: Procedure Note Donotuseinterpreter, Image - 02/10/[address] [place] [address] [address] Scan Report Signed Patient: Marnie Arce IMR#: [id number] : 1960cct:[id number] Age/Sex: 64 / FADM Date: 02/10/25 Loc: HO.ED Attending Dr: Ordering Physician: Katharina Bhatia MD Date of Service: 02/10/25 Procedure(s): CT facial bones wo IV con Accession Number(s): [id number] cc: Shalom Bey MD; Katharina Bhatia MD Report Number: [id number]: Total DLP = 283.00 mGy-cm CLINICAL HISTORY: [...] Carney MD in OV> 02/10/25 0326 DD/ 0325 TD/TT: 02/10/25 0325 Billet Bed Operator: [facility] External Provider IMG CT PROCEDURES Edited Result - Final * CT Cervical Spine w/o Contrast (02/10/2025 3:12 AM EDT) Anatomical Region Laterality Modality Spine, C-spine Computed Tomogra phy 02/10/2025 3:12 AM EDT Narrative 02/10/2025 3:14 AM EDT [address] [address] [address] Scan Report Signed Patient: Marnie Arce I MR#: [id number] : 1960 Acct:[id number] Age/Sex: 64 / F ADM Date: 02/10/25 Loc: HO.ED Attending Dr: Ordering Physician: Katharina Bhatia MD Date of Service: 02/10/25 Procedure(s): CT cervical spine wo IV con Accession Number(s): [id number] cc: Shalom Bey MD; Katharina Bhatia MD Report Number: [id number]: Total DLP = 289.00 mGy-cm CLINICAL HISTORY: [...] in OV> 02/10/25312 DD/ 1 TD/TT: 02/10/25311 Billet Bed Operator: Procedure Note Donotuseinterpreter, Image - 02/10/[address] [address] [address] Scan Report Signed Patient: Marnie Arce IMR#: [id number] : [birth year]Acct:[id number] Age/Sex: 64 / FADM Date: 02/10/25 Loc: HO.ED Attending Dr: Ordering Physician: Katharina Bhatia MD Date of Service: 02/10/25 Procedure(s): CT cervical spine wo IV con Accession Number(s): [id number] cc: Shalom Bey MD; Katharina Bhatia MD Report Number: [id number]: Total DLP = 289.00 mGy-cm CLINICAL HISTORY: [...] in OV> 02/10/25312 DD/ 1 TD/TT: 02/10/25311 Billet Bed Operator: [facility] External Provider IMG CT PROCEDURES Edited Result - Final * CT Head w/o Contrast (02/10/2025 1:47 AM EDT) Anatomical Region Laterality Modality Head, Neck Computed Tomogra phy 02/10/2025 1:47 AM EDT Narrative 02/10/2025 1:48 AM EDT [place] [address] CT Scan Report Signed Patient: Marnie Arce I MR#: [id number] : 1960 Acct:[id number] Age/Sex: 64 / F ADM Date: 02/10/25 Loc: HO.ED Attending Dr: Ordering Physician: Katharina Bhatia MD Date of Service: 02/10/25 Procedure(s): CT head/brain wo IV con Accession Number(s): [id number] cc: Shalom Bey MD; Katharina Bhatia MD Report Number: [id number]: Total DLP = 621.00 mGy-cm CLINICAL HISTORY: [...] in OV> 02/10/25147 DD/ 6 TD/TT: 02/10/25146 Billet Bed Operator: Procedure Note Donotuseinterpreter, Image - 02/10/[address] [place] [address] [address] Scan Report Signed Patient: Marnie Arce IMR#: [id number] : 1960cct:[id number] Age/Sex: 64 / FADM Date: 02/10/25 Loc: HO.ED Attending Dr: Ordering Physician: Katharina Bhatia MD Date of Service: 02/10/25 Procedure(s): CT head/brain wo IV con Accession Number(s): [id number] cc: Shalom Bey MD; Katharina Bhatia MD Report Number: [id number]: Total DLP = 621.00 mGy-cm CLINICAL HISTORY: [...] in OV> 02/10/25147 DD/ 6 TD/TT: 02/10/25146 Billet Bed Operator: [facility] External Provider IMG CT PROCEDURES Edited Result - Final * (ABNORMAL) Comprehensive Metabolic Panel, Fasting (02/10/2025 1:25 AM EDT) Sodium 142 135 - 145 mmol/L [facility] Potassium 4.3 3.3 - 5.1 mmol/L [facility] Comment:Slight Hemolysis.Int erpret result with caution. Chloride 109(H) 96 - 108 mmol/L [facility] Carbon Dioxide 23 22 - 29 mmol/L [facility] Anion Gap 14 12 - 20 [facility] Urea Nitrogen (BUN) 12 9 - 16 mg/dL [facility] Creatinine, Serum 0.61 0.5 - 1.4 mg/dL [facility] Creatinine Clr Calc Pharmacy 87.5 [facility] Comment:Provided height and weight: 162.56 cm,66.678 kg.eGFR (calculated from the MDRD study equation) and eCrCl(calculated from the Cockcroft-Gault equation) are based ondifferent parameters and may not yield comparable results.If eCrCl result is absurd, please check patient'sheight/weight. Estimated Glomerular Filt Rate >60 [facility] Comment:Chronic Kidney Disea se: Estimated GFR < 60 mL/min/1.48m4Lwfmth Kidney Disease: Estimated GFR < 15 mL/min/1.73m2 Glucose Fasting 154(H) 60 - 99 mg/dL [facility] Comment:A fasting glucose of 126 mg/dl or greater on more than oneoccasion is considered diagnostic of diabetes. Calcium 9.4 8.4 - 10.2 mg/dL [facility] Bilirubin, Total 0.4 0.0 - 1.0 mg/dL [facility] Aspartate Amino Transferase 24 5 - 31 U/L [facility] Comment:Slight Hemolysis.Int erpret result with caution. Alanine Aminotransferase 16 0 - 31 U/L [facility] Total Protein 7.0 6.5 - 8.0 g/dL [facility] Albumin Level 4.4 3.5 - 5.0 g/dL [facility] Alkaline Phosphatase 77 39 - 117 U/L [facility] 02/10/2025 1:25 AM EDT 02/10/2025 1:26 AM EDT us Generic External Data Provider LAB BLOOD ORDERAB LES Final Result [facility] [address] [place] [address] [phone] * (ABNORMAL) CBC auto differential (02/10/2025 1:25 AM EDT) White Blood Count 10.1 4.8 - 10.8 X10*3/uL [facility] Red Blood Count 4.43 4.20 - 5.50 X10*6/uL [facility] Hemoglobin 12.4 12.0 - 16.0 g/dl [facility] Hematocrit 36.0(L) 37.0 - 47.0 % [facility] Mean Corpuscular Volume 81.3 80.0 - 98.0 fL [facility] Mean Corpuscular Hemoglobin 28.0 27.0 - 33.0 pg [facility] Mean Corpuscular HGB Conc 34.4 31.0 - 35.0 g/dl [facility] Red Cell Distribution Width 13.2 11.0 - 16.0 % [facility] Platelet Count 154(L) 160 - 400 X10*3/uL [facility] Mean Platelet Volume 10.2 9.4 - 12.3 fL [facility] Neutrophils Percent Auto 79.8(H) 45 - 73 % [facility] Imm Gran Pct Auto 0.4 0.0 - 0.4 % [facility] Lymphocytes Percent Auto 12.5(L) 20 - 40 % [facility] Monocytes Percent Auto 6.0 2 - 11 % [facility] Eosinophils Percent Auto 0.9 0 - 4 % [facility] Basophils Percent Auto 0.4 0 - 2 % [facility] NRBC Pct Auto 0.0 0.0 - 0.2 /100WBC [facility] Neutrophils Absolute Auto 8.1 2.0 - 8.3 x10*3/uL [facility] Imm Gran Abs Auto 0.04(H) 0.00 - 0.03 X10*3/uL [facility] Lymphocytes Absolute Auto 1.3 1.2 - 4.9 X10*3/uL [facility] Monocytes Absolute Auto 0.6 0.1 - 1.2 X10*3/uL [facility] Eosinophils Absolute Auto 0.1 0.0 - 0.4 X10*3/uL [facility] Basophils Absolute Auto 0.0 0.0 - 0.2 X10*3/uL [facility] NRBC Abs Auto 0.000 0.0 - 0.012 X10*3/uL [facility] 02/10/2025 1:25 AM EDT 02/10/2025 1:26 AM EDT Generic External Data Provider LAB BLOOD ORDERAB LES Final Result Performing Organization Address City/State/[facility] Co de Phone Number [facility] [address] [place] [phone] * (ABNORMAL) POCT A1C (01/02/2025 11:11 AM EDT) Hemoglobin A1C 6.3(A) 4.0 - 5.7 % QC Media Lot # Comment:[id number] Lot# Expiration Date Comment:06/28/2026 Blood 01/02/2025 11:1 1 AM EDT Shalom Chris MD POINT OF CARE TEST ENTER/EDIT ORDERABLES Final Result * (ABNORMAL) Mammography (10/22/2022 9:22 AM EDT) Mammogram Birads-0 Anatomical Region Laterality Modality Other Narrative 10/22/2022 9:22 AM EDT Recommended MRI Historical Provider HEALTH MAINTENANCE Final Result * Lipid Panel, Standard (08/25/2022 1:32 PM EST) Triglycerides 172 mg/dL [facility] Comment:Desirable Triglyceri de: less than 150 mg/dLBorderline High Triglyceride 150-199 mg/dLHigh Triglyceride: 200-499 mg/dLVery High Triglyceride: greater than or equal to 5OO mg/dL Cholesterol 139 mg/dL [facility] Comment:Desirable Cholestero l: less than 200 mg/dLBorderline High Cholesterol: 200-239 mg/dLHigh Cholesterol: greater than 239 mg/dL LDL Cholesterol Calculated 67 mg/dl [facility] Comment:Desirable LDL: less than 100 mg/dLNear Optimal/Above Optimal LDL: 110- 129 mg/dLBorderline High LDL: 130-159 mg/dLHigh LDL: 160-189 mg/dLVery High LDL: greater than or equal to 190 mg/dL HDL Cholesterol 38 mg/dL [facility] Comment:Desirable HDL: great er than 40 mg/dL Note: This HDL assay may give artificially low results in patients with liver disease. 08/25/2022 1:32 PM EST 08/25/2022 1:32 PM EST [facility] External Provider LAB BLO OD ORDERABLES Final Result Performing Organization Address [facility] de Phone Number [facility] [address] [place] [phone] * Albumin, Random Urine W/Creatinine (08/25/2022 1:30 PM EST) Creatinine, Urine 55.85 mg/dL [facility] Microalbumin Urine 7.0 mg/L [facility] Microalbum Creatinine Ratio Ur 12.5 ug/mg cr [facility] Comment:Albumin/Creatinine R atio Reference Ranges: Normal: < 30 ug/mg creatinine Microalbuminuria: 30 - 300 ug/mg creatinineClinical Albuminuria: > 300 ug/mg creatinine 08/25/2022 1:30 PM EST 08/25/2022 2:17 PM EST [facility] External Provider LAB URI NE ORDERABLES Final Result Performing Organization Address City/[facility] Co de Phone Number [facility] [address] [place] [address] [phone] * HIV 1/2 ANTIGEN/ANTIBODY,FOURTH GENERATION W/RFL (04/16/2022 9:21 AM EDT) Pathologist [facility] HIV-1/2 ANTIGEN AND ANTIBODIES, 4TH GENERATION W/ [...] purpose. For additional information please refer to http://education.Billogram/faq/DZC562 (This link is being provided for informational/ educational purposes only.) The performance of this assay has not been clinically validated in patients less than 2 years old. 04/16/2022 9:21 AM EDT Shalom Chris MD LAB BLOOD ORDERABL ES Final Result [facility] * THINPREP TIS PAP AND HPV mRNA E6/E7 REFLEX HPV 16,18/45 (04/28/2021 11:30 AM EDT) Pathologist [facility] Clinical Information: [facility] COMMENT SEE COMMENT [...] has been evaluated with computer assisted technology. [facility] Legal Investigator: SEE COMMENT [facility] Comment: WAC, CT(ASCP) CT screening location: [address], [place] [address] HPV nRNA E6/E7 Not Detected Not Detected [facility] Comment: Methodology: Farm Machinery Assembler-Mediated Amplification This assay detects E6/E7 viral messenger RNA (mRNA) from 14 high-risk HPV types (16,18,31,33,35,39,45,51,52,56,58,59,66,68). The analytical performance characteristics of this assay have been determined by [employer]. The modifications have not been cleared or approved by the FDA. This assay has been validated pursuant to the CLIA regulations and is used for clinical purposes. For additional information, please refer to http://education.Billogram/faq/KUJ437r0 (This link if provided for information/ educational [...] Welsh CNM LAB PATHOLOGY ORDERABLES Final Result [facility] [address] * Pap Smear (04/28/2021 12:00 AM EDT) Swab Kayla Welsh CNM LAB CYTOLOGY ORDERABLES F inal Result [facility] [address], [place] [phone] * Colonoscopy (09/10/2020 1:08 PM EDT) Historical Provider MD HEALTH MAINTENANCE Final Result from Last 3 Months or Most Recently Relevant to Health Maintenance Insurance MEDICARE [facility] STANDARD [address] Care Teams Nursing Home Director Relationship Specialty Start Date End Date Shalom Bey MD [address] [place] [address] AMARIS Velasquez PCP - General Internal Medicine 11/05/19
--- OUTSIDE RECORDS SUMMARY | 2025-04-23 10:18 | XMS_ITS | Encounter Summary ---
Author Organization [employer] Address [address] [facility] [address] [place] [address] Care Team Providers Care Sorter Operator Name Role Phone Shalom Bey MD Primary Care Prov ider Ruth Ellis RN Unavailable Unavailable Encounter Details Date Type Department Care Team (Late st Contact Info) Description 02/22/2023 Abstract [facility] MEDICINE [address] [place] [address] Shalom Bey MD [address] [facility] [place] [place] [phone] Social History Tobacco Use Types Packs/Day Years [...] Noted Time PHQ-9 Depression Total Score: 14 12/22/2 023 10:41 AM EDT documented as of this encounter Care Teams Sorter Operator Relationship Specialty Start Date End Date Shalom Bey MD [address] [place] [address] PCP - General Internal Medicine 11/05/19 Ruth Ellis RN [address] [place] [address] Metal BumperTester Equipment Medicine 12/06/23 12/19/23 documented as of this encounter
--- OUTSIDE RECORDS SUMMARY | 2025-04-23 10:18 | XMS_ITS | Encounter Summary ---
Author Organization [employer] Address [address] [facility] [address] [place] [address] Care Team Providers Care Leaf Fat Scraper Name Role Phone Shalom Bey MD Primary Care Prov ider Reason for Visit * Reason Onset Date Comments Med Refill 04/22/2025 Encounter Details Date Type Department Care Team ([facility] st Contact Info) Description 04/22/2025 Refill [facility] [address] [place] [address] Shalom Bey MD [address] [place] [address] Social History Tobacco Use Types Packs/Day Years [...] encounter Miscellaneous Notes * Telephone Encounter - Noemy Harrington LPN - 04/22/2025 3:24 PM EDT Last seen 04/11/25. documented in this encounter Plan of Treatment Not on file documented as of this encounter Visit Diagnoses Not on filedocumented in this encounter Additional Health Concerns Assessment Noted Time PHQ-9 Depression Total Score: 9 09/28/19 24 11:08 AM EDT documented as of this encounter Care Teams Leaf Fat Scraper Relationship Specialty Start Date End Date Shalom Bey MD [address] [place] [phone] PCP - General Internal Medicine 11/05/19 documented as of this encounter
--- OUTSIDE RECORDS SUMMARY | 2025-04-23 10:18 | XMS_ITS | Encounter Summary ---
Author Organization [employer] Address [address] [facility] 7 [place] [address] Care Team Providers Care Software Reliability Engineer Name Role Phone Shalom Bey MD Primary Care Prov ider Ruth Ellis RN Unavailable Unavailable Reason for Visit * Reason Onset Date Comments PT1 06/16/2023 Encounter Details Date Type Department Care Team (Late st Contact Info) Description 06/16/2023 Telephone [facility] MEDICINE [address] [place] [address] Shalom Bey MD 505 [place] [address] PT1 Social History Tobacco Use Types Packs/Day [...] Date: 06/28/2022-07/27/2022 Time: 10:30 am Visits: Address: [address] [place] [address] Facility: [facility] Radiology Wheel Chair: Yes Entry Level Staff Accountant Needed: Yes documented in this encounter Plan of Treatment Not on file documented as of this encounter Visit Diagnoses Not on filedocumented in this encounter Additional Health Concerns Assessment Noted Time PHQ-9 Depression Total Score: 14 023 10:41 AM EDT documented as of this encounter Care Teams Software Reliability Engineer Relationship Specialty Start Date End Date Shalom Bey MD 505 [place] [address] PCP - General Internal Medicine 11/05/19 Ruth Ellis RN 505 [place] [address] Site Operations ManagerBumper Machine Operator Medicine 12/06/23 12/19/23 documented as of this encounter
--- OUTSIDE RECORDS SUMMARY | 2025-04-23 10:18 | XMS_ITS | Encounter Summary ---
Author Organization [employer] Address [address] [facility] 7t [place] [address] Care Team Providers Care Tongue And Quarter Stitcher Name Role Phone Shalom Bey MD Primary Care Prov ider Reason for Visit * Reason Onset Date Comments Appointment Request 10/18/2024 Encounter Details Date Type Department Care Team ([facility] st Contact Info) Description 10/18/2024 Telephone [facility] MEDICINE 230 [place], [place] [phone] Shalom Bey MD [address] [facility] [address] [place] [phone] Appointment Request Social History Tobacco Use Types [...] R/s appt from 10/18/24. Contact pt at [phone] documented in this encounter Plan of Treatment Not on file documented as of this encounter Visit Diagnoses Not on filedocumented in this encounter Additional Health Concerns Assessment Noted Time PHQ-9 Depression Total Score: 9 09/28/19 24 11:08 AM EDT documented as of this encounter Care Teams Tongue And Quarter Stitcher Relationship Specialty Start Date End Date Shalom Bey MD [address] [place] [address] PCP - General Internal Medicine 11/05/19 documented as of this encounter
--- OUTSIDE RECORDS SUMMARY | 2025-04-23 10:18 | XMS_ITS | Encounter Summary ---
Author Organization [employer] Address 75 [facility] 7t [place] [address] Care Team Providers Care Carbon Paper Coating Supervisor Name Role Phone Shalom Bey MD Primary Care Prov ider Ruth Ellis RN Unavailable Unavailable Encounter Details Date Type Department Care Team ([facility] st Contact Info) Description 06/29/2023 Orders Only [facility] CHC MED & PEDS 505 [place], [place] [phone] Shalom Bey MD 505 [place] [address] Social History Tobacco Use Types Packs/Day Years [...] documented as of this encounter Care Teams Carbon Paper Coating Supervisor Relationship Specialty Start Date End Date Shalom Bey MD 505 [place] [address] PCP - General Internal Medicine 11/05/19 Ruth Ellis RN 505 [place] [address] Six Pack PackerCollar Tacker Medicine 12/06/23 12/19/23 documented as of this encounter
--- OUTSIDE RECORDS SUMMARY | 2025-04-23 10:18 | XMS_ITS | Encounter Summary ---
Author Organization [employer] Address [address] [place] [address] [place] [address] Care Team Providers Care Rougher Operator Name Role Phone Shalom Bey MD Primary Care Prov ider Ruth Ellis RN Unavailable Unavailable Reason for Visit * Reason Comments Med Refill Encounter Details Date Type Department Care Team ([facility] st Contact Info) Description 12/17/2022 Refill [facility] CHC MED & PEDS 505 [place] [address] Shalom Bey MD 505 [place] [address] Chronic obstructive pulmonary disease, unspecified (CMS/HCC) Social [...] Diagnoses Diagnosis Chronic obstructive pulmonary disease, unspecified (HCC) documented in this encounter Care Teams Rougher Operator Relationship Specialty Start Date End Date Shalom Bey MD 505 [place], [place] [phone] PCP - General Internal Medicine 11/05/19 Ruth Ellis RN [address] [place] [address] Rehab Care AssistantTractor Trailer Moving Van Driver Medicine 12/06/23 12/19/23 documented as of this encounter
--- OUTSIDE RECORDS SUMMARY | 2025-04-23 10:18 | XMS_ITS | Encounter Summary ---
Author Organization [employer] Address [address] [facility] 7 [place] [address] Care Team Providers Care Security Chief Museum Name Role Phone Shalom Bey MD Primary Care Prov ider Ruth Ellis RN Unavailable Unavailable Reason for Visit * Reason Onset Date Comments PT-1 07/01/2023 Encounter Details Date Type Department Care Team (Late st Contact Info) Description 07/01/2023 Telephone [facility] MEDICINE 230 [place] [address] Shalom Bey MD 505 [facility] [place], [place] [phone] PT-1 Social History Tobacco Use Types Packs/Day [...] in regards to PT1. Pt spoke with [employer] and was advised will need a nurse or PCP to call [employer] by 07/02 for PT1 can be expedited and can have a ride for 07/04. * Telephone Encounter - Tae Mattson - 07/01/2023 9:12 AM EST PT1 needed Date: 07/04/23 Time: 2:30 Visits: 30 Address: [address] [place] [address] Facility: Oncology Wheel Chair: no Towel Rolling Machine Operator Needed: yes documented in this encounter Plan of Treatment Not on file documented as of this encounter Visit Diagnoses Not on filedocumented in this encounter Additional Health Concerns Assessment Noted Time PHQ-9 Depression Total Score: 14 12/22/ 023 10:41 AM EDT documented as of this encounter Care Teams Security Chief Museum Relationship Specialty Start Date End Date Shalom Bey MD 505 [place] [address] PCP - General Internal Medicine 11/05/19 Ruth Ellis RN 505 [place] [address] Banking AssistantManager Image Medicine 12/06/23 12/19/23 documented as of this encounter
--- OUTSIDE RECORDS SUMMARY | 2025-04-23 10:18 | XMS_ITS | Encounter Summary ---
Author Organization [employer] Address [address] [facility] 7t [place] [address] Care Team Providers Care Battery Charger Conveyor Line Name Role Phone Shalom Bey MD Primary Care Prov ider Ruth Ellis RN Unavailable Unavailable Encounter Details Date Type Department Care Team ([facility] st Contact Info) Description 11/24/2022 Abstract [facility] MED & PEDS 505 [place] [address] Shalom Bey MD 505 [place] [address] Social History Tobacco Use Types Packs/Day Years [...] on filedocumented in this encounter Care Teams Battery Charger Conveyor Line Relationship Specialty Start Date End Date Shalom Bey MD 505 [place] [address] PCP - General Internal Medicine 11/05/19 Ruth Ellis RN 505 [place] [address] Carry All DriverAssistant Media Planner Medicine 12/06/23 12/19/23 documented as of this encounter
[2025-04-23 10:19] LABS: Alanine Aminotransferase 13 U/L (0-31); Albumin Level 4.7 g/dL (3.5-5.0); Alkaline Phosphatase 80 U/L (39-117); Aspartate Amino Transferase 22 U/L (5-31); Calcium 9.8 mg/dL (8.4-10.2); Cholesterol 153 mg/dL (<200); HDL Cholesterol 38 mg/dL (>40); Total Protein 7.5 g/dL (6.5-8.0); Triglycerides 130 mg/dL (<150)
[2025-04-23 10:54] LABS: Thyroid Stimulating Hormone 0.19 uIU/mL (0.32-4.0)
[2025-04-23 11:01] LABS: Free T4 (Free Thyroxine) 0.94 ng/dL (0.71-1.85)
== END 2025-04-23 09:10 | disposition home or self-care (01) ==
LOC: HO.LAB 09:09
PROVIDERS: Internal Medicine Endocrinology, Diabetes & Metabolism; Student in an Organized Health Care Education/Training Program; Absent Provider Internal Medicine; PCP Internal Medicine; Visit Provider Physician Assistant
DX: I10 Essential (primary) hypertension (principal); E11.9 Type 2 diabetes mellitus without complications; E04.2 Nontoxic multinodular goiter; E05.90 Thyrotoxicosis, unspecified without thyrotoxic crisis or storm; E78.5 Hyperlipidemia, unspecified; Z79.811 Long term (current) use of aromatase inhibitors
CPT/HCPCS: 36415; 80053; 80061; 80076; 82040; 82043; 82248; 82310; 82570; 83036; 83880; 84439; 84443; 84481

== ENCOUNTER 2025-04-25 11:24 | Outpatient (AMB) | payer MEDICARE, MEDICAID, SELFPAY ==
[2025-04-25 11:27] VITALS: BP 112/62; PULSE 76; O2SAT 96; BMI 25.2
--- NOTE | 2025-04-25 11:27 | A.OFFVIS_ITS ---
Vital Signs 04/25/25 11:27 Height 5 ft 4 in Weight 147 lb BMI 25.2 BP 112/62 Blood Pressure Location Rt brachial Position Sitting Pulse 76 Pulse Source Pulse Oximeter Pulse Oximetry (%) 96 Oxygen Delivery Method Room Air Intake Visit Reasons: COPD Solar Thermal Installer Required: Yes Solar Thermal Installer Name: Noemy Melchor C.L.M Allergies No Known Allergies (No Known Allergies*) Allergy (Verified 04/25/25 11:34) HPI HPI COPD: Details: 64-year-old lady, former approximately 40 pack-year smoker quit 2009, followed for dyspnea on exertion, pulmonary nodules, and COPD.? She has been using Breo and albuterol MDI with suboptimal control off her symptoms. Patient was tried on Incruse, however she was not able to tolerate it. She has not completed her follow-up CT chest. [facility] Medical History Toxic multinodular goiter Use of anastrozole Shoulder pain, bilateral Fibromyalgia History of breast cancer Hyperthyroidism HLD (hyperlipidemia) HTN (hypertension) DM2 (diabetes mellitus, type 2) Multinodular thyroid Personal history of nicotine dependence Diabetes type 2, uncontrolled History of adenomatous polyp of colon Vitamin D deficiency Arthritis Tubular adenoma of colon Adenocarcinoma of colon Constipation Positive CLEMENT (antinuclear antibody) COPD (chronic obstructive pulmonary disease) Essential hypertension Hyperlipidemia LDL goal <100 Low back pain Asthma Polymyalgia rheumatica Surgical History History of needle biopsy History of colonoscopy (~09/2020) History of cardiac cath (~09/2018) History of right breast biopsy (~10/2010) History of flexible sigmoidoscopy (~06/2013) History of rigid sigmoidoscopy (~04/2013) Hx of cholecystectomy Family History Father Diabetes CVD (cardiovascular disease) Mother Breast cancer Skin cancer Cancer Social History Household Members: Other Household Members Other:: Mother lives with her Alcohol intake: current Alcohol intake frequency: does not drink Patient Tobacco Use Status: Former Tobacco user Review of Systems Const Denies daytime sleepiness, Denies excessive sweating, Denies fatigue, Denies fever(s), Denies lethargy, Denies malaise, Denies night sweats, Denies snoring and Denies weight loss Eyes Denies blurry vision and Denies itchy eyes ENT Denies nasal congestion, Denies post nasal drip, Denies sinus pain, Denies sinus pressure and Denies other ( Thrush) Card Denies chest pain, Denies pedal edema, Denies dyspnea, Denies orthopnea and Denies paroxysmal nocturnal dyspnea Resp Denies cough, Denies hemoptysis, Denies excessive phlegm production, Denies dyspnea, Denies snoring and Denies wheezing GI Denies abdominal pain and Denies heartburn Musc Denies myalgias, Denies arthralgias and Denies joint swelling Skin/Breast Denies rash Neuro Denies memory loss and Denies seizure-like activity Psych Denies abnormal sleep pattern, Denies anxiety and Denies memory loss Endo Denies excessive sweating, Denies fatigue and Denies heat intolerance Andrew/Lymph Denies easy bruising Aller/Immun Denies itchy eyes, Denies seasonal rhinorrhea and Denies wheezing Physical Exam Vital Signs: Last Vital Signs Pulse 76 04/25/25 11:27 BP 112/62 04/25/25 11:27 Pulse Ox 96 04/25/25 11:27 Oxygen Delivery Method Room Air 04/25/25 11:27 BMI result Body Mass Index 25.2 Const General: no acute distress and alert Nutritional Appearance: not obese Orientation/consciousness: Other orientation findings ( oriented) HEENT Head: Yes atraumatic Eyes General: appearance normal, both eyes and all related structures Sclerae: sclerae normal EOM: EOMs intact bilaterally Neck Neck: Yes supple Lymphatic: no lymphadenopathy noted Resp Effort & Inspection: normal respiratory effort and no use of accessory muscles Auscultation: clear to auscultation bilaterally Cardio Rate: regular rate Rhythm: regular rhythm Heart sounds: no gallops, no murmurs and no rubs Skin General skin exam: other ( warm) Extrem General: No clubbing, No cyanosis and No edema Assessment & Plan Assessment & Plan (1) COPD (chronic obstructive pulmonary disease): Code(s): J44.9 - Chronic obstructive pulmonary disease, unspecified Category: Medical Plan: Suboptimal control as patient was not able to tolerate powder inhalers well. Will switch Breo/Incruse to Breztri. Continue albuterol MDI/nebs. Patient nebulizer machine is also broken, new nebulizer ordered. (2) Pulmonary nodules: Code(s): R91.8 - Other nonspecific abnormal finding of lung field Category: Medical Plan: Patient was not able to complete her follow-up CT chest. CT chest reordered. Coding Level of Care Code Est Pt Level 4 (01426) Diagnoses COPD (chronic obstructive pulmonary disease) J44.9 Pulmonary nodules R91.8
--- OUTSIDE RECORDS SUMMARY | 2025-04-25 14:18 | XMS_ITS | Encounter Summary ---
Author Organization [employer] Address [address] [facility] 7t [place] [address] Care Team Providers Care City Director Name Role Phone Shalom Bey MD Primary Care Prov ider Ruth Ellis RN Unavailable Unavailable Encounter Details Date Type Department Care Team (Late st Contact Info) Description 02/22/2023 Abstract [facility] MEDICINE 230 [place] [address] Shalmo Bey MD 505 [facility] [place] [address] Social History Tobacco Use Types Packs/Day Years [...] documented as of this encounter Care Teams City Director Relationship Specialty Start Date End Date Shalom Bey MD 505 [place] [address] PCP - General Internal Medicine 11/05/19 Ruth Ellis RN 505 [place] [address] Track DresserAdobe Layer Medicine 12/06/23 12/19/23 documented as of this encounter
--- OUTSIDE RECORDS SUMMARY | 2025-04-25 14:18 | XMS_ITS | Encounter Summary ---
Author Organization [employer] Address [address] [place] [address] [address] Care Team Providers Care Copy Operator Name Role Phone Shalom Bey MD Primary Care Prov ider Ruth Ellis RN Unavailable Unavailable Reason for Visit * Reason Comments Med Refill Encounter Details Date Type Department Care Team ([facility] st Contact Info) Description 12/17/2022 Refill [facility] CHC MED & PEDS 505 [place] [address] Shalom Bey MD 505 [place] [address] Chronic obstructive pulmonary disease, unspecified (CMS/HCC) Social [...] (HCC) documented in this encounter Care Teams Copy Operator Relationship Specialty Start Date End Date Shalom Bey MD 505 [place], [place] [phone] PCP - General Internal Medicine 11/05/19 Ruth Ellis RN [address] [place] [address] Drop Hammer Setter UpPsychology Associate Medicine 12/06/23 12/19/23 documented as of this encounter
--- OUTSIDE RECORDS SUMMARY | 2025-04-25 14:18 | XMS_ITS | Encounter Summary ---
Author Organization [employer] Address [address] [facility] 7t [place] [address] Care Team Providers Care Dispatcher Service Name Role Phone Shalom Bey MD Primary Care Prov ider Ruth Ellis RN Unavailable Unavailable Reason for Visit * Reason Comments Med Refill Encounter Details Date Type Department Care Team (Late st Contact Info) Description 09/23/2023 Refill [facility] MEDICINE [address] [place] [address] Shalom Bey MD [address] [facility] [address] [place], [place] [phone] Primary insomnia Social History Tobacco Use Types [...] documented as of this encounter Care Teams Dispatcher Service Relationship Specialty Start Date End Date MgShalom Mendez MD 505 [place] [address] PCP - General Internal Medicine 11/05/19 Ruth Ellis RN 505 [place] [address] Courtesy Car DriverPatrol Mother Medicine 12/06/23 12/19/23 documented as of this encounter
--- OUTSIDE RECORDS SUMMARY | 2025-04-25 14:18 | XMS_ITS | Encounter Summary ---
Author Organization [employer] Address [address] [facility] [address] 7t [place] [address] Care Team Providers Care Inspector Optical Instrument Name Role Phone Shalom Bey MD Primary Care Prov ider Reason for Visit * Reason Comments Med Refill Encounter Details Date Type Department Care Team (Late st Contact Info) Description 07/23/[address] [facility] CHC MED & PEDS [address] [place] [phone] Amarilis Vera, ANP 230 [place] [address] Primary insomnia Social History Tobacco Use Types [...] documented as of this encounter Care Teams Inspector Optical Instrument Relationship Specialty Start Date End Date Shalom Bey MD [address] [place] [address] PCP - General Internal Medicine 11/05/19 documented as of this encounter
--- OUTSIDE RECORDS SUMMARY | 2025-04-25 14:18 | XMS_ITS | Encounter Summary ---
Author Organization [employer] Address [address] [facility] 7t [place] [address] Care Team Providers Care Automotive Service Management Teacher Name Role Phone Shalom Bey MD Primary Care Prov ider Reason for Visit * Reason Onset Date Comments Appointment Request 10/18/2024 Encounter Details Date Type Department Care Team ([facility] st Contact Info) Description 10/18/2024 Telephone [facility] MEDICINE 230 [place], [place] [phone] Shalom Bey MD [address] [facility] [address] [place] [phone] Appointment Request Social History Tobacco Use Types [...] R/s appt from 10/18/24. Contact pt at [phone] documented in this encounter Plan of Treatment Not on file documented as of this encounter Visit Diagnoses Not on filedocumented in this encounter Additional Health Concerns Assessment Noted Time PHQ-9 Depression Total Score: 9 09/28/19 24 11:08 AM EDT documented as of this encounter Care Teams Automotive Service Management Teacher Relationship Specialty Start Date End Date Shalom Bey MD [address] [place] [address] PCP - General Internal Medicine 11/05/19 documented as of this encounter
--- OUTSIDE RECORDS SUMMARY | 2025-04-25 14:18 | XMS_ITS | Encounter Summary ---
Author Organization [employer] Address 75 [facility] 7 [place] [address] Care Team Providers Care Senior Search Marketing Analyst Name Role Phone Shalom Bey MD Primary Care Prov ider Ruth Ellis RN Unavailable Unavailable Reason for Visit * Reason Onset Date Comments PT-1 07/01/2023 Encounter Details Date Type Department Care Team (Late st Contact Info) Description 07/01/2023 Telephone [facility] MEDICINE 230 [place] [address] Shalom Bey MD 505 [facility] [place], [place] [phone] PT-1 Social History Tobacco Use Types Packs/Day [...] in regards to PT1. Pt spoke with [employer] and was advised will need a nurse or PCP to call [employer] by 07/02 for PT1 can be expedited and can have a ride for 07/04. * Telephone Encounter - Tae Mattson - 07/01/2023 9:12 AM EST PT1 needed Date: 07/04/23 Time: 2:30 Visits: 30 Address: [address] [place] [address] Facility: Oncology Wheel Chair: no Senior C Software Developer Needed: yes documented in this encounter Plan of Treatment Not on file documented as of this encounter Visit Diagnoses Not on filedocumented in this encounter Additional Health Concerns Assessment Noted Time PHQ-9 Depression Total Score: 14 12/22/ 023 10:41 AM EDT documented as of this encounter Care Teams Senior Search Marketing Analyst Relationship Specialty Start Date End Date Shalom Bey MD 505 [place] [address] PCP - General Internal Medicine 11/05/19 Ruth Ellis RN 505 [place] [address] Scarf And Anneal OperatorWire Brusher Medicine 12/06/23 12/19/23 documented as of this encounter
--- OUTSIDE RECORDS SUMMARY | 2025-04-25 14:18 | XMS_ITS | Encounter Summary ---
Author Organization [employer] Address 75 [facility] 7t [place] [address] Care Team Providers Care Oracle Hrms Developer Name Role Phone Shalom Bey MD Primary Care Prov ider Ruth Ellis RN Unavailable Unavailable Encounter Details Date Type Department Care Team ([facility] st Contact Info) Description 06/29/2023 Orders Only [facility] CHC MED & PEDS 505 [place], [place] [phone] Shalom Bey MD 505 [place] [address] Social History Tobacco Use Types Packs/Day Years Used Date Smoking Tobacco: Never Passive Smoke Exposure: Never Smokeless Tobacco: Never Alcohol Use Standard Drinks/Week Comments Not Currently 0 (1 standard drink = 0.6 oz pur e alcohol) Depression Answer Date Recorded Patient Health Questionnaire-9 Score 14 12/22/2022 Housing Stability Answer Date Recorded What is your housing situation today? I have mari rviera 04/13/[address] you li [...] documented as of this encounter Care Teams Oracle Hrms Developer Relationship Specialty Start Date End Date Shalom Bey MD 505 [place] [address] PCP - General Internal Medicine 11/05/19 Ruth Ellis RN 505 [place] [address] Dope Maintenance WorkerStraw Hat Plunger Operator Medicine 12/06/23 12/19/23 documented as of this encounter
--- OUTSIDE RECORDS SUMMARY | 2025-04-25 14:18 | XMS_ITS | Encounter Summary ---
Author Organization [employer] Address 75 [facility] 7 [place] [address] Care Team Providers Care Community Coordinator For High School Name Role Phone Shalom Bey MD Primary Care Prov ider Ruth Ellis RN Unavailable Unavailable Reason for Visit * Reason Onset Date Comments PT1 06/16/2023 Encounter Details Date Type Department Care Team (Late st Contact Info) Description 06/16/[address] [facility] MEDICINE 230 [place] [address] Shalom Bey MD 505 [facility] [place] [address] PT1 Social History Tobacco Use Types Packs/Day [...] Date: 06/28/2022-07/27/2022 Time: 10:30 am Visits: Address: [address] [place] [address] Facility: [facility] Radiology Wheel Chair: Yes Executive Chairman Needed: Yes documented in this encounter Plan of Treatment Not on file documented as of this encounter Visit Diagnoses Not on filedocumented in this encounter Additional Health Concerns Assessment Noted Time PHQ-9 Depression Total Score: 14 023 10:41 AM EDT documented as of this encounter Care Teams Community Coordinator For High School Relationship Specialty Start Date End Date Shalom Bey MD 505 [place] [address] PCP - General Internal Medicine 11/05/19 Ruth Ellis RN 505 [place] [address] Entry Level Sales RepresentativeReservationist Medicine 12/06/23 12/19/23 documented as of this encounter
--- OUTSIDE RECORDS SUMMARY | 2025-04-25 14:18 | XMS_ITS | Encounter Summary ---
Author Organization [employer] Address [address] [facility] [address] 7t [place] [address] Care Team Providers Care Surgical Technology Instructor Name Role Phone Shalom Bey MD Primary Care Prov ider Ruth Ellis RN Unavailable Unavailable Encounter Details Date Type Department Care Team (Late st Contact Info) Description 10/14/2023 Orders Only [facility] MEDICINE 230 [place] [address] ProviderRuchi MD Social History Tobacco Use Types [...] documented as of this encounter Care Teams Surgical Technology Instructor Relationship Specialty Start Date End Date Shalom Bey MD 505 [place] [address] PCP - General Internal Medicine 11/05/19 Ruth Ellis RN 505 [place] [address] Platform ConsultantMotor And Chassis Inspector Medicine 12/06/23 12/19/23 documented as of this encounter
--- OUTSIDE RECORDS SUMMARY | 2025-04-25 14:18 | XMS_ITS | Encounter Summary ---
Author Organization [employer] Address 75 [facility] 7t [place] [address] Care Team Providers Care Back Winder Name Role Phone Shalom Bey MD Primary Care Prov ider Ruth Ellis RN Unavailable Unavailable Reason for Visit * Reason Comments Med Refill Encounter Details Date Type Department Care Team (Late st Contact Info) Description 09/15/2023 Refill [facility] MEDICINE 230 [place] [address] Shalom Bey MD [address] [facility] [address] [place], [place] [phone] Primary insomnia Social History Tobacco Use Types [...] documented as of this encounter Care Teams Back Winder Relationship Specialty Start Date End Date MgShalom Mendez MD 505 [place] [address] PCP - General Internal Medicine 11/05/19 Ruth Ellis RN 505 [place] [address] Machine Assembler SupervisorElectric Motor Tester Medicine 12/06/23 12/19/23 documented as of this encounter
--- OUTSIDE RECORDS SUMMARY | 2025-04-25 14:18 | XMS_ITS | Encounter Summary ---
Author Organization [employer] Address [address] [facility] 7 [place] [address] Care Team Providers Care Commercial Real Estate Attorney Name Role Phone Shalom Bey MD Primary Care Prov ider Ruth Ellis RN Unavailable Unavailable Reason for Visit * Reason Onset Date Comments pt1 07/02/2022 Encounter Details Date Type Department Care Team (Late st Contact Info) Description 07/02/2022 Telephone [facility] MEDICINE [address] [place] [address] Shalom Bey MD [address] [facility] [place] [address] pt1 Social History Tobacco Use Types Packs/Day [...] EST Tc from pt requesting PT1 Location: [address] [address] Specialty: n/a Time: 10 am Date: 07/08/22 Chemical Reclamation Equipment Operator: yes wheelchair accessible : n/a Location: [address] [address] Specialty: n/a Time: 10 am Date: 07/09/22 Chemical Reclamation Equipment Operator: yes wheelchair accessible : n/a documented in this encounter Plan of Treatment Not on file documented as of this encounter Visit Diagnoses Not on filedocumented in this encounter Care Teams Commercial Real Estate Attorney Relationship Specialty Start Date End Date Shalom Bey MD [address] [place] [address] PCP - General Internal Medicine 11/05/19 Ruth Ellis RN [address] [place] [address] Gear StraightenerSqe Medicine 12/06/23 12/19/23 documented as of this encounter
--- OUTSIDE RECORDS SUMMARY | 2025-04-25 14:18 | XMS_ITS | Encounter Summary ---
Author Organization [employer] Address [address] [facility] 7 [place] [address] Care Team Providers Care Department Store Salesperson Name Role Phone Shalom Bey MD Primary Care Prov ider Ruth Ellis RN Unavailable Unavailable Reason for Visit * Reason Comments Med Refill Encounter Details Date Type Department Care Team ([facility] st Contact Info) Description 10/13/2023 Refill [facility] CHC MED & PEDS [address] [place], [place] [phone] Shalom Bey MD [address] [place] [address] Primary insomnia; Type 2 diabetes mellitus without complication, without long-term current use of insulin ([facility]) Social History Tobacco Use Types [...] documented as of this encounter Care Teams Department Store Salesperson Relationship Specialty Start Date End Date Shalom Bey MD [address] [place] [address] PCP - General Internal Medicine 11/05/19 Ruth Ellis RN [address] [place] [address] Machine AttendantHuman Resources Records Clerk Medicine 12/06/23 12/19/23 documented as of this encounter
--- OUTSIDE RECORDS SUMMARY | 2025-04-25 14:18 | XMS_ITS | Encounter Summary ---
Author Organization [employer] Address [address] [facility] 7t [place] [address] Care Team Providers Care Neonatal Critical Care Nurse Name Role Phone Shalom Bey MD Primary Care Prov ider Encounter Details Date Type Department Care Team (Late st Contact Info) Description 04/23/2025 Orders Only GENERIC EXTERNAL DATA DEPARTMENT Provider, [...] Procedure Name Priority Date/Time Associated Diagnosis Comments COMPREHENSIVE METABOLIC PANEL, FASTING Routine 04/23/2025 9:23 AM EDT T3, FREE Routine 04/23/2025 9:23 AM EDT TSH Routine 04/23/2025 9:23 AM EDT T4, FREE Routine 04/23/2025 9:23 AM EDT HEMOGLOBIN A1C Routine 04/23/2025 9:23 AM EDT CALCIUM Routine 04/23/2025 9:23 AM EDT ALBUMIN Routine 04/23/2025 9:23 AM EDT documented in this encounter Results * T3, Free (04/23/2025 9:23 AM EDT) T3, Free 3.6 2.3 - 4.2 pg/mL [facility] Comment:THIS TEST WAS PERFOR MED AT:[employer] [place] [id number] PERALTA MD 04/23/2025 9:23 AM EDT 04/23/2025 9:23 AM EDT us Generic External Data Provider LAB BLOOD ORDERAB LES Final Result [facility] [address] [place] [address] [phone] * Albumin (04/23/2025 9:23 AM EDT) Albumin Level 4.7 3.5 - 5.0 g/dL [facility] 04/23/2025 9:23 AM EDT 04/23/2025 9:23 AM EDT Generic External Data Provider LAB BLOOD ORDERAB LES Final Result Performing Organization Address City/Va Hospital/ZIP Co de Phone Number [facility] [address] [place] [phone] * (ABNORMAL) Hemoglobin A1c (04/23/2025 9:23 AM EDT) Hemoglobin A1c 6.3(H) <6.0 % [facility] Comment:Hemoglobin A1C Refer ence Range Adults: 4.8 - 6.0 % Non diabetic: < 6.0 % Goal: < 7.0 %Additional Action Suggested: > 8.0 %Note: Hemoglobin A1c results are invalid for patients with abnormal amounts of HbF. Blood transfusions may impact the HbA1c concentration in the patient sample. Estimated Average Glucose 134 mg/dL [facility] Comment:eAG = Estimated ave rage glucose which is %A1C expressed asaverage glucose, using the formula of the [id number] Glucose study (ADAG), Diabetes Care, Vol.31,#8,Jan. 2007 04/23/2025 9:23 AM EDT 04/23/2025 9:23 AM EDT us Generic External Data Provider LAB BLOOD ORDERAB LES Final Result Performing Organization Address City/[facility] Hospital/ZIP Co de Phone Number [facility] [address] [place] [address] [phone] * T4, Free (04/23/2025 9:23 AM EDT) Free T4 (Free Thyroxine) 0.94 0.71 - 1.85 ng/dL [facility] 04/23/2025 9:23 AM EDT 04/23/2025 9:23 AM EDT us Generic External Data Provider LAB BLOOD ORDERAB LES Final Result [facility] [address] [place] [address] [phone] * (ABNORMAL) Comprehensive Metabolic Panel, Fasting (04/23/2025 9:23 AM EDT) Sodium 146(H) 135 - 145 mmol/L [facility] Potassium 4.3 3.3 - 5.1 mmol/L [facility] Chloride 109(H) 96 - 108 mmol/L [facility] Carbon Dioxide 29 22 - 29 mmol/L [facility] Anion Gap 12 12 - 20 [facility] Urea Nitrogen (BUN) 8(L) 9 - 16 mg/dL [facility] Creatinine, Serum 0.62 0.5 - 1.4 mg/dL [facility] Estimated Glomerular Filt Rate >60 [facility] Comment:Chronic Kidney Disea se: Estimated GFR < 60 mL/min/1.00w6Pwfqmp Kidney Disease: Estimated GFR < 15 mL/min/1.73m2 Glucose Fasting 116(H) 60 - 99 mg/dL [facility] Comment:A fasting glucose fr om 100-125 mg/dl is considered impaired(pre-diabetes). Calcium 9.8 8.4 - 10.2 mg/dL [facility] Bilirubin, Total 0.5 0.0 - 1.0 mg/dL [facility] Aspartate Amino Transferase 17 5 - 31 U/L [facility] Alanine Aminotransferase 13 0 - 31 U/L [facility] Total Protein 7.4 6.5 - 8.0 g/dL [facility] Albumin Level 4.7 3.5 - 5.0 g/dL [facility] Alkaline Phosphatase 79 39 - 117 U/L [facility] 04/23/2025 9:23 AM EDT 04/23/2025 9:23 AM EDT us Generic External Data Provider LAB BLOOD ORDERAB LES Final Result Performing Organization Address [facility]/ZIP Co de Phone Number [facility] [address] [place] [phone] * (ABNORMAL) TSH (04/23/2025 9:23 AM EDT) Thyroid Stimulating Hormone 0.19(L) 0.32 - 4.0 uIU/mL [facility] Comment:TSH 3rd Generation ( [employer]) 04/23/2025 9:23 AM EDT 04/23/2025 9:23 AM EDT us Generic External Data Provider LAB BLOOD ORDERAB LES Final Result Performing Organization Address [facility] Co de Phone Number [facility] [address] [place] [phone] * Calcium (04/23/2025 9:23 AM EDT) Calcium 9.8 8.4 - 10.2 mg/dL [facility] 04/23/2025 9:23 AM EDT 04/23/2025 9:23 AM EDT us Generic External Data Provider LAB BLOOD ORDERAB LES Final Result Performing Organization Address [facility] Co de Phone Number [facility] [address] [place] [address] [phone] documented in this encounter Visit Diagnoses Not on filedocumented in this encounter Additional Health Concerns Assessment Noted Time PHQ-9 Depression Total Score: 9 09/28/19 24 11:08 AM EDT documented as of this encounter Care Teams Neonatal Critical Care Nurse Relationship Specialty Start Date End Date Shalom Bey MD [address] [place] [phone] PCP - General Internal Medicine 11/05/19 documented as of this encounter
--- OUTSIDE RECORDS SUMMARY | 2025-04-25 14:18 | XMS_ITS | Encounter Summary ---
Author Organization [employer] Address [address] [facility] [address] [place] [address] Care Team Providers Care Ramp Service Man Name Role Phone Shalom Bey MD Primary Care Prov ider Encounter Details Date Type Department Care Team ([facility] st Contact Info) Description 08/27/2024 Orders Only [facility] CHC MED & PEDS [address] [place], [place] [phone] Shalom Bey MD [address] [place], [place] [phone] Social History Tobacco Use Types Packs/Day Years [...] Whole Blood 120(H) 60 - 115 mg/dL [facility] Comment:METER #: [id number] Testing performed in the Endocrinology Department [address] , [address], [facility]. 08/27/2024 1:47 PM EST 08/27/2024 1:53 PM EST us Generic External Data Provider LAB BLOOD ORDERAB LES Final Result [facility] [address] [place] [address] [phone] documented in this encounter Visit Diagnoses Not on filedocumented in this encounter Additional Health Concerns Assessment Noted Time PHQ-9 Depression Total Score: 9 09/28/19 24 11:08 AM EDT documented as of this encounter Care Teams Ramp Service Man Relationship Specialty Start Date End Date Shalom Bey MD [address] [place] [phone] PCP - General Internal Medicine 11/05/19 documented as of this encounter
--- OUTSIDE RECORDS SUMMARY | 2025-04-25 14:18 | XMS_ITS | Encounter Summary ---
Author Organization [employer] Address [address] [facility] 7t [place] [address] Care Team Providers Care Nuclear Technologist Name Role Phone Shalom Bey MD Primary Care Prov ider Encounter Details Date Type Department Care Team ([facility] st Contact Info) Description 05/23/2024 Orders Only [facility] CHC MED & PEDS [address] [place], [place] [phone] Leila Mustafa MD [address] [place], [place] [phone] Type 2 diabetes mellitus without complication, without long-term current use of insulin ([facility]) Social History Tobacco Use Types Packs/Day Years [...] documented as of this encounter Care Teams Nuclear Technologist Relationship Specialty Start Date End Date Shalom Bey MD [address] [place] [phone] PCP - General Internal Medicine 11/05/19 documented as of this encounter
--- OUTSIDE RECORDS SUMMARY | 2025-04-25 14:18 | XMS_ITS | Encounter Summary ---
Author Organization [employer] Address [address] [facility] 7t [place] [address] Care Team Providers Care Surplus Property Disposal Agent Name Role Phone Shalom Bey MD Primary Care Prov ider Ruth Ellis RN Unavailable Unavailable Encounter Details Date Type Department Care Team ([facility] st Contact Info) Description 11/24/2022 Abstract [facility] MED & PEDS [address] [place] [address] Shalom Bey MD [address] [place] [address] Social History Tobacco Use Types Packs/Day Years [...] on filedocumented in this encounter Care Teams Surplus Property Disposal Agent Relationship Specialty Start Date End Date Shalom Bey MD [address] [place] [address] PCP - General Internal Medicine 11/05/19 Ruth Ellis RN [address] [place] [address] Stonemason ApprenticeChief Fundraising Officer Medicine 12/06/23 12/19/23 documented as of this encounter
--- OUTSIDE RECORDS SUMMARY | 2025-04-25 14:18 | XMS_ITS | Encounter Summary ---
Author Organization [employer] Address [address] [facility] 7 [place] [address] Care Team Providers Care Laborer Heading Name Role Phone Shalom Bey MD Primary Care Prov ider Reason for Visit * Reason Onset Date Comments Med Refill 04/22/2025 Encounter Details Date Type Department Care Team ([facility] st Contact Info) Description 04/22/2025 Refill [facility] CHC MED & PEDS [address] [place] [address] Shalom Bey MD [address] [place] [address] Social History Tobacco Use Types Packs/Day Years [...] as of this encounter Care Teams Laborer Heading Relationship Specialty Start Date End Date Shalom Bey MD [address] [place] [address] PCP - General Internal Medicine 11/05/19 documented as of this encounter
--- OUTSIDE RECORDS SUMMARY | 2025-04-25 14:18 | XMS_ITS | Clinical Summary ---
Author Organization [employer] Address [address] [place] [address] Care Team Providers Care Coronary Clinical Specialist Name Role Phone Shalom Bey MD [...] 23 Active ergocalciferol (Vitamin D2) 1.25 MG (46282 UT) capsuleIndication s:Vitamin D deficiency TAKE ONE [...] complication, without long-term current use of insulin ([facility]) To test the blood sugar once a day 100 each 12 05/30/20 24 2024 Active metFORMIN XR (Glucophage-XR) 500 MG 24 hr tabletIndications :Type 2 diabetes mellitus without complication, without long-term current use of insulin ([facility]) TAKE ONE TABLET TWICE DAILY 180 tablet 3 07/13/19 25 Active Januvia 100 MG tablet TAKE ONE TABLET DAILY 90 tablet 1 12/07/19 25 Active albuterol (2.5 MG/3ML) 0.083% nebulizer solutionIndicatio ns:Chronic obstructive pulmonary disease, unspecified ([facility]) USE 1 VIAL IN NEBULIZER 3 TIMES DAILY 90 mL 3 01/17/20 25 Active zolpidem (Ambien) 10 MG tabletIndications :Primary insomnia TAKE ONE TABLET EVERY NIGHT AT BEDTIME NEEDED 30 tablet 04/15/20 25 Active mirtazapine (Remeron) 30 MG tablet TAKE ONE TABLET EVERY NIGHT AT BEDTIME FOR SLEEP 30 tablet 2 04/24/20 25 Active mirtazapine (Remeron) 30 MG tablet TAKE ONE TABLET EVERY NIGHT AT BEDTIME FOR SLEEP 30 tablet 03/01/20 25 2024 Discontinued(R eorder (will not trigger notification to Pharmacy)) zolpidem (Ambien) 10 MG tabletIndications :Primary insomnia TAKE ONE TABLET EVERY NIGHT AT BEDTIME NEEDED 30 tablet 03/20/20 25 2024 Discontinued Active Problems Problem Noted Date Diagnosed Date Benzodiazepine dependence ([facility]) 04/11/2025 Mixed simple and mucopurulent chronic bronchitis ([facility]) 04/11/2025 Assessment & Plan (04/11/2025 12:08 PM [...] send refill, lifestyle modifications reviewed Breast cancer ([facility]) 04/13/2023 04/13/20 Assessment & Plan (04/11/2025 12:07 [...] 6.0%, no changes will be made, following 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 secondary education 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, will follow up in 3 months in office Patient refers her eye exam is scheduled in the coming months Encounters Date Type Department Care Team Description 04/23/2025 Orders Only GENERIC EXTERNAL DATA DEPARTMENT Provider, Generic External Data 04/22/2025 Refill [facility] [address] [place] [address] Shalom Bey MD 04/15/2025 Telephone [facility] [address] [place] [address] Shalom Bey MD Referral 04/15/2025 Telephone [facility] [address] [place] [address] Shalom Bey MD Med Refill 04/15/2025 Refill [facility] [address] [place] [address] Shalom Bey MD Primary insomnia 04/11/2025 11:30 AM EDT Telemedicine [facility] [address] [place] [address] Shalom Bey MD Benzodiazepine dependence (CMS/HCC) (HCC) (Primary Dx); Mixed simple and mucopurulent chronic bronchitis (CMS/HCC) (HCC); Dietary counseling; Exercise counseling; Mixed hyperlipidemia; Malignant neoplasm of right breast in female, estrogen receptor positive, unspecified site of breast (CMS/HCC) (HCC); Type 2 diabetes mellitus without complication, without long-term current use of insulin (HCC) 04/10/2025 Telephone [facility] [address] [place] [address] Shalom Bey MD chart prep 04/08/2025 Travel 04/05/2025 Telephone [facility] [address] [place] [address] Shalom Bey MD chart prep 03/19/2025 Telephone [facility] [address] [place] [address] Shalom Bey MD Med Refill 03/18/2025 10:30 AM EDT Clinical Support [facility] [address] [place] [address] Domenica Brar RN Visit for suture removal 03/18/2025 Travel 03/18/2025 Refill [facility] [address] [place] [address] Shalom Bey MD Primary insomnia 03/14/2025 Telephone [facility] [address] [place] [address] Shalom Bey MD Appointment Request 03/01/2025 Refill [facility] [address] [place] [address] Shalom Bey MD 02/13/2025 Refill [facility] [address] [place] [address] Shalom Bey MD Primary insomnia 02/10/2025 Orders Only [facility] External Provider, [facility] from Last 3 Months Family History Medical [...] - Td or Tdap) 02/19/2023 02/19/2013, 06/27/2007 Mammogram 10/23/2023 10/22/2022, 08/25, 08/30/2019, Additional history exists SDOH Screening 12/23/2023 12/22/2022 Tobacco Screening 03/07/2024 03/07/2023 Depression Monitoring 03/29/2024 09/28/2023, 024 Pap Smear 04/28/2024 04/28/2021, 04/28/2021 COVID-19 Vaccine ( season) 2025 06/19/2021, 10/01/2020, 09/03/2020 Influenza Vaccine (#1) 2025 , 04/20/2018, 04/19/2018, Additional history exists Colonoscopy 09/10/2025 09/10/2020, 02/0 07/2014, 03/13/2013 Colorectal Cancer Screening 09/10/2025 Diabetes: Hemoglobin A1C 10/22/2025 025, 01/02/2025, 08/25/2022, Additional history exists Diabetes: Urine Protein Screening 04/23/2026 04/23/2025, 08/25/2022, 05/27/2022, Additional history exists Lipid Panel 04/23/2026 04/23/2025, 030 06/2022, 08/25/2022, Additional history exists Cervical Cancer Screening 04/28/2026 HPV/Cotest 04/28/2026 04/28/2021 [...] Name Priority Date/Time Associated Diagnosis Comments T3, FREE Routine 04/23/2025 9:23 AM EDT ALBUMIN Routine 04/23/2025 9:23 AM EDT HEMOGLOBIN A1C Routine 04/23/2025 9:23 AM EDT T4, FREE Routine 04/23/2025 9:23 AM EDT COMPREHENSIVE METABOLIC PANEL, FASTING Routine 04/23/2025 9:23 AM EDT TSH Routine 04/23/2025 9:23 AM EDT CALCIUM Routine 04/23/2025 9:23 AM EDT LIPID PANEL, STANDARD Routine 04/23/2025 9:23 AM EDT Type 2 diabetes mellitus without complication, without long-term current use of insulin (HCC) HEPATIC FUNCTION PANEL Routine 9:23 AM EDT Type 2 diabetes mellitus without complication, without long-term current use of insulin (HCC) ALBUMIN, RANDOM URINE W/CREATININE Routine 04/23/2025 9:18 AM EDT Type 2 diabetes mellitus without complication, without long-term current use of insulin (HCC) XR FINGERS 2+ VIEWS RIGHT Routine 03/09/2025 1:[address] SINUS FACIAL BONES WO CONTRAST Routine 02/10/2025 3:[address] CERVICAL SPINE WO CONTRAST Routine 02/10/2025 3:[address] HEAD WO CONTRAST Routine 02/10/2025 1 :47 AM EDT COMPREHENSIVE METABOLIC PANEL, FASTING Routine 02/10/2025 1:25 AM EDT CBC WITH AUTO DIFFERENTIAL Routine 02/10/2025 1:25 AM EDT HM MAMMOGRAPHY Routine 10/22/2022 9:22 AM EDT HIV 1/2 ANTIGEN/ANTIBODY, FOURTH GENERATION W/RFL Routine 04/16/2022 9:21 AM EDT THINPREP IMAGING PAP AND HPV MRNA E6/E7 WITH REFLEX TO HPV 16,18/45 Routine 04/28/2021 11:30 AM EDT PAP SMEAR Routine 04/28/2021 12:00 AM EDT HM COLONOSCOPY Routine 09/10/2020 1:08 PM EDT from Last 3 Months or Most Recently Relevant to Health Maintenance Results * (ABNORMAL) Comprehensive Metabolic Panel, Fasting (04/23/2025 9:23 AM EDT) Only the most recent of2 resultswithin the time period is included. Sodium 146(H) 135 - 145 mmol/L [facility] Potassium 4.3 3.3 - 5.1 mmol/L [facility] Chloride 109(H) 96 - 108 mmol/L [facility] Carbon Dioxide 29 22 - 29 mmol/L [facility] Anion Gap 12 12 - 20 [facility] Urea Nitrogen (BUN) 8(L) 9 - 16 mg/dL [facility] Creatinine, Serum 0.62 0.5 - 1.4 mg/dL [facility] Estimated Glomerular Filt Rate >60 [facility] Comment:Chronic Kidney Disea se: Estimated GFR < 60 mL/min/1.22c1Uobmfi Kidney Disease: Estimated GFR < 15 mL/min/1.73m2 Glucose Fasting 116(H) 60 - 99 mg/dL [facility] Comment:A fasting glucose fr om 100-125 mg/dl is considered impaired(pre-diabetes). Calcium 9.8 8.4 - 10.2 mg/dL [facility] Bilirubin, Total 0.5 0.0 - 1.0 mg/dL [facility] Aspartate Amino Transferase 17 5 - 31 U/L [facility] Alanine Aminotransferase 13 0 - 31 U/L [facility] Total Protein 7.4 6.5 - 8.0 g/dL [facility] Albumin Level 4.7 3.5 - 5.0 g/dL [facility] Alkaline Phosphatase 79 39 - 117 U/L [facility] 04/23/2025 9:23 AM EDT 04/23/2025 9:23 AM EDT us Generic External Data Provider LAB BLOOD ORDERAB LES Final Result [facility] [address] [place] [phone] * T3, Free (04/23/2025 9:23 AM EDT) T3, Free 3.6 2.3 - 4.2 pg/mL [facility] Comment:THIS TEST WAS PERFOR MED AT:[id number] [place] [phone] PERALTA MD 04/23/2025 9:23 AM EDT 04/23/2025 9:23 AM EDT us Generic External Data Provider LAB BLOOD ORDERAB LES Final Result Performing Organization Address [facility]/ZIP Co de Phone Number [facility] [address] [place] [phone] * (ABNORMAL) TSH (04/23/2025 9:23 AM EDT) Thyroid Stimulating Hormone 0.19(L) 0.32 - 4.0 uIU/mL [facility] Comment:TSH 3rd Generation ( [facility]) 04/23/2025 9:23 AM EDT 04/23/2025 9:23 AM EDT Generic External Data Provider LAB BLOOD ORDERAB LES Final Result Performing Organization Address [facility] Co de Phone Number [facility] [address] [place] [phone] * T4, Free (04/23/2025 9:23 AM EDT) Free T4 (Free Thyroxine) 0.94 0.71 - 1.85 ng/dL [facility] 04/23/2025 9:23 AM EDT 04/23/2025 9:23 AM EDT Generic External Data Provider LAB BLOOD ORDERAB LES Final Result Performing Organization Address City/[facility] Co de Phone Number [facility] [address] [place] [phone] * (ABNORMAL) Hemoglobin A1c (04/23/2025 9:23 AM EDT) Hemoglobin A1c 6.3(H) <6.0 % [facility] Comment:Hemoglobin A1C Refer ence Range Adults: 4.8 - 6.0 % Non diabetic: < 6.0 % Goal: < 7.0 %Additional Action Suggested: > 8.0 %Note: Hemoglobin A1c results are invalid for patients with abnormal amounts of HbF. Blood transfusions may impact the HbA1c concentration in the patient sample. Estimated Average Glucose 134 mg/dL [facility] Comment:eAG = Estimated ave rage glucose which is %A1C expressed asaverage glucose, using the formula of the [id number] Glucose study (ADAG), Diabetes Care, Vol.31,#8,2007 04/23/2025 9:23 AM EDT 04/23/2025 9:23 AM EDT us Generic External Data Provider LAB BLOOD ORDERAB LES Final Result Performing Organization Address [facility] Co de Phone Number [facility] [address] [place] [phone] * Calcium (04/23/2025 9:23 AM EDT) Calcium 9.8 8.4 - 10.2 mg/dL [facility] 04/23/2025 9:23 AM EDT 04/23/2025 9:23 AM EDT Generic External Data Provider LAB BLOOD ORDERAB LES Final Result Performing Organization Address [facility] de Phone Number [facility] [address] [place] [phone] * Albumin (04/23/2025 9:23 AM EDT) Albumin Level 4.7 3.5 - 5.0 g/dL [facility] 04/23/2025 9:23 AM EDT 04/23/2025 9:23 AM EDT Generic External Data Provider LAB BLOOD ORDERAB LES Final Result Performing Organization Address [facility] de Phone Number [facility] [address] [place] [phone] * Hepatic Function Panel (04/23/2025 9:23 AM EDT) Bilirubin, Total 0.5 0.0 - 1.0 mg/dL [facility] Bilirubin, Direct 0.2 0.0 - 0.5 mg/dL [facility] Aspartate Amino Transferase 22 5 - 31 U/L [facility] Alanine Aminotransferase 13 0 - 31 U/L [facility] Total Protein 7.5 6.5 - 8.0 g/dL [facility] Albumin Level 4.7 3.5 - 5.0 g/dL [facility] Alkaline Phosphatase 80 39 - 117 U/L [facility] Blood Venous blood specimen / Unknown 04/23/2025 9:23 AM EDT 04/23/2025 9:23 AM EDT Shalom Chris MD LAB BLOOD ORDERABL ES Final Result [facility] [address] [place] [phone] * (ABNORMAL) Lipid Panel, Standard (04/23/2025 9:23 AM EDT) Triglycerides 130 <150 mg/dL [facility] Comment:Desirable Triglyceri de: less than 150 mg/dLBorderline High Triglyceride 150-199 mg/dLHigh Triglyceride: 200-499 mg/dLVery High Triglyceride: greater than or equal to 5OO mg/dL Cholesterol 153 <200 mg/dL [facility] Comment:Desirable Cholestero l: less than 200 mg/dLBorderline High Cholesterol: 200-239 mg/dLHigh Cholesterol: greater than 239 mg/dL LDL Cholesterol Calculated 89 <100 mg/dL [facility] Comment:Desirable LDL: less than 100 mg/dLNear Optimal/Above Optimal LDL: 110- 129 mg/dLBorderline High LDL: 130-159 mg/dLHigh LDL: 160-189 mg/dLVery High LDL: greater than or equal to 190 mg/dL HDL Cholesterol 38(L) >40 mg/dL [facility] Comment:Desirable HDL: great er than 40 mg/dL Note: This HDL assay may give artificially low results in patients with liver disease. Blood Venous blood specimen / Unknown 04/23/2025 9:23 AM EDT 04/23/2025 9:23 AM EDT Shalom Chris MD LAB BLOOD ORDERABL ES Final Result Performing Organization Address [facility] de Phone Number [facility] [address] [place] [phone] * Albumin, Random Urine W/Creatinine (04/23/2025 9:18 AM EDT) Creatinine, Urine 72.73 mg/dL [facility] Microalbumin Urine 5.0 mg/L [facility] Microalbum Creatinine Ratio Ur 6.8 <30 ug/mg cr [facility] Comment:Albumin/Creatinine R atio Reference Ranges: Normal: < 30 ug/mg creatinine Microalbuminuria: 30 - 300 ug/mg creatinineClinical Albuminuria: > 300 ug/mg creatinine Urine (Urine, Random) 04/23/2025 9:18 AM EDT 04/23/2025 9:34 AM EDT Shalom Chris MD LAB URINE ORDERABL ES Final Result Performing Organization Address [facility] de Phone Number [facility] [address] [place] [phone] * XR Fingers 2+ Views Right (03/09/2025 1:48 AM EDT) Anatomical Region Laterality Modality Upper Extremities, Fingers Right [employer] 03/09/2025 1:48 AM EDT Narrative 03/09/2025 1:49 AM EDT [address] [address] XRay Report Signed Patient: Marnie Arce I MR#: [id number] : 1960 Acct:[id number] Age/Sex: 64 / F ADM Date: 03/09/25 Loc: .ED Attending Dr: Ordering Physician: Uriel Bar MD Date of Service: 03/09/25 Procedure(s): XR finger RT min 2V Accession Number(s): [id number] cc: Shalom Bey MD; Uriel Bar MD [...] in OV> 03/09/25148 DD/ 7 TD/TT: 03/09/25147 Traffic Rate Analyst: Procedure Note Donotuseinterpreter, Image - 03/09/2025 [place] [address] XRay Report Signed Patient: Marnie Arce IMR#: [id number] : 1960cct:[id number] Age/Sex: 64 / FADM Date: 03/09/25 Loc: HO.ED Attending Dr: Ordering Physician: Uriel Bar MD Date of Service: 03/09/25 Procedure(s): XR finger RT min 2V Accession Number(s): [id number] cc: Shalom Bey MD; Uriel Bar MD [...] signed by Beltran Yang MD in OV> 03/09/25 0149 DD/ 7 TD/TT: 03/09/25147 Traffic Rate Analyst: us [facility] External Provider IMG XR PROCEDURES Final Result * CT Sinus Facial Bones w/o Contrast (02/10/2025 3:25 AM EDT) Anatomical Region Laterality Modality Computed Tomogra phy 02/10/2025 3:25 AM EDT Narrative 02/10/2025 3:26 AM EDT [address] [address] [address] Scan Report Signed Patient: Marnie Arce I MR#: [id number] : 1960 Acct:[id number] Age/Sex: 64 / F ADM Date: 02/10/25 Loc: HO.ED Attending Dr: Ordering Physician: Katharina Bhatia MD Date of Service: 02/10/25 Procedure(s): CT facial bones wo IV con Accession Number(s): [id number] cc: Shalom Bey MD; Katharina Bhatia MD Report Number: [id number]: Total DLP = 283.00 mGy-cm CLINICAL HISTORY: [...] signed by Jeevan Carney MD in OV> 02/10/256 DD/ 4 TD/TT: 02/10/25324 Traffic Rate Analyst: Procedure Note Donotuseinterpreter, Image - 02/10/[address] [address] [address] Scan Report Signed Patient: Marnie Arce [facility]#: [id number] : 1960cct:[id number] Age/Sex: 64 / FADM Date: 02/10/25 Loc: HO.ED Attending Dr: Ordering Physician: Katharina Bhatia MD Date of Service: 02/10/25 Procedure(s): CT facial bones wo IV con Accession Number(s): [id number] cc: Shalom Bey MD; Katharina Bhatia MD Report Number: [id number]: Total DLP = 283.00 mGy-cm CLINICAL HISTORY: [...] in OV> 02/10/25325 DD/ 4 TD/TT: 02/10/25324 Traffic Rate Analyst: [facility] External Provider IMG CT PROCEDURES Edited Result - Final * CT Cervical Spine w/o Contrast (02/10/2025 3:12 AM EDT) Anatomical Region Laterality Modality Spine, C-spine Computed Tomogra phy 02/10/2025 3:12 AM EDT Narrative 02/10/2025 3:14 AM EDT [place] [address] CT Scan Report Signed Patient: Marnie Arce I MR#: [id number] : 1960 Acct:[id number] Age/Sex: 64 / F ADM Date: 02/10/25 Loc: HO.ED Attending Dr: Ordering Physician: Katharina Bhatia MD Date of Service: 02/10/25 Procedure(s): CT cervical spine wo IV con Accession Number(s): [id number] cc: Shalom Bey MD; Katharina Bhatia MD Report Number: [id number]: Total DLP = 289.00 mGy-cm CLINICAL HISTORY: [...] in OV> 02/10/25312 DD/ 1 TD/TT: 02/10/25311 Traffic Rate Analyst: Procedure Note Donotuseinterpreter, Image - 02/10/[address] [place] [address] [address] Scan Report Signed Patient: Marnie Arce IMR#: [id number] : 1960cct:[id number] Age/Sex: 64 / FADM Date: 02/10/25 Loc: HO.ED Attending Dr: Ordering Physician: Katharina Bhatia MD Date of Service: 02/10/25 Procedure(s): CT cervical spine wo IV con Accession Number(s): [id number] cc: Shalom Bey MD; Katharina Bhatia MD Report Number: [id number]: Total DLP = 289.00 mGy-cm CLINICAL HISTORY: [...] in OV> 02/10/25312 DD/ 1 TD/TT: 02/10/25311 Traffic Rate Analyst: [facility] External Provider IMG CT PROCEDURES Edited Result - Final * CT Head w/o Contrast (02/10/2025 1:47 AM EDT) Anatomical Region Laterality Modality Head, Neck Computed Tomogra phy 02/10/2025 1:47 AM EDT Narrative 02/10/2025 1:48 AM EDT [address] [address] [address] Scan Report Signed Patient: Marnie Arce I MR#: [id number] : 1960 Acct:[id number] Age/Sex: 64 / F ADM Date: 02/10/25 Loc: HO.ED Attending Dr: Ordering Physician: Katharina Bhatia MD Date of Service: 02/10/25 Procedure(s): CT head/brain wo IV con Accession Number(s): [id number] cc: Shalom Bey MD; Katharina Bhatia MD Report Number: [id number]: Total DLP = 621.00 mGy-cm CLINICAL HISTORY: [...] in OV> 02/10/25147 DD/ 6 TD/TT: 02/10/25146 Traffic Rate Analyst: Procedure Note Donotuseinterpreter, Image - 02/10/[address] [place] [address] [address] Scan Report Signed Patient: Marnie Arce [facility]#: [id number] : 1960cct:[id number] Age/Sex: 64 / FADM Date: 02/10/25 Loc: HO.ED Attending Dr: Ordering Physician: Katharina Bhatia MD Date of Service: 02/10/25 Procedure(s): CT head/brain wo IV con Accession Number(s): [id number] cc: Shalom Bey MD; Katharina Bhatia MD Report Number: [id number]: Total DLP = 621.00 mGy-cm CLINICAL HISTORY: [...] in OV> 02/10/25147 DD/ 6 TD/TT: 02/10/25146 Traffic Rate Analyst: [facility] External Provider IMG CT PROCEDURES Edited Result - Final * (ABNORMAL) CBC auto differential (02/10/2025 1:25 AM EDT) White Blood Count 10.1 4.8 - 10.8 X10*3/uL [facility] Red Blood Count 4.43 4.20 - 5.50 X10*6/uL [facility] Hemoglobin 12.4 12.0 - 16.0 g/dl [facility] Hematocrit 36.0(L) 37.0 - 47.0 % [facility] Mean Corpuscular Volume 81.3 80.0 - 98.0 fL [facility] Mean Corpuscular Hemoglobin 28.0 27.0 - 33.0 pg [facility] Mean Corpuscular HGB Conc 34.4 31.0 - 35.0 g/dl [facility] Red Cell Distribution Width 13.2 11.0 - 16.0 % [facility] Platelet Count 154(L) 160 - 400 X10*3/uL [facility] Mean Platelet Volume 10.2 9.4 - 12.3 fL [facility] Neutrophils Percent Auto 79.8(H) 45 - 73 % [facility] Imm Gran Pct Auto 0.4 0.0 - 0.4 % [facility] Lymphocytes Percent Auto 12.5(L) 20 - 40 % [facility] Monocytes Percent Auto 6.0 2 - 11 % [facility] Eosinophils Percent Auto 0.9 0 - 4 % [facility] Basophils Percent Auto 0.4 0 - 2 % [facility] NRBC Pct Auto 0.0 0.0 - 0.2 /100WBC [facility] Neutrophils Absolute Auto 8.1 2.0 - 8.3 x10*3/uL [facility] Imm Gran Abs Auto 0.04(H) 0.00 - 0.03 X10*3/uL [facility] Lymphocytes Absolute Auto 1.3 1.2 - 4.9 X10*3/uL [facility] Monocytes Absolute Auto 0.6 0.1 - 1.2 X10*3/uL [facility] Eosinophils Absolute Auto 0.1 0.0 - 0.4 X10*3/uL [facility] Basophils Absolute Auto 0.0 0.0 - 0.2 X10*3/uL [facility] NRBC Abs Auto 0.000 0.0 - 0.012 X10*3/uL [facility] 02/10/2025 1:25 AM EDT 02/10/2025 1:26 AM EDT us Generic External Data Provider LAB BLOOD ORDERAB LES Final Result [facility] [address] [place] [phone] * (ABNORMAL) Mammography (10/22/2022 9:22 AM EDT) Mammogram Birads-0 Anatomical Region Laterality Modality Other Narrative 10/22/2022 9:22 AM EDT Recommended MRI us Historical Provider HEALTH MAINTENANCE Final Result * HIV 1/2 ANTIGEN/ANTIBODY,FOURTH GENERATION W/RFL (04/16/2022 [...] purpose. For additional information please refer to http://education.Orbeus/faq/WUJ458 (This link is being provided for informational/ educational purposes only.) The performance of this assay has not been clinically validated in patients less than 2 years old. 04/16/2022 9:21 AM EDT Shalom Chris MD LAB BLOOD ORDERABL ES Final Result [facility] * THINPREP TIS PAP AND HPV mRNA E6/E7 REFLEX HPV 16,18/45 (04/28/2021 11:30 AM EDT) Pathologist [facility] Clinical Information: DEE DEE [facility] COMMENT SEE COMMENT [facility] ON [...] has been evaluated with computer assisted technology. [facility] Cafe Aide: SEE COMMENT [facility] Comment: WAC, CT(ASCP) CT screening location: [address] [address] HPV nRNA E6/E7 Not Detected Not Detected [facility] Comment: Methodology: Restaurant Host/Hostess-Mediated Amplification This assay detects E6/E7 viral messenger RNA (mRNA) from 14 high-risk HPV types (16,18,31,33,35,39,45,51,52,56,58,59,66,68). The analytical performance characteristics of this assay have been determined by [employer]. The modifications have not been cleared or approved by the FDA. This assay has been validated pursuant to the CLIA regulations and is used for clinical purposes. For additional information, please refer to http://education.Orbeus/faq/RLZ636e1 (This link if provided for information/ educational [...] PATHOLOGY ORDERABLES Final Result Performing Organization Address City/[facility]/ZIP Co de Phone Number [facility] [address] [place] [address], * Pap Smear (04/28/2021 12:00 AM EDT) Swab Kayla [facility] CYTOLOGY ORDERABLES F inal Result Performing Organization Address City/[facility]/ZIP Co de Phone Number [address], [place] [phone] * Colonoscopy (09/10/2020 1:08 PM EDT) Historical Provider HEALTH MAINTENANCE Final Result from Last 3 Months or Most Recently Relevant to Health Maintenance Insurance MEDICARE [place] [id number] [facility] STANDARD [address] Care Teams Coronary Clinical Specialist Relationship Specialty Start Date End Date Shalom Bey MD [address] [place] [address] AMARIS Velasquez PCP - General Internal Medicine 11/05/19
--- OUTSIDE RECORDS SUMMARY | 2025-04-25 14:18 | XMS_ITS | Encounter Summary ---
Author Organization [employer] Address [address] [facility] 7t [place] [address] Care Team Providers Care Sales Support Specialist Name Role Phone Shalom Bey MD Primary Care Prov ider Reason for Visit * Reason Comments Med Refill Encounter Details Date Type Department Care Team ([facility] st Contact Info) Description 10/23/2024 Refill [facility] CHC MED & PEDS [address] [place] [address] Shalom Bey MD [address] [place] [address] Primary insomnia Social History Tobacco Use Types [...] as of this encounter Care Teams Sales Support Specialist Relationship Specialty Start Date End Date Shalom Bey MD [address] [place] [address] PCP - General Internal Medicine 11/05/19 documented as of this encounter
== END 2025-04-25 11:45 | disposition home or self-care (01) ==
LOC: HO.HPS 11:24
PROVIDERS: PCP Internal Medicine; Visit Provider Internal Medicine Pulmonary Disease
DX: J44.9 Chronic obstructive pulmonary disease, unspecified (principal); R91.8 Other nonspecific abnormal finding of lung field
CPT/HCPCS: 99214

== ENCOUNTER → 2025-04-25 11:24 | Outpatient (BNVA) | payer MEDICARE, MEDICAID, SELFPAY | PROVIDERS: PCP Internal Medicine; Visit Provider Internal Medicine Pulmonary Disease | DX: J44.9 Chronic obstructive pulmonary disease, unspecified (principal); R91.8 Other nonspecific abnormal finding of lung field; Z87.891 Personal history of nicotine dependence | CPT/HCPCS: 99212 ==

== ENCOUNTER 2025-05-08 13:52 | Outpatient (AMB) | payer MEDICARE, MEDICAID, SELFPAY ==
[2025-05-08 14:00] VITALS: BP 102/58; PULSE 88; O2SAT 97; BMI 25.6
--- NOTE | 2025-05-08 14:00 | MHC.OFFVIS ---
Vital Signs 05/08/25 14:00 Height 5 ft 4 in Weight 149 lb 4.047 oz BMI 25.6 BP 102/58 L Blood Pressure Location Lt brachial Position Sitting Pulse 88 Pulse Source Pulse Oximeter Pulse Oximetry (%) 97 Oxygen Delivery Method Room Air Intake Visit Reasons: T2DM, thyroid Intake Note: Patient presents today for a follow-up on Type 2 Diabetes Mellitus Multinodular Thyroid: Last seen by DR Lee. Last Diabetic eye exam was on: 02/2025 Last Podiatry exam was on: Patient does not see a Re Dye Hand Most recent HbA1c: 6.3%, 04/23/2025 Thyroid Work-up: Completed on 04/23/2025 Random Glucose: 144 mg/dL Client Onboarding Analyst Required: No Client Onboarding Analyst Services: Client Onboarding Analyst Present Client Onboarding Analyst Name: David Information Interpreted: non-clinical & clinical Accompanied by: Self / Same As Patient Allergies No Known Allergies (No Known Allergies*) Allergy (Verified 05/08/25 14:06) Medication List - Last Reconciled 05/08/25 by Kavon Lucio MD albuterol sulfate 90 mcg/actuation 2 puffs PO Q4-6H PRN amoxicillin-pot clavulanate 500-125 mg (Augmentin) 1 tab PO TID 7 days anastrozole 1 mg PO DAILY ascorbate calcium (vitamin C) 500 mg PO DAILY atorvastatin 20 mg PO DAILY Held on 11/22/20. Instructions: Resume on 11/29/20. blood sugar diagnostic (FreeStyle Lite Strips) Use 1x daily As directed to check blood glucose blood-glucose meter (FreeStyle Lite Meter kit) Use daily As directed to check blood sugars askrzkeibt-npmwswdc-bfdpevqgld 160-9-4.8 mcg/actuation (Breztri Aerosphere) 2 inhalations inhalation BID calcium carbonate 500 mg PO DAILY cholecalciferol (vitamin D3) mcg PO [Compression socks As directed] docusate sodium (Colace) 100 mg PO DAILY famotidine (Pepcid) 20 mg PO DAILY ibuprofen 800 mg PO Q8H PRN lancets (FreeStyle Lancets) use up to 3 x daily as directed to check blood glucose loratadine 10 mg PO DAILY methimazole 5 mg PO DAILY methocarbamol 750 mg PO BEDTIME semaglutide (Ozempic) 1 mg (0.75 mL) subcut QWEEK sitagliptin phosphate (Januvia) 100 mg PO DAILY tramadol 100 mg (2 x 50 mg) PO TID 30 days HPI Comments Details: Patient seen in the office for the evaluation of type 2 diabetes and hyperthyroidism. She was previously seen by Roxi Bajwa PA-C for diabetes on 11/26/2024, and by Dr. Lee on 07/19/2024 for hyperthyroidism. This is my 1st time seeing this patient. HPI T2DM: Patient is a 64-year-old female with a significant past medical history hypertension, hyperlipidemia, type 2 diabetes, PMR , multinodular goiter, hyperthyroidism, presenting today for a follow up regarding her diabetes. Endo: Dm-was diagnosed with diabetes around 2013. Most people in her family have type 2 diabetes. Her A1c is 6.7. She is currently on Ozempic 1 mg weekly. -she has been able to stop Actos, Jardiance, Januvia when she started ozempic. she has lost 25 lb with the Ozempic. She is continuing to lose weight and keep it off. She is eating healthy and has cut out a lot of rice. Her blood sugars 100-150. She denies any blood sugars less than 70. Intolerant of metformin GI distress Follows regularly with Ophthalmology was last seen in February 2024. Denies any retinopathy. Hyperthyroidism: 63-year-old female coming in today for follow up of toxic multinodular goiter. She also follows in our clinic with Arianna EMMANUEL for type 2 diabetes mellitus. Last seen 05/28/2024. This was not addressed today. She was previously seeing Dr. Lara for toxic multinodular goiter. Patient has a history of thyroid nodules at least dating back to 2020 at which time ultrasound in December 2020 showed bilateral thyroid nodules with a dominant 1.4 cm right lobe inferior nodule. This was biopsied 07/02/2021 with benign cytology, [place] category 2. Subsequently in May 2022 patient was noted to have a low TSH level of 0.26 with normal free T4. TSH remains low between May 2022 in August 2022 in the range of 0.13-0.26. However normalized in September 2022. Free T4 always remained normal. This was consistent with subclinical hyperthyroidism. Labs May 2022 showed undetectable TSI, TR A/B antibodies. Negative TPO in thyroglobulin antibodies. Patient had a repeat thyroid ultrasound 07/08/2022 which again showed bilateral thyroid nodules, with a dominant right inferior lobe 1.2 cm nodule that had remained stable/becomes smaller compared to 2020. The ultrasound report also labeled a 1.6 cm left inferior lobe nodule, with peripheral calcification S TR 5 category. However when I reviewed the images this seems to be the same nodule that was present in 2020, and I do not see any size measurements on the images in 202 to say that this has grown bigger. In addition patient also had a thyroid uptake and scan 07/09/2022 which showed focal areas of increased uptake which correlate with both the right inferior as well as the left inferior lobe nodules in addition to other increased areas of uptake consistent with toxic multinodular goiter. She was started on methimazole 5 mg daily sometime in 2022, she is very unclear about whether she is currently on this medication or not, she keeps going back and forth regarding whether she is on this medication or not. I have asked her to bring her medication bottles next time. Patient currently denies heat or cold intolerance, diarrhea or constipation, hair loss, palpitation, anxiety, weight changes, mood changes, low energy, changes in appearance of eyes or vision changes, tremors, increased diaphoresis or dry skin. Patient denies any difficulty swallowing, pain on swallowing or voice changes or difficulty breathing. She has a history of thoracic radiation for breast cancer.. Denies having ever used lithium, amiodarone or biotin supplements. Patient denies any family history of thyroid cancer. Sister had thyroid nodules. No recent TFTs done. No history of osteoporosis. No fractures. No history of CAD or stroke, no arrthymias Quit smoking 25 years ago. Past surgical history B/L mastectomy Bone health Currently on anastrozole 1 mg daily, she has been on this medication for at least the past year with the plan for 5 years Has a history of bilateral breast cancer per patient with a history of radiation therapy Currently on vitamin-D, unclear dose No history of fractures No bone density in the chart. Interval history: Methimazole 5 mg - since 2-3 months ago. Before that she had stopped taking the medicationn for a while. She denies palpitations, agitation, hand tremors or diarrhea Ozempic 1mg and Januvia 100 mg daily Checks BG BID, reports normal BG She did not bring her sensor Denies hypoglycemia She reports history of chest radiation from breast cancer 1 year ago She reports weight loss of about 8 lbs in 3 months with Ozempic Ophthalmology: 5 months ago, no DR Podiatry: last month Laboratory Tests 04/23/25 05/08/25 09:23 14:08 Glucose (Clinic) 144 H Fasting Glucose 116 H Hemoglobin A1c % 6.3 H 04/23/25 09:23 TSH 0.19 L Free T4 0.94 Free T3 3.6 PFSH Medical History Toxic multinodular goiter Use of anastrozole Shoulder pain, bilateral Fibromyalgia History of breast cancer Hyperthyroidism HLD (hyperlipidemia) HTN (hypertension) DM2 (diabetes mellitus, type 2) Multinodular thyroid Personal history of nicotine dependence Diabetes type 2, uncontrolled History of adenomatous polyp of colon Vitamin D deficiency Arthritis Tubular adenoma of colon Adenocarcinoma of colon Constipation Positive CLEMENT (antinuclear antibody) COPD (chronic obstructive pulmonary disease) Essential hypertension Hyperlipidemia LDL goal <100 Low back pain Asthma Polymyalgia rheumatica Surgical History History of needle biopsy History of colonoscopy (~09/2020) History of cardiac cath (~09/2018) History of right breast biopsy (~10/2010) History of flexible sigmoidoscopy (~06/2013) History of rigid sigmoidoscopy (~04/2013) Hx of cholecystectomy Family History Father Diabetes CVD (cardiovascular disease) Mother Breast cancer Skin cancer Cancer Social History Household Members: Other Household Members Other:: Mother lives with her Alcohol intake: current Alcohol intake frequency: does not drink Patient Tobacco Use Status: Former Tobacco user Physical Exam Vital Signs: Last Vital Signs Pulse 88 05/08/25 14:00 BP 102/58 L 05/08/25 14:00 Pulse Ox 97 05/08/25 14:00 Oxygen Delivery Method Room Air 05/08/25 14:00 BMI result Body Mass Index 25.6 Const Orientation/consciousness: patient oriented x3 Neck Neck: Yes no lymphadenopathy Thyroid: Thyroid normal Carotids: no bruits Resp Auscultation: clear to auscultation bilaterally Cardio Rate: regular rate Rhythm: regular rhythm Heart sounds: S1 normal heart sound present and S2 normal heart sound present Peripheral pulses: dorsalis pedis present Neuro General: patient oriented x3, gait normal and no focal motor deficits Extrem Other: Monofilament sensation intact bilaterally. Vibratory sensation intact bilaterally. Skin intact. General: Yes normal to inspection Results Reviewed Results Reviewed: Laboratory Last Values Glucose (Clinic) 144 mg/dL (60-115) H 05/08/25 14:08 Laboratory Tests 08/25/22 08/14/24 08/27/24 13:30 13:23 13:52 Creatinine 0.64 Estimated GFR > 60 Random Glucose 155 H Hgb A1c (Clinic) 7.1 H Urine Creatinine 55.85 Urine Microalbumin 7.0 Microalb/Creat Ratio 12.5 Assessment & Plan Assessment & Plan (1) Controlled type 2 diabetes mellitus: Code(s): E11.9 - Type 2 diabetes mellitus without complications Category: Medical Qualifiers: Diabetes mellitus complication status: without complication Diabetes mellitus penitentiary insulin use: without long term care pharmacist use Qualified Code(s): E11.9 - Type 2 diabetes mellitus without complications Plan: T2DM Current A1c: 6.3% on 04/23/25 BG controlled per patient report but no data to review Continue Ozempic 1 mg. Advice to bring sensor to office next visit (2) Toxic multinodular goiter: Code(s): E05.20 - Thyrotoxicosis with toxic multinodular goiter without thyrotoxic crisis or storm Category: Medical Plan: This 63-year-old woman has a history of toxic multinodular goiter with bilateral thyroid nodules first identified in 2020, including a dominant right lobe nodule that was biopsied in June 2021 and found to be benign. By late 2021, she developed subclinical hyperthyroidism with persistently low TSH and normal free T4, and negative thyroid autoantibodies. Repeat ultrasound in June 2022 showed stable nodules, including a right inferior lobe nodule (now 1.2 cm) and a left inferior lobe nodule (1.6 cm, TI-RADS 5), with no clear evidence of growth. Thyroid uptake scan confirmed toxic multinodular goiter. She was started on methimazole 5 mg daily in 2022, but is unsure if she is currently taking it. She has no recent thyroid function tests. Although thyroidectomy was recommended due to her breast cancer history, she declined surgery. I discussed with the patient that while antithyroid medications can control hyperthyroidism, they are not always curative. Definitive treatment options include radioactive iodine (CRUZ) therapy and surgical thyroidectomy. CRUZ is taken orally, destroys overactive thyroid tissue, and usually results in lifelong thyroid hormone replacement; it is not suitable during or and may rarely worsen eye symptoms in Graves? disease. Surgery is considered for large goiters, suspicion of cancer, compressive symptoms, or when CRUZ is contraindicated, and also typically leads to lifelong hormone replacement, with risks such as hypoparathyroidism and nerve injury. We reviewed the risks and benefits of each option, and the patient will consider their preferences before making a decision. 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 Low bone density in the chart. No history of fractures. She is on vitamin-D, unclear of the dose. Given history of subclinical hyperthyroidism plus use of anastrozole we need to get bone density to evaluate for osteoporosis. Plan: -ordered bone density scan-not done prior to this visit Plan I spent 40 minutes in reviewing the record, seeing the patient and documenting in the medical record. 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
[2025-05-08 14:11] LABS: Glucose, Whole Blood 144 mg/dL (60-115)
--- OUTSIDE RECORDS SUMMARY | 2025-05-08 17:04 | XMS_ITS | Encounter Summary ---
Author Organization [employer] Address [address] [facility] 7t [place] [address] Care Team Providers Care Sustainability Engineer Name Role Phone Shalom Bey MD Primary Care Prov ider Ruth Ellis RN Unavailable Unavailable Encounter Details Date Type Department Care Team ([facility] st Contact Info) Description 06/29/2023 Orders Only [facility] CHC MED & PEDS [address] [place], [place] [phone] Shalom Bey MD [address] [place] [address] Social History Tobacco Use Types Packs/Day Years [...] documented as of this encounter Care Teams Sustainability Engineer Relationship Specialty Start Date End Date Shalom Bey MD [address] [place] [address] PCP - General Internal Medicine 11/05/19 Ruth Ellis RN [address] [place] [address] Urology PhysicianAccounting Intern Medicine 12/06/23 12/19/23 documented as of this encounter
--- OUTSIDE RECORDS SUMMARY | 2025-05-08 17:04 | XMS_ITS | Encounter Summary ---
Author Organization [employer] Address [address] [facility] 7t [place] [address] Care Team Providers Care Clinical Trial Coordinator Name Role Phone Shalom Bey MD Primary Care Prov ider Ruth Ellis RN Unavailable Unavailable Reason for Visit * Reason Comments Med Refill Encounter Details Date Type Department Care Team (Late st Contact Info) Description 09/15/2023 Refill [facility] MEDICINE [address] [place] [address] Shalom Bey MD [facility] [place] [phone] Primary insomnia Social History Tobacco Use Types [...] documented as of this encounter Care Teams Clinical Trial Coordinator Relationship Specialty Start Date End Date MgShalom Mendez MD [address] [place] [address] PCP - General Internal Medicine 11/05/19 Ruth Ellis RN [address] [place] [address] Preflight InspectorFinancial Analyst Accountant Medicine 12/06/23 12/19/23 documented as of this encounter
--- OUTSIDE RECORDS SUMMARY | 2025-05-08 17:04 | XMS_ITS | Encounter Summary ---
Author Organization [email or web address] Address [address] [facility] [address] 7t [place] [address] Care Team Providers Care Formulator Name Role Phone Shalom Bey MD Primary Care Prov ider Ruth Ellis RN Unavailable Unavailable Encounter Details Date Type Department Care Team (Late st Contact Info) Description 10/14/2023 Orders Only [facility] MEDICINE [address] [place] [address] ProviderRuchi MD Social History Tobacco Use Types [...] documented as of this encounter Care Teams Formulator Relationship Specialty Start Date End Date Shalom Bey MD [address] [facility] [place] [address] PCP - General Internal Medicine 11/05/19 Ruth Ellis RN 505 [facility] [place] [address] CutterDry Cell Assembly Supervisor Medicine 12/06/23 12/19/23 documented as of this encounter
--- OUTSIDE RECORDS SUMMARY | 2025-05-08 17:04 | XMS_ITS | Encounter Summary ---
Author Organization [employer] Address [address] [facility] 7t [place] [address] Care Team Providers Care Carburetor Rebuilder Name Role Phone Shalom Bey MD Primary Care Prov ider Reason for Visit * Reason Onset Date Comments Appointment Request 10/18/2024 Encounter Details Date Type Department Care Team ([facility] st Contact Info) Description 10/18/2024 Telephone [facility] MEDICINE [address] [place], [place] [phone] Shalom Bey MD [address] [facility] [address] AMARIS Velasquez [phone] Appointment Request Social History Tobacco Use Types [...] R/s appt from 10/18/24. Contact pt at [phone] documented in this encounter Plan of Treatment Not on file documented as of this encounter Visit Diagnoses Not on filedocumented in this encounter Additional Health Concerns Assessment Noted Time PHQ-9 Depression Total Score: 9 09/28/19 24 11:08 AM EDT documented as of this encounter Care Teams Carburetor Rebuilder Relationship Specialty Start Date End Date Shalom Bey MD [address] [place] [address] PCP - General Internal Medicine 11/05/19 documented as of this encounter
--- OUTSIDE RECORDS SUMMARY | 2025-05-08 17:04 | XMS_ITS | Encounter Summary ---
Author Organization [employer] Address [address] [facility] 7t [place] [address] Care Team Providers Care Barrel Lathe Operator Name Role Phone Shalom Bey MD Primary Care Prov ider Encounter Details Date Type Department Care Team ([facility] st Contact Info) Description 05/23/2024 Orders Only [facility] CHC MED & PEDS [address] [place], [place] [phone] Leila Mustafa MD [address] [place] [address] Type 2 diabetes mellitus without complication, without long-term current use of insulin ([facility]) Social History Tobacco Use Types [...] documented as of this encounter Care Teams Barrel Lathe Operator Relationship Specialty Start Date End Date Shalom Bey MD [address] [place] [address] PCP - General Internal Medicine 11/05/19 documented as of this encounter
--- OUTSIDE RECORDS SUMMARY | 2025-05-08 17:04 | XMS_ITS | Encounter Summary ---
Author Organization [employer] Address [address] [facility] 7t [place] [address] Care Team Providers Care Economic Development Director Name Role Phone Shalom Bey MD Primary Care Prov ider Reason for Visit * Reason Comments Med Refill Encounter Details Date Type Department Care Team ([facility] st Contact Info) Description 10/23/2024 Refill [facility] CHC MED & PEDS [address] [place] [address] Shalom Bey MD [address] [place] [address] Primary insomnia Social History Tobacco Use Types [...] documented as of this encounter Care Teams Economic Development Director Relationship Specialty Start Date End Date Shalom Bey MD [address] [place] [address] PCP - General Internal Medicine 11/05/19 documented as of this encounter
--- OUTSIDE RECORDS SUMMARY | 2025-05-08 17:04 | XMS_ITS | Encounter Summary ---
Author Organization [employer] Address [address] [facility] 7 [place] [address] Care Team Providers Care Fixed Income Director Name Role Phone Shalom Bey MD Primary Care Prov ider Ruth Ellis RN Unavailable Unavailable Reason for Visit * Reason Onset Date Comments PT-1 07/01/2023 Encounter Details Date Type Department Care Team (Late st Contact Info) Description 07/01/2023 Telephone [facility] MEDICINE [address] [place] [address] Shalom Bey MD 505 [facility] [place], [place] [phone] PT-1 Social History Tobacco Use Types Packs/Day [...] in regards to PT1. Pt spoke with [facility] and was advised will need a nurse or PCP to call [facility] by 07/02 for PT1 can be expedited and can have a ride for 07/04. * Telephone Encounter - Tae Mattson - 07/01/2023 9:12 AM EST PT1 needed Date: 07/04/23 Time: 2:30 Visits: 30 Address: [address] [place] [address] Facility: Oncology Wheel Chair: no Automobile Technician Needed: yes documented in this encounter Plan of Treatment Not on file documented as of this encounter Visit Diagnoses Not on filedocumented in this encounter Additional Health Concerns Assessment Noted Time PHQ-9 Depression Total Score: 14 12/22/ 023 10:41 AM EDT documented as of this encounter Care Teams Fixed Income Director Relationship Specialty Start Date End Date Shalom Bey MD [address] [place] [address] PCP - General Internal Medicine 11/05/19 Ruth Ellis RN 505 [place] [address] Computer TechnologistBetting Agency Manager Medicine 12/06/23 12/19/23 documented as of this encounter
--- OUTSIDE RECORDS SUMMARY | 2025-05-08 17:04 | XMS_ITS | Encounter Summary ---
Author Organization [employer] Address [address] [place] [address] [address] Care Team Providers Care Quality Assurance Assessor Name Role Phone Shalom Bey MD Primary Care Prov ider Ruth Ellis RN Unavailable Unavailable Reason for Visit * Reason Comments Med Refill Encounter Details Date Type Department Care Team ([facility] st Contact Info) Description 12/17/2022 Refill [facility] CHC MED & PEDS [address] [place] [address] Shalom Bey MD [address] [place] [address] Chronic obstructive pulmonary disease, unspecified (CMS/HCC) Social [...] (HCC) documented in this encounter Care Teams Quality Assurance Assessor Relationship Specialty Start Date End Date Shalom Bey MD [address] [place], [place] [phone] PCP - General Internal Medicine 11/05/19 Ruth Ellis RN [address] [place] [address] Poultry Husbandry WorkerInstrumentation And Control Technician Medicine 12/06/23 12/19/23 documented as of this encounter
--- OUTSIDE RECORDS SUMMARY | 2025-05-08 17:04 | XMS_ITS | Encounter Summary ---
Author Organization [employer] Address 75 [facility] 7t [place] [address] Care Team Providers Care Teacher Of The Emotionally Disturbed Name Role Phone Shalom Bey MD Primary Care Prov ider Encounter Details Date Type Department Care Team ([facility] st Contact Info) Description 08/27/2024 Orders Only [facility] CH[facility] MED & PEDS [address] [place], [place] [phone] Shalom Bey MD [address] [place], [place] [phone] Social History Tobacco Use Types Packs/Day Years [...] Whole Blood 120(H) 60 - 115 mg/dL [facility] Comment:METER #: [id number] Testing performed in the Endocrinology Department [address] , [address], [place]. 08/27/2024 1:47 PM EST 08/27/2024 1:53 PM EST us Generic External Data Provider LAB BLOOD ORDERAB LES Final Result [facility] [address] [place] [address] [phone] documented in this encounter Visit Diagnoses Not on filedocumented in this encounter Additional Health Concerns Assessment Noted Time PHQ-9 Depression Total Score: 9 09/28/19 24 11:08 AM EDT documented as of this encounter Care Teams Teacher Of The Emotionally Disturbed Relationship Specialty Start Date End Date Shalom Bey MD [address] [place] [id number] PCP - General Internal Medicine 11/05/19 documented as of this encounter
--- OUTSIDE RECORDS SUMMARY | 2025-05-08 17:04 | XMS_ITS | Encounter Summary ---
Author Organization [employer] Address 75 [facility] 7 [place] [address] Care Team Providers Care Travel Writer Name Role Phone Shalom Bey MD Primary Care Prov ider Ruth Ellis RN Unavailable Unavailable Reason for Visit * Reason Comments Med Refill Encounter Details Date Type Department Care Team ([facility] st Contact Info) Description 10/13/2023 Refill [facility] CHC MED & PEDS [address] [place], [place] [phone] Shalom Bey MD [address] [place] [address] Primary insomnia; Type 2 diabetes mellitus without complication, without long-term current use of insulin ([facility]) Social [...] documented as of this encounter Care Teams Travel Writer Relationship Specialty Start Date End Date Shalom Bey MD [address] [place] [address] PCP - General Internal Medicine 11/05/19 Ruth Ellis RN [address] [place] [address] Screen Repairer CrusherChucker Medicine 12/06/23 12/19/23 documented as of this encounter
--- OUTSIDE RECORDS SUMMARY | 2025-05-08 17:04 | XMS_ITS | Encounter Summary ---
Author Organization [employer] Address [address] [facility] [address] [place] [address] Care Team Providers Care Interior Design Coordinator Name Role Phone Shalom Bey MD Primary Care Prov ider Reason for Visit * Reason Comments Med Refill Encounter Details Date Type Department Care Team (Late st Contact Info) Description 07/23/2024 Refill [facility] CHC MED & PEDS [address] [place] [place] [phone] Amarilis Vera, ANP [address] [place] [address] Primary insomnia Social History Tobacco Use Types [...] documented as of this encounter Care Teams Interior Design Coordinator Relationship Specialty Start Date End Date Shalom Bey MD [address] [place] [id number] PCP - General Internal Medicine 11/05/19 documented as of this encounter
--- OUTSIDE RECORDS SUMMARY | 2025-05-08 17:04 | XMS_ITS | Encounter Summary ---
Author Organization [employer] Address 75 [facility] 7t [place] [address] Care Team Providers Care Pneumatic Riveter Name Role Phone Shalom Bey MD Primary Care Prov ider Ruth Ellis RN Unavailable Unavailable Encounter Details Date Type Department Care Team (Late st Contact Info) Description 02/22/2023 Abstract [facility] MEDICINE [address] [place] [address] Shalom Bey MD 505 [facility] [place] [address] Social History Tobacco Use Types Packs/Day Years [...] documented as of this encounter Care Teams Pneumatic Riveter Relationship Specialty Start Date End Date Shalom Bey MD [address] [place] [address] PCP - General Internal Medicine 11/05/19 Ruth Ellis RN 505 [place] [address] Bulb BranderClerical And Office Support Workers Medicine 12/06/23 12/19/23 documented as of this encounter
--- OUTSIDE RECORDS SUMMARY | 2025-05-08 17:04 | XMS_ITS | Encounter Summary ---
Author Organization [employer] Address 75 [facility] 7 [place] [address] Care Team Providers Care Kitchenwhere Maker Name Role Phone Shalom Bey MD Primary Care Prov ider Ruth Ellis RN Unavailable Unavailable Reason for Visit * Reason Onset Date Comments PT1 06/16/2023 Encounter Details Date Type Department Care Team (Late st Contact Info) Description 06/16/2023 Telephone [facility] MEDICINE [address] [place] [address] Shalom Bey MD 505 [facility] [place] [address] PT1 Social History Tobacco Use Types Packs/Day [...] Date: 06/28/2022-07/27/2022 Time: 10:30 am Visits: Address: [address] [place] [address] Facility: [facility] [place] Radiology Wheel Chair: Yes Manager Advanced Needed: Yes documented in this encounter Plan of Treatment Not on file documented as of this encounter Visit Diagnoses Not on filedocumented in this encounter Additional Health Concerns Assessment Noted Time PHQ-9 Depression Total Score: 14 023 10:41 AM EDT documented as of this encounter Care Teams Kitchenwhere Maker Relationship Specialty Start Date End Date Shalom Bey MD 505 [facility] [address] PCP - General Internal Medicine 11/05/19 Ruth Ellis RN 505 [facility] [address] Medical DirData Entry Operator Medicine 12/06/23 12/19/23 documented as of this encounter
--- OUTSIDE RECORDS SUMMARY | 2025-05-08 17:04 | XMS_ITS | Encounter Summary ---
Author Organization [employer] Address 75 [facility] 7t [place] [address] Care Team Providers Care House Coordinator Name Role Phone Shalom Bey MD Primary Care Prov ider Ruth Ellis RN Unavailable Unavailable Reason for Visit * Reason Comments Med Refill Encounter Details Date Type Department Care Team (Late st Contact Info) Description 09/23/2023 Refill [facility] MEDICINE [address] [place] [address] Shalom Bey MD [facility] [place] [id number] Primary insomnia Social History Tobacco Use Types [...] documented as of this encounter Care Teams House Coordinator Relationship Specialty Start Date End Date MgShalom Mendez MD [address] [place] [address] PCP - General Internal Medicine 11/05/19 Ruth Ellis RN [address] [place] [address] Stave And Bolt EqualizerCasing Operator Medicine 12/06/23 12/19/23 documented as of this encounter
--- OUTSIDE RECORDS SUMMARY | 2025-05-08 17:04 | XMS_ITS | Encounter Summary ---
Author Organization [employer] Address 75 [facility] 7 [place] [address] Care Team Providers Care Urologic Surgeon Name Role Phone Shalom Bey MD Primary Care Prov ider Ruth Ellis RN Unavailable Unavailable Reason for Visit * Reason Onset Date Comments pt1 07/02/2022 Encounter Details Date Type Department Care Team (Late st Contact Info) Description 07/02/2022 Telephone [facility] MEDICINE [address] [place] [address] Shalom Bey MD 505 [facility] [place] [address] pt1 Social History Tobacco Use Types Packs/Day [...] EST Tc from pt requesting PT1 Location: [address] [address] Specialty: n/a Time: 10 am Date: 07/08/22 Nursing Consultant: yes wheelchair accessible : n/a Location: [address] [address] Specialty: n/a Time: 10 am Date: 07/09/22 Nursing Consultant: yes wheelchair accessible : n/a documented in this encounter Plan of Treatment Not on file documented as of this encounter Visit Diagnoses Not on filedocumented in this encounter Care Teams Urologic Surgeon Relationship Specialty Start Date End Date Shalom Bey MD [address] [place] [address] PCP - General Internal Medicine 11/05/19 Ruth Ellis RN [address] [place] [address] Adventure Education TeacherContract Graphic Designer Medicine 12/06/23 12/19/23 documented as of this encounter
--- OUTSIDE RECORDS SUMMARY | 2025-05-08 17:05 | XMS_ITS | Encounter Summary ---
Author Organization [employer] Address 75 [facility] 7t [place] [address] Care Team Providers Care Opera Singer Name Role Phone Shalom Bey MD Primary Care Prov ider Ruth Ellis RN Unavailable Unavailable Encounter Details Date Type Department Care Team ([facility] st Contact Info) Description 11/24/2022 Abstract [facility] MED & PEDS [address] [place] [address] Shalom Bey MD [address] [place] [address] Social History Tobacco Use Types Packs/Day Years [...] on filedocumented in this encounter Care Teams Opera Singer Relationship Specialty Start Date End Date Shalom Bey MD [address] [place] [address] PCP - General Internal Medicine 11/05/19 Ruth Ellis RN [address] [place] [address] Relief PharmacistRecruitment And Outreach Assistant Medicine 12/06/23 12/19/23 documented as of this encounter
--- OUTSIDE RECORDS SUMMARY | 2025-05-08 17:05 | XMS_ITS | Clinical Summary ---
Author Organization [employer] Address [address] [facility] [address] [place] [address] Care Team Providers Care Oral And Maxillofacial Surgeon Name Role Phone Shalom Bey MD [...] 23 Active ergocalciferol (Vitamin D2) 1.25 MG (50581 UT) capsuleIndication s:Vitamin D deficiency TAKE ONE [...] complication, without long-term current use of insulin ([facility]) To test the blood sugar once a day 100 each 12 05/30/20 24 2024 Active metFORMIN XR (Glucophage-XR) 500 MG 24 hr tabletIndications :Type 2 diabetes mellitus without complication, without long-term current use of insulin ([facility]) TAKE ONE TABLET TWICE DAILY 180 tablet 3 07/13/19 25 Active Januvia 100 MG tablet TAKE ONE TABLET DAILY 90 tablet 1 12/07/19 25 Active albuterol (2.5 MG/3ML) 0.083% nebulizer solutionIndicatio ns:Chronic obstructive pulmonary disease, unspecified ([facility]) USE 1 VIAL IN NEBULIZER 3 [...] Problem Noted Date Diagnosed Date Benzodiazepine dependence ([facility]) 04/11/2025 Mixed simple and mucopurulent chronic bronchitis ([facility]) 04/11/2025 Assessment & Plan (04/11/2025 12:08 PM [...] send refill, lifestyle modifications reviewed Breast cancer ([facility]) 04/13/2023 04/13/20 Assessment & Plan (04/11/2025 12:07 [...] 6.0%, no changes will be made, following windows admin, will follow up in 3 months in office Patient refers her eye exam is scheduled in the coming months Encounters Date Type Department Care Team Description 04/23/2025 Orders Only GENERIC EXTERNAL DATA DEPARTMENT Provider, Generic External Data 04/22/2025 Refill [facility] [address] [place] [address] Shalom Bey MD 04/15/2025 Telephone [facility] [address] [place] [address] Shalom Bey MD Referral 04/15/2025 Telephone [facility] [address] [place] [address] Shalom Bey MD Med Refill 04/15/2025 Refill [facility] [address] [place] [address] Shalom Bey MD Primary insomnia 04/11/2025 11:30 AM EDT Telemedicine [facility] [address] [place] [address] Shalom Bey MD Benzodiazepine dependence (CMS/HCC) (HCC) (Primary Dx); Mixed simple and mucopurulent chronic bronchitis (CMS/HCC) (HCC); Dietary counseling; Exercise counseling; Mixed hyperlipidemia; Malignant neoplasm of right breast in female, estrogen receptor positive, unspecified site of breast (CMS/HCC) (HCC); Type 2 diabetes mellitus without complication, without long-term current use of insulin (HCC) 04/10/2025 Telephone [facility] [address] [place] [address] Shalom Bey MD chart prep 04/08/2025 Travel 04/05/2025 Telephone [facility] [address] [place] [address] Shalom Bey MD chart prep 03/19/2025 Telephone [facility] [address] [place] [address] Shalom Bey MD Med Refill 03/18/2025 10:30 AM EDT Clinical Support [facility] [address] [place] [address] Domenica Brar RN Visit for suture removal 03/18/2025 Travel 03/18/2025 Refill [facility] [address] [place] [address] Shalom Bey MD Primary insomnia 03/14/2025 Telephone [facility] [address] [place] [address] Shalom Bey MD Appointment Request 03/01/2025 Refill [facility] [address] [place] [address] Shalom Bey MD 02/13/2025 Refill [facility] [address] [place] [address] Shalom Bey MD Primary insomnia 02/10/2025 Orders Only [facility] External Provider, [facility] from Last 3 Months Family History [...] included. Sodium 146(H) 135 - 145 mmol/L [facility] Potassium 4.3 3.3 - 5.1 mmol/L [facility] Chloride 109(H) 96 - 108 mmol/L [facility] Carbon Dioxide 29 22 - 29 mmol/L [facility] Anion Gap 12 12 - 20 [facility] Urea Nitrogen (BUN) 8(L) 9 - 16 mg/dL [facility] Creatinine, Serum 0.62 0.5 - 1.4 mg/dL [facility] Estimated Glomerular Filt Rate >60 [facility] Comment:Chronic Kidney Disea se: Estimated GFR < 60 mL/min/1.10s0Luolpt Kidney Disease: Estimated GFR < 15 mL/min/1.73m2 Glucose Fasting 116(H) 60 - 99 mg/dL [facility] Comment:A fasting glucose fr om 100-125 mg/dl is considered impaired(pre-diabetes). Calcium 9.8 8.4 - 10.2 mg/dL [facility] Bilirubin, Total 0.5 0.0 - 1.0 mg/dL [facility] Aspartate Amino Transferase 17 5 - 31 U/L [facility] Alanine Aminotransferase 13 0 - 31 U/L [facility] Total Protein 7.4 6.5 - 8.0 g/dL [facility] Albumin Level 4.7 3.5 - 5.0 g/dL [facility] Alkaline Phosphatase 79 39 - 117 U/L [facility] 04/23/2025 9:23 AM EDT 04/23/2025 9:23 AM EDT us Generic External Data Provider LAB BLOOD ORDERAB LES Final Result [facility] [address] [place] [phone] * T3, Free (04/23/2025 9:23 AM EDT) T3, Free 3.6 2.3 - 4.2 pg/mL [facility] Comment:THIS TEST WAS PERFOR MED AT:[employer] [place] [id number] PERALTA MD 04/23/2025 9:23 AM EDT 04/23/2025 9:23 AM EDT us Generic External Data Provider LAB BLOOD ORDERAB LES Final Result Performing Organization Address [facility]/ZIP Co de Phone Number [facility] [address] [place] [phone] * (ABNORMAL) TSH (04/23/2025 9:23 AM EDT) Thyroid Stimulating Hormone 0.19(L) 0.32 - 4.0 uIU/mL [facility] Comment:TSH 3rd Generation ( [facility]) 04/23/2025 9:23 AM EDT 04/23/2025 9:23 AM EDT Generic External Data Provider LAB BLOOD ORDERAB LES Final Result Performing Organization Address [facility] Co de Phone Number [facility] [address] [place] [phone] * T4, Free (04/23/2025 9:23 AM EDT) Free T4 (Free Thyroxine) 0.94 0.71 - 1.85 ng/dL [facility] 04/23/2025 9:23 AM EDT 04/23/2025 9:23 AM EDT Generic External Data Provider LAB BLOOD ORDERAB LES Final Result Performing Organization Address City/[facility] Co de Phone Number [facility] [address] [place] [phone] * (ABNORMAL) Hemoglobin A1c (04/23/2025 9:23 AM EDT) Hemoglobin A1c 6.3(H) <6.0 % [facility] Comment:Hemoglobin A1C Refer ence Range Adults: 4.8 - 6.0 % Non diabetic: < 6.0 % Goal: < 7.0 %Additional Action Suggested: > 8.0 %Note: Hemoglobin A1c results are invalid for patients with abnormal amounts of HbF. Blood transfusions may impact the HbA1c concentration in the patient sample. Estimated Average Glucose 134 mg/dL [facility] Comment:eAG = Estimated ave rage glucose which is %A1C expressed asaverage glucose, using the formula of the I4O-XrjljpaYwslmgz Glucose study (ADAG), Diabetes Care, Vol.31,#8,2007 04/23/2025 9:23 AM EDT 04/23/2025 9:23 AM EDT us Generic External Data Provider LAB BLOOD ORDERAB LES Final Result Performing Organization Address [facility] Co de Phone Number [facility] [address] [place] [phone] * Calcium (04/23/2025 9:23 AM EDT) Calcium 9.8 8.4 - 10.2 mg/dL [facility] 04/23/2025 9:23 AM EDT 04/23/2025 9:23 AM EDT Generic External Data Provider LAB BLOOD ORDERAB LES Final Result Performing Organization Address [facility] de Phone Number [facility] [address] [place] [phone] * Albumin (04/23/2025 9:23 AM EDT) Albumin Level 4.7 3.5 - 5.0 g/dL [facility] 04/23/2025 9:23 AM EDT 04/23/2025 9:23 AM EDT Generic External Data Provider LAB BLOOD ORDERAB LES Final Result Performing Organization Address [facility] de Phone Number [facility] [address] [place] [phone] * Hepatic Function Panel (04/23/2025 9:23 AM EDT) Bilirubin, Total 0.5 0.0 - 1.0 mg/dL [facility] Bilirubin, Direct 0.2 0.0 - 0.5 mg/dL [facility] Aspartate Amino Transferase 22 5 - 31 U/L [facility] Alanine Aminotransferase 13 0 - 31 U/L [facility] Total Protein 7.5 6.5 - 8.0 g/dL [facility] Albumin Level 4.7 3.5 - 5.0 g/dL [facility] Alkaline Phosphatase 80 39 - 117 U/L [facility] Blood Venous blood specimen / Unknown 04/23/2025 9:23 AM EDT 04/23/2025 9:23 AM EDT Shalom Chris MD LAB BLOOD ORDERABL ES Final Result [facility] [address] [place] [phone] * (ABNORMAL) Lipid Panel, Standard (04/23/2025 9:23 AM EDT) Triglycerides 130 <150 mg/dL [facility] Comment:Desirable Triglyceri de: less than 150 mg/dLBorderline High Triglyceride 150-199 mg/dLHigh Triglyceride: 200-499 mg/dLVery High Triglyceride: greater than or equal to 5OO mg/dL Cholesterol 153 <200 mg/dL [facility] Comment:Desirable Cholestero l: less than 200 mg/dLBorderline High Cholesterol: 200-239 mg/dLHigh Cholesterol: greater than 239 mg/dL LDL Cholesterol Calculated 89 <100 mg/dL [facility] Comment:Desirable LDL: less than 100 mg/dLNear Optimal/Above Optimal LDL: 110- 129 mg/dLBorderline High LDL: 130-159 mg/dLHigh LDL: 160-189 mg/dLVery High LDL: greater than or equal to 190 mg/dL HDL Cholesterol 38(L) >40 mg/dL [facility] Comment:Desirable HDL: great er than 40 mg/dL Note: This HDL assay may give artificially low results in patients with liver disease. Blood Venous blood specimen / Unknown 04/23/2025 9:23 AM EDT 04/23/2025 9:23 AM EDT Shalom Chris MD LAB BLOOD ORDERABL ES Final Result Performing Organization Address [facility] de Phone Number [facility] [address] [place] [phone] * Albumin, Random Urine W/Creatinine (04/23/2025 9:18 AM EDT) Creatinine, Urine 72.73 mg/dL [facility] Microalbumin Urine 5.0 mg/L [facility] Microalbum Creatinine Ratio Ur 6.8 <30 ug/mg cr [facility] Comment:Albumin/Creatinine R atio Reference Ranges: Normal: < 30 ug/mg creatinine Microalbuminuria: 30 - 300 ug/mg creatinineClinical Albuminuria: > 300 ug/mg creatinine Urine (Urine, Random) 04/23/2025 9:18 AM EDT 04/23/2025 9:34 AM EDT Shalom Chris MD LAB URINE ORDERABL ES Final Result Performing Organization Address [facility] de Phone Number [facility] [address] [place] [phone] * XR Fingers 2+ Views Right (03/09/2025 1:48 AM EDT) Anatomical Region Laterality Modality Upper Extremities, Fingers Right [employer] [facility] 03/09/2025 1:48 AM EDT Narrative 03/09/2025 1:49 AM EDT [address] [address] XRay Report Signed Patient: Marnie Arce I MR#: [id number] : 1960 Acct:[id number] Age/Sex: 64 / F ADM Date: 03/09/25 Loc: .ED Attending Dr: Ordering Physician: Uriel Bar MD Date of Service: 03/09/25 Procedure(s): XR finger RT min 2V Accession Number(s): [id number] cc: Shalom Bey MD; Uriel Bar MD [...] in OV> 03/09/25148 DD/ 7 TD/TT: 03/09/25147 Activity Therapist: Procedure Note Donotuseinterpreter, Image - 03/09/2025 [place] [address] XRay Report Signed Patient: Marnie Arce IMR#: [id number] : 1960cct:[id number] Age/Sex: 64 / FADM Date: 03/09/25 Loc: HO.ED Attending Dr: Ordering Physician: Uriel Bar MD Date of Service: 03/09/25 Procedure(s): XR finger RT min 2V Accession Number(s): [id number] cc: Shalom Bey MD; Uriel Bar MD [...] OV> 03/09/25 0149 DD/ 7 TD/TT: 03/09/25147 Activity Therapist: us [facility] External Provider IMG XR PROCEDURES Final Result * CT Sinus Facial Bones w/o Contrast (02/10/2025 3:25 AM EDT) Anatomical Region Laterality Modality Computed Tomogra phy 02/10/2025 3:25 AM EDT Narrative 02/10/2025 3:26 AM EDT [address] [address] [address] Scan Report Signed Patient: Marnie Arce I MR#: [id number] : 1960 Acct:[id number] Age/Sex: 64 / F ADM Date: 02/10/25 Loc: HO.ED Attending Dr: Ordering Physician: Katharina Bhatia MD Date of Service: 02/10/25 Procedure(s): CT facial bones wo IV con Accession Number(s): [id number] cc: Shalom Bey MD; Katharina Bhatia MD Report Number: [id number]: Total DLP = 283.00 mGy-cm CLINICAL HISTORY: [...] in OV> 02/10/256 DD/ 4 TD/TT: 02/10/25324 Activity Therapist: Procedure Note Donotuseinterpreter, Image - 02/10/[address] [address] [address] Scan Report Signed Patient: Marnie Arce [facility]#: [id number] : 1960cct:[id number] Age/Sex: 64 / FADM Date: 02/10/25 Loc: HO.ED Attending Dr: Ordering Physician: Katharina Bhatia MD Date of Service: 02/10/25 Procedure(s): CT facial bones wo IV con Accession Number(s): [id number] cc: Shalom Bey MD; Katharina Bhatia MD Report Number: [id number]: Total DLP = 283.00 mGy-cm CLINICAL HISTORY: [...] in OV> 02/10/25325 DD/ 4 TD/TT: 02/10/25324 Activity Therapist: [facility] External Provider IMG CT PROCEDURES Edited Result - Final * CT Cervical Spine w/o Contrast (02/10/2025 3:12 AM EDT) Anatomical Region Laterality Modality Spine, C-spine Computed Tomogra phy 02/10/2025 3:12 AM EDT Narrative 02/10/2025 3:14 AM EDT [place] [address] CT Scan Report Signed Patient: Marnie Arce I MR#: [id number] : 1960 Acct:[id number] Age/Sex: 64 / F ADM Date: 02/10/25 Loc: HO.ED Attending Dr: Ordering Physician: Katharina Bhatia MD Date of Service: 02/10/25 Procedure(s): CT cervical spine wo IV con Accession Number(s): [id number] cc: Shalom Bey MD; Katharina Bhatia MD Report Number: [id number]: Total DLP = 289.00 mGy-cm CLINICAL HISTORY: [...] in OV> 02/10/25312 DD/ 1 TD/TT: 02/10/25311 Activity Therapist: Procedure Note Donotuseinterpreter, Image - 02/10/[address] [place] [address] [address] Scan Report Signed Patient: Marnie Arce IMR#: [id number] : 1960cct:[id number] Age/Sex: 64 / FADM Date: 02/10/25 Loc: HO.ED Attending Dr: Ordering Physician: Katharina Bhatia MD Date of Service: 02/10/25 Procedure(s): CT cervical spine wo IV con Accession Number(s): [id number] cc: Shalom Bey MD; Katharina Bhatia MD Report Number: [id number]: Total DLP = 289.00 mGy-cm CLINICAL HISTORY: [...] in OV> 02/10/25312 DD/ 1 TD/TT: 02/10/25311 Activity Therapist: [facility] External Provider IMG CT PROCEDURES Edited Result - Final * CT Head w/o Contrast (02/10/2025 1:47 AM EDT) Anatomical Region Laterality Modality Head, Neck Computed Tomogra phy 02/10/2025 1:47 AM EDT Narrative 02/10/2025 1:48 AM EDT [address] [address] [address] Scan Report Signed Patient: Marnie Arce I MR#: [id number] : 1960 Acct:[id number] Age/Sex: 64 / F ADM Date: 02/10/25 Loc: HO.ED Attending Dr: Ordering Physician: Katharina Bhatia MD Date of Service: 02/10/25 Procedure(s): CT head/brain wo IV con Accession Number(s): [id number] cc: Shalom Bey MD; Katharina Bhatia MD Report Number: [id number]: Total DLP = 621.00 mGy-cm CLINICAL HISTORY: [...] in OV> 02/10/25147 DD/ 6 TD/TT: 02/10/25146 Activity Therapist: Procedure Note Donotuseinterpreter, Image - 02/10/[address] [place] [address] [address] Scan Report Signed Patient: Marnie Arce [facility]#: [id number] : 1960cct:[id number] Age/Sex: 64 / FADM Date: 02/10/25 Loc: HO.ED Attending Dr: Ordering Physician: Katharina Bhatia MD Date of Service: 02/10/25 Procedure(s): CT head/brain wo IV con Accession Number(s): [id number] cc: Shalom Bey MD; Katharina Bhatia MD Report Number: [id number]: Total DLP = 621.00 mGy-cm CLINICAL HISTORY: [...] in OV> 02/10/25147 DD/ 6 TD/TT: 02/10/25146 Activity Therapist: [facility] External Provider IMG CT PROCEDURES Edited Result - Final * (ABNORMAL) CBC auto differential (02/10/2025 1:25 AM EDT) White Blood Count 10.1 4.8 - 10.8 X10*3/uL [facility] Red Blood Count 4.43 4.20 - 5.50 X10*6/uL [facility] Hemoglobin 12.4 12.0 - 16.0 g/dl [facility] Hematocrit 36.0(L) 37.0 - 47.0 % [facility] Mean Corpuscular Volume 81.3 80.0 - 98.0 fL [facility] Mean Corpuscular Hemoglobin 28.0 27.0 - 33.0 pg [facility] Mean Corpuscular HGB Conc 34.4 31.0 - 35.0 g/dl [facility] Red Cell Distribution Width 13.2 11.0 - 16.0 % [facility] Platelet Count 154(L) 160 - 400 X10*3/uL [facility] Mean Platelet Volume 10.2 9.4 - 12.3 fL [facility] Neutrophils Percent Auto 79.8(H) 45 - 73 % [facility] Imm Gran Pct Auto 0.4 0.0 - 0.4 % [facility] Lymphocytes Percent Auto 12.5(L) 20 - 40 % [facility] Monocytes Percent Auto 6.0 2 - 11 % [facility] Eosinophils Percent Auto 0.9 0 - 4 % [facility] Basophils Percent Auto 0.4 0 - 2 % [facility] NRBC Pct Auto 0.0 0.0 - 0.2 /100WBC [facility] Neutrophils Absolute Auto 8.1 2.0 - 8.3 x10*3/uL [facility] Imm Gran Abs Auto 0.04(H) 0.00 - 0.03 X10*3/uL [facility] Lymphocytes Absolute Auto 1.3 1.2 - 4.9 X10*3/uL [facility] Monocytes Absolute Auto 0.6 0.1 - 1.2 X10*3/uL [facility] Eosinophils Absolute Auto 0.1 0.0 - 0.4 X10*3/uL [facility] Basophils Absolute Auto 0.0 0.0 - 0.2 X10*3/uL [facility] NRBC Abs Auto 0.000 0.0 - 0.012 X10*3/uL [facility] 02/10/2025 1:25 AM EDT 02/10/2025 1:26 AM EDT us Generic External Data Provider LAB BLOOD ORDERAB LES Final Result [facility] [address] [place] [phone] * (ABNORMAL) Mammography (10/22/2022 9:22 AM [...] purpose. For additional information please refer to http://education.[employer]ter/faq/EAS426 (This link is being provided for informational/ educational purposes only.) The performance of this assay has not been clinically validated in patients less than 2 years old. 04/16/2022 9:21 AM EDT Shalom Chris MD LAB BLOOD ORDERABL ES Final Result [facility] * THINPREP TIS PAP AND HPV mRNA E6/E7 REFLEX HPV 16,18/45 (04/28/2021 11:30 AM EDT) Pathologist [facility] Clinical Information: DEE DEE [facility] COMMENT SEE COMMENT [facility] ON [...] has been evaluated with computer assisted technology. [facility] Hot Mill Supervisor: SEE COMMENT [facility] Comment: WAC, CT(ASCP) CT screening location: [address] [address] HPV nRNA E6/E7 Not Detected Not Detected [facility] Comment: Methodology: Chemist Steroids-Mediated Amplification This assay detects E6/E7 viral messenger RNA (mRNA) from 14 high-risk HPV types (16,18,31,33,35,39,45,51,52,56,58,59,66,68). The analytical performance characteristics of this assay have been determined by [employer]. The modifications have not been cleared or approved by the FDA. This assay has been validated pursuant to the CLIA regulations and is used for clinical purposes. For additional information, please refer to http://education.Duxter/faq/GLP924s0 (This link if provided for information/ educational [...] PATHOLOGY ORDERABLES Final Result Performing Organization Address City/[facility]/ZIP Co de Phone Number [facility] [address] [place] [address], * Pap Smear (04/28/2021 12:00 AM EDT) Swab Kayla [facility] CYTOLOGY ORDERABLES F inal Result Performing Organization Address City/[facility]/ZIP Co de Phone Number [address], [place] [phone] * Colonoscopy (09/10/2020 1:08 PM EDT) Historical Provider HEALTH MAINTENANCE Final Result from Last 3 Months or Most Recently Relevant to Health Maintenance Insurance [place] [phone] [facility] STANDARD [address] Care Teams Oral And Maxillofacial Surgeon Relationship Specialty Start Date End Date Shalom Bey MD [address] [place] [address] AMARIS Velasquez PCP - General Internal Medicine 11/05/19
== END 2025-05-08 14:39 | disposition home or self-care (01) ==
LOC: HO.ENCR 13:53
PROVIDERS: PCP Internal Medicine; Visit Provider Student in an Organized Health Care Education/Training Program
DX: E11.9 Type 2 diabetes mellitus without complications (principal); E05.20 Thyrotoxicosis with toxic multinodular goiter without thyrotoxic crisis or storm; Z79.811 Long term (current) use of aromatase inhibitors
CPT/HCPCS: 99214; G2211

== ENCOUNTER → 2025-05-08 13:52 | Outpatient (BNVA) | payer MEDICARE, MEDICAID, SELFPAY | PROVIDERS: PCP Internal Medicine; Visit Provider Student in an Organized Health Care Education/Training Program | DX: E11.9 Type 2 diabetes mellitus without complications (principal); Z79.84 Long term (current) use of oral hypoglycemic drugs; Z79.85 Long-term (current) use of injectable non-insulin antidiabetic drugs; E05.20 Thyrotoxicosis with toxic multinodular goiter without thyrotoxic crisis or storm; Z85.3 Personal history of malignant neoplasm of breast; Z87.891 Personal history of nicotine dependence; Z79.811 Long term (current) use of aromatase inhibitors | CPT/HCPCS: 82947; 99212 ==